=== PATIENT | male | born 1940 ===

== ENCOUNTER 2017-07-18 14:38 | Inpatient (IN) | payer MEDICARE, MEDICAID ==
--- NOTE | 2017-07-18 15:49 | C.PDOC ---
History Of Present Illness 76 year old male with a past medical history of dementia who presents to the emergency department accompanied by family who are concerned because patient is sleeping during the day and ambulating during the night. As per history from family, patient is has a increased frequency of escaping the house and being returned by the police. Patient has an ataxic gait without fall. Patient also has a history of incontinence of urine and has been wearing a diaper since May. Time Seen by Provider: 07/18/17 15:43 Chief Complaint (Nursing): Medical Clearance History Per: Patient, Family History/Exam Limitations: no limitations Past Medical History Reviewed: Historical Data, Nursing Documentation, Vital Signs Vital Signs: Last Vital Signs Temp 97.2 F L 07/21/17 16:00 Pulse 69 07/21/17 16:00 Resp 20 07/21/17 16:00 BP 125/71 07/21/17 16:00 Pulse Ox 100 07/22/17 00:33 - Medical History PMH: Alzheimer's Disease (yes, per FAS report), HTN Family History: States: No Known Family Hx - Social History Hx Alcohol Use: No (unknown) Hx Substance Use: No (unknown) - Immunization History Hx Tetanus Toxoid Vaccination: No Hx Influenza Vaccination: No Hx Pneumococcal Vaccination: No Review Of Systems Except As Marked, All Systems Reviewed And Found Negative. (As per HPI, otherwise negative) Genitourinary: Positive for: Incontinence (Not new, patient has been wearing diaper since may) Physical Exam - Physical Exam Appears: Well (Pleasent elderly man), Non-toxic, Confused Skin: Normal Color, Warm, Dry Head: Atraumatic, Normacephalic Cardiovascular: Rhythm Regular, No Murmur Respiratory: Normal Breath Sounds, No Decreased Breath Sounds, No Accessory Muscle Use, No Wheezing Neurological/Psych: Oriented x3, Normal Speech Gait: Steady (Mildly intact) ED Course And Treatment - Laboratory Results Result Diagrams: 07/21/17 07:30 07/21/17 07:30 Lab Interpretation: Normal ECG: Interpreted By Me ECG Rhythm: Sinus Rhythm ECG Interpretation: Normal Rate From EC O2 Sat by Pulse Oximetry: 100 (RA) Pulse Ox Interpretation: Normal - Radiology CXR: Interpreted by Me CXR Interpretation: Yes: No Acute Disease Reevaluation Time: 18:37 Reassessment Condition: Improved - Physician Consult Information Outcome Of Conversation: 1830: d/w Dr. Guan- Hospitalist covering self-pay , ok to admit. 1700: d/w Dr Sherman- Neuro Applications Coordinator- recommends Obs and MRI in AM to help differentiate between communicating/non-communicating hydrocephalus and potential for developing pt's dementia vs long-standing Alzheimers. Medical Decision Making Medical Decision Making: gait ataxia, non-magnetic gait, urinary incontinence, and hydrocephalus on CT concerning for NPH vs communicating hydrocephalus vs Alzheimer's Dementia. Time: 1548 --EKG --Drug, Screen --Head CT Time: 1628 --Obstructive Seris Time: 1643 --Head Ct IMPRESSION: Moderate diffuse atrophy. Mild dilatation of the 3rd and lateral ventricles disproportion to the degree of surrounding parenchymal atrophy. Possible noncommunicating hydrocephalus. No intracranial mass, hemorrhage or evidence of acute infarct. Time: 1718 --Neurology Consult with Dr. Cruz Sherman MD Time: 1814 --Admit to hospital routine: in Observation for hydrocephalus, ataxia, urinary incontinence, and dementia under the care of Dr. Dora Cavazos MD. Disposition Doctor Will See Patient In The: Hospital Counseled Patient/Family Regarding: Studies Performed, Diagnosis - Disposition Disposition: HOSPITALIZED Disposition Time: 18:41 Condition: GOOD - Clinical Impression Clinical Impression: Dementia, Hydrocephalus - Scribe Statement Nat King All medical record entries made by the Scribe were at my direction and personally dictated by me. I have reviewed the chart and agree that the record accurately reflects my personal performance of the history, physical exam, medical decision making, and the department course for this patient. I have also personally directed, reviewed, and agree with the discharge instructions and disposition.
[2017-07-18 16:06] LABS: BASO # 0.1 K/uL (0.0-0.2); BASO % 0.9 % (0.0-2.0); EOS # 0.2 K/uL (0.0-0.7); EOS % 2.4 % (0.0-4.0); HEMOGLOBIN 13.3 g/dL (12.0-18.0); LYMPH # 2.6 K/uL (1.0-4.3); LYMPH % 30.4 % (20.0-40.0); MEAN CELL VOLUME 94.8 fL (80.0-94.0); MEAN CORPUSCULAR HEMOGLOBIN 32.7 pg (27.0-31.0); MEAN CORPUSCULAR HGB CONC 34.5 g/dL (33.0-37.0); MEAN PLATELET VOLUME 10.5 fL (7.2-11.7); MONO # 0.9 K/uL (0.0-0.8); MONO % 10.5 % (0.0-10.0); NEUT # 4.7 K/uL (1.8-7.0); NEUT % 55.8 % (50.0-75.0); NRBC % 0.1 % (0.0-2.0); RBC 4.07 Mil/uL (4.40-5.90); RED CELL DISTRIBUTION WIDTH 13.8 % (11.5-14.5); WHITE BLOOD COUNT 8.5 K/uL (4.8-10.8)
--- NOTE | 2017-07-18 16:52 | CT ---
PROCEDURE: CT HEAD WITHOUT CONTRAST. HISTORY: demented, changed behavior, ? SDH?NPH COMPARISON: None available. TECHNIQUE: Axial computed tomography images were obtained through the head/brain without intravenous contrast. Radiation dose: Total exam DLP = 980.87 mGy-cm. This CT exam was performed using one or more of the following dose reduction techniques: Automated exposure control, adjustment of the mA and/or kV according to patient size, and/or use of iterative reconstruction technique. FINDINGS: HEMORRHAGE: No intracranial hemorrhage. BRAIN: No mass effect or edema. Moderate diffuse atrophy. No evidence of acute infarct. VENTRICLES: There is mild dilatation of the 3rd and lateral ventricles. There is no significant dilatation of the temporal horns of the lateral ventricles. This may reflect noncommunicating hydrocephalus. It is slightly disproportionate to the degree of surrounding parenchymal atrophy. . CALVARIUM: Unremarkable. PARANASAL SINUSES: Unremarkable as visualized. No significant inflammatory changes. MASTOID AIR CELLS: Unremarkable as visualized. No inflammatory changes. OTHER FINDINGS: None. IMPRESSION: Moderate diffuse atrophy. Mild dilatation of the 3rd and lateral ventricles disproportion to the degree of surrounding parenchymal atrophy. Possible noncommunicating hydrocephalus. No intracranial mass, hemorrhage or evidence of acute infarct.
[2017-07-18 17:04] LABS: CALCIUM 8.2 mg/dl (8.6-10.4); GFR AFRICAN-AMERICAN > 60; GFR NON-AFRICAN AMERICAN > 60
[2017-07-18 17:10] LABS: ALB/GLOB RATIO 1.3 (1.0-2.1); ALBUMIN 4.1 g/dL (3.5-5.0); ALT/SGPT 31 U/L (21-72); AST/SGOT 34 U/L (17-59); BLOOD UREA NITROGEN 21 mg/dL (9-20)
--- NOTE | 2017-07-18 20:07 | CP.PCM.HP ---
<Aminata Bryant - Last Filed: 07/18/17 21:54> History of Present Illness - History of Present Illness History of Present Illness: HPI: Patient is a 76 year old male with past medical history of Alzheimer's dementia, HTN, DM presents to the ED for worsening forgetfulness. Patient was brought to the ED by his , Pebbles Desouza. She states that the patient has been having memory lapses and wandering more frequently. He has been stepping out of the house when everybody is sleeping. This has happened at least 5 times in the last 3 months. Per the step-son, the patient used to leave the house and be able to find his way back home but as of late, when he leaves he is unable to get back home. He has picked the patient up from [place] previously. Patient still thinks that he has to go to work. 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 Per the family, the patient was diagnosed with hydrocephalus [place] [address] Ashanti Encinas (Neurologist) . Patient has also been incontinent of urine since his prostate surgery in 2006. Denies hx of falls, fevers, chills, headaches, dizziness, cp, palpitations , sob, abdominal pain, urinary symptoms, changes in bowel habits. Last BM was this afternoon. PMD: Dr Domingo Ruano (last visit was 5 months ago) Allergies: NKDA Medications: Atorvastatin 10mg PO HS, Januvia 50mg, Metformin (dose unknown), Zoloft 50mg, Enalapril 20mg Medical Hx: HTN, Alzheimer's dementia, DM, HLD Surgical Hx: Prostate surgery in 2006 Social Hx: Former smoker, quit 7 years ago (smoked for 10-15 years); denies alcohol, tobacco use; lives with , has four children in [place] Family Hx: Denies Present on Admission - Present on Admission Any Indicators Present on Admission: No Review of Systems - Review of Systems All systems: reviewed and no additional remarkable complaints except - Constitutional Constitutional: absent: Chills, Fever, Frequent Falls - EENT Eyes: absent: Change in Vision Ears: absent: Dizziness - Cardiovascular Cardiovascular: absent: Chest Pain, Dyspnea, Lightheadedness, Palpitations, Syncope - Respiratory Respiratory: absent: Cough, Dyspnea, Wheezing - Gastrointestinal Gastrointestinal: absent: Abdominal Pain, Constipation, Cramping, Diarrhea, Nausea, Vomiting - Genitourinary Genitourinary: Urinary Incontinence, Hx /Renal Surgery. absent: Dysuria - Musculoskeletal Musculoskeletal: absent: Abnormal Gait, Back Pain, Numbness, Tingling - Neurological Neurological: Confusion, Memory Loss. absent: Abnormal Gait, Abnormal Speech, Dizziness, Frequent Falls, Headaches, Syncope, Tingling, Weakness - Psychiatric Psychiatric: absent: Anxiety, Depression Past Patient History - Past Social History Smoking Status: Never Smoked - CARDIAC Hx Hypertension: Yes - NEUROLOGICAL Hx Alzheimer's Disease: Yes (yes, per FAS report) - ENDOCRINE/METABOLIC Hx Endocrine Disorders: Yes Hx Diabetes Mellitus Type 2: Yes - GENITOURINARY/GYNECOLOGICAL Hx Genitourinary Disorders: Yes Hx Prostate Problems: Yes - PSYCHIATRIC Hx Substance Use: No (unknown) - SURGICAL HISTORY Hx Surgeries: Yes Other/Comment: prostate surgery. has a pump in the bladder to pump urine ??? Meds Allergies/Adverse Reactions: Allergies Allergy/AdvReac Type Severity Reaction Status Date / Time No Known Allergies Allergy Verified 07/18/17 15:00 Physical Exam - Constitutional Appears: Well, No Acute Distress - Head Exam Head Exam: ATRAUMATIC, NORMAL INSPECTION, NORMOCEPHALIC - Eye Exam Eye Exam: EOMI, Normal appearance Pupil Exam: NORMAL ACCOMODATION - ENT Exam ENT Exam: Mucous Membranes Moist - Neck Exam Neck exam: Positive for: Full Rom - Respiratory Exam Respiratory Exam: Clear to Auscultation Bilateral, NORMAL BREATHING PATTERN. absent: Accessory Muscle Use, Decreased Breath Sounds, Rales, Rhonchi, Wheezes, Respiratory Distress - Cardiovascular Exam Cardiovascular Exam: REGULAR RHYTHM, +S1, +S2. absent: Bradycardia, Tachycardia , Systolic Murmur - GI/Abdominal Exam GI & Abdominal Exam: Distended, Normal Bowel Sounds, Soft. absent: Hernia, Hypoactive Bowel Sounds, Rebound, Rigid, Tenderness - Rectal Exam Rectal Exam: Deferred - Extremities Exam Extremities exam: Positive for: normal capillary refill, normal inspection, pedal pulses present. Negative for: calf tenderness, pedal edema - Back Exam Back exam: NORMAL INSPECTION - Neurological Exam Neurological exam: Alert (Oriented to person and place, not time), CN II-XII Intact - Psychiatric Exam Psychiatric exam: Normal Affect, Normal Mood - Skin Skin Exam: Dry, Normal Color, Warm Results - Vital Signs Recent Vital Signs: Last Vital Signs Temp 98.3 F 07/18/17 17:43 Pulse 60 07/18/17 17:43 Resp 20 07/18/17 17:43 BP 152/73 H 07/18/17 17:43 Pulse Ox 100 07/18/17 18:41 - Labs Result Diagrams: 07/18/17 15:58 07/18/17 16:47 Labs: Laboratory Results - last 24 hr 07/18/17 07/18/17 15:58 16:47 WBC 8.5 RBC 4.07 L Hgb 13.3 Hct 38.6 MCV 94.8 H MCH 32.7 H MCHC 34.5 RDW 13.8 Plt Count 143 MPV 10.5 Neut % (Auto) 55.8 Lymph % (Auto) 30.4 [place] % (Auto) 10.5 H Eos % (Auto) 2.4 Baso % (Auto) 0.9 Neut # 4.7 Lymph # 2.6 [place] # 0.9 H Eos # 0.2 Baso # 0.1 Sodium 135 Potassium 4.5 Chloride 105 Carbon Dioxide 23 Anion Gap 11 BUN 21 H Creatinine 0.9 Est GFR ( Amer) > 60 Est GFR (Non-Af Amer) > 60 Random Glucose 92 Calcium 8.2 L Total Bilirubin 0.8 AST 34 ALT 31 Alkaline Phosphatase 41 Troponin I 0.0320 Total Protein 7.2 Albumin 4.1 Globulin 3.1 Albumin/Globulin Ratio 1.3 Assessment & Plan - Assessment and Plan (Free Text) Assessment: 1. Worsening Dementia, Hx of Alzheimer's dementia, Hx of Hydrocephalus -Stable, afebrile -Admit to Med/Surg -CT head: moderate diffuse atrophy, mild dilation of 3rd and lateral ventricles disproportion to the degree of surrounding parenchymal atrophy. Possible noncommunicating hydrocephalus -Brain MRI ordered -F/U UA, UDS, Vitamin B12 -Neuro checks q4H -Neurology on consult, Dr Sherman, help appreciated -May need lumbar puncture -1:1 observation, elopement risk -Fall precautions -Social work referral 2. Epigastric Discomfort? -Patient denies any pain at this time, abdomen does look distended, NTTP -Abdominal Obstructive series ordered -Protonix 40mg IVP daily -Serial abdominal exams 3. History of Hypertension -Continue Enalapril -Hydralazine 10mg Q6H prn -Monitor 4. History of Diabetes Mellitus -Low dose ISS, accuchecks ACHS -Takes Januvia 50mg and Metformin at home, will hold at this time -F/U HgA1c 5. History of Hyperlipidemia -On Atorvastatin 10mg PO HS at home -While in house, Crestor 5mg PO HS -F/U lipid panel 6. History of Anxiety/Depression -On Zoloft 50mg PO daily at home Prophylactic Measure -Protonix 40mg IVP daily -Lovenox 40 SC daily <Jung Richter - Last Filed: 07/19/17 06:31> Results - Vital Signs Recent Vital Signs: Last Vital Signs Temp 97.7 F 07/19/17 00:20 Pulse 60 07/19/17 00:20 Resp 20 07/19/17 00:20 BP 134/69 07/19/17 00:20 Pulse Ox 96 07/19/17 00:20 - Labs Result Diagrams: 07/18/17 15:58 07/18/17 16:47 Labs: Laboratory Results - last 24 hr 07/18/17 07/18/17 07/19/17 15:58 16:47 02:20 WBC 8.5 RBC 4.07 L Hgb 13.3 Hct 38.6 MCV 94.8 H MCH 32.7 H MCHC 34.5 RDW 13.8 Plt Count 143 MPV 10.5 Neut % (Auto) 55.8 Lymph % (Auto) 30.4 [place] % (Auto) 10.5 H Eos % (Auto) 2.4 Baso % (Auto) 0.9 Neut # 4.7 Lymph # 2.6 [place] # 0.9 H Eos # 0.2 Baso # 0.1 Sodium 135 Potassium 4.5 Chloride 105 Carbon Dioxide 23 Anion Gap 11 BUN 21 H Creatinine 0.9 Est GFR ( Amer) > 60 Est GFR (Non-Af Amer) > 60 POC Glucose (mg/dL) 67 Random Glucose 92 Calcium 8.2 L Total Bilirubin 0.8 AST 34 ALT 31 Alkaline Phosphatase 41 Troponin I 0.0320 Total Protein 7.2 Albumin 4.1 Globulin 3.1 Albumin/Globulin Ratio 1.3 07/19/17 07/19/17 02:22 02:44 WBC RBC Hgb Hct MCV MCH MCHC RDW Plt Count MPV Neut % (Auto) Lymph % (Auto) [place] % (Auto) Eos % (Auto) Baso % (Auto) Neut # Lymph # [place] # Eos # Baso # Sodium Potassium Chloride Carbon Dioxide Anion Gap BUN Creatinine Est GFR ( Amer) Est GFR (Non-Af Amer) POC Glucose (mg/dL) 64 L 136 H Random Glucose Calcium Total Bilirubin AST ALT Alkaline Phosphatase Troponin I Total Protein Albumin Globulin Albumin/Globulin Ratio Assessment & Plan - Date & Time Date: 07/19/17 (I have seen and examined the patient. I agree with the findings and plan of care as documented by Dr. Bryant. Patient with change in mental status. Patient has baseline dementia, but recently with increase forgetfulness. CT head results with possible NPH. Check MRI brain. Consult to Dr. Sherman. Patient with complaints of epigastric pain. Follow up official results of obstructive series. Continue home meds for history of hypertension. Monitor for acute changes.) Time: 06:28 Attending/Attestation - Attestation I have personally seen and examined this patient.: Yes I have fully participated in the care of the patient.: Yes I have reviewed all pertinent clinical information: Yes
[2017-07-19] MEDS ORDERED: Dextrose 50% SYRINGE Inj (50 ml) ONE (02:27)
[2017-07-19] MEDS ORDERED: Dextrose 50% SYRINGE Inj (50 ml) IV PRN (02:47)
[2017-07-19] MEDS ORDERED: Glucagon Recombinant 1 mg Inj IM PRN (02:47)
[2017-07-19] MEDS: Sodium Chloride 0.9% 1,000 ML IV SCH ×4 (06:48→23:00)
[2017-07-19] MEDS: (Novolog) Insulin Aspart, Recombinant 100 u/ml 10 ml vial SC SCH ×4 (08:08→22:30)
[2017-07-19 08:47] LABS: BASO % 0.8 % (0.0-2.0); EOS # 0.2 K/uL (0.0-0.7); EOS % 3.8 % (0.0-4.0); HEMOGLOBIN 12.8 g/dL (12.0-18.0); LYMPH # 2.3 K/uL (1.0-4.3); LYMPH % 39.9 % (20.0-40.0); MEAN CELL VOLUME 94.1 fL (80.0-94.0); MEAN CORPUSCULAR HEMOGLOBIN 33.2 pg (27.0-31.0); MEAN CORPUSCULAR HGB CONC 35.3 g/dL (33.0-37.0); MEAN PLATELET VOLUME 10.7 fL (7.2-11.7); MONO # 0.6 K/uL (0.0-0.8); NEUT # 2.6 K/uL (1.8-7.0); NEUT % 44.5 % (50.0-75.0); RBC 3.86 Mil/uL (4.40-5.90); RED CELL DISTRIBUTION WIDTH 13.7 % (11.5-14.5); WHITE BLOOD COUNT 5.7 K/uL (4.8-10.8)
[2017-07-19 09:16] LABS: ALB/GLOB RATIO 1.2 (1.0-2.1); ALBUMIN 3.7 g/dL (3.5-5.0); ALT/SGPT 32 U/L (21-72); AST/SGOT 26 U/L (17-59); BLOOD UREA NITROGEN 18 mg/dL (9-20); CALCIUM 8.3 mg/dl (8.6-10.4); GFR AFRICAN-AMERICAN > 60; GFR NON-AFRICAN AMERICAN > 60; HDL CHOLESTEROL 28 mg/dL (30-70)
[2017-07-19 09:25] LABS: LDL CHOLESTEROL 140 mg/dL (0-129)
[2017-07-19] MEDS: Enoxaparin 40 mg Syringe SC SCH (10:30)
--- NOTE | 2017-07-19 14:37 | MRI ---
PROCEDURE: MRI BRAIN WITHOUT CONTRAST HISTORY: worsening dementia vs hydrocephalus COMPARISON: Comparison is made with the previous CT dated 07/18/2017 TECHNIQUE: Multiplanar, multisequence MR images of the brain were obtained without intravenous contrast enhancement. FINDINGS: HEMORRHAGE: None DWI: No evidence of an acute or early subacute infarction. BRAIN PARENCHYMA: No mass effect or edema. Moderate atrophy is again noted. VENTRICLES: The ventricles are moderately dilated. The possibility of hydrocephalus is not totally excluded. Correlate clinically for normal pressure hydrocephalus. CRANIUM: Unremarkable. ORBITS: Grossly unremarkable. PARANASAL SINUSES/MASTOIDS: Clear VASCULAR SYSTEM: Skull base flow voids intact. OTHER FINDINGS: None. IMPRESSION: No evidence of acute infarction or acute pathology in the brain. No evidence of mass lesion mass effect or midline shift. Moderately dilated ventricles out of proportion of the dilated sulci suggestive of central atrophy versus normal pressure hydrocephalus.
--- NOTE | 2017-07-19 14:42 | RAD ---
PROCEDURE: Radiographs of the chest and abdomen (obstructive series) HISTORY: epigastric discomfort COMPARISON: No prior. TECHNIQUE: AP radiograph of the chest, with upright and supine radiographs of the abdomen. FINDINGS: CHEST: Lungs: Clear. Cardiovascular: Normal size heart. No pulmonary vascular congestion. Pleura: No pleural fluid. No pneumothorax. Other findings: None. ABDOMEN AND PELVIS: Bowel: Unremarkable bowel gas pattern. No evidence of mechanical obstruction. Free air: None. Bones: Unremarkable. Other findings: None. IMPRESSION: Unremarkable radiographs of chest and abdomen. No evidence of mechanical bowel obstruction.
--- NOTE | 2017-07-19 15:00 | CP.PCM.CON ---
History of Present Illness - History of Present Illness History of Present Illness: Mr. Camacho is a 76-year-old man with a past medical history of HTN and dementia, who has become more forgetful and has developed difficulty with ambulation as well as urinary incontinence. CT scan of the head was done and showed significant hydrocephalus. MRI was subsequently done and was consistent with normal pressure hydrocephalus. Review of Systems - Review of Systems Systems not reviewed;Unavailable: Altered Mental Status All systems: reviewed and no additional remarkable complaints except Past Patient History - Past Social History Smoking Status: Never Smoked - CARDIAC Hx Hypertension: Yes - NEUROLOGICAL Hx Alzheimer's Disease: Yes (yes, per FAS report) - ENDOCRINE/METABOLIC Hx Endocrine Disorders: Yes Hx Diabetes Mellitus Type 2: Yes - GENITOURINARY/GYNECOLOGICAL Hx Genitourinary Disorders: Yes Hx Prostate Problems: Yes - PSYCHIATRIC Hx Substance Use: No (unknown) - SURGICAL HISTORY Hx Surgeries: Yes Other/Comment: prostate surgery. has a pump in the bladder to pump urine ??? Meds Allergies/Adverse Reactions: Allergies Allergy/AdvReac Type Severity Reaction Status Date / Time No Known Allergies Allergy Verified 07/18/17 15:00 - Medications Medications: Current Medications Dextrose (Dextrose 50% Inj) 0 ml IV STAT PRN; Protocol PRN Reason: Hypoglycemia Protocol Dextrose (Glutose 15) 0 gm PO ONCE PRN; Protocol PRN Reason: Hypoglycemia Protocol Enalapril Maleate (Vasotec) 20 mg PO DAILY [facility] Last Admin: 07/19/17 10:30 Dose: 20 mg Enoxaparin Sodium (Lovenox) 40 mg SC DAILY [facility] Last Admin: 07/19/17 10:30 Dose: 40 mg Glucagon (Glucagen Diagnostic Kit) 0 mg IM STAT PRN; Protocol PRN Reason: Hypoglycemia Protocol Hydralazine HCl (Apresoline) 10 mg IVP Q6H PRN PRN Reason: Systolic Blood Pressure Dextrose (Dextrose 5% In Water 1000 Ml) 1,000 mls @ 0 mls/hr IV .Q0M PRN; Protocol; Per Protocol PRN Reason: Hypoglycemia Protocol Last Admin: 07/19/17 02:55 Dose: 100 mls/hr Sodium Chloride (Sodium Chloride 0.9%) 1,000 mls @ 100 mls/hr IV .Q10H [facility] Last Admin: 07/19/17 13:05 Dose: Not Given Insulin Aspart (Novolog) 0 unit SC ACHS [facility] PRN Reason: Protocol Last Admin: 07/19/17 12:11 Dose: Not Given Pantoprazole Sodium (Protonix Inj) 40 mg IVP DAILY [facility] Last Admin: 07/19/17 10:30 Dose: 40 mg Rosuvastatin Calcium (Crestor) 5 mg PO HS [facility] Physical Exam - Constitutional Appears: Well - Head Exam Head Exam: ATRAUMATIC, NORMAL INSPECTION, NORMOCEPHALIC - Eye Exam Eye Exam: EOMI, Normal appearance, PERRL - ENT Exam ENT Exam: Mucous Membranes Moist, Normal Exam - Neck Exam Neck exam: Positive for: Normal Inspection - Respiratory Exam Respiratory Exam: Clear to Auscultation Bilateral, NORMAL BREATHING PATTERN - Cardiovascular Exam Cardiovascular Exam: REGULAR RHYTHM, +S1, +S2 - GI/Abdominal Exam GI & Abdominal Exam: Normal Bowel Sounds, Soft. absent: Tenderness - Rectal Exam Rectal Exam: Deferred - Neurological Exam Neurological exam: Abnormal Gait, Altered, CN II-XII Intact, Reflexes Normal Additional comments: Not oriented to time, place or age. He has an ataxic, wide-based gait. Is pleasant, not suspicious or paranoid. Strength is symmetrical and full throughout. Sensation is intact to LT/P/T. Reflexes are normal. Results - Vital Signs Recent Vital Signs: Last Vital Signs Temp 97.7 F 07/19/17 08:00 Pulse 58 L 07/19/17 08:00 Resp 20 07/19/17 08:00 BP 134/69 07/19/17 10:30 Pulse Ox 100 07/19/17 08:00 - Labs Result Diagrams: 07/19/17 08:38 07/19/17 08:38 Labs: Laboratory Results - last 24 hr 07/18/17 07/18/17 07/19/17 15:58 16:47 02:20 WBC 8.5 RBC 4.07 L Hgb 13.3 Hct 38.6 MCV 94.8 H MCH 32.7 H MCHC 34.5 RDW 13.8 Plt Count 143 MPV 10.5 Neut % (Auto) 55.8 Lymph % (Auto) 30.4 [place] % (Auto) 10.5 H Eos % (Auto) 2.4 Baso % (Auto) 0.9 Neut # 4.7 Lymph # 2.6 [place] # 0.9 H Eos # 0.2 Baso # 0.1 Sodium 135 Potassium 4.5 Chloride 105 Carbon Dioxide 23 Anion Gap 11 BUN 21 H Creatinine 0.9 Est GFR ( Amer) > 60 Est GFR (Non-Af Amer) > 60 POC Glucose (mg/dL) 67 Random Glucose 92 Calcium 8.2 L Total Bilirubin 0.8 AST 34 ALT 31 Alkaline Phosphatase 41 Troponin I 0.0320 Total Protein 7.2 Albumin 4.1 Globulin 3.1 Albumin/Globulin Ratio 1.3 Triglycerides Cholesterol LDL Cholesterol Direct HDL Cholesterol Vitamin B12 07/19/17 07/19/17 07/19/17 02:22 02:44 07:09 WBC RBC Hgb Hct MCV MCH MCHC RDW Plt Count MPV Neut % (Auto) Lymph % (Auto) [place] % (Auto) Eos % (Auto) Baso % (Auto) Neut # Lymph # [place] # Eos # Baso # Sodium Potassium Chloride Carbon Dioxide Anion Gap BUN Creatinine Est GFR ( Amer) Est GFR (Non-Af Amer) POC Glucose (mg/dL) 64 L 136 H 93 Random Glucose Calcium Total Bilirubin AST ALT Alkaline Phosphatase Troponin I Total Protein Albumin Globulin Albumin/Globulin Ratio Triglycerides Cholesterol LDL Cholesterol Direct HDL Cholesterol Vitamin B12 07/19/17 07/19/17 07/19/17 08:38 08:38 11:14 WBC 5.7 RBC 3.86 L Hgb 12.8 Hct 36.3 MCV 94.1 H MCH 33.2 H MCHC 35.3 RDW 13.7 Plt Count 130 MPV 10.7 Neut % (Auto) 44.5 L Lymph % (Auto) 39.9 [place] % (Auto) 11.0 H Eos % (Auto) 3.8 Baso % (Auto) 0.8 Neut # 2.6 Lymph # 2.3 [place] # 0.6 Eos # 0.2 Baso # 0.0 Sodium 133 Potassium 4.1 Chloride 102 Carbon Dioxide 24 Anion Gap 12 BUN 18 Creatinine 1.0 Est GFR ( Amer) > 60 Est GFR (Non-Af Amer) > 60 POC Glucose (mg/dL) 111 H Random Glucose 107 Calcium 8.3 L Total Bilirubin 0.6 AST 26 ALT 32 Alkaline Phosphatase 44 Troponin I Total Protein 6.7 Albumin 3.7 Globulin 3.0 Albumin/Globulin Ratio 1.2 Triglycerides 139 Cholesterol 195 LDL Cholesterol Direct 140 H HDL Cholesterol 28 L Vitamin B12 597 Assessment & Plan (1) Normal pressure hydrocephalus syndrome Assessment and Plan: I recommend neurosurgical consultation for possible treatment since the patient is progressing rapidly. Will defer to neurosurgery for further management and determine if the patient needs any further recommendations from a neurological perspective. Thank you. Status: Acute Priority: High
--- NOTE | 2017-07-19 16:57 | CP.PCM.PN ---
Subjective - Date & Time of Evaluation Date of Evaluation: 07/19/17 Time of Evaluation: 11:30 - Subjective Subjective: Medical Attending Note [employer] Computed Tom[employer] Technologist: Garth [id number] (Vietnamese) Patient seen at bedside with assistance with [employer] Comput[employer] Tom[employer] Technologist. Patient seen at bedside. 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 Patient reports he originally came from [place], about 2004. Patient is his first but his current common law is Pebbles who she lives with. Patient is able to correctly say his birthdate. Patient is able to say apple, fork, and book but cannot recall it. Patient reports he has urinary incontinence. Patient is able to walk while connected to IV pole. Patient denies headache, denies chest pain, denies palpitations, denies abdominal pain, denies nausea, denies vomiting, denies stool incontinence. Family not present at bedside during our conversation. Objective - Vital Signs/Intake and Output Vital Signs (last 24 hours): Temp Pulse Resp BP Pulse Ox 98.2 F 66 20 128/67 98 07/19/17 16:00 07/19/17 16:00 07/19/17 16:00 07/19/17 16:00 07/19/17 16:37 Intake and Output: 07/19/17 07/19/17 06:59 18:59 Intake Total 400 700 Balance 400 700 - Medications Medications: Current Medications Dextrose (Dextrose 50% Inj) 0 ml IV STAT PRN; Protocol PRN Reason: Hypoglycemia Protocol Dextrose (Glutose 15) 0 gm PO ONCE PRN; Protocol PRN Reason: Hypoglycemia Protocol Enalapril Maleate (Vasotec) 20 mg PO DAILY [facility] Last Admin: 07/19/17 10:30 Dose: 20 mg Enoxaparin Sodium (Lovenox) 40 mg SC DAILY [facility] Last Admin: 07/19/17 10:30 Dose: 40 mg Glucagon (Glucagen Diagnostic Kit) 0 mg IM STAT PRN; Protocol PRN Reason: Hypoglycemia Protocol Hydralazine HCl (Apresoline) 10 mg IVP Q6H PRN PRN Reason: Systolic Blood Pressure Dextrose (Dextrose 5% In Water 1000 Ml) 1,000 mls @ 0 mls/hr IV .Q0M PRN; Protocol; Per Protocol PRN Reason: Hypoglycemia Protocol Last Admin: 07/19/17 02:55 Dose: 100 mls/hr Sodium Chloride (Sodium Chloride 0.9%) 1,000 mls @ 100 mls/hr IV .Q10H [facility] Last Admin: 07/19/17 13:05 Dose: Not Given Insulin Aspart (Novolog) 0 unit SC ACHS [facility] PRN Reason: Protocol Last Admin: 07/19/17 12:11 Dose: Not Given Pantoprazole Sodium (Protonix Inj) 40 mg IVP DAILY [facility] Last Admin: 07/19/17 10:30 Dose: 40 mg Pneumococcal Polyvalent Vaccine (Pneumovax 23 Vaccine) 0.5 ml IM .ONCE ONE Stop: 07/22/17 10:01 Rosuvastatin Calcium (Crestor) 5 mg PO HS [facility] - Labs Labs: 07/19/17 08:38 07/19/17 08:38 - Constitutional Appears: Non-toxic, No Acute Distress - Head Exam Head Exam: NORMAL INSPECTION - Eye Exam Eye Exam: EOMI, PERRL. absent: Nystagmus, Scleral icterus Pupil Exam: NORMAL ACCOMODATION - ENT Exam ENT Exam: Mucous Membranes Moist - Respiratory Exam Respiratory Exam: Clear to Ausculation Bilateral, NORMAL BREATHING PATTERN. absent: Decreased Breath Sounds, Rales, Rhonchi - Cardiovascular Exam Cardiovascular Exam: REGULAR RHYTHM, +S1, +S2 - GI/Abdominal Exam GI & Abdominal Exam: Soft, Normal Bowel Sounds. absent: Distended, Firm, Guarding, Rigid, Tenderness, Rebound - Extremities Exam Extremities Exam: Normal Capillary Refill. absent: Pedal Edema, Tenderness - Back Exam Back Exam: absent: CVA tenderness (L), CVA tenderness (R) - Neurological Exam Neurological Exam: Alert, Awake, CN II-XII Intact, Normal Gait, Oriented x3 Neuro motor strength exam: Left Upper Extremity: 5, Right Upper Extremity: 5, Left Lower Extremity: 5, Right Lower Extremity: 5 Additional comments: negative pronator drift negative romberg strength 5/5 UE and 5/5 LE +gag reflex speaking well in greenlandic no observed nystagmus - Psychiatric Exam Psychiatric exam: Normal Affect, Normal Mood - Skin Skin Exam: Dry, Intact, Normal Color, Warm Assessment and Plan (1) Normal pressure hydrocephalus syndrome Assessment & Plan: Head CT (07/18/17): moderate diffuse atrophy. Mild dilatation f the 3rd and lateral ventricles disproportion to the degree of surrounding parenchymal atrophy. Possible noncommunicating hydrocephalus. No intracranial mass, hemorrhage, or evidence of acute infarct. Brain MRI (07/19/17): no evidence of acute infarction or acute pathology in the brain. No evidence of mass lesion mass effect or midline shift. Moderately dilated ventricles out or proportion of the dilated sulci suggestive of central atrophy versus normal pressure hydrocephalus. Neurology (Dr. Sherman) on the case-->recommend [facility] Coy[facility] consult-->f/u recommendations Will transfer patient to telemetry for further monitoring Status: Acute (2) Dementia Assessment & Plan: Head CT (07/18/17): moderate diffuse atrophy. Mild dilatation f the 3rd and lateral ventricles disproportion to the degree of surrounding parenchymal atrophy. Possible noncommunicating hydrocephalus. No intracranial mass, hemorrhage, or evidence of acute infarct. Brain MRI (07/19/17): no evidence of acute infarction or acute pathology in the brain. No evidence of mass lesion mass effect or midline shift. Moderately dilated ventricles out or proportion of the dilated sulci suggestive of central atrophy versus normal pressure hydrocephalus. Neurology (Dr. Sherman) on board-->Recommend neurosurgery Neurosurgery (Dr. 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 Assessment & Plan: neurosurgery eval physical therapy eval Status: Acute (4) Lipid disorder Assessment & Plan: LDL: 140, HDL: 28, T, Cholestrol: 195 Crestor 5mg POqHS Status: Chronic (5) Diabetes Assessment & Plan: pending a1c hypoglycemic protocol Status: Chronic (6) Asymptomatic PVCs Assessment & Plan: Cardiac risk factors: HTN, Lipid disorder EKG on admission: sinus with PVCs Patient denies chest pain/palpitations Cardiology (Dr Jean)- abnormal (PVCs) on EKG, with cardiac risk factor Order for echocardiogram Status: Acute (7) Prophylactic measure Assessment & Plan: NS 100cc/hr protonix 40mg IV q daily Lovenox 40mg subqdaily Transfer to telemetry for further monitoring in light of PVCs and worsening dementia/forgetfulness in light of NPH Status: Acute
[2017-07-20 08:48] LABS: BASO % 0.3 % (0.0-2.0); EOS # 0.2 K/uL (0.0-0.7); EOS % 2.2 % (0.0-4.0); HEMOGLOBIN 13.9 g/dL (12.0-18.0); LYMPH # 4.4 K/uL (1.0-4.3); LYMPH % 50.2 % (20.0-40.0); MEAN CELL VOLUME 94.4 fL (80.0-94.0); MEAN CORPUSCULAR HEMOGLOBIN 33.1 pg (27.0-31.0); MEAN PLATELET VOLUME 10.9 fL (7.2-11.7); MONO % 11.7 % (0.0-10.0); NEUT # 3.1 K/uL (1.8-7.0); NEUT % 35.6 % (50.0-75.0); NRBC % 0.1 % (0.0-2.0); RBC 4.22 Mil/uL (4.40-5.90); RED CELL DISTRIBUTION WIDTH 13.8 % (11.5-14.5)
[2017-07-20 08:51] LABS: INR 1.1; PROTHROMBIN TIME 12.5 SECONDS (9.7-12.2); WHITE BLOOD COUNT 8.8 K/uL (4.8-10.8)
[2017-07-20 09:19] LABS: ALB/GLOB RATIO 1.2 (1.0-2.1); ALBUMIN 4.4 g/dL (3.5-5.0); ALT/SGPT 35 U/L (21-72); AST/SGOT 36 U/L (17-59); BLOOD UREA NITROGEN 17 mg/dL (9-20); GFR AFRICAN-AMERICAN > 60; GFR NON-AFRICAN AMERICAN > 60
[2017-07-20 09:27] LABS: CK-MB 1.74 ng/mL (0.0-3.38)
[2017-07-20] MEDS: (Novolog) Insulin Aspart, Recombinant 100 u/ml 10 ml vial SC SCH ×4 (09:45→22:38)
[2017-07-20] MEDS: Enoxaparin 40 mg Syringe SC SCH (10:21)
--- NOTE | 2017-07-20 11:19 | CP.PCM.CON ---
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 will d/w family Past Patient History - Past Medical History & Family History Past Medical History?: Yes - Past Social History Smoking Status: Former Smoker - CARDIAC Hx Cardiac Disorders: Yes Hx Hypertension: Yes - PULMONARY Hx Respiratory Disorders: No - NEUROLOGICAL Hx Neurological Disorder: Yes Hx Alzheimer's Disease: Yes (yes, per FAS report) Other/Comment: DX HYDROCEPHALUS - HEENT Hx HEENT Problems: No - RENAL Hx Chronic Kidney Disease: No - ENDOCRINE/METABOLIC Hx Endocrine Disorders: Yes Hx Diabetes Mellitus Type 2: Yes - HEMATOLOGICAL/ONCOLOGICAL Hx Blood Disorders: No - INTEGUMENTARY Hx Dermatological Problems: No - MUSCULOSKELETAL/RHEUMATOLOGICAL Hx Musculoskeletal Disorders: Yes Hx Falls: No Hx Unsteady Gait: Yes - GASTROINTESTINAL Hx Gastrointestinal Disorders: No - GENITOURINARY/GYNECOLOGICAL Hx Genitourinary Disorders: Yes Hx Prostate Problems: Yes - PSYCHIATRIC Hx Psychophysiologic Disorder: No Hx Substance Use: No (unknown) - SURGICAL HISTORY Hx Surgeries: Yes Other/Comment: prostate surgery. has a pump in the bladder to pump urine ??? - ANESTHESIA Hx Anesthesia: Yes Hx Anesthesia Reactions: No Hx Malignant Hyperthermia: No Has any member of the family had a problem w/ anesthesia?: No Meds Allergies/Adverse Reactions: Allergies Allergy/AdvReac Type Severity Reaction Status Date / Time No Known Allergies Allergy Verified 07/18/17 15:00 - Medications Medications: Current Medications Dextrose (Dextrose 50% Inj) 0 ml IV STAT PRN; Protocol PRN Reason: Hypoglycemia Protocol Dextrose (Glutose 15) 0 gm PO ONCE PRN; Protocol PRN Reason: Hypoglycemia Protocol Enalapril Maleate (Vasotec) 20 mg PO DAILY [facility] Last Admin: 07/20/17 10:20 Dose: 20 mg Enoxaparin Sodium (Lovenox) 40 mg SC DAILY [facility] Last Admin: 07/20/17 10:21 Dose: Not Given Glucagon (Glucagen Diagnostic Kit) 0 mg IM STAT PRN; Protocol PRN Reason: Hypoglycemia Protocol Dextrose (Dextrose 5% In Water 1000 Ml) 1,000 mls @ 0 mls/hr IV .Q0M PRN; Protocol; Per Protocol PRN Reason: Hypoglycemia Protocol Last Admin: 07/19/17 02:55 Dose: 100 mls/hr Sodium Chloride (Sodium Chloride 0.9%) 1,000 mls @ 100 mls/hr IV .Q10H [facility] Last Admin: 07/19/17 23:00 Dose: Not Given Insulin Aspart (Novolog) 0 unit SC ACHS [facility] PRN Reason: Protocol Last Admin: 07/20/17 09:45 Dose: Not Given Pantoprazole Sodium (Protonix Inj) 40 mg IVP DAILY [facility] Last Admin: 07/20/17 10:22 Dose: 40 mg Pneumococcal Polyvalent Vaccine (Pneumovax 23 Vaccine) 0.5 ml IM .ONCE ONE Stop: 07/22/17 10:01 Rosuvastatin Calcium (Crestor) 5 mg PO [facility] Last Admin: 07/19/17 21:43 Dose: Not Given Results - Vital Signs Recent Vital Signs: Last Vital Signs Temp 97.9 F 07/19/17 23:40 Pulse 70 07/19/17 23:40 Resp 20 07/19/17 23:40 BP 103/52 L 07/20/17 10:20 Pulse Ox 100 07/19/17 23:40 - Labs Result Diagrams: 07/20/17 08:39 07/20/17 08:37 Labs: Laboratory Results - last 24 hr 07/19/17 07/19/17 07/19/17 11:14 16:18 21:27 WBC RBC Hgb Hct MCV MCH MCHC RDW Plt Count MPV Neut % (Auto) Lymph % (Auto) Saunders % (Auto) Eos % (Auto) Baso % (Auto) Neut # Lymph # Saunders # Eos # Baso # PT INR Sodium Potassium Chloride Carbon Dioxide Anion Gap BUN Creatinine Est GFR ( Amer) Est GFR (Non-Af Amer) POC Glucose (mg/dL) 111 H 101 80 Random Glucose Calcium Total Bilirubin AST ALT Alkaline Phosphatase Total Creatine Kinase CK-MB (Mass) Troponin I Total Protein Albumin Globulin Albumin/Globulin Ratio Folate TSH 3rd Generation RPR 07/19/17 07/20/17 07/20/17 23:46 06:55 08:37 WBC RBC Hgb Hct MCV MCH MCHC RDW Plt Count MPV Neut % (Auto) Lymph % (Auto) Saunders % (Auto) Eos % (Auto) Baso % (Auto) Neut # Lymph # Saunders # Eos # Baso # PT INR Sodium 138 Potassium 4.0 Chloride 100 Carbon Dioxide 27 Anion Gap 14 BUN 17 Creatinine 1.1 Est GFR ( Amer) > 60 Est GFR (Non-Af Amer) > 60 POC Glucose (mg/dL) 77 115 H Random Glucose 122 H Calcium 9.0 Total Bilirubin 1.0 AST 36 ALT 35 Alkaline Phosphatase 64 Total Creatine Kinase 215 H CK-MB (Mass) 1.74 Troponin I 0.0280 Total Protein 8.0 Albumin 4.4 Globulin 3.6 Albumin/Globulin Ratio 1.2 Folate 18.0 TSH 3rd Generation 8.01 H RPR 07/20/17 07/20/17 07/20/17 08:37 08:39 08:39 WBC 8.8 D RBC 4.22 L Hgb 13.9 Hct 39.8 MCV 94.4 H MCH 33.1 H MCHC 35.0 RDW 13.8 Plt Count 146 MPV 10.9 Neut % (Auto) 35.6 L Lymph % (Auto) 50.2 H Saunders % (Auto) 11.7 H Eos % (Auto) 2.2 Baso % (Auto) 0.3 Neut # 3.1 Lymph # 4.4 H Saunders # 1.0 H Eos # 0.2 Baso # 0.0 PT 12.5 H INR 1.1 Sodium Potassium Chloride Carbon Dioxide Anion Gap BUN Creatinine Est GFR ( Amer) Est GFR (Non-Af Amer) POC Glucose (mg/dL) Random Glucose Calcium Total Bilirubin AST ALT Alkaline Phosphatase Total Creatine Kinase CK-MB (Mass) Troponin I Total Protein Albumin Globulin Albumin/Globulin Ratio Folate TSH 3rd Generation RPR Nonreactive
--- NOTE | 2017-07-20 13:39 | CP.PCM.CON ---
History of Present Illness - History of Present Illness History of Present Illness: I was asked to see patient for PVCs. Patient is a 76 year old male with PMH HTN, hypercholesterolemia who was admitted for forgetfulness. 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 He was noted to have PVCs on EKG. He denies chest pain or dyspnea Review of Systems - Constitutional Constitutional: absent: As Per HPI, Anorexia, Chills, Daytime Sleepiness, Excessive Sweating, Fatigue, Fever, Frequent Falls, Headache, Increased Appetite , Lethargy, Malaise, Night Sweats, Snoring, Sleep Apnea, Weight Gain, Weight Loss, Weakness, Other - EENT Eyes: absent: As Per HPI, Blind Spots, Blurred Vision, Change in Vision, Decreased Night Vision, Diplopia, Discharge, Dry Eye, Exophthalmos, Floaters, Irritation, Itchy Eyes, Loss of Peripheral Vision, Pain, Photophobia, Requires Corrective Lenses, Sees Flashes, Spots in Vision, Tunnel Vision, Other Visual Disturbances, Loss of Vision, Other Ears: absent: As Per HPI, Decreased Hearing, Ear Discharge, Ear Pain, Tinnitus, Abnormal Hearing, Disequilibrium, Dizziness, Other Nose/Mouth/Throat: absent: As Per HPI, Epistaxis, Nasal Congestion, Nasal Discharge, Nasal Obstruction, Nasal Trauma, Nose Pain, Post Nasal Drip, Sinus Pain, Sinus Pressure, Bleeding Gums, Change in Voice, Dental Pain, Dry Mouth, Dysphagia, Halitosis, Hoarsness, Lip Swelling, Mouth Lesions, Mouth Pain, Odynophagia, Sore Throat, Throat Swelling, Tongue Swelling, Facial Pain, Neck Pain, Neck Mass, Other - Cardiovascular Cardiovascular: Dyspnea - Respiratory Respiratory: absent: As Per HPI, Cough, Dyspnea, Hemoptysis, Dyspnea on Exertion , Wheezing, Snoring, Stridor, Pain on Inspiration, Chest Congestion, Excessive Mucous Production, Change in Mucous Color, Pain with Coughing, Other - Gastrointestinal Gastrointestinal: absent: As Per HPI, Abdominal Pain, Belching, Bloating, Change in Bowel Habits, Change in Stool Character, Coffee Ground Emesis, Constipation, Cramping, Diarrhea, Dyspepsia, Dysphagia, Early Satiety, Excessive Flatus, Fecal Incontinence, Heartburn, Hematemesis, Hematochezia, Loose Stools, Melena, Nausea, Odynophagia, Temesmus, Vomiting, Other - Genitourinary Genitourinary: absent: As Per HPI, Change in Urinary Stream, Difficulty Urinating, Dysuria, Flank Pain, Hematuria, Pyuria, Nocturia, Urinary Incontinence, Urinary Frequency, Urinary Hesitance, Urinary Urgency, Voiding Freq/Small Amts, Freq UTI, Hx Renal/Bladder Calculi, Hx /Renal Surgery, Bladder Distension, Other - Musculoskeletal Musculoskeletal: absent: As Per HPI, Abnormal Gait, Arthralgias, Atrophy, Back Pain, Deformity, Joint Swelling, Limited Range of Motion, Loss of Height, Muscle Cramps, Muscle Weakness, Myalgias, Neck Pain, Numbness, Radiating Pain into Limb, Stiffness, Tingling, Other - Integumentary Integumentary: absent: As Per HPI, Acne, Alopecia, Bleeding Lesions, Change in Hair, Change in Nails, Change in Pigmentation, Changing Lesions, Dry Skin, Erythema, Furuncle, Hirsutism, Lesions, New Lesions, Non-Healing Lesions, Photosensitivity, Pruritus, Rash, Skin Pain, Skin Ulcer, Sores, Striae, Swelling , Unusual Bruising, Wounds, Jaundice, Other - Neurological Neurological: absent: As Per HPI, Abnormal Gait, Abnormal Hearing, Abnormal Movements, Abnormal Speech, Behavioral Changes, Burning Sensations, Confusion, Convulsions, Disequilibrium, Dizziness, Numbness, Focal Weakness, Frequent Falls , Headaches, Lack of Coordination, Loss of Vision, Memory Loss, Paresthesias, Radicular Pain, Restless Legs, Sensory Deficit, Syncope, Tingling, Tremor, Vertigo, Weakness, Other Visual Disturbances, Other - Psychiatric Psychiatric: absent: As Per HPI, Abnormal Sleep Pattern, Anhedonia, Anxiety, Auditory Hallucinations, Behavioral Changes, Change in Appetite, Change in Libido, Confusion, Depression, Difficulty Concentrating, Hallucinations, Homicidal Ideation, Hopelessness, Irritability, Memory Loss, Mood Swings, Panic Attacks, Paranoia, Suicidal Ideation, Visual Hallucinations, Tactile Hallucinations, Other - Endocrine Endocrine: absent: As Per HPI, Change in Body Appearance, Change in Libido, Cold Intolorance, Deepening of Voice, Excessive Sweating, Fatigue, Flushing, Heat Intolorance, Increase in Ring/Shoe/Hat Size, Palpitations, Polydipsia, Polyphagia, Polyuria, Other - Hematologic/Lymphatic Hematologic: absent: As Per HPI, Easy Bleeding, Easy Bruising, Lymphadenopathy, Other Past Patient History - Past Medical History & Family History Past Medical History?: Yes - Past Social History Smoking Status: Former Smoker - CARDIAC Hx Cardiac Disorders: Yes Hx Hypertension: Yes - PULMONARY Hx Respiratory Disorders: No - NEUROLOGICAL Hx Neurological Disorder: Yes Hx Alzheimer's Disease: Yes (yes, per FAS report) Other/Comment: DX HYDROCEPHALUS - HEENT Hx HEENT Problems: No - RENAL Hx Chronic Kidney Disease: No - ENDOCRINE/METABOLIC Hx Endocrine Disorders: Yes Hx Diabetes Mellitus Type 2: Yes - HEMATOLOGICAL/ONCOLOGICAL Hx Blood Disorders: No - INTEGUMENTARY Hx Dermatological Problems: No - MUSCULOSKELETAL/RHEUMATOLOGICAL Hx Musculoskeletal Disorders: Yes Hx Falls: No Hx Unsteady Gait: Yes - GASTROINTESTINAL Hx Gastrointestinal Disorders: No - GENITOURINARY/GYNECOLOGICAL Hx Genitourinary Disorders: Yes Hx Prostate Problems: Yes - PSYCHIATRIC Hx Psychophysiologic Disorder: No Hx Substance Use: No (unknown) - SURGICAL HISTORY Hx Surgeries: Yes Other/Comment: prostate surgery. has a pump in the bladder to pump urine ??? - ANESTHESIA Hx Anesthesia: Yes Hx Anesthesia Reactions: No Hx Malignant Hyperthermia: No Has any member of the family had a problem w/ anesthesia?: No Meds Allergies/Adverse Reactions: Allergies Allergy/AdvReac Type Severity Reaction Status Date / Time No Known Allergies Allergy Verified 07/18/17 15:00 - Medications Medications: Current Medications Dextrose (Dextrose 50% Inj) 0 ml IV STAT PRN; Protocol PRN Reason: Hypoglycemia Protocol Dextrose (Glutose 15) 0 gm PO ONCE PRN; Protocol PRN Reason: Hypoglycemia Protocol Enalapril Maleate (Vasotec) 20 mg PO DAILY [facility] Last Admin: 07/20/17 10:20 Dose: 20 mg Enoxaparin Sodium (Lovenox) 40 mg SC DAILY [facility] Last Admin: 07/20/17 10:21 Dose: Not Given Glucagon (Glucagen Diagnostic Kit) 0 mg IM STAT PRN; Protocol PRN Reason: Hypoglycemia Protocol Dextrose (Dextrose 5% In Water 1000 Ml) 1,000 mls @ 0 mls/hr IV .Q0M PRN; Protocol; Per Protocol PRN Reason: Hypoglycemia Protocol Last Admin: 07/19/17 02:55 Dose: 100 mls/hr Sodium Chloride (Sodium Chloride 0.9%) 1,000 mls @ 100 mls/hr IV .Q10H [facility] Last Admin: 07/19/17 23:00 Dose: Not Given Insulin Aspart (Novolog) 0 unit SC ACHS [facility] PRN Reason: Protocol Last Admin: 07/20/17 09:45 Dose: Not Given Pantoprazole Sodium (Protonix Inj) 40 mg IVP DAILY [facility] Last Admin: 07/20/17 10:22 Dose: 40 mg Pneumococcal Polyvalent Vaccine (Pneumovax 23 Vaccine) 0.5 ml IM .ONCE ONE Stop: 07/22/17 10:01 Rosuvastatin Calcium (Crestor) 5 mg PO HS [facility] Last Admin: 07/19/17 21:43 Dose: Not Given Physical Exam - Constitutional Appears: Non-toxic - Head Exam Head Exam: NORMAL INSPECTION - Eye Exam Eye Exam: Normal appearance - ENT Exam ENT Exam: Mucous Membranes Moist - Neck Exam Neck exam: Positive for: Full Rom - Respiratory Exam Respiratory Exam: Decreased Breath Sounds - Cardiovascular Exam Cardiovascular Exam: REGULAR RHYTHM - GI/Abdominal Exam GI & Abdominal Exam: Normal Bowel Sounds - Rectal Exam Rectal Exam: Deferred - Extremities Exam Extremities exam: Positive for: normal inspection - Back Exam Back exam: NORMAL INSPECTION - Neurological Exam Neurological exam: Alert, Oriented x3 - Psychiatric Exam Psychiatric exam: Normal Affect - Skin Skin Exam: Normal Color Results - Vital Signs Recent Vital Signs: Last Vital Signs Temp 97.9 F 07/19/17 23:40 Pulse 70 07/19/17 23:40 Resp 20 07/19/17 23:40 BP 103/52 L 07/20/17 10:20 Pulse Ox 100 07/19/17 23:40 - Labs Result Diagrams: 07/20/17 08:39 07/20/17 08:37 Labs: Laboratory Results - last 24 hr 07/19/17 07/19/17 07/19/17 16:18 21:27 23:46 WBC RBC Hgb Hct MCV MCH MCHC RDW Plt Count MPV Neut % (Auto) Lymph % (Auto) Weakley % (Auto) Eos % (Auto) Baso % (Auto) Neut # Lymph # Weakley # Eos # Baso # PT INR Sodium Potassium Chloride Carbon Dioxide Anion Gap BUN Creatinine Est GFR ( Amer) Est GFR (Non-Af Amer) POC Glucose (mg/dL) 101 80 77 Random Glucose Calcium Total Bilirubin AST ALT Alkaline Phosphatase Total Creatine Kinase CK-MB (Mass) Troponin I Total Protein Albumin Globulin Albumin/Globulin Ratio Folate Free T4 TSH 3rd Generation RPR 07/20/17 07/20/17 07/20/17 06:55 08:37 08:37 WBC RBC Hgb Hct MCV MCH MCHC RDW Plt Count MPV Neut % (Auto) Lymph % (Auto) Weak[place] % (Auto) Eos % (Auto) Baso % (Auto) Neut # Lymph # Weakley # Eos # Baso # PT INR Sodium 138 Potassium 4.0 Chloride 100 Carbon Dioxide 27 Anion Gap 14 BUN 17 Creatinine 1.1 Est GFR ( Amer) > 60 Est GFR (Non-Af Amer) > 60 POC Glucose (mg/dL) 115 H Random Glucose 122 H Calcium 9.0 Total Bilirubin 1.0 AST 36 ALT 35 Alkaline Phosphatase 64 Total Creatine Kinase 215 H CK-MB (Mass) 1.74 Troponin I 0.0280 Total Protein 8.0 Albumin 4.4 Globulin 3.6 Albumin/Globulin Ratio 1.2 Folate 18.0 Free T4 TSH 3rd Generation 8.01 H RPR Nonreactive 07/20/17 07/20/17 07/20/17 08:39 08:39 12:57 WBC 8.8 D RBC 4.22 L Hgb 13.9 Hct 39.8 MCV 94.4 H MCH 33.1 H MCHC 35.0 RDW 13.8 Plt Count 146 MPV 10.9 Neut % (Auto) 35.6 L Lymph % (Auto) 50.2 H Weakley % (Auto) 11.7 H Eos % (Auto) 2.2 Baso % (Auto) 0.3 Neut # 3.1 Lymph # 4.4 H Weakley # 1.0 H Eos # 0.2 Baso # 0.0 PT 12.5 H INR 1.1 Sodium Potassium Chloride Carbon Dioxide Anion Gap BUN Creatinine Est GFR ( Amer) Est GFR (Non-Af Amer) POC Glucose (mg/dL) Random Glucose Calcium Total Bilirubin AST ALT Alkaline Phosphatase Total Creatine Kinase CK-MB (Mass) Troponin I Total Protein Albumin Globulin Albumin/Globulin Ratio Folate Free T4 1.07 TSH 3rd Generation RPR - EKG Data EKG Interpreted by: Myself EKG shows normal: Sinus rhythm Assessment & Plan (1) HTN (hypertension) Assessment and Plan: blood pressure control. can use betablocker Status: Acute (2) Asymptomatic PVCs Assessment and Plan: will check echocardiogram Status: Acute
--- NOTE | 2017-07-20 13:52 | CP.PCM.PN ---
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 No family present at bedside. 1:1 present at bedside. Patient transferred from 3rd to 6th floor overnight. Patient noted to be confused, disoriented and aggressive overnight. Patient ripped out his IV lines overnight. Patient seen at bedside with medical team. Patient reports he is at the [employer]. Patient is able to say his 's name is Pebbles. 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 Patient denies headache, denies chills, denies chest pain, denies abdominal pain , denies nausea, denies vomitting, reports urinary incontinence. Patient is familiar to meeting my resident and myself but cannot recall we are his doctors. Patient is very nice fellow. Discussed with neurosurgery this AM, he will follow-up with patient's Pebbles in regards to MAIL PROCESSING MACHINE OPERATOR-shunt. Discussed with cardiology, we will await echocardiogram and recommend beta- calvin if needs. Objective - Vital Signs/Intake and Output Vital Signs (last 24 hours): Temp Pulse Resp BP Pulse Ox 97.9 F 70 20 103/52 L 100 07/19/17 23:40 07/19/17 23:40 07/19/17 23:40 07/20/17 10:20 07/19/17 23:40 Intake and Output: 07/20/17 07/20/17 06:59 18:59 Intake Total 640 Balance 640 - Medications Medications: Current Medications Dextrose (Dextrose 50% Inj) 0 ml IV STAT PRN; Protocol PRN Reason: Hypoglycemia Protocol Dextrose (Glutose 15) 0 gm PO ONCE PRN; Protocol PRN Reason: Hypoglycemia Protocol Enalapril Maleate (Vasotec) 20 mg PO DAILY [facility] Last Admin: 07/20/17 10:20 Dose: 20 mg Enoxaparin Sodium (Lovenox) 40 mg SC DAILY [facility] Last Admin: 07/20/17 10:21 Dose: Not Given Glucagon (Glucagen Diagnostic Kit) 0 mg IM STAT PRN; Protocol PRN Reason: Hypoglycemia Protocol Dextrose (Dextrose 5% In Water 1000 Ml) 1,000 mls @ 0 mls/hr IV .Q0M PRN; Protocol; Per Protocol PRN Reason: Hypoglycemia Protocol Last Admin: 07/19/17 02:55 Dose: 100 mls/hr Sodium Chloride (Sodium Chloride 0.9%) 1,000 mls @ 100 mls/hr IV .Q10H [facility] Last Admin: 07/19/17 23:00 Dose: Not Given Insulin Aspart (Novolog) 0 unit SC ACHS [facility] PRN Reason: Protocol Last Admin: 07/20/17 09:45 Dose: Not Given Pantoprazole Sodium (Protonix Inj) 40 mg IVP DAILY [facility] Last Admin: 07/20/17 10:22 Dose: 40 mg Pneumococcal Polyvalent Vaccine (Pneumovax 23 Vaccine) 0.5 ml IM .ONCE ONE Stop: 07/22/17 10:01 Rosuvastatin Calcium (Crestor) 5 mg PO HS [facility] Last Admin: 07/19/17 21:43 Dose: Not Given - Labs Labs: 07/20/17 08:39 07/20/17 08:37 PT 12.5 SECONDS (9.7-12.2) H 07/20/17 08:39 INR 1.1 07/20/17 08:39 - Constitutional Appears: Non-toxic, No Acute Distress - Head Exam Head Exam: NORMAL INSPECTION - Eye Exam Eye Exam: EOMI, PERRL. absent: Nystagmus, Scleral icterus Pupil Exam: NORMAL ACCOMODATION - ENT Exam ENT Exam: Mucous Membranes Moist - Respiratory Exam Respiratory Exam: Clear to Ausculation Bilateral, NORMAL BREATHING PATTERN. absent: Rales, Rhonchi, Wheezes - Cardiovascular Exam Cardiovascular Exam: REGULAR RHYTHM, +S1, +S2 - GI/Abdominal Exam GI & Abdominal Exam: Soft, Normal Bowel Sounds. absent: Distended, Firm, Guarding, Rigid, Tenderness, Hypoactive Bowel Sounds, Rebound - Extremities Exam Extremities Exam: absent: Pedal Edema, Tenderness - Back Exam Back Exam: absent: CVA tenderness (L), CVA tenderness (R) - Neurological Exam Neurological Exam: Alert, Awake, CN II-XII Intact, Oriented x3 Neuro motor strength exam: Left Upper Extremity: 5, Right Upper Extremity: 5, Left Lower Extremity: 5, Right Lower Extremity: 5 - Psychiatric Exam Psychiatric exam: Normal Affect, Normal Mood - Skin Skin Exam: Normal Color, Warm Additional comments: has minor abrasion over left upper extremity and dressing above wherein his IV line was removed Assessment and Plan (1) Normal pressure hydrocephalus syndrome Status: Acute (2) Dementia Status: Acute (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 Patient was seen by neurosurgery this morning; Will follow-up with patient's family in regards for neurosurgical intervention. Patient was seen by cardiology, await for echocardiogram, likely to be completed tomorrow. Patient is pleasant but is disoriented, confusion, and urinary incontinence. Assessment/Plan (1) Normal pressure hydrocephalus syndrome Assessment & Plan: * Head CT (07/18/17): moderate diffuse atrophy. Mild dilatation f the 3rd and lateral ventricles disproportion to the degree of surrounding parenchymal atrophy. Possible noncommunicating hydrocephalus. No intracranial mass, hemorrhage, or evidence of acute infarct. * Brain MRI (07/19/17): no evidence of acute infarction or acute pathology in the brain. No evidence of mass lesion mass effect or midline shift. Moderately dilated ventricles out or proportion of the dilated sulci suggestive of central atrophy versus normal pressure hydrocephalus. * Neurology (Dr. Sherman) on the case-->recommend for neurosurgical evaluation * Neurosurgery (Dr. Espinoza/Dr. Galindo) for consult-->good candidate for MAIL PROCESSING MACHINE OPERATOR shunt; will f/u with family * Neurochecks Q4H * Telemetry Status: Acute (2) Dementia Assessment & Plan: * Head CT (07/18/17): moderate diffuse atrophy. Mild dilatation f the 3rd and lateral ventricles disproportion to the degree of surrounding parenchymal atrophy. Possible noncommunicating hydrocephalus. No intracranial mass, hemorrhage, or evidence of acute infarct. * Brain MRI (07/19/17): no evidence of acute infarction or acute pathology in the brain. No evidence of mass lesion mass effect or midline shift. Moderately dilated ventricles out or proportion of the dilated sulci suggestive of central atrophy versus normal pressure hydrocephalus. * eurology (Dr. Sherman) on the case-->recommend for neurosurgical evaluation * Neurosurgery (Dr. Espinoza/Dr. 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 Espinoza/Dr. Galindo) for consult-->good candidate for MAIL PROCESSING MACHINE OPERATOR shunt; will f/u with family * physical therapy eval Status: Acute (4) Lipid disorder Assessment & Plan: * LDL: 140, HDL: 28, T, Cholestrol: 195 * Crestor 5mg POqHS Status: Chronic (5) Diabetes Assessment & Plan: * pending a1c * hypoglycemic protocol Status: Chronic (6) Asymptomatic PVCs Assessment & Plan: * Cardiac risk factors: HTN, Lipid disorder * EKG on admission: sinus with PVCs * Patient denies chest pain/palpitations * Cardiology (Dr Jean)- abnormal (PVCs) on EKG, with cardiac risk factor * Awaiting echocardiogram * Possible beta-calvin if needed * JOSEE: X2 negative Status: Acute (7) Prophylactic measure Assessment & Plan: * NS 100cc/hr * protonix 40mg IV q daily * Lovenox 40mg subqdaily * Telemetry * Neurochecks Q4H Status: Acute Disposition: Neurosurgery to discuss with family for MAIL PROCESSING MACHINE OPERATOR shunt. Cardiology evaluation underway; Pending echocardiogram Endocrinology given elevated TSH; no prior thyroid history Continue neurochecks and monitor on telemetry.
[2017-07-21 07:49] LABS: BASO % 0.4 % (0.0-2.0); EOS # 0.2 K/uL (0.0-0.7); EOS % 2.3 % (0.0-4.0); HEMOGLOBIN 12.6 g/dL (12.0-18.0); LYMPH # 2.6 K/uL (1.0-4.3); LYMPH % 33.1 % (20.0-40.0); MEAN CELL VOLUME 94.2 fL (80.0-94.0); MEAN CORPUSCULAR HEMOGLOBIN 31.6 pg (27.0-31.0); MEAN CORPUSCULAR HGB CONC 33.6 g/dL (33.0-37.0); MEAN PLATELET VOLUME 10.4 fL (7.2-11.7); MONO # 0.9 K/uL (0.0-0.8); MONO % 11.1 % (0.0-10.0); NEUT # 4.1 K/uL (1.8-7.0); NEUT % 53.1 % (50.0-75.0); NRBC % 0.2 % (0.0-2.0); RED CELL DISTRIBUTION WIDTH 14.2 % (11.5-14.5); WHITE BLOOD COUNT 7.7 K/uL (4.8-10.8)
[2017-07-21] MEDS: (Novolog) Insulin Aspart, Recombinant 100 u/ml 10 ml vial SC SCH ×4 (07:53→21:46)
[2017-07-21 08:37] LABS: ALB/GLOB RATIO 1.3 (1.0-2.1); ALBUMIN 3.7 g/dL (3.5-5.0); ALT/SGPT 29 U/L (21-72); AST/SGOT 30 U/L (17-59); BLOOD UREA NITROGEN 24 mg/dL (9-20); CALCIUM 8.3 mg/dl (8.6-10.4); GFR AFRICAN-AMERICAN > 60; GFR NON-AFRICAN AMERICAN 54
--- NOTE | 2017-07-21 09:29 | CON ---
DATE: 07/20/2017 HISTORY OF PRESENT ILLNESS: This is a 76-year-old gentleman with known dementia who has been progressively getting worse. He has also been noted to have urinary incontinence and gait difficulty. He was brought in by his family because he had become unmanageable. PAST MEDICAL HISTORY: Significant for hypertension and diabetes. The rest of his history, social, allergies, medications, etc., all reviewed in the EMR. PHYSICAL EXAMINATION: He is only oriented to name. He recognizes he does not know where he is and he believes it is 2015. He does name object presented. He does follow commands. Pupils are equal and reactive, EOMs are full. Face is symmetric. He has 5/5 strength throughout. Sensation is grossly intact. His reflexes are within normal limits. He walks with a wide-based gait. CT MRI of the brain show periventricular hydrocephalus with particular prominence of the temporal horns consistent with normal pressure hydrocephalus. IMPRESSION: Very typical clinical and radiographic appearance for normal pressure hydrocephalus. I certainly would recommend ventriculoperitoneal shunting. I will speak with the patient's family about proceeding. Kulwant Galindo MD
--- NOTE | 2017-07-21 10:12 | CP.PCM.PN ---
<Cynthia Valdez - Last Filed: 07/21/17 17:37> Subjective - Date & Time of Evaluation Date of Evaluation: 07/21/17 Time of Evaluation: 07:00 - Subjective Subjective: PGY1- Medicine Note- Dr. Hayes's Service Patient seen and examined at bedside and in no acute distress. Patient has no complaints. Patient says he remembers me, but is unsure from where. Patient is unable to say where he is or what city or state he is in. Patient says it is 2014. Patient denies any shortness of breath, chest pain, abdominal pain, nausea , vomiting, constipation, or diarrhea. Objective - Vital Signs/Intake and Output Vital Signs (last 24 hours): Temp Pulse Resp BP Pulse Ox 97.9 F 50 L 20 126/55 L 96 07/21/17 08:05 07/21/17 08:05 07/21/17 08:05 07/21/17 08:05 07/21/17 08:05 Intake and Output: 07/21/17 07/21/17 06:59 18:59 Intake Total 400 Balance 400 - Medications Medications: Current Medications Dextrose (Dextrose 50% Inj) 0 ml IV STAT PRN; Protocol PRN Reason: Hypoglycemia Protocol Dextrose (Glutose 15) 0 gm PO ONCE PRN; Protocol PRN Reason: Hypoglycemia Protocol Enalapril Maleate (Vasotec) 20 mg PO DAILY [facility] Last Admin: 07/20/17 10:20 Dose: 20 mg Enoxaparin Sodium (Lovenox) 40 mg SC DAILY [facility] Last Admin: 07/20/17 10:21 Dose: Not Given Glucagon (Glucagen Diagnostic Kit) 0 mg IM STAT PRN; Protocol PRN Reason: Hypoglycemia Protocol Dextrose (Dextrose 5% In Water 1000 Ml) 1,000 mls @ 0 mls/hr IV .Q0M PRN; Protocol; Per Protocol PRN Reason: Hypoglycemia Protocol Last Admin: 07/19/17 02:55 Dose: 100 mls/hr Sodium Chloride (Sodium Chloride 0.9%) 1,000 mls @ 100 mls/hr IV .Q10H [facility] Last Admin: 07/19/17 23:00 Dose: Not Given Insulin Aspart (Novolog) 0 unit SC ACHS [facility] PRN Reason: Protocol Last Admin: 07/21/17 07:53 Dose: Not Given Pantoprazole Sodium (Protonix Inj) 40 mg IVP DAILY [facility] Last Admin: 07/20/17 10:22 Dose: 40 mg Pneumococcal Polyvalent Vaccine (Pneumovax 23 Vaccine) 0.5 ml IM .ONCE ONE Stop: 07/22/17 10:01 Rosuvastatin Calcium (Crestor) 5 mg PO HS [facility] Last Admin: 07/20/17 22:32 Dose: 5 mg - Labs Labs: 07/21/17 07:30 07/21/17 07:30 PT 12.5 SECONDS (9.7-12.2) H 07/20/17 08:39 INR 1.1 07/20/17 08:39 - Additional Findings Additional findings: - Constitutional Appears: Non-toxic, No Acute Distress - Head Exam Head Exam: NORMAL INSPECTION - Eye Exam Eye Exam: EOMI, PERRL. absent: Nystagmus, Scleral icterus Pupil Exam: NORMAL ACCOMODATION - ENT Exam ENT Exam: Mucous Membranes Moist - Respiratory Exam Respiratory Exam: Clear to Ausculation Bilateral, NORMAL BREATHING PATTERN. absent: Rales, Rhonchi, Wheezes - Cardiovascular Exam Cardiovascular Exam: REGULAR RHYTHM, +S1, +S2 - GI/Abdominal Exam GI & Abdominal Exam: Soft, Normal Bowel Sounds. absent: Distended, Firm, Guarding, Rigid, Tenderness, Hypoactive Bowel Sounds, Rebound - Extremities Exam Extremities Exam: absent: Pedal Edema, Tenderness - Back Exam Back Exam: absent: CVA tenderness (L), CVA tenderness (R) - Neurological Exam Neurological Exam: Alert, Awake, CN II-XII Intact, Oriented x3 Neuro motor strength exam: Left Upper Extremity: 5, Right Upper Extremity: 5, Left Lower Extremity: 5, Right Lower Extremity: 5 - Psychiatric Exam Psychiatric exam: Normal Affect, Normal Mood - Skin Skin Exam: Normal Color, Warm Assessment and Plan - Assessment and Plan (Free Text) Assessment: Normal pressure hydrocephalus syndrome * Head CT (07/18/17): moderate diffuse atrophy. Mild dilatation of the 3rd and lateral ventricles disproportion to the degree of surrounding parenchymal atrophy. Possible noncommunicating hydrocephalus. No intracranial mass, hemorrhage, or evidence of acute infarct. * Brain MRI (07/19/17): no evidence of acute infarction or acute pathology in the brain. No evidence of mass lesion mass effect or midline shift. Moderately dilated ventricles out or proportion of the dilated sulci suggestive of central atrophy versus normal pressure hydrocephalus. * Neurology (Dr. Sherman) on the case, help appreciated * Neurosurgery (Dr. Espinoza/Dr. Galindo) consulted, as per Dr. Galindo patient is a goodcandidate for WAIST CUTTER shunt; will discuss with family * Neurochecks Q4H * Telemetry Dementia * likely secondary to NPH * head CT and MRI as above * neurology (Dr. Sherman) consulted * Neurosurgery (Dr. Espinoza/Dr. Galindo) on consult * LDL: 140, HDL: 28, T, Cholestrol: 195 * B12: 597 * RPR: nonreactive * TSH: 8.01; Free T4: 1.07 * Endo, Dr. Rausch consulted, help appreciated Lipid disorder * LDL: 140, HDL: 28, T, Cholesterol: 195 * Crestor 5mg POqHS Diabetes * a1c: 6.5 * hypoglycemic protocol * ISS * carb consistent diet HTN * Enalapril 20mg po daily Asymptomatic PVCs * EKG on admission: sinus with PVCs * Patient denies chest pain/palpitations * Cardiology consulted, Dr. Jean, help appreciated * Awaiting echocardiogram * Possible beta-calvin if needed * JOSEE: X2 negative Prophylactic measure * protonix 40mg IV q daily * Lovenox 40mg subqdaily * Telemetry * Neurochecks Q4H <Aureliano Hayes - Last Filed: 07/21/17 20:56> Objective - Vital Signs/Intake and Output Vital Signs (last 24 hours): Temp Pulse Resp BP Pulse Ox 97.2 F L 69 20 125/71 99 07/21/17 16:00 07/21/17 16:00 07/21/17 16:00 07/21/17 16:00 07/21/17 16:00 - Medications Medications: Current Medications Dextrose (Dextrose 50% Inj) 0 ml IV STAT PRN; Protocol PRN Reason: Hypoglycemia Protocol Dextrose (Glutose 15) 0 gm PO ONCE PRN; Protocol PRN Reason: Hypoglycemia Protocol Enalapril Maleate (Vasotec) 20 mg PO DAILY [facility] Last Admin: 07/21/17 11:41 Dose: 20 mg Enoxaparin Sodium (Lovenox) 40 mg SC DAILY [facility] Last Admin: 07/21/17 11:41 Dose: 40 mg Glucagon (Glucagen Diagnostic Kit) 0 mg IM STAT PRN; Protocol PRN Reason: Hypoglycemia Protocol Dextrose (Dextrose 5% In Water 1000 Ml) 1,000 mls @ 0 mls/hr IV .Q0M PRN; Protocol; Per Protocol PRN Reason: Hypoglycemia Protocol Last Admin: 07/19/17 02:55 Dose: 100 mls/hr Potassium Chloride/Dextrose/Sod Cl (Potassium Chl 20 Meq In D5-1/2ns) 1,000 mls @ 50 mls/hr IV .Q20H [facility] Insulin Aspart (Novolog) 0 unit SC ACHS [facility] PRN Reason: Protocol Last Admin: 07/21/17 18:26 Dose: Not Given Pantoprazole Sodium (Protonix Ec Tab) 40 mg PO DAILY [facility] Pneumococcal Polyvalent Vaccine (Pneumovax 23 Vaccine) 0.5 ml IM .ONCE ONE Stop: 07/22/17 10:01 Rosuvastatin Calcium (Crestor) 5 mg PO HS [facility] Last Admin: 07/20/17 22:32 Dose: 5 mg - Labs Labs: 07/21/17 07:30 07/21/17 07:30 PT 12.5 SECONDS (9.7-12.2) H 07/20/17 08:39 INR 1.1 07/20/17 08:39 Attending/Attestation - Attestation I have personally seen and examined this patient.: Yes I have fully participated in the care of the patient.: Yes I have reviewed all pertinent clinical information, including history, physical exam and plan: Yes Notes (Text): 07/21/17 20:52 Patient was seen and examined at 6:30 PM. Exam, assessment and plan were gone over with the resident. Patient is for WAIST CUTTER Shunt in the morning with Neurosurgery Dr. Galindo. Dumbwaiter Operator Dr. Jean has reviewed 2D Echo and cleared from his standpoint. Patient is medically optimized for WAIST CUTTER Shunt. Aureliano Hayes D.O.
[2017-07-21] MEDS: Enoxaparin 40 mg Syringe SC SCH (11:41)
--- NOTE | 2017-07-21 17:09 | CP.PCM.PN ---
Subjective - Date & Time of Evaluation Date of Evaluation: 07/21/17 Time of Evaluation: 17:08 - Subjective Subjective: Mr Camacho was seen and examined at the bedside. He is alert with episode of confusion. He is unable to answer any questions and follow simple commands. He remains on 1:1 sitter for patient safety. Objective - Vital Signs/Intake and Output Vital Signs (last 24 hours): Temp Pulse Resp BP Pulse Ox 97.9 F 50 L 20 121/77 96 07/21/17 08:05 07/21/17 08:05 07/21/17 08:05 07/21/17 11:41 07/21/17 08:05 Intake and Output: 07/21/17 07/21/17 06:59 18:59 Intake Total 400 Balance 400 - Medications Medications: Current Medications Dextrose (Dextrose 50% Inj) 0 ml IV STAT PRN; Protocol PRN Reason: Hypoglycemia Protocol Dextrose (Glutose 15) 0 gm PO ONCE PRN; Protocol PRN Reason: Hypoglycemia Protocol Enalapril Maleate (Vasotec) 20 mg PO DAILY [facility] Last Admin: 07/21/17 11:41 Dose: 20 mg Enoxaparin Sodium (Lovenox) 40 mg SC DAILY [facility] Last Admin: 07/21/17 11:41 Dose: 40 mg Glucagon (Glucagen Diagnostic Kit) 0 mg IM STAT PRN; Protocol PRN Reason: Hypoglycemia Protocol Dextrose (Dextrose 5% In Water 1000 Ml) 1,000 mls @ 0 mls/hr IV .Q0M PRN; Protocol; Per Protocol PRN Reason: Hypoglycemia Protocol Last Admin: 07/19/17 02:55 Dose: 100 mls/hr Insulin Aspart (Novolog) 0 unit SC ACHS [facility] PRN Reason: Protocol Last Admin: 07/21/17 13:03 Dose: 1 unit Pantoprazole Sodium (Protonix Ec Tab) 40 mg PO DAILY [facility] Pneumococcal Polyvalent Vaccine (Pneumovax 23 Vaccine) 0.5 ml IM .ONCE ONE Stop: 07/22/17 10:01 Rosuvastatin Calcium (Crestor) 5 mg PO HS [facility] Last Admin: 07/20/17 22:32 Dose: 5 mg - Labs Labs: 07/21/17 07:30 07/21/17 07:30 PT 12.5 SECONDS (9.7-12.2) H 01/07/18 08:39 INR 1.1 07/20/17 08:39 - Constitutional Appears: No Acute Distress - Head Exam Head Exam: NORMAL INSPECTION - Neurological Exam Neurological Exam: Awake Neuro motor strength exam: Left Upper Extremity: 5, Right Upper Extremity: 5, Left Lower Extremity: 5, Right Lower Extremity: 5 Additional comments: Unable to follow simple commands. Assessment and Plan (1) Normal pressure hydrocephalus syndrome Assessment & Plan: Case discussed with Dr. Sherman, recommend neurosurgical consultation for possible treatment since the patient is progressing rapidly. Will defer to neurosurgery for further management and determine if the patient needs any further recommendations from a neurological perspective. Status: Acute
--- NOTE | 2017-07-21 19:03 | CP.PCM.PN ---
Subjective - Date & Time of Evaluation Date of Evaluation: 07/21/17 Time of Evaluation: 19:00 - Subjective Subjective: echocardiogram reviewed. Normal left ventricular function and no regional wall motion abnormalities. There is no cardiovascular contraindication to the planned FIELD PROFESSIONAL shunt Objective - Vital Signs/Intake and Output Vital Signs (last 24 hours): Temp Pulse Resp BP Pulse Ox 97.2 F L 69 20 125/71 99 07/21/17 16:00 07/21/17 16:00 07/21/17 16:00 07/21/17 16:00 07/21/17 16:00 - Medications Medications: Current Medications Dextrose (Dextrose 50% Inj) 0 ml IV STAT PRN; Protocol PRN Reason: Hypoglycemia Protocol Dextrose (Glutose 15) 0 gm PO ONCE PRN; Protocol PRN Reason: Hypoglycemia Protocol Enalapril Maleate (Vasotec) 20 mg PO DAILY [facility] Last Admin: 07/21/17 11:41 Dose: 20 mg Enoxaparin Sodium (Lovenox) 40 mg SC DAILY [facility] Last Admin: 07/21/17 11:41 Dose: 40 mg Glucagon (Glucagen Diagnostic Kit) 0 mg IM STAT PRN; Protocol PRN Reason: Hypoglycemia Protocol Dextrose (Dextrose 5% In Water 1000 Ml) 1,000 mls @ 0 mls/hr IV .Q0M PRN; Protocol; Per Protocol PRN Reason: Hypoglycemia Protocol Last Admin: 07/19/17 02:55 Dose: 100 mls/hr Potassium Chloride/Dextrose/Sod Cl (Potassium Chl 20 Meq In D5-1/2ns) 1,000 mls @ 50 mls/hr IV .Q20H [facility] Insulin Aspart (Novolog) 0 unit SC ACHS [facility] PRN Reason: Protocol Last Admin: 07/21/17 18:26 Dose: Not Given Pantoprazole Sodium (Protonix Ec Tab) 40 mg PO DAILY [facility] Pneumococcal Polyvalent Vaccine (Pneumovax 23 Vaccine) 0.5 ml IM .ONCE ONE Stop: 07/22/17 10:01 Rosuvastatin Calcium (Crestor) 5 mg PO HS [facility] Last Admin: 07/20/17 22:32 Dose: 5 mg - Labs Labs: 07/21/17 07:30 07/21/17 07:30 PT 12.5 SECONDS (9.7-12.2) H 07/20/17 08:39 INR 1.1 07/20/17 08:39 Assessment and Plan (1) HTN (hypertension) Status: Acute (2) Asymptomatic PVCs Status: Acute
--- NOTE | 2017-07-21 22:05 | CP.PCM.CON ---
History of Present Illness - History of Present Illness History of Present Illness: elevated TSH Past Patient History - Past Medical History & Family History Past Medical History?: Yes - Past Social History Smoking Status: Former Smoker - CARDIAC Hx Hypertension: Yes - PULMONARY Hx Respiratory Disorders: No - NEUROLOGICAL Hx Neurological Disorder: Yes Hx Alzheimer's Disease: Yes (yes, per FAS report) Other/Comment: DX HYDROCEPHALUS - HEENT Hx HEENT Problems: No - RENAL Hx Chronic Kidney Disease: No - ENDOCRINE/METABOLIC Hx Endocrine Disorders: Yes Hx Diabetes Mellitus Type 2: Yes - HEMATOLOGICAL/ONCOLOGICAL Hx Blood Disorders: No - INTEGUMENTARY Hx Dermatological Problems: No - MUSCULOSKELETAL/RHEUMATOLOGICAL Hx Musculoskeletal Disorders: Yes Hx Falls: No Hx Unsteady Gait: Yes - GASTROINTESTINAL Hx Gastrointestinal Disorders: No - GENITOURINARY/GYNECOLOGICAL Hx Genitourinary Disorders: Yes Hx Prostate Problems: Yes - PSYCHIATRIC Hx Psychophysiologic Disorder: No Hx Substance Use: No (unknown) - SURGICAL HISTORY Hx Surgeries: Yes Other/Comment: prostate surgery. has a pump in the bladder to pump urine ??? - ANESTHESIA Hx Anesthesia: Yes Hx Anesthesia Reactions: No Hx Malignant Hyperthermia: No Has any member of the family had a problem w/ anesthesia?: No Meds Allergies/Adverse Reactions: Allergies Allergy/AdvReac Type Severity Reaction Status Date / Time No Known Allergies Allergy Verified 07/18/17 15:00 - Medications Medications: Current Medications Dextrose (Dextrose 50% Inj) 0 ml IV STAT PRN; Protocol PRN Reason: Hypoglycemia Protocol Dextrose (Glutose 15) 0 gm PO ONCE PRN; Protocol PRN Reason: Hypoglycemia Protocol Enalapril Maleate (Vasotec) 20 mg PO DAILY [facility] Last Admin: 07/21/17 11:41 Dose: 20 mg Enoxaparin Sodium (Lovenox) 40 mg SC DAILY [facility] Last Admin: 07/21/17 11:41 Dose: 40 mg Glucagon (Glucagen Diagnostic Kit) 0 mg IM STAT PRN; Protocol PRN Reason: Hypoglycemia Protocol Dextrose (Dextrose 5% In Water 1000 Ml) 1,000 mls @ 0 mls/hr IV .Q0M PRN; Protocol; Per Protocol PRN Reason: Hypoglycemia Protocol Last Admin: 07/19/17 02:55 Dose: 100 mls/hr Potassium Chloride/Dextrose/Sod Cl (Potassium Chl 20 Meq In D5-1/2ns) 1,000 mls @ 50 mls/hr IV .Q20H [facility] Insulin Aspart (Novolog) 0 unit SC ACHS [facility] PRN Reason: Protocol Last Admin: 07/21/17 21:46 Dose: Not Given Pantoprazole Sodium (Protonix Ec Tab) 40 mg PO DAILY [facility] Pneumococcal Polyvalent Vaccine (Pneumovax 23 Vaccine) 0.5 ml IM .ONCE ONE Stop: 07/22/17 10:01 Rosuvastatin Calcium (Crestor) 5 mg PO HS [facility] Last Admin: 07/21/17 21:45 Dose: 5 mg Results - Vital Signs Recent Vital Signs: Last Vital Signs Temp 97.2 F L 07/21/17 16:00 Pulse 69 07/21/17 16:00 Resp 20 07/21/17 16:00 BP 125/71 07/21/17 16:00 Pulse Ox 99 07/21/17 16:00 - Labs Result Diagrams: 07/21/17 07:30 07/21/17 07:30 Labs: Laboratory Results - last 24 hr 07/19/17 07/20/17 07/21/17 08:38 22:26 06:22 WBC RBC Hgb Hct MCV MCH MCHC RDW Plt Count MPV Neut % (Auto) Lymph % (Auto) [place] % (Auto) Eos % (Auto) Baso % (Auto) Neut # Lymph # [place] # Eos # Baso # Sodium Potassium Chloride Carbon Dioxide Anion Gap BUN Creatinine Est GFR ( Amer) Est GFR (Non-Af Amer) POC Glucose (mg/dL) 130 H 104 Random Glucose Hemoglobin A1c 6.5 Calcium Total Bilirubin AST ALT Alkaline Phosphatase Total Protein Albumin Globulin Albumin/Globulin Ratio Blood Type Antibody Screen 07/21/17 07/21/17 07/21/17 07:30 07:30 12:35 WBC 7.7 RBC 4.00 L Hgb 12.6 Hct 37.7 MCV 94.2 H MCH 31.6 H MCHC 33.6 RDW 14.2 Plt Count 140 MPV 10.4 Neut % (Auto) 53.1 Lymph % (Auto) 33.1 [place] % (Auto) 11.1 H Eos % (Auto) 2.3 Baso % (Auto) 0.4 Neut # 4.1 Lymph # 2.6 [place] # 0.9 H Eos # 0.2 Baso # 0.0 Sodium 133 Potassium 4.5 Chloride 103 Carbon Dioxide 26 Anion Gap 9 L BUN 24 H Creatinine 1.3 Est GFR ( Amer) > 60 Est GFR (Non-Af Amer) 54 POC Glucose (mg/dL) 170 H Random Glucose 118 H Hemoglobin A1c Calcium 8.3 L Total Bilirubin 0.8 AST 30 ALT 29 Alkaline Phosphatase 47 Total Protein 6.6 Albumin 3.7 Globulin 2.9 Albumin/Globulin Ratio 1.3 Blood Type Antibody Screen 07/21/17 07/21/17 07/21/17 16:40 19:48 21:37 WBC RBC Hgb Hct MCV MCH MCHC RDW Plt Count MPV Neut % (Auto) Lymph % (Auto) [place] % (Auto) Eos % (Auto) Baso % (Auto) Neut # Lymph # [place] # Eos # Baso # Sodium Potassium Chloride Carbon Dioxide Anion Gap BUN Creatinine Est GFR ( Amer) Est GFR (Non-Af Amer) POC Glucose (mg/dL) 162 H 143 H Random Glucose Hemoglobin A1c Calcium Total Bilirubin AST ALT Alkaline Phosphatase Total Protein Albumin Globulin Albumin/Globulin Ratio Blood Type A NEGATIVE Antibody Screen Negative Assessment & Plan (1) Elevated TSH Assessment and Plan: Endocrine consult reason for consult: elevated TSH Source : record review Mr. Knuz is 76 y/o found with elevated TSH , admitted for worsening for forgetfulness . also with asymptomatic PVCs , hydrocephalus for POP SINGER shunt Allergy NKDA Past medical history :hyperlipidemia , normal pressure hydrocephalus, Dementia , IDDM Past surgical history : prostate surgery Psychiatry history : not docuented Social history : ex-smoking , no ETOH use , illicit drug use Family history : irrelevant ROS: Constitutional: no fever ,tiredness/weakness .HEENT: no earache, change in voice .Respiratory: denies cough, sob . CVS :no chest pain, no palpitations . Abdomen : no abdominal pain, no nausea /vomiting , no change bowel movement . [employer] : increase forgetfulness , no dizziness. Extremities : no edema , no tremors .Skin: no itching, no rash Physical exam Well developed AAO x self , ,NAD on 1:1 bp 125/71 p 69 R 20 , T 97.2 HEENT: norm cephalic, atraumatic , no lid lag , no exophthalmos NECK: supple, no palpable lymphadenopathy THYROID: no palpable thyromegaly , not tender CHEST: fair air entry, bilateral, CVS: S1,S2 ABDOMEN: bowel sound present, benign, obese, no wide purple striae , no bruises EXTREMITIES: no edema, clubbing or cyanosis, no palpable hand tremors Skin : acanthosis nigricans lab: 07/20/2017 tsh 8.01, free T4 1.07 , creatinine kinase 215 ,elevated , cr 1.3 Assessment elevated TSH , pulse 69 asymtomatic PVCS Dementia , worsening hydrocephalus , normal pressure plan obtain thyroid function & antibodies Thank you for allowing me to participate in the care of the patient, will follow with you. Status: Acute (2) Asymptomatic PVCs Status: Acute (3) Normal pressure hydrocephalus syndrome Status: Acute Priority: High (4) Dementia Status: Acute
--- NOTE | 2017-07-21 22:58 | CARD ---
APPROVED REPORT EXAM: Two-dimensional and M-mode echocardiogram with Doppler and color Doppler. Other Information Quality : GoodRhythm : INDICATION Abnormal EKG/Arrhythmia LIP RISK FACTORS Hypertension Diabetes 2D DIMENSIONS IVSd0.8 (0.7-1.1cm)LVDd4.5 (3.9-5.9cm) PWd0.8 (0.7-1.1cm)LVDs3.5 (2.5-4.0cm) FS (%) 21.9 %LVEF (%)44.5 (>50%) M-Mode DIMENSIONS Left Atrium (MM)4.28 (2.5-4.0cm)Aortic Root3.29 (2.2-3.7cm) Aortic Cusp Exc.1.97 (1.5-2.0cm) Aortic Valve AI P 1/2 [id number] Mitral Valve MV E Qvlhqccw48.2cm/sMV A Nckvipjo92.7cm/sE/A ratio1.0 TDI E/Lateral E'0.0E/Medial E'0.0 Tricuspid Valve TR Peak Exeyhmei357pc/sTR Peak Gr.[id number] LEFT VENTRICLE The left ventricle is normal size. There is normal left ventricular wall thickness. Left ventricle systolic functionsystolic function is mildly impaired. The Ejection Fraction is 45-50%. There is normal LV segmental wall motion. The left ventricular diastolic function is normal. No left ventricle thrombus noted on this study. RIGHT VENTRICLE The right ventricle is normal size. The right ventricular systolic function is normal. ATRIA The left atrium is mildly dilated. The right atrium size is normal. AORTIC VALVE The aortic valve is mildly sclerotic. The aortic valve is trileaflet. There is trace to mild aortic regurgitation. There is no aortic valvular stenosis. There is no aortic valvular vegetation. MITRAL VALVE Mitral annular calcification is mild to moderate. There is no evidence of mitral valve prolapse. There is no mitral valve stenosis. Mitral regurgitation is trace to mild. TRICUSPID VALVE The tricuspid valve is normal in structure. There is mild tricuspid regurgitation. Right ventricular systolic pressure is estimated at 30-40 mmHg. There is no pulmonary hypertension. There is no tricuspid valve prolapse or vegetation. There is no tricuspid valve stenosis. PULMONIC VALVE The pulmonary valve is normal in structure. There is trace pulmonic valvular regurgitation. There is no pulmonic valvular stenosis. GREAT VESSELS The aortic root is normal in size. The IVC is normal in size and collapses >50% with inspiration. PERICARDIAL EFFUSION There is no pericardial effusion. There is no pleural effusion. <Conclusion> The left ventricle is normal size. Left ventricle systolic functionsystolic function is mildly impaired. The Ejection Fraction is 45-50%. The left ventricular diastolic function is normal. The right ventricle is normal size. The right ventricular systolic function is normal. The left atrium is mildly dilated. The right atrium size is normal. There is trace to mild aortic regurgitation. Mitral regurgitation is trace to mild. There is trace pulmonic valvular regurgitation. There is mild tricuspid regurgitation.
[2017-07-22] MEDS ORDERED: Potassium Ch 20mEq in D5-1/2NS 1,000 ML IV SCH
--- NOTE | 2017-07-22 06:19 | CP.PCM.PN ---
<Cynthia Valdez - Last Filed: 07/22/17 16:39> Subjective - Date & Time of Evaluation Date of Evaluation: 07/22/17 Time of Evaluation: 07:00 - Subjective Subjective: PGY1- Medicine Note- Dr. Coburn's Service Patient seen and examined at bedside and in no acute distress. Patient is very confused. When explained to patient that he was going for surgery today patient explained he was worried about missing work and needed a note. Patient insist that he needs to be working. Patient is unable to tell me where we are. Patient remembers me, but doesn't know from where. Patient says it is 2010 when asked the year. Patient laughs when told it is 2018 and says he is only 8 years off. Patient denies all other complaints. Patient denies shortness of breath, chest pain, abdominal pain, nausea, or vomiting. Objective - Vital Signs/Intake and Output Vital Signs (last 24 hours): Temp Pulse Resp BP Pulse Ox 97.9 F 88 20 104/49 L 100 07/21/17 23:00 07/22/17 00:03 07/21/17 23:00 07/21/17 23:00 07/22/17 00:33 Intake and Output: 07/21/17 07/22/17 18:59 06:59 Intake Total 725 Output Total 500 Balance 225 - Medications Medications: Current Medications Dextrose (Dextrose 50% Inj) 0 ml IV STAT PRN; Protocol PRN Reason: Hypoglycemia Protocol Dextrose (Glutose 15) 0 gm PO ONCE PRN; Protocol PRN Reason: Hypoglycemia Protocol Enalapril Maleate (Vasotec) 20 mg PO DAILY [facility] Last Admin: 07/21/17 11:41 Dose: 20 mg Enoxaparin Sodium (Lovenox) 40 mg SC DAILY [facility] Last Admin: 07/21/17 11:41 Dose: 40 mg Glucagon (Glucagen Diagnostic Kit) 0 mg IM STAT PRN; Protocol PRN Reason: Hypoglycemia Protocol Potassium Chloride/Dextrose/Sod Cl (Potassium Chl 20 Meq In D5-1/2ns) 1,000 mls @ 50 mls/hr IV .Q20H [facility] Last Admin: 07/22/17 00:15 Dose: 50 mls/hr Insulin Aspart (Novolog) 0 unit SC ACHS [facility] PRN Reason: Protocol Last Admin: 07/21/17 21:46 Dose: Not Given Pantoprazole Sodium (Protonix Ec Tab) 40 mg PO DAILY [facility] Pneumococcal Polyvalent Vaccine (Pneumovax 23 Vaccine) 0.5 ml IM .ONCE ONE Stop: 07/22/17 10:01 Rosuvastatin Calcium (Crestor) 5 mg PO HS [facility] Last Admin: 07/21/17 21:45 Dose: 5 mg - Labs Labs: 07/21/17 07:30 07/21/17 07:30 PT 12.5 SECONDS (9.7-12.2) H 07/20/17 08:39 INR 1.1 07/20/17 08:39 - Additional Findings Additional findings: - Constitutional Appears: Non-toxic, No Acute Distress - Head Exam Head Exam: NORMAL INSPECTION - Eye Exam Eye Exam: EOMI, PERRL. absent: Nystagmus, Scleral icterus Pupil Exam: NORMAL ACCOMODATION - ENT Exam ENT Exam: Mucous Membranes Moist - Respiratory Exam Respiratory Exam: Clear to Ausculation Bilateral, NORMAL BREATHING PATTERN. absent: Rales, Rhonchi, Wheezes - Cardiovascular Exam Cardiovascular Exam: REGULAR RHYTHM, +S1, +S2 - GI/Abdominal Exam GI & Abdominal Exam: Soft, Normal Bowel Sounds. absent: Distended, Firm, Guarding, Rigid, Tenderness, Hypoactive Bowel Sounds, Rebound - Extremities Exam Extremities Exam: absent: Pedal Edema, Tenderness - Back Exam Back Exam: absent: CVA tenderness (L), CVA tenderness (R) - Neurological Exam Neurological Exam: Alert, Awake, CN II-XII Intact, Oriented x3 Neuro motor strength exam: Left Upper Extremity: 5, Right Upper Extremity: 5, Left Lower Extremity: 5, Right Lower Extremity: 5 - Psychiatric Exam Psychiatric exam: Normal Affect, Normal Mood - Skin Skin Exam: Normal Color, Warm Assessment and Plan - Assessment and Plan (Free Text) Assessment: Normal pressure hydrocephalus syndrome * Patient scheduled for NIGHT ASSISTANT shunt with Dr. Galindo this morning * Head CT (07/18/17): moderate diffuse atrophy. Mild dilatation of the 3rd and lateral ventricles disproportion to the degree of surrounding parenchymal atrophy. Possible noncommunicating hydrocephalus. No intracranial mass, hemorrhage, or evidence of acute infarct. * Brain MRI (07/19/17): no evidence of acute infarction or acute pathology in the brain. No evidence of mass lesion mass effect or midline shift. Moderately dilated ventricles out or proportion of the dilated sulci suggestive of central atrophy versus normal pressure hydrocephalus. * Neurology (Dr. Sherman) on the case, help appreciated * Neurosurgery (Dr. Espinoza/Dr. Galindo) consulted * Neurochecks Q4H * Telemetry Dementia * likely secondary to NPH * head CT and MRI as above * neurology (Dr. Sherman) consulted * Neurosurgery (Dr. Espinoza/Dr. Galindo) on consult * LDL: 140, HDL: 28, T, Cholestrol: 195 * B12: 597 * RPR: nonreactive * TSH: 8.24; Free T4: 1.09 * Endo, Dr. Rausch consulted, help appreciated * free T3: 4.22 * Total T3: 1.73 * T4: 8.51 Lipid disorder * LDL: 140, HDL: 28, T, Cholesterol: 195 * Crestor 5mg POqHS Diabetes * a1c: 6.5 * hypoglycemic protocol * ISS * carb consistent diet HTN * Enalapril 20mg po daily Asymptomatic PVCs * EKG on admission: sinus with PVCs * Patient denies chest pain/palpitations * Cardiology consulted, Dr. Jean, help appreciated * echo reviewed by Dr. Jean- stable to undergo NIGHT ASSISTANT shunt placement * Possible beta-calvin if needed * JOSEE: X2 negative Prophylactic measure * protonix 40mg IV q daily * Lovenox held for surgery * Telemetry * Neurochecks Q4H <Cherelle Coburn V - Last Filed: 07/24/17 22:55> Objective - Vital Signs/Intake and Output Vital Signs (last 24 hours): Temp Pulse Resp BP Pulse Ox 98.1 F 71 20 114/63 97 07/24/17 15:15 07/24/17 16:00 07/24/17 15:15 07/24/17 15:15 07/24/17 15:15 Intake and Output: 07/24/17 07/25/17 18:59 06:59 Intake Total 1999 Balance 1999 - Medications Medications: Current Medications Dextrose (Dextrose 50% Inj) 0 ml IV STAT PRN; Protocol PRN Reason: Hypoglycemia Protocol Dextrose (Glutose 15) 0 gm PO ONCE PRN; Protocol PRN Reason: Hypoglycemia Protocol Enalapril Maleate (Vasotec) 20 mg PO DAILY [facility] Last Admin: 07/24/17 09:39 Dose: 20 mg Glucagon (Glucagen Diagnostic Kit) 0 mg IM STAT PRN; Protocol PRN Reason: Hypoglycemia Protocol Insulin Aspart (Novolog) 0 unit SC ACHS [facility] PRN Reason: Protocol Last Admin: 07/24/17 22:44 Dose: Not Given Morphine Sulfate (Morphine) 4 mg IVP Q4 PRN PRN Reason: Pain, moderate (4-7) Last Admin: 07/23/17 17:14 Dose: 4 mg Pantoprazole Sodium (Protonix Ec Tab) 40 mg PO DAILY [facility] Last Admin: 07/24/17 09:40 Dose: 40 mg Rosuvastatin Calcium (Crestor) 5 mg PO HS [facility] Last Admin: 07/24/17 21:32 Dose: Not Given - Labs Labs: 07/24/17 07:17 07/24/17 07:17 PT 12.5 SECONDS (9.7-12.2) H 07/20/17 08:39 INR 1.1 07/20/17 08:39 Assessment and Plan (1) Normal pressure hydrocephalus syndrome Status: Acute (2) Dementia Status: Acute (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 Patient seen, examined, and case discussed with day-time resident. Patient was taken for NIGHT ASSISTANT shunt placement in the morning with neurosurgery. Anticoagulation was held prior to OR and no cardiac contraindication prior to OR. Patient seen in the afternoon with his , Cynthia at bedside. Patient is awake , alert, conversant in [place]ican, able to move his upper and lower extremities with ease. When I asked the patient who the lady was with him at bedside, he reports "that is the love my life" and when I ask whats her name, he replied "ines". Patient's dressing over scalp and abdomen clean dry intact. Will need to follow-up with neurosurgery for post-operative care. Assessment/Plan (1) Normal pressure hydrocephalus syndrome Assessment & Plan: * Head CT (07/18/17): moderate diffuse atrophy. Mild dilatation f the 3rd and lateral ventricles disproportion to the degree of surrounding parenchymal atrophy. Possible noncommunicating hydrocephalus. No intracranial mass, hemorrhage, or evidence of acute infarct. * Brain MRI (07/19/17): no evidence of acute infarction or acute pathology in the brain. No evidence of mass lesion mass effect or midline shift. Moderately dilated ventricles out or proportion of the dilated sulci suggestive of central atrophy versus normal pressure hydrocephalus. * Neurology (Dr. Sherman) on the case-->recommend for neurosurgical evaluation * Neurosurgery (Dr. Espinoza/Dr. Galindo) for consult * Patient went to the OR on 07/22/17 for NIGHT ASSISTANT shunt placement * Neurochecks Q4H * Telemetry Status: Acute (2) Dementia Assessment & Plan: * Head CT (07/18/17): moderate diffuse atrophy. Mild dilatation f the 3rd and lateral ventricles disproportion to the degree of surrounding parenchymal atrophy. Possible noncommunicating hydrocephalus. No intracranial mass, hemorrhage, or evidence of acute infarct. * Brain MRI (07/19/17): no evidence of acute infarction or acute pathology in the brain. No evidence of mass lesion mass effect or midline shift. Moderately dilated ventricles out or proportion of the dilated sulci suggestive of central atrophy versus normal pressure hydrocephalus. * eurology (Dr. Sherman) on the case-->recommend for neurosurgical evaluation * Neurosurgery (Dr. Espinoza/Dr. 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 Espinoza/Dr. Galindo) for consult * Patient went to OR on 07/22/17 for NIGHT ASSISTANT shunt placement; will follow-up with neurosurgery in regards to postoperative care * physical therapy eval Status: Acute (4) Lipid disorder Assessment & Plan: * LDL: 140, HDL: 28, T, Cholestrol: 195 * Crestor 5mg POqHS Status: Chronic (5) Diabetes Assessment & Plan: * A1c: 6.5 * hypoglycemic protocol * Will not start anti-hyperglycemics at this time. Status: Chronic (6) Asymptomatic PVCs Assessment & Plan: * Cardiac risk factors: HTN, Lipid disorder * EKG on admission: sinus with PVCs * Patient denies chest pain/palpitations * Cardiology (Dr Jean)- abnormal (PVCs) on EKG, with cardiac risk factor * No cardiac contradincation for surgery * Possible beta-calvin if needed * JOSEE: X2 negative Status: Acute (7) Prophylactic measure Assessment & Plan: * NS 100cc/hr * protonix 40mg IV q daily * held Lovenox 40mg subqdaily for OR 07/22/17 * Telemetry * Neurochecks Q4H Status: Acute Disposition: Neurosurgery management for NIGHT ASSISTANT shunt placement. Patient went to OR this morning. Patient seen status post procedure. Will need to follow-up with neurosurgery for postoperative management and to determine when anticoagulation can be restarted.
[2017-07-22 06:57] LABS: BASO % 0.6 % (0.0-2.0); EOS # 0.2 K/uL (0.0-0.7); EOS % 2.6 % (0.0-4.0); HEMOGLOBIN 12.4 g/dL (12.0-18.0); LYMPH # 2.4 K/uL (1.0-4.3); LYMPH % 38.7 % (20.0-40.0); MEAN CORPUSCULAR HEMOGLOBIN 32.7 pg (27.0-31.0); MEAN CORPUSCULAR HGB CONC 34.5 g/dL (33.0-37.0); MEAN PLATELET VOLUME 10.6 fL (7.2-11.7); MONO # 0.7 K/uL (0.0-0.8); MONO % 11.7 % (0.0-10.0); NEUT # 2.9 K/uL (1.8-7.0); NEUT % 46.4 % (50.0-75.0); RBC 3.8 Mil/uL (4.40-5.90); RED CELL DISTRIBUTION WIDTH 13.9 % (11.5-14.5); WHITE BLOOD COUNT 6.2 K/uL (4.8-10.8)
[2017-07-22 08:03] LABS: T4 8.51 ug/dL (5.5-11.0)
[2017-07-22 08:12] LABS: ALB/GLOB RATIO 1.3 (1.0-2.1); ALBUMIN 4.1 g/dL (3.5-5.0); ALT/SGPT 30 U/L (21-72); AST/SGOT 37 U/L (17-59); BLOOD UREA NITROGEN 29 mg/dL (9-20); CALCIUM 8.4 mg/dl (8.6-10.4); GFR AFRICAN-AMERICAN > 60; GFR NON-AFRICAN AMERICAN 54
[2017-07-22 08:16] LABS: T3 1.73 nmol/L (1.49-2.60)
[2017-07-22] MEDS: (Novolog) Insulin Aspart, Recombinant 100 u/ml 10 ml vial SC SCH ×4 (08:23→21:34)
[2017-07-22] MEDS ORDERED: Bacitracin 50,000 UNIT in Sodium Chloride 0.9% Irrig 1,000 ML IR SCH (09:00)
[2017-07-22] MEDS ORDERED: Lidocaine 1%/Epinephrine 1:100000 30 ml vial IJ ONE (09:00)
[2017-07-22] MEDS ORDERED: Gentamicin Sulfate 10 MG in Sodium Chloride 0.9% 1 ML IN ONE (09:45)
[2017-07-22] MEDS: Pantoprazole 40 mg EC Tab PO SCH (09:51)
[2017-07-22] MEDS ORDERED: Propofol 10 mg/ml Inj (20 ML) ONE (09:58)
[2017-07-22] MEDS ORDERED: Lidocaine Hydrochloride 5 ML INJ ONE (09:58)
[2017-07-22] MEDS ORDERED: Phenylephrine 10 mg/ml Inj ONE (09:59)
[2017-07-22] MEDS ORDERED: Influenza Vaccine 60 mcg/0.5 mL SYR (4YR UP) IM ONE (10:00)
[2017-07-22] MEDS ORDERED: Vancomycin 10 MG in Sodium Chloride 0.9% 1 ML IN ONE (10:00)
[2017-07-22] MEDS ORDERED: Pneumococcal 23-Valent Vaccine IM ONE (10:00)
[2017-07-22] MEDS ORDERED: cefTRIAXone IV 1 gm in Dextros 50 ML IVPB ONE (10:03)
[2017-07-22] MEDS ORDERED: Absorbable Gelatin Sponge Size 100 ONE (10:03)
[2017-07-22] MEDS ORDERED: Lactated Ringer's 1,000 ML IV ONE ×2 (10:08→11:58)
[2017-07-22] MEDS ORDERED: Thrombin Topical 5,000 Int Units Spray Kit ONE (10:10)
[2017-07-22] MEDS ORDERED: cefTRIAXone 1 gm 1 GM/100 ML BAG IVPB ONE (10:20)
[2017-07-22] MEDS ORDERED: Bacitracin 500 Units/gm Oint Foilpak UD ONE (11:31)
--- NOTE | 2017-07-22 12:03 | PCM.SURG1 ---
Surgeon's Initial Post Op Note - Surgeon's Notes Surgeon: Dr. Sumit Edmond Remarketing Rep: Olimpia PGY1 Type of Anesthesia: General Endo Pre-Operative Diagnosis: Hydrocephalus Operative Findings: see operative report Post-Operative Diagnosis: Hydrocephalus Operation Performed: Ventriculoperitoneal shunt placement Specimen/Specimens Removed: CSF Estimated Blood Loss: EBL {In ML}: 20 Blood Products Given: N/A Drains Used: No Drains Post-Op Condition: Good Date of Surgery/Procedure: 07/22/17 Time of Surgery/Procedure: 11:15
[2017-07-22] MEDS ORDERED: Lactated Ringer's 1,000 ML IV SCH (12:30)
[2017-07-22 14:48] LABS: FLUID TYPE SPINAL FLUID
[2017-07-22 15:30] LABS: CSF APPEARANCE CLEAR/COLORLESS (CLEAR); CSF MONO/MACROPHAGE 0 % (0-0); CSF VOLUME 1 mL (0-1)
[2017-07-22] MEDS: Potassium Ch 20mEq in D5-1/2NS 1,000 ML IV SCH (17:24)
--- NOTE | 2017-07-22 22:27 | CP.PCM.PN ---
Subjective - Date & Time of Evaluation Date of Evaluation: 07/22/17 Time of Evaluation: 09:30 - Subjective Subjective: elevated TSH Objective - Vital Signs/Intake and Output Vital Signs (last 24 hours): Temp Pulse Resp BP Pulse Ox 98.6 F 66 20 143/85 100 07/22/17 15:21 07/22/17 15:21 07/22/17 15:21 07/22/17 15:21 07/22/17 15:21 Intake and Output: 07/22/17 07/23/17 18:59 06:59 Intake Total 403 Output Total 200 Balance 203 - Medications Medications: Current Medications Dextrose (Dextrose 50% Inj) 0 ml IV STAT PRN; Protocol PRN Reason: Hypoglycemia Protocol Dextrose (Glutose 15) 0 gm PO ONCE PRN; Protocol PRN Reason: Hypoglycemia Protocol Enalapril Maleate (Vasotec) 20 mg PO DAILY [facility] Last Admin: 07/22/17 09:51 Dose: Not Given Glucagon (Glucagen Diagnostic Kit) 0 mg IM STAT PRN; Protocol PRN Reason: Hypoglycemia Protocol Potassium Chloride/Dextrose/Sod Cl (Potassium Chl 20 Meq In D5-1/2ns) 1,000 mls @ 100 mls/hr IV .Q10H [facility] Last Admin: 07/22/17 17:24 Dose: 100 mls/hr Insulin Aspart (Novolog) 0 unit SC ACHS [facility] PRN Reason: Protocol Last Admin: 07/22/17 21:34 Dose: Not Given Pantoprazole Sodium (Protonix Ec Tab) 40 mg PO DAILY [facility] Last Admin: 07/22/17 09:51 Dose: Not Given Rosuvastatin Calcium (Crestor) 5 mg PO HS [facility] Last Admin: 07/22/17 21:34 Dose: Not Given - Labs Labs: 07/22/17 06:45 07/22/17 06:45 PT 12.5 SECONDS (9.7-12.2) H 07/20/17 08:39 INR 1.1 07/20/17 08:39 Assessment and Plan (1) Elevated TSH Assessment & Plan: Assessment and Plan: Endocrine consult reason for consult: elevated TSH Source : record review Mr. Kunz is 76 y/o found with elevated TSH , admitted for worsening for forgetfulness . 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 CVS :no chest pain, no palpitations . Abdomen : no abdominal pain, no nausea /vomiting , no change bowel movement . 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 Extremities : no edema , no tremors .Skin: no itching, no rash Physical exam Well developed sleepy NAD VSS stable HEENT: norm cephalic, atraumatic , no lid lag , no exophthalmos NECK: supple, no palpable lymphadenopathy THYROID: no palpable thyromegaly , not tender CHEST: fair air entry, bilateral, CVS: S1,S2 ABDOMEN: bowel sound present, benign, obese, no wide purple striae , no bruises EXTREMITIES: no edema, clubbing or cyanosis, no palpable hand tremors Skin : acanthosis nigricans lab: 07/22/2016 TSH 8.24 , Ft4 1.09 , FT3 4.22 , T3 1.7 , TPO & TG abs pending 07/20/2017 tsh 8.01, free T4 1.07 , creatinine kinase 215 ,elevated , cr 1.3 Assessment elevated TSH , pulse 80-100 , possible euthyroid sick asymtomatic PVCS Dementia , worsening hydrocephalus , normal pressure s/p shunt plan f/u thyroid abs antibodies will follow with you. Status: Acute (2) Asymptomatic PVCs Status: Acute (3) Normal pressure hydrocephalus syndrome Status: Acute (4) Dementia Status: Acute
[2017-07-23] MEDS: Morphine 4 MG/ML VIAL IVP PRN ×3 (01:09→17:14)
[2017-07-23] MEDS: Potassium Ch 20mEq in D5-1/2NS 1,000 ML IV SCH ×4 (03:15→23:20)
--- NOTE | 2017-07-23 07:17 | OP ---
PROCEDURE DATE: 07/22/2017 PREOPERATIVE DIAGNOSIS: Hydrocephalus. POSTOPERATIVE DIAGNOSIS: Hydrocephalus. PROCEDURE: Right parietal ventriculoperitoneal shunt. SURGEON: Kulwant Galindo MD CO-SURGEON: Obdulio Arana M.D. TYPE OF ANESTHESIA: General endotracheal. ESTIMATED BLOOD LOSS: 20 mL COMPLICATIONS: None. JUSTIFICATION: The patient presented with a classic tardive dementia, gait ataxia, urinary disturbance. CT and MRI documented hydrocephalus. The patient's family was suggestive for him to undergo TRANSCRIPTER shunting. Th e nature of this procedure, the rationale behind it, potential risks, complications, chance of success were discussed at length. All questions were answered and they agreed to proceed. DESCRIPTION OF PROCEDURE: The patient was taken to the operating room, intubated and anesthetized, and carefully placed on the OR table in the supine position. Head placed on the donut, tilted maximally to the right. The right periauricular area was hair clipped. The neck, chest, and abdomen were all scrubbed. The abdomen was scrubbed, painted, and draped in the usual sterile manner. A breach point was identified 3 cm up and direct from the top of the pinna. A semicircle incision was traced out just behind that. This was infiltrated with lidocaine with epinephrine. The incision was opened with a 15 blade knife. Breach point was stripped off periosteum with a cautery. A pocket was then created just inferior to the skin incision with a curved Isabel for the valve to sit. A card game operator was used to make the nilton hole. Bleeding controlled easily with bone wax. The dura was then opened in a cruciate fashion and dura base was coagulated back. This was then filled with Gelfoam. Concurrently, Dr. Arana had opened the abdomen. At this point, we passed the shunt passer from the cranial incision down to the clavicular area. A separate stab incision was made there and the peritoneal catheter that had been soaked in antibiotic solution was then passed. A separate pass was then made from this incision down to the abdominal incision and the catheter was then flushed through. At this point, I connected the distal end of the valve to the peritoneal catheter, this was sutured in place with a silk tie. This was pumped and tested with fluid emanating from the distal end. At this point, I passed the ventricular catheter using the standard landmark into the ventricular system. Clear CSF under moderately high pressure was obtained on the very first pass. A 3 to 4 mL were collected for specimen. Catheter was trimmed. A 10 mg of gentamicin, 10 mg of vancomycin were then injected through the catheter into the ventricular system. The distal end of the catheter was then connected to the valve, sutured in place with a silk tie. I then implanted the valve in the previously fashioned pocket. We then pumped the valve while we observed the distal end of the peritoneal catheter and CSF clear fluid emanated nicely with each pump, documenting excellent position and functioning of the system. At this point, Dr. Arana closed the abdominal incision. I put several tacking sutures of the valve to the periosteum, copiously irrigated with antibiotic solution, filled the nilton hole around the catheter with Gelfoam, closed the galea with interrupted inverted 2-0 Vicryl. The skin was closed with ariela, bacitracin ointment, dressing. The intermediate incision was closed and dressed the same way. The patient was then aroused from anesthesia, easily extubated, noted to be moving all extremities with excellent strength in the recovery room. All counts were correct. There were no complications. Kulwant Galindo MD
[2017-07-23 07:24] LABS: BASO % 0.3 % (0.0-2.0); EOS # 0.1 K/uL (0.0-0.7); EOS % 1.6 % (0.0-4.0); HEMOGLOBIN 11.7 g/dL (12.0-18.0); LYMPH # 1.8 K/uL (1.0-4.3); LYMPH % 22.8 % (20.0-40.0); MEAN CELL VOLUME 94.8 fL (80.0-94.0); MEAN CORPUSCULAR HEMOGLOBIN 32.3 pg (27.0-31.0); MEAN CORPUSCULAR HGB CONC 34.1 g/dL (33.0-37.0); MEAN PLATELET VOLUME 10.5 fL (7.2-11.7); MONO # 0.9 K/uL (0.0-0.8); MONO % 10.8 % (0.0-10.0); NEUT # 5.2 K/uL (1.8-7.0); NEUT % 64.5 % (50.0-75.0); RBC 3.61 Mil/uL (4.40-5.90); RED CELL DISTRIBUTION WIDTH 13.8 % (11.5-14.5); WHITE BLOOD COUNT 8.1 K/uL (4.8-10.8)
[2017-07-23 08:02] LABS: ALB/GLOB RATIO 1.3 (1.0-2.1); ALBUMIN 3.5 g/dL (3.5-5.0); ALT/SGPT 29 U/L (21-72); AST/SGOT 26 U/L (17-59); BLOOD UREA NITROGEN 16 mg/dL (9-20); CALCIUM 7.3 mg/dl (8.6-10.4); GFR AFRICAN-AMERICAN > 60; GFR NON-AFRICAN AMERICAN > 60
[2017-07-23] MEDS: (Novolog) Insulin Aspart, Recombinant 100 u/ml 10 ml vial SC SCH ×4 (08:15→21:46)
--- NOTE | 2017-07-23 09:04 | CP.PCM.PN ---
Subjective - Date & Time of Evaluation Date of Evaluation: 07/23/17 Time of Evaluation: 07:00 - Subjective Subjective: Surgical Progress Note: Patient was seen and examined at bedside in the AM. Patient states he has some tenderness to the area after the surgery but is tolerable. He denies fever, nausea, vomiting, or shortness of breath. Objective - Vital Signs/Intake and Output Vital Signs (last 24 hours): Temp Pulse Resp BP Pulse Ox 99.5 F 83 20 120/52 L 100 07/23/17 07:00 07/23/17 07:00 07/23/17 07:00 07/23/17 07:00 07/23/17 07:00 Intake and Output: 07/23/17 07/23/17 06:59 18:59 Intake Total 800 Output Total 700 Balance 100 - Medications Medications: Current Medications Dextrose (Dextrose 50% Inj) 0 ml IV STAT PRN; Protocol PRN Reason: Hypoglycemia Protocol Dextrose (Glutose 15) 0 gm PO ONCE PRN; Protocol PRN Reason: Hypoglycemia Protocol Enalapril Maleate (Vasotec) 20 mg PO DAILY [facility] Last Admin: 07/22/17 09:51 Dose: Not Given Glucagon (Glucagen Diagnostic Kit) 0 mg IM STAT PRN; Protocol PRN Reason: Hypoglycemia Protocol Potassium Chloride/Dextrose/Sod Cl (Potassium Chl 20 Meq In D5-1/2ns) 1,000 mls @ 100 mls/hr IV .Q10H [facility] Last Admin: 07/23/17 03:15 Dose: 100 mls/hr Insulin Aspart (Novolog) 0 unit SC ACHS [facility] PRN Reason: Protocol Last Admin: 07/23/17 08:15 Dose: Not Given Morphine Sulfate (Morphine) 4 mg IVP Q4 PRN PRN Reason: Pain, moderate (4-7) Last Admin: 07/23/17 01:09 Dose: 4 mg Pantoprazole Sodium (Protonix Ec Tab) 40 mg PO DAILY [facility] Last Admin: 07/22/17 09:51 Dose: Not Given Rosuvastatin Calcium (Crestor) 5 mg PO HS [facility] Last Admin: 07/22/17 21:34 Dose: Not Given - Labs Labs: 07/23/17 07:12 07/23/17 07:12 PT 12.5 SECONDS (9.7-12.2) H 07/20/17 08:39 INR 1.1 07/20/17 08:39 - Constitutional Appears: No Acute Distress - Eye Exam Eye Exam: Normal appearance - ENT Exam ENT Exam: Mucous Membranes Moist - Respiratory Exam Respiratory Exam: NORMAL BREATHING PATTERN - Cardiovascular Exam Cardiovascular Exam: REGULAR RHYTHM, +S1, +S2 - GI/Abdominal Exam GI & Abdominal Exam: Soft, Normal Bowel Sounds. absent: Tenderness - Extremities Exam Extremities Exam: Normal Inspection - Neurological Exam Neurological Exam: Alert, Awake - Psychiatric Exam Psychiatric exam: Normal Affect, Normal Mood - Skin Skin Exam: Dry, Intact, Normal Color, Warm Assessment and Plan - Assessment and Plan (Free Text) Assessment: 76 year old male with PMH Normal pressure hydrocephalus and Dementia post op day 1 of Ventriculoperitoneal shunt placement - Continue to monitor - Continue medical management - Continue neurosurgery recommendations Jennifer Gong PGY-1
--- NOTE | 2017-07-23 09:43 | CP.PCM.PN ---
<Cynthia Valdez - Last Filed: 07/23/17 16:17> Subjective - Date & Time of Evaluation Date of Evaluation: 07/23/17 Time of Evaluation: 07:00 - Subjective Subjective: PGY1- Medicine Note- Dr. Hayes's Service Patient seen and examined at bedside and in no acute distress. Patient is post op day 1 of right parietal ventriculoperitoneal shunt placement. Patient is complaining of some abdominal tenderness at site of incision. Patient is still confused and is unable to say where he is. Patient says it is 2015. Patient denies any headache, nausea, vomiting, constipation, or diarrhea. Objective - Vital Signs/Intake and Output Vital Signs (last 24 hours): Temp Pulse Resp BP Pulse Ox 99.5 F 83 20 120/52 L 100 07/23/17 07:00 07/23/17 07:00 07/23/17 07:00 07/23/17 07:00 07/23/17 07:00 Intake and Output: 07/23/17 07/23/17 06:59 18:59 Intake Total 800 Output Total 700 Balance 100 - Medications Medications: Current Medications Dextrose (Dextrose 50% Inj) 0 ml IV STAT PRN; Protocol PRN Reason: Hypoglycemia Protocol Dextrose (Glutose 15) 0 gm PO ONCE PRN; Protocol PRN Reason: Hypoglycemia Protocol Enalapril Maleate (Vasotec) 20 mg PO DAILY [facility] Last Admin: 07/22/17 09:51 Dose: Not Given Glucagon (Glucagen Diagnostic Kit) 0 mg IM STAT PRN; Protocol PRN Reason: Hypoglycemia Protocol Potassium Chloride/Dextrose/Sod Cl (Potassium Chl 20 Meq In D5-1/2ns) 1,000 mls @ 100 mls/hr IV .Q10H [facility] Last Admin: 07/23/17 03:15 Dose: 100 mls/hr Insulin Aspart (Novolog) 0 unit SC ACHS [facility] PRN Reason: Protocol Last Admin: 07/23/17 08:15 Dose: Not Given Morphine Sulfate (Morphine) 4 mg IVP Q4 PRN PRN Reason: Pain, moderate (4-7) Last Admin: 07/23/17 01:09 Dose: 4 mg Pantoprazole Sodium (Protonix Ec Tab) 40 mg PO DAILY [facility] Last Admin: 07/22/17 09:51 Dose: Not Given Rosuvastatin Calcium (Crestor) 5 mg PO HS [facility] Last Admin: 07/22/17 21:34 Dose: Not Given - Labs Labs: 07/23/17 07:12 07/23/17 07:12 PT 12.5 SECONDS (9.7-12.2) H 07/20/17 08:39 INR 1.1 07/20/17 08:39 - Constitutional Appears: Non-toxic, No Acute Distress, Confused - Head Exam Head Exam: ATRAUMATIC, NORMAL INSPECTION, NORMOCEPHALIC - Eye Exam Eye Exam: EOMI, Normal appearance - Respiratory Exam Respiratory Exam: Clear to Ausculation Bilateral, NORMAL BREATHING PATTERN. absent: Rales, Rhonchi, Wheezes, Respiratory Distress, Stridor - Cardiovascular Exam Cardiovascular Exam: REGULAR RHYTHM, RRR, +S1, +S2 - GI/Abdominal Exam GI & Abdominal Exam: Soft, Tenderness, Normal Bowel Sounds Additional comments: right surgical incision covered in d/c/i dressing - Extremities Exam Extremities Exam: Normal Inspection. absent: Tenderness - Neurological Exam Neurological Exam: Alert, Awake, Oriented x3 Neuro motor strength exam: Left Upper Extremity: 5, Right Upper Extremity: 5, Left Lower Extremity: 5, Right Lower Extremity: 5 Additional comments: DTR: 2/4 - Psychiatric Exam Psychiatric exam: Normal Affect, Normal Mood - Skin Skin Exam: Intact, Normal Color, Warm Assessment and Plan - Assessment and Plan (Free Text) Assessment: Normal pressure hydrocephalus syndrome- Post op day 1 of right parietal ventriculoperitoneal shunt placement * Head CT (07/18/17): moderate diffuse atrophy. Mild dilatation of the 3rd and lateral ventricles disproportion to the degree of surrounding parenchymal atrophy. Possible noncommunicating hydrocephalus. No intracranial mass, hemorrhage, or evidence of acute infarct. * Brain MRI (07/19/17): no evidence of acute infarction or acute pathology in the brain. No evidence of mass lesion mass effect or midline shift. Moderately dilated ventricles out or proportion of the dilated sulci suggestive of central atrophy versus normal pressure hydrocephalus. * Neurology (Dr. Sherman) on the case, help appreciated * Neurosurgery (Dr. Espinoza/Dr. Galindo) consulted * Neurochecks Q4H * Telemetry Dementia * likely secondary to NPH * head CT and MRI as above * neurology (Dr. Sherman) consulted * Neurosurgery (Dr. Espinoza/Dr. Galindo) on consult * LDL: 140, HDL: 28, T, Cholestrol: 195 * B12: 597 * RPR: nonreactive * TSH: 8.24; Free T4: 1.09 * Endo, Dr. Rausch consulted, help appreciated * free T3: 4.22 * Total T3: 1.73 * T4: 8.51 Lipid disorder * LDL: 140, HDL: 28, T, Cholesterol: 195 * Crestor 5mg POqHS Diabetes * a1c: 6.5 * hypoglycemic protocol * ISS * carb consistent diet HTN * Enalapril 20mg po daily Asymptomatic PVCs * EKG on admission: sinus with PVCs * Patient denies chest pain/palpitations * Cardiology consulted, Dr. Jean, help appreciated * echo reviewed by Dr. Jean- stable to undergo SUPERVISOR NETWORK CONTROL OPERATORS shunt placement * Possible beta-calvin if needed * JOSEE: X2 negative Prophylactic measure * protonix 40mg IV q daily * Lovenox held for surgery * SCDs * Telemetry * Neurochecks Q4H <Aureliano Hayes - Last Filed: 07/23/17 20:53> Objective - Vital Signs/Intake and Output Vital Signs (last 24 hours): Temp Pulse Resp BP Pulse Ox 99.3 F 90 20 123/63 98 07/23/17 15:20 07/23/17 15:20 07/23/17 15:20 07/23/17 15:20 07/23/17 15:20 Intake and Output: 07/23/17 07/24/17 18:59 06:59 Intake Total 1160 Output Total 400 Balance 760 - Medications Medications: Current Medications Dextrose (Dextrose 50% Inj) 0 ml IV STAT PRN; Protocol PRN Reason: Hypoglycemia Protocol Dextrose (Glutose 15) 0 gm PO ONCE PRN; Protocol PRN Reason: Hypoglycemia Protocol Enalapril Maleate (Vasotec) 20 mg PO DAILY [facility] Last Admin: 07/23/17 11:34 Dose: 20 mg Glucagon (Glucagen Diagnostic Kit) 0 mg IM STAT PRN; Protocol PRN Reason: Hypoglycemia Protocol Potassium Chloride/Dextrose/Sod Cl (Potassium Chl 20 Meq In D5-1/2ns) 1,000 mls @ 100 mls/hr IV .Q10H [facility] Last Admin: 07/23/17 12:10 Dose: 100 mls/hr Insulin Aspart (Novolog) 0 unit SC ACHS [facility] PRN Reason: Protocol Last Admin: 07/23/17 17:17 Dose: Not Given Morphine Sulfate (Morphine) 4 mg IVP Q4 PRN PRN Reason: Pain, moderate (4-7) Last Admin: 07/23/17 17:14 Dose: 4 mg Pantoprazole Sodium (Protonix Ec Tab) 40 mg PO DAILY [facility] Last Admin: 07/23/17 11:34 Dose: 40 mg Rosuvastatin Calcium (Crestor) 5 mg PO HS [facility] Last Admin: 07/22/17 21:34 Dose: Not Given - Labs Labs: 07/23/17 07:12 07/23/17 07:12 PT 12.5 SECONDS (9.7-12.2) H 07/20/17 08:39 INR 1.1 07/20/17 08:39 Attending/Attestation - Attestation I have personally seen and examined this patient.: Yes I have fully participated in the care of the patient.: Yes I have reviewed all pertinent clinical information, including history, physical exam and plan: Yes Notes (Text): 07/23/17 20:48 Patient was seen and examined shortly after resident with the help of bedside FINISHING MANAGER who translated Swedish. Patient was provided with day, date, and year and asked to remember for tomorrow. Also on ROS: Complaints of headache mild on the right. Also on Exam: Neuro: CN II through XII are grossly intact. 5/5 strength with flexion and extension and 2/4 DTR bilateral UE and LE. Assessments: 1). Normal Pressure Hydrocephalus: S/P SUPERVISOR NETWORK CONTROL OPERATORS Shunt 07/22/17. Repeat CT Head in 10 days and follow up with Dr. Galindo 2). Dementia 3). HLD 4). DM 5). HTN 6). Asymptomatic PVCs 7). Elevated TSH: F/U thyroglobulin Ab, thyroid peroxidase Ab I spoke with Neurosurgeon Dr. Galindo: follow up with him in 10 days at which time he will obtain repeat CT Head. Medicine Team will speak with Hvac Mechanical Engineer concerning ANGIE placement. Aureliano Hayes D.O.
--- NOTE | 2017-07-23 11:29 | CP.PCM.PN ---
Subjective - Date & Time of Evaluation Date of Evaluation: 07/23/17 Time of Evaluation: 11:27 - Subjective Subjective: awake and alert follows all commands EVANS 5/5 dresssings c and d P diet OOB PT clear for DC - subacute/rehab Objective - Vital Signs/Intake and Output Vital Signs (last 24 hours): Temp Pulse Resp BP Pulse Ox 99.5 F 83 20 120/52 L 100 07/23/17 07:00 07/23/17 07:00 07/23/17 07:00 07/23/17 07:00 07/23/17 07:00 Intake and Output: 07/23/17 07/23/17 06:59 18:59 Intake Total 800 Output Total 700 Balance 100 - Medications Medications: Current Medications Dextrose (Dextrose 50% Inj) 0 ml IV STAT PRN; Protocol PRN Reason: Hypoglycemia Protocol Dextrose (Glutose 15) 0 gm PO ONCE PRN; Protocol PRN Reason: Hypoglycemia Protocol Enalapril Maleate (Vasotec) 20 mg PO DAILY [facility] Last Admin: 07/22/17 09:51 Dose: Not Given Glucagon (Glucagen Diagnostic Kit) 0 mg IM STAT PRN; Protocol PRN Reason: Hypoglycemia Protocol Potassium Chloride/Dextrose/Sod Cl (Potassium Chl 20 Meq In D5-1/2ns) 1,000 mls @ 100 mls/hr IV .Q10H [facility] Last Admin: 07/23/17 03:15 Dose: 100 mls/hr Insulin Aspart (Novolog) 0 unit SC ACHS [facility] PRN Reason: Protocol Last Admin: 07/23/17 08:15 Dose: Not Given Morphine Sulfate (Morphine) 4 mg IVP Q4 PRN PRN Reason: Pain, moderate (4-7) Last Admin: 07/23/17 01:09 Dose: 4 mg Pantoprazole Sodium (Protonix Ec Tab) 40 mg PO DAILY [facility] Last Admin: 07/22/17 09:51 Dose: Not Given Rosuvastatin Calcium (Crestor) 5 mg PO HS [facility] Last Admin: 07/22/17 21:34 Dose: Not Given - Labs Labs: 07/23/17 07:12 07/23/17 07:12 PT 12.5 SECONDS (9.7-12.2) H 07/20/17 08:39 INR 1.1 07/20/17 08:39
[2017-07-23] MEDS: Pantoprazole 40 mg EC Tab PO SCH (11:34)
--- NOTE | 2017-07-23 13:19 | CP.PCM.PN ---
Subjective - Date & Time of Evaluation Date of Evaluation: 07/23/17 Time of Evaluation: 13:16 - Subjective Subjective: Mr. Camacho was seen and examined at the bedside. He is awake, alert, with episodes of confusion. He is able to follow simple commands such as raising his bilateral upper and lower extremities. He denies any headache, dizziness, lightheadedness, numbness, but has cold packs in his right neck and right upper arm. He remains on 1:1 sitter for patient safety. There is no untoward events overnight. Objective - Vital Signs/Intake and Output Vital Signs (last 24 hours): Temp Pulse Resp BP Pulse Ox 99.5 F 83 20 144/67 100 07/23/17 07:00 07/23/17 07:00 07/23/17 07:00 07/23/17 11:34 07/23/17 07:00 Intake and Output: 07/23/17 07/23/17 06:59 18:59 Intake Total 800 Output Total 700 Balance 100 - Medications Medications: Current Medications Dextrose (Dextrose 50% Inj) 0 ml IV STAT PRN; Protocol PRN Reason: Hypoglycemia Protocol Dextrose (Glutose 15) 0 gm PO ONCE PRN; Protocol PRN Reason: Hypoglycemia Protocol Enalapril Maleate (Vasotec) 20 mg PO DAILY [facility] Last Admin: 07/23/17 11:34 Dose: 20 mg Glucagon (Glucagen Diagnostic Kit) 0 mg IM STAT PRN; Protocol PRN Reason: Hypoglycemia Protocol Potassium Chloride/Dextrose/Sod Cl (Potassium Chl 20 Meq In D5-1/2ns) 1,000 mls @ 100 mls/hr IV .Q10H [facility] Last Admin: 07/23/17 12:10 Dose: 100 mls/hr Insulin Aspart (Novolog) 0 unit SC ACHS [facility] PRN Reason: Protocol Last Admin: 07/23/17 11:41 Dose: Not Given Morphine Sulfate (Morphine) 4 mg IVP Q4 PRN PRN Reason: Pain, moderate (4-7) Last Admin: 07/23/17 11:35 Dose: 4 mg Pantoprazole Sodium (Protonix Ec Tab) 40 mg PO DAILY [facility] Last Admin: 07/23/17 11:34 Dose: 40 mg Rosuvastatin Calcium (Crestor) 5 mg PO HS [facility] Last Admin: 07/22/17 21:34 Dose: Not Given - Labs Labs: 07/23/17 07:12 07/23/17 07:12 PT 12.5 SECONDS (9.7-12.2) H 07/20/17 08:39 INR 1.1 07/20/17 08:39 - Constitutional Appears: No Acute Distress - Head Exam Head Exam: NORMAL INSPECTION - Neurological Exam Neurological Exam: Alert, Awake Neuro motor strength exam: Left Upper Extremity: 5, Right Upper Extremity: 5, Left Lower Extremity: 5, Right Lower Extremity: 5 Additional comments: Neurological unchanged from previous examination. Assessment and Plan (1) Normal pressure hydrocephalus syndrome Assessment & Plan: Case discussed with Dr. Sherman, continue all current medical regimen. Recommend to repeat CT of the head without contrast if patient will complain of sudden severe headache. Status: Acute
--- NOTE | 2017-07-23 15:53 | CARD ---
APPROVED REPORT EKG Measurement Heart [id number] CT [id number] <Conclusion> Sinus rhythm with frequent premature ventricular complexes Otherwise normal ECG
[2017-07-23] MEDS ORDERED: Magnesium Citrate Oral SOL (300 ml) PO ONE (19:17)
[2017-07-24] MEDS: Potassium Ch 20mEq in D5-1/2NS 1,000 ML IV SCH ×2 (07:07→12:12)
[2017-07-24 07:32] LABS: BASO % 0.5 % (0.0-2.0); EOS # 0.2 K/uL (0.0-0.7); EOS % 2.6 % (0.0-4.0); HEMOGLOBIN 11.3 g/dL (12.0-18.0); LYMPH # 1.9 K/uL (1.0-4.3); LYMPH % 23.6 % (20.0-40.0); MEAN CELL VOLUME 94.3 fL (80.0-94.0); MEAN CORPUSCULAR HEMOGLOBIN 32.6 pg (27.0-31.0); MEAN CORPUSCULAR HGB CONC 34.6 g/dL (33.0-37.0); MEAN PLATELET VOLUME 10.5 fL (7.2-11.7); MONO # 1.1 K/uL (0.0-0.8); MONO % 13.4 % (0.0-10.0); NEUT # 4.9 K/uL (1.8-7.0); NEUT % 59.9 % (50.0-75.0); NRBC % 0.1 % (0.0-2.0); RBC 3.46 Mil/uL (4.40-5.90); RED CELL DISTRIBUTION WIDTH 13.4 % (11.5-14.5); WHITE BLOOD COUNT 8.1 K/uL (4.8-10.8)
[2017-07-24 08:21] LABS: ALBUMIN 3.3 g/dL (3.5-5.0); ALT/SGPT 28 U/L (21-72); AST/SGOT 28 U/L (17-59); BLOOD UREA NITROGEN 14 mg/dL (9-20); CALCIUM 7.8 mg/dl (8.6-10.4); GFR AFRICAN-AMERICAN > 60; GFR NON-AFRICAN AMERICAN > 60; MAGNESIUM 1.7 mg/dL (1.6-2.3)
[2017-07-24 08:26] LABS: ALB/GLOB RATIO 1.1 (1.0-2.1)
[2017-07-24] MEDS: (Novolog) Insulin Aspart, Recombinant 100 u/ml 10 ml vial SC SCH ×5 (08:27→22:44)
[2017-07-24] MEDS: Pantoprazole 40 mg EC Tab PO SCH (09:40)
--- NOTE | 2017-07-24 13:22 | CP.PCM.PN ---
Subjective - Date & Time of Evaluation Date of Evaluation: 07/24/17 Time of Evaluation: 13:16 - Subjective Subjective: Mr. Camacho was seen and examined at the bedside. He is alert, oriented with episode of confusion. He denies any headache, dizziness, lightheadedness, nausea , or vomiting. He states of his belly huge and unable to recall if he had bowel movements or passing out gas. The spouse beside him and mentioned of his abdomen a little bit bigger than yesterday. He remains on 1:1 sitter for patient safety. There was no untoward events overnight. Objective - Vital Signs/Intake and Output Vital Signs (last 24 hours): Temp Pulse Resp BP Pulse Ox 97.9 F 60 20 131/68 97 07/24/17 07:50 07/24/17 07:50 07/24/17 07:50 07/24/17 09:39 07/24/17 07:50 Intake and Output: 07/24/17 07/24/17 06:59 18:59 Intake Total 800 Output Total 375 Balance 425 - Medications Medications: Current Medications Dextrose (Dextrose 50% Inj) 0 ml IV STAT PRN; Protocol PRN Reason: Hypoglycemia Protocol Dextrose (Glutose 15) 0 gm PO ONCE PRN; Protocol PRN Reason: Hypoglycemia Protocol Enalapril Maleate (Vasotec) 20 mg PO DAILY [facility] Last Admin: 07/24/17 09:39 Dose: 20 mg Glucagon (Glucagen Diagnostic Kit) 0 mg IM STAT PRN; Protocol PRN Reason: Hypoglycemia Protocol Potassium Chloride/Dextrose/Sod Cl (Potassium Chl 20 Meq In D5-1/2ns) 1,000 mls @ 100 mls/hr IV .Q10H [facility] Last Admin: 07/24/17 12:12 Dose: Not Given Insulin Aspart (Novolog) 0 unit SC ACHS [facility] PRN Reason: Protocol Last Admin: 07/24/17 12:13 Dose: 1 unit Morphine Sulfate (Morphine) 4 mg IVP Q4 PRN PRN Reason: Pain, moderate (4-7) Last Admin: 07/23/17 17:14 Dose: 4 mg Pantoprazole Sodium (Protonix Ec Tab) 40 mg PO DAILY [facility] Last Admin: 07/24/17 09:40 Dose: 40 mg Rosuvastatin Calcium (Crestor) 5 mg PO HS [facility] Last Admin: 07/23/17 21:40 Dose: 5 mg - Labs Labs: 07/24/17 07:17 07/24/17 07:17 PT 12.5 SECONDS (9.7-12.2) H 07/20/17 08:39 INR 1.1 07/20/17 08:39 - Constitutional Appears: No Acute Distress - Head Exam Head Exam: NORMAL INSPECTION - GI/Abdominal Exam GI & Abdominal Exam: Distended, Hypoactive Bowel Sounds Additional comments: Abdomen is distended, non-tender x 4 quadrants. - Neurological Exam Neurological Exam: Alert, Awake Neuro motor strength exam: Left Upper Extremity: 5, Right Upper Extremity: 5, Left Lower Extremity: 5, Right Lower Extremity: 5 Additional comments: Neurological unchanged from previous examination. Assessment and Plan (1) Normal pressure hydrocephalus syndrome Assessment & Plan: Case discussed with Dr. Sherman, continue all current medical regimen. Recommend stat CT of the abdomen and pelvis with PO and IV contrast to evaluate ventriculoperitoneal shunt function. Status: Acute
[2017-07-24] MEDS ORDERED: Iohexol 240 (50 ml) PO ONE (13:30)
--- NOTE | 2017-07-24 15:33 | CP.PCM.PN ---
<Cynthia Valdez - Last Filed: 07/24/17 17:09> Subjective - Date & Time of Evaluation Date of Evaluation: 07/24/17 Time of Evaluation: 07:00 - Subjective Subjective: PGY1- Medicine Note- Dr. Hayes's Service Patient seen and examined at bedside and in no acute distress. Patient still thinks it is 2014 when asked the year. Patient denies any headache, chest pain, shortness of breath, abdominal pain, nausea, vomiting, constipation, or diarrhea. Objective - Vital Signs/Intake and Output Vital Signs (last 24 hours): Temp Pulse Resp BP Pulse Ox 97.9 F 60 20 131/68 97 07/24/17 07:50 07/24/17 07:50 07/24/17 07:50 07/24/17 09:39 07/24/17 07:50 Intake and Output: 07/24/17 07/24/17 06:59 18:59 Intake Total 800 2000 Output Total 375 Balance 425 2000 - Medications Medications: Current Medications Dextrose (Dextrose 50% Inj) 0 ml IV STAT PRN; Protocol PRN Reason: Hypoglycemia Protocol Dextrose (Glutose 15) 0 gm PO ONCE PRN; Protocol PRN Reason: Hypoglycemia Protocol Enalapril Maleate (Vasotec) 20 mg PO DAILY [facility] Last Admin: 07/24/17 09:39 Dose: 20 mg Glucagon (Glucagen Diagnostic Kit) 0 mg IM STAT PRN; Protocol PRN Reason: Hypoglycemia Protocol Insulin Aspart (Novolog) 0 unit SC ACHS [facility] PRN Reason: Protocol Last Admin: 07/24/17 12:13 Dose: 1 unit Morphine Sulfate (Morphine) 4 mg IVP Q4 PRN PRN Reason: Pain, moderate (4-7) Last Admin: 07/23/17 17:14 Dose: 4 mg Pantoprazole Sodium (Protonix Ec Tab) 40 mg PO DAILY [facility] Last Admin: 07/24/17 09:40 Dose: 40 mg Rosuvastatin Calcium (Crestor) 5 mg PO HS [facility] Last Admin: 07/23/17 21:40 Dose: 5 mg - Labs Labs: 07/24/17 07:17 07/24/17 07:17 PT 12.5 SECONDS (9.7-12.2) H 07/20/17 08:39 INR 1.1 07/20/17 08:39 - Constitutional Appears: Non-toxic, No Acute Distress - Head Exam Head Exam: ATRAUMATIC, NORMAL INSPECTION, NORMOCEPHALIC - Eye Exam Eye Exam: EOMI, Normal appearance - ENT Exam ENT Exam: Mucous Membranes Moist - Respiratory Exam Respiratory Exam: Clear to Ausculation Bilateral, NORMAL BREATHING PATTERN. absent: Rales, Rhonchi, Wheezes, Respiratory Distress, Stridor - Cardiovascular Exam Cardiovascular Exam: REGULAR RHYTHM, RRR, +S1, +S2 - GI/Abdominal Exam GI & Abdominal Exam: Distended, Soft, Normal Bowel Sounds. absent: Tenderness - Neurological Exam Neurological Exam: Alert, Awake, Oriented x3, Reflexes Normal Neuro motor strength exam: Left Upper Extremity: 5, Right Upper Extremity: 5, Left Lower Extremity: 5, Right Lower Extremity: 5 - Psychiatric Exam Psychiatric exam: Normal Affect, Normal Mood - Skin Skin Exam: Intact, Normal Color, Warm Assessment and Plan - Assessment and Plan (Free Text) Assessment: Normal pressure hydrocephalus syndrome- Post op day 2 of right parietal ventriculoperitoneal shunt placement * Head CT (07/18/17): moderate diffuse atrophy. Mild dilatation of the 3rd and lateral ventricles disproportion to the degree of surrounding parenchymal atrophy. Possible noncommunicating hydrocephalus. No intracranial mass, hemorrhage, or evidence of acute infarct. * Brain MRI (07/19/17): no evidence of acute infarction or acute pathology in the brain. No evidence of mass lesion mass effect or midline shift. Moderately dilated ventricles out or proportion of the dilated sulci suggestive of central atrophy versus normal pressure hydrocephalus. * Neurology (Dr. Sherman) on the case, help appreciated * Neurosurgery (Dr. Espinoza/Dr. Galindo) consulted * Neurochecks Q4H * Telemetry Distended Abdomen * patient is unable to remember if he has passed gas or had a bowel movement * as per neuro f/u stat CT of the abdomen and pelvis with PO and IV contrast to evaluate SINGLE CORNER CUTTER shunt function Dementia * likely secondary to NPH * head CT and MRI as above * neurology (Dr. Sherman) consulted * Neurosurgery (Dr. Espinoza/Dr. Galindo) on consult * LDL: 140, HDL: 28, T, Cholestrol: 195 * B12: 597 * RPR: nonreactive * TSH: 8.24; Free T4: 1.09 * Dr. Miracle Viveros consulted, help appreciated * free T3: 4.22 * Total T3: 1.73 * T4: 8.51 Lipid disorder * LDL: 140, HDL: 28, T, Cholesterol: 195 * Crestor 5mg POqHS Diabetes * a1c: 6.5 * hypoglycemic protocol * ISS * carb consistent diet HTN * Enalapril 20mg po daily Asymptomatic PVCs * EKG on admission: sinus with PVCs * Patient denies chest pain/palpitations * Cardiology consulted, Dr. Jean, help appreciated * echo reviewed by Dr. Jean- stable to undergo SINGLE CORNER CUTTER shunt placement * Possible beta-calvin if needed * JOSEE: X2 negative Prophylactic measure * protonix 40mg IV q daily * Lovenox held for surgery * SCDs * Telemetry * Neurochecks Q4H <Aureliano Hayes - Last Filed: 07/24/17 19:02> Objective - Vital Signs/Intake and Output Vital Signs (last 24 hours): Temp Pulse Resp BP Pulse Ox 98.1 F 69 20 114/63 97 07/24/17 15:15 07/24/17 15:15 07/24/17 15:15 07/24/17 15:15 07/24/17 15:15 Intake and Output: 07/24/17 07/24/17 06:59 18:59 Intake Total 800 2000 Output Total 375 Balance 425 2000 - Medications Medications: Current Medications Dextrose (Dextrose 50% Inj) 0 ml IV STAT PRN; Protocol PRN Reason: Hypoglycemia Protocol Dextrose (Glutose 15) 0 gm PO ONCE PRN; Protocol PRN Reason: Hypoglycemia Protocol Enalapril Maleate (Vasotec) 20 mg PO DAILY [facility] Last Admin: 07/24/17 09:39 Dose: 20 mg Glucagon (Glucagen Diagnostic Kit) 0 mg IM STAT PRN; Protocol PRN Reason: Hypoglycemia Protocol Insulin Aspart (Novolog) 0 unit SC ACHS [facility] PRN Reason: Protocol Last Admin: 07/24/17 17:15 Dose: Not Given Morphine Sulfate (Morphine) 4 mg IVP Q4 PRN PRN Reason: Pain, moderate (4-7) Last Admin: 07/23/17 17:14 Dose: 4 mg Pantoprazole Sodium (Protonix Ec Tab) 40 mg PO DAILY [facility] Last Admin: 07/24/17 09:40 Dose: 40 mg Rosuvastatin Calcium (Crestor) 5 mg PO HS [facility] Last Admin: 07/23/17 21:40 Dose: 5 mg - Labs Labs: 07/24/17 07:17 07/24/17 07:17 PT 12.5 SECONDS (9.7-12.2) H 07/20/17 08:39 INR 1.1 07/20/17 08:39 Attending/Attestation - Attestation I have personally seen and examined this patient.: Yes I have fully participated in the care of the patient.: Yes I have reviewed all pertinent clinical information, including history, physical exam and plan: Yes Notes (Text): 07/24/17 18:59 Patient was seen and examined 1:30 PM with the help of Nurse Sidney who translated Swazi. Patient was provided with day, date, and year and asked to remember for tomorrow as he did not remember it today when asked to do this yesterday Also on ROS: Somewhat unreliable as patient states he does not recall if he had any of things mentioned in the ROS but currently NO complaints upon FULL ROS. Also on Exam: Neuro: CN II through XII are grossly intact. 5/5 strength with flexion and extension and 2/4 DTR bilateral UE and LE. GI: Abdominal distention but soft and NO guarding/rebound tenderness and NONtender to palpation Assessments: 1). Normal Pressure Hydrocephalus: S/P SINGLE CORNER CUTTER Shunt 07/22/17. Repeat CT Head in 10 days and follow up with Dr. Galindo 2). Dementia 3). HLD 4). DM 5). HTN 6). Asymptomatic PVCs 7). Elevated TSH: F/U thyroglobulin Ab, thyroid peroxidase Ab F/U CT Abdomen/Pelvis with contrast I spoke with Neurosurgeon Dr. Galindo07/23/17: follow up with him in 10 days at which time he will obtain repeat CT Head. Pit Furnace Operator Stacy has been made aware that has agreed to ANGIE. Aureliano Hayes D.O.
[2017-07-24] MEDS ORDERED: Iohexol 300 100 ML IJ ONE (16:12)
--- NOTE | 2017-07-24 17:00 | CT ---
PROCEDURE: CT Abdomen and Pelvis with contrast HISTORY: abdominal distention, s/p ventriculoperitoneal shunt. Right upper quadrant abdominal pain. COMPARISON: None. TECHNIQUE: Contrast dose: 100 cc Omnipaque 300. Radiation dose: Total exam DLP = 625.44 mGy-cm. This CT exam was performed using one or more of the following dose reduction techniques: Automated exposure control, adjustment of the mA and/or kV according to patient size, and/or use of iterative reconstruction technique. FINDINGS: LOWER THORAX: 4.5 mm pulmonary nodule superior segment right lower lobe. LIVER: Unremarkable. No gross lesion or ductal dilatation. GALLBLADDER AND BILE DUCTS: Unremarkable. PANCREAS: Unremarkable. No gross lesion or ductal dilatation. SPLEEN: Unremarkable. ADRENALS: Unremarkable right adrenal gland. Left adrenal gland: Solid mass 2.4 cm with mean Hounsfield unit values 52. This does not conform to a benign etiology. KIDNEYS AND URETERS: Unremarkable. No hydronephrosis. No solid mass. O incidental cyst right kidney 2.3 x 3.7 cm. VASCULATURE: Unremarkable. No aortic aneurysm. BOWEL: Distended, redundant sigmoid colon without evidence of mechanical obstruction or volvulus. Honeycutt maximum diameter that the affected colon 7 cm. Constipation without fecal impaction or obstruction. APPENDIX: Normal appendix. PERITONEUM: Unremarkable. No free fluid. No free air. Ventriculoperitoneal shunt catheter identified coursing through the subcutaneous tissues the anterior lower chest and abdominal wall. The tip of the catheter resides in the right lower quadrant. No abnormalities with respect to the catheter identified. There are no associated abnormal fluid collections or inflammatory changes. LYMPH NODES: Unremarkable. No enlarged lymph nodes. BLADDER: Unremarkable. REPRODUCTIVE: Unremarkable. Apparatus related to a penile prosthesis identified right inguinal region. BONES: No acute fracture. OTHER FINDINGS: None. IMPRESSION: 1. Moderate colonic distention without mechanical obstruction or volvulus. Redundant sigmoid colon noted. 2. Solid mass uncertain etiology, significance left adrenal gland. 3. 4.5 mm pulmonary nodule right lower lobe. There is a single, solid, pulmonary nodule that is < 6 mm in size. According to the 2017 Fleischner criteria, if the patient is low risk, no routine follow-up is recommended. If the patient is high risk, an optional CT at 12 months is recommended
--- NOTE | 2017-07-24 20:22 | CP.PCM.PN ---
Subjective - Date & Time of Evaluation Date of Evaluation: 07/24/17 Time of Evaluation: 20:19 - Subjective Subjective: abnormal thyroid function Objective - Vital Signs/Intake and Output Vital Signs (last 24 hours): Temp Pulse Resp BP Pulse Ox 98.1 F 71 20 114/63 97 07/24/17 15:15 07/24/17 16:00 07/24/17 15:15 07/24/17 15:15 07/24/17 15:15 Intake and Output: 07/24/17 07/25/17 18:59 06:59 Intake Total 1999 Balance 1999 - Medications Medications: Current Medications Dextrose (Dextrose 50% Inj) 0 ml IV STAT PRN; Protocol PRN Reason: Hypoglycemia Protocol Dextrose (Glutose 15) 0 gm PO ONCE PRN; Protocol PRN Reason: Hypoglycemia Protocol Enalapril Maleate (Vasotec) 20 mg PO DAILY [facility] Last Admin: 07/24/17 09:39 Dose: 20 mg Glucagon (Glucagen Diagnostic Kit) 0 mg IM STAT PRN; Protocol PRN Reason: Hypoglycemia Protocol Insulin Aspart (Novolog) 0 unit SC ACHS [facility] PRN Reason: Protocol Last Admin: 07/24/17 17:15 Dose: Not Given Morphine Sulfate (Morphine) 4 mg IVP Q4 PRN PRN Reason: Pain, moderate (4-7) Last Admin: 07/23/17 17:14 Dose: 4 mg Pantoprazole Sodium (Protonix Ec Tab) 40 mg PO DAILY [facility] Last Admin: 07/24/17 09:40 Dose: 40 mg Rosuvastatin Calcium (Crestor) 5 mg PO HS [facility] Last Admin: 07/23/17 21:40 Dose: 5 mg - Labs Labs: 07/24/17 07:17 07/24/17 07:17 PT 12.5 SECONDS (9.7-12.2) H 07/20/17 08:39 INR 1.1 07/20/17 08:39 Assessment and Plan (1) Elevated TSH Assessment & Plan: ndocrine consult reason for consult: elevated TSH Source : record review Mr. Kunz is 76 y/o found with elevated TSH , admitted for worsening for forgetfulness . also with asymptomatic PVCs , hydrocephalus s/p S[employer] shunt placement for hydrocephalus Allergy NKDA Past medical history :hyperlipidemia , normal pressure hydrocephalus, Dementia , IDDM Past surgical history : prostate surgery Psychiatry history : not docuented Social history : ex-smoking , no ETOH use , illicit drug use Family history : irrelevant ROS: Constitutional: no fever ,tiredness/weakness .HEENT: no earache, change in voice .Respiratory: denies cough, sob . CVS :no chest pain, no palpitations . Abdomen : no abdominal pain, no nausea /vomiting , no change bowel movement . 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 Extremities : no edema , no tremors .Skin: no itching, no rash Physical exam Well developed awake & alert NAD VSS stable HEENT: norm cephalic, atraumatic , no lid lag , no exophthalmos NECK: supple, no palpable lymphadenopathy THYROID: no palpable thyromegaly , not tender CHEST: fair air entry, bilateral, CVS: S1,S2 ABDOMEN: bowel sound present, benign, obese, no wide purple striae , no bruises EXTREMITIES: no edema, clubbing or cyanosis, no palpable hand tremors Skin : acanthosis nigricans lab: 07/22/2016 TSH 8.24 , Ft4 1.09 , FT3 4.22 , T3 1.7 , TPO & TG (-) 07/20/2017 tsh 8.01, free T4 1.07 , creatinine kinase 215 ,elevated , cr 1.3 Assessment elevated TSH , pulse 69-70 , possible euthyroid sick asymtomatic PVCS Dementia , worsening hydrocephalus , normal pressure s/p shunt plan monitor thyroid functions will follow with you. Status: Acute (2) Asymptomatic PVCs Status: Acute (3) Normal pressure hydrocephalus syndrome Status: Acute (4) Dementia Status: Acute
[2017-07-25 04:51] VITALS: PULSE 67
[2017-07-25 07:24] LABS: BASO % 0.4 % (0.0-2.0); EOS % 4.4 % (0.0-4.0); HEMOGLOBIN 11.3 g/dL (12.0-18.0); LYMPH # 2.2 K/uL (1.0-4.3); MEAN CELL VOLUME 93.9 fL (80.0-94.0); MEAN CORPUSCULAR HEMOGLOBIN 32.3 pg (27.0-31.0); MEAN CORPUSCULAR HGB CONC 34.4 g/dL (33.0-37.0); MEAN PLATELET VOLUME 10.5 fL (7.2-11.7); MONO # 0.9 K/uL (0.0-0.8); MONO % 12.2 % (0.0-10.0); NEUT # 4.1 K/uL (1.8-7.0); RBC 3.51 Mil/uL (4.40-5.90); RED CELL DISTRIBUTION WIDTH 13.6 % (11.5-14.5); WHITE BLOOD COUNT 7.5 K/uL (4.8-10.8)
[2017-07-25 07:25] LABS: EOS # 0.3 K/uL (0.0-0.7)
[2017-07-25] MEDS: (Novolog) Insulin Aspart, Recombinant 100 u/ml 10 ml vial SC SCH ×3 (07:57→16:55)
[2017-07-25 08:21] LABS: ALBUMIN 3.4 g/dL (3.5-5.0); ALT/SGPT 25 U/L (21-72); AST/SGOT 24 U/L (17-59); BLOOD UREA NITROGEN 13 mg/dL (9-20); CALCIUM 7.9 mg/dl (8.6-10.4); GFR AFRICAN-AMERICAN > 60; GFR NON-AFRICAN AMERICAN > 60
[2017-07-25 08:23] LABS: ALB/GLOB RATIO 1.2 (1.0-2.1)
[2017-07-25 08:45] VITALS: O2SAT 96
[2017-07-25] MEDS: Pantoprazole 40 mg EC Tab PO SCH (09:11)
--- NOTE | 2017-07-25 14:19 | CP.PCM.PN ---
Subjective - Date & Time of Evaluation Date of Evaluation: 07/25/17 Time of Evaluation: 14:16 - Subjective Subjective: Mr. Camacho was seen and examined at the bedside. He is alert, with episode of confusion but able to redirect accordingly. He is able to answer questions appropriately. He denies any headache, blurred vision, dizziness, lightheadedness, nausea, or vomiting. He states of feeling better after he had bowel movement this am. CT of the abdomen showed moderate colonic distention without any mechanical obstruction. He is able to follow simple commands. He remains on 1:1 sitter for patient safety. There was no untoward events overnight. Objective - Vital Signs/Intake and Output Vital Signs (last 24 hours): Temp Pulse Resp BP Pulse Ox 97.9 F 67 20 115/75 96 07/25/17 08:43 07/25/17 08:43 07/25/17 08:43 07/25/17 09:10 07/25/17 08:43 Intake and Output: 07/25/17 07/25/17 06:59 18:59 Intake Total 600 800 Balance 600 800 - Medications Medications: Current Medications Dextrose (Dextrose 50% Inj) 0 ml IV STAT PRN; Protocol PRN Reason: Hypoglycemia Protocol Dextrose (Glutose 15) 0 gm PO ONCE PRN; Protocol PRN Reason: Hypoglycemia Protocol Enalapril Maleate (Vasotec) 20 mg PO DAILY [facility] Last Admin: 07/25/17 09:10 Dose: 20 mg Glucagon (Glucagen Diagnostic Kit) 0 mg IM STAT PRN; Protocol PRN Reason: Hypoglycemia Protocol Insulin Aspart (Novolog) 0 unit SC ACHS [facility] PRN Reason: Protocol Last Admin: 07/25/17 12:30 Dose: 1 unit Morphine Sulfate (Morphine) 4 mg IVP Q4 PRN PRN Reason: Pain, moderate (4-7) Last Admin: 07/23/17 17:14 Dose: 4 mg Pantoprazole Sodium (Protonix Ec Tab) 40 mg PO DAILY [facility] Last Admin: 07/25/17 09:11 Dose: 40 mg Rosuvastatin Calcium (Crestor) 5 mg PO HS [facility] Last Admin: 07/24/17 21:32 Dose: Not Given - Labs Labs: 07/25/17 07:01 07/25/17 07:01 PT 12.5 SECONDS (9.7-12.2) H 07/20/17 08:39 INR 1.1 07/20/17 08:39 - Constitutional Appears: No Acute Distress - Head Exam Head Exam: NORMAL INSPECTION - Neurological Exam Neurological Exam: Alert, Awake Neuro motor strength exam: Left Upper Extremity: 5, Right Upper Extremity: 5, Left Lower Extremity: 5, Right Lower Extremity: 5 Additional comments: Neurological unchanged from previous examination. Assessment and Plan (1) Normal pressure hydrocephalus syndrome Assessment & Plan: Case discussed with Dr. Sherman, continue all current medical, physical therapies. Recommend rehab. facility for strengthening purposes. Status: Acute
--- NOTE | 2017-07-25 15:22 | CP.PCM.DIS ---
<Cynthia Valdez - Last Filed: 07/25/17 19:06> Provider - Provider Date of Admission: 07/18/17 18:15 Attending physician: Aureliano Hayes MD Primary care physician: PMD: Dr Domingo Ruano Consults: Cardio: Ted Endo: Miracle Neuro: Korya Neurosurg:Anneliese/Mateo Time Spent in preparation of Discharge (in minutes): 45 Diagnosis - Discharge Diagnosis (1) Normal pressure hydrocephalus syndrome Status: Resolved Priority: High (2) Dementia Status: Chronic (3) Asymptomatic PVCs Status: Chronic (4) HLD (hyperlipidemia) Status: Chronic (5) Elevated TSH Status: Acute (6) HTN (hypertension) Status: Chronic (7) Diabetes Status: Chronic Hospital Course - Lab Results Lab Results: Micro Results 07/22/17 Unknown Cerebral Spinal Fluid Gram Stain - Final 07/22/17 Unknown Cerebral Spinal Fluid CSF Culture - Preliminary NO GROWTH AFTER 3 DAYS Most Recent Lab Values WBC 7.5 K/uL (4.8-10.8) 07/25/17 07:01 RBC 3.51 Mil/uL (4.40-5.90) L 07/25/17 07:01 Hgb 11.3 g/dL (12.0-18.0) L 07/25/17 07:01 Hct 33.0 % (35.0-51.0) L 07/25/17 07:01 MCV 93.9 fL (80.0-94.0) 07/25/17 07:01 MCH 32.3 pg (27.0-31.0) H 07/25/17 07:01 MCHC 34.4 g/dL (33.0-37.0) 07/25/17 07:01 RDW 13.6 % (11.5-14.5) 07/25/17 07:01 Plt Count 129 K/uL (130-400) L 07/25/17 07:01 MPV 10.5 fL (7.2-11.7) 07/25/17 07:01 Neut % (Auto) 54.0 % (50.0-75.0) 07/25/17 07:01 Lymph % (Auto) 29.0 % (20.0-40.0) 07/25/17 07:01 [place] % (Auto) 12.2 % (0.0-10.0) H 07/25/17 07:01 Eos % (Auto) 4.4 % (0.0-4.0) H 07/25/17 07:01 Baso % (Auto) 0.4 % (0.0-2.0) 07/25/17 07:01 Neut # 4.1 K/uL (1.8-7.0) 07/25/17 07:01 Lymph # 2.2 K/uL (1.0-4.3) 07/25/17 07:01 [place] # 0.9 K/uL (0.0-0.8) H 07/25/17 07:01 Eos # 0.3 K/uL (0.0-0.7) 07/25/17 07:01 Baso # 0.0 K/uL (0.0-0.2) 07/25/17 07:01 Differential Comment 07/23/17 07:12 PT 12.5 SECONDS (9.7-12.2) H 07/20/17 08:39 INR 1.1 07/20/17 08:39 Sodium 132 mmol/L (132-148) 07/25/17 07:01 Potassium 4.1 mmol/L (3.6-5.2) 07/25/17 07:01 Chloride 101 mmol/L (98-107) 07/25/17 07:01 Carbon Dioxide 25 mmol/L (22-30) 07/25/17 07:01 Anion Gap 10 (10-20) 07/25/17 07:01 BUN 13 mg/dL (9-20) 07/25/17 07:01 Creatinine 1.0 mg/dL (0.8-1.5) 07/25/17 07:01 Est GFR ( Amer) > 60 07/25/17 07:01 Est GFR (Non-Af Amer) > 60 07/25/17 07:01 POC Glucose (mg/dL) 199 mg/dL (65-110) H 07/25/17 12:15 Random Glucose 137 mg/dL (75-110) H 07/25/17 07:01 Hemoglobin A1c 6.5 % (4.2-6.5) 07/19/17 08:38 Calcium 7.9 mg/dl (8.6-10.4) L 07/25/17 07:01 Phosphorus 2.2 mg/dL (2.5-4.5) L 07/24/17 07:17 Magnesium 1.7 mg/dL (1.6-2.3) 07/24/17 07:17 Total Bilirubin 0.8 mg/dL (0.2-1.3) 07/25/17 07:01 AST 24 U/L (17-59) 07/25/17 07:01 ALT 25 U/L (21-72) 07/25/17 07:01 Alkaline Phosphatase 41 U/L (38-126) 07/25/17 07:01 Total Creatine Kinase 215 U/L (55-170) H 07/20/17 08:37 CK-MB (Mass) 1.74 ng/mL (0.0-3.38) 07/20/17 08:37 Troponin I 0.0280 ng/mL (0.00-0.120) 07/20/17 08:37 Total Protein 6.2 g/dL (6.3-8.3) L 07/25/17 07:01 Albumin 3.4 g/dL (3.5-5.0) L 07/25/17 07:01 Globulin 2.9 gm/dL (2.2-3.9) 07/25/17 07:01 Albumin/Globulin Ratio 1.2 (1.0-2.1) 07/25/17 07:01 Triglycerides 139 mg/dL (0-149) 07/19/17 08:38 Cholesterol 195 mg/dL (0-199) 07/19/17 08:38 LDL Cholesterol Direct 140 mg/dL (0-129) H 07/19/17 08:38 HDL Cholesterol 28 mg/dL (30-70) L 07/19/17 08:38 Vitamin B12 597 pg/mL (239-931) 07/19/17 08:38 Folate 18.0 ng/mL 07/20/17 08:37 Free T4 1.09 ng/dL (0.78-2.19) 07/22/17 06:45 Thyroxine (T4) 8.51 ug/dL (5.5-11.0) 07/22/17 06:45 Free T3 pg/mL 4.22 pg/mL (2.77-5.27) 07/22/17 06:45 Total T3 1.73 nmol/L (1.49-2.60) 07/22/17 06:45 TSH 3rd Generation 8.24 mIU/L (0.46-4.68) H 07/22/17 06:45 Fluid Type Spinal fluid 07/22/17 14:48 CSF Volume 1 mL (0-1) 07/22/17 14:48 CSF Appearance Clear/colorless (CLEAR) 07/22/17 14:48 CSF WBC 0.0 /mm3 (0.0-5.0) 07/22/17 14:48 CSF RBC 22.0 /mm3 (0.0-0.0) H 07/22/17 14:48 CSF Total Cell Counted TEST NOT PERFORMED 07/22/17 14:48 CSF Monos/Macrophages 0 % (0-0) 07/22/17 14:48 CSF Comment TEST NOT PERFORMED 07/22/17 14:48 CSF Glucose 84 mg/dL (40-70) H 07/22/17 14:54 CSF Total Protein 35.0 mg/dL (12-60) 07/22/17 14:54 Thyroperoxidase Ab <1 IU/mL (<9) 07/22/17 06:45 Thyroglobulin Antibody <1 IU/mL (< OR = 1) 07/22/17 06:45 RPR Nonreactive (NONREACTIVE) 07/20/17 08:37 Blood Type A NEGATIVE 07/21/17 19:48 Antibody Screen Negative 07/21/17 19:48 - Hospital Course Hospital Course: "HPI: Patient is a 76 year old male with past medical history of Alzheimer's dementia, HTN, DM presents to the ED for worsening forgetfulness. Patient was brought to the ED by his , Pebbles Desouza. She states that the patient has been having memory lapses and wandering more frequently. He has been stepping out of the house when everybody is sleeping. This has happened at least 5 times in the last 3 months. Per the step-son, the patient used to leave the house and be able to find his way back home but as of late, when he leaves he is unable to get back home. He has picked the patient up from [place] and [place] previously. Patient still thinks that he has to go to work. 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 Per the family, the patient was diagnosed with hydrocephalus in [address] Ashanti Encinas (Neurologist) . Patient has also been incontinent of urine since his prostate surgery in 2006. Denies hx of falls, fevers, chills, headaches, dizziness, cp, palpitations , sob, abdominal pain, urinary symptoms, changes in bowel habits. Last BM was this afternoon. " Hospital Course: Patient admitted for worsening dementia. Head CT (07/18/17) showed moderately diffuse atrophy. Mild dilatation of the 3rd and lateral ventricles disproportion to the degree of surrounding parenchymal atrophy. Possible noncommunicating hydrocephalus. No intracranial mass, hemorrhage, or evidence of acute infarct. Brain MRI (07/19/17) showed no evidence of acute infarction or acute pathology in the brain. No evidence of mass lesion mass effect or midline shift. Moderately dilated ventricles out or proportion of the dilated sulci suggestive of central atrophy versus normal pressure hydrocephalus. B12 was 597 and RPR was nonreactive. Dr. Sherman, neuro, was consulted. Dr. Galindo, neurosurgery, was consulted. Patient had right parietal ventriculoperitoneal shunt placement by Dr. Galindo on 07/22/17. Patient had normal strength in all extremities, normal reflexes, and normal sensation prior to and post surgery. Patient to go to [facility]. Patient will follow up with Dr. Galindo for repeat CT head and removal of scalp ariela. While in the hospital patient was experiencing asymptomatic PVCs. Patient monitored on telemetry. Cardiology (Dr. Jean) was consulted. Echo reviewed by Dr. Jean who said patient was stable to undergo OCULAR CARE AIDE shunt placement. LVEF is 45-50%. Patient treated for his hx of diabetes with insulin sliding scale, hypoglycemic protocol, accuchecks, and carb consistent diet. HgA1c was 6.5. Patient treated for his history of HLD with Crestor 5mg POqHS. Lipid panel was LDL: 140, HDL: 28, T, Cholesterol: 195. Patient treated for his HTN with Enalapril 20mg po daily. Patient found to have elevated thyroid enzymes including: TSH: 8.24; Free T4: 1.09, free T3: 4.22, total T3: 1.73. Endo, Dr. Rausch, was consulted. Patient will need repeat labs with pmd. Patient's abdomen was distended after his surgery on 07/24. CT of the abdomen and pelvis with PO and IV contrast was ordered to evaluate OCULAR CARE AIDE shunt function. CT showed: moderate colonic distention without mechanical obstruction or volvulus. Solid mass uncertain etiology, significance left adrenal gland. 4.5 mm pulmonary nodule right lower lobe. If patient is high risk, an optional CT at 12 months is recommended. Patient to follow up with PMD for further workup. Patient was put on GI and DVT prophylaxis including : protonix 40mg IV q daily, Lovenox which was stopped before surgery, SCDs. This is a summary of the hospital course, please see chart for details. Patient stable for discharge as per Dr. Hayes and going to [facility]. Patient to return to ED if symptoms return/ worsen. Discharge Exam - Head Exam Head Exam: NORMAL INSPECTION, NORMOCEPHALIC - Eye Exam Eye Exam: EOMI, Normal appearance - ENT Exam ENT Exam: Mucous Membranes Moist - Respiratory Exam Respiratory Exam: Clear to PA & Lateral, NORMAL BREATHING PATTERN, UNREMARKABLE - Cardiovascular Exam Cardiovascular Exam: RRR, +S1, +S2 - GI/Abdominal Exam GI & Abdominal Exam: Normal Bowel Sounds, Soft. absent: Tenderness - Extremities Exam Extremities exam: full ROM, normal inspection - Neurological Exam Neurological exam: Alert, CN II-XII Intact, Reflexes Normal - Psychiatric Exam Psychiatric exam: Normal Affect, Normal Mood - Skin Skin Exam: Intact, Normal Color, Warm Discharge Plan - Follow Up Plan Condition: GOOD Disposition: REHAB FACILITY/REHAB UNIT Instructions: Heart Healthy Diet (DC), Dementia (GEN), Hydrocephalus (DC), Hypertension (DC) Additional Instructions: Patient stable for discharge to [facility] as per Dr. Hayes. Patient to continue current medications on medication list. Schedule follow up with neurosurgeon Dr. Galindo to take place on 07/31/17 by calling [phone] for an appointment. He will schedule repeat CT head and removal of scalp ariela. Follow up with primary care physician, Dr. Ruano, and bring all discharge paperwork with you. Through Dr. Ruano you will need: 1. MRI Abdomen/ Pelvis to check for left adrenal mass 2. Repeat Thyroid studies Please return to ED if symptoms return or worsen. Referrals: Domingo Ruano MD [Medical Doctor] - Kulwant Galindo MD [Staff Provider] - <Aureliano Hayes - Last Filed: 07/25/17 20:18> Provider - Provider Date of Admission: 07/18/17 18:15 Attending physician: Aureliano Hayes MD Hospital Course - Lab Results Lab Results: Micro Results 07/22/17 Unknown Cerebral Spinal Fluid Gram Stain - Final 07/22/17 Unknown Cerebral Spinal Fluid CSF Culture - Preliminary NO GROWTH AFTER 3 DAYS Most Recent Lab Values WBC 7.5 K/uL (4.8-10.8) 07/25/17 07:01 RBC 3.51 Mil/uL (4.40-5.90) L 07/25/17 07:01 Hgb 11.3 g/dL (12.0-18.0) L 07/25/17 07:01 Hct 33.0 % (35.0-51.0) L 07/25/17 07:01 MCV 93.9 fL (80.0-94.0) 07/25/17 07:01 MCH 32.3 pg (27.0-31.0) H 07/25/17 07:01 MCHC 34.4 g/dL (33.0-37.0) 07/25/17 07:01 RDW 13.6 % (11.5-14.5) 07/25/17 07:01 Plt Count 129 K/uL (130-400) L 07/25/17 07:01 MPV 10.5 fL (7.2-11.7) 07/25/17 07:01 Neut % (Auto) 54.0 % (50.0-75.0) 07/25/17 07:01 Lymph % (Auto) 29.0 % (20.0-40.0) 07/25/17 07:01 [place] % (Auto) 12.2 % (0.0-10.0) H 07/25/17 07:01 Eos % (Auto) 4.4 % (0.0-4.0) H 07/25/17 07:01 Baso % (Auto) 0.4 % (0.0-2.0) 07/25/17 07:01 Neut # 4.1 K/uL (1.8-7.0) 07/25/17 07:01 Lymph # 2.2 K/uL (1.0-4.3) 07/25/17 07:01 [place] # 0.9 K/uL (0.0-0.8) H 07/25/17 07:01 Eos # 0.3 K/uL (0.0-0.7) 07/25/17 07:01 Baso # 0.0 K/uL (0.0-0.2) 07/25/17 07:01 Differential Comment 07/23/17 07:12 PT 12.5 SECONDS (9.7-12.2) H 07/20/17 08:39 INR 1.1 07/20/17 08:39 Sodium 132 mmol/L (132-148) 07/25/17 07:01 Potassium 4.1 mmol/L (3.6-5.2) 07/25/17 07:01 Chloride 101 mmol/L (98-107) 07/25/17 07:01 Carbon Dioxide 25 mmol/L (22-30) 07/25/17 07:01 Anion Gap 10 (10-20) 07/25/17 07:01 BUN 13 mg/dL (9-20) 07/25/17 07:01 Creatinine 1.0 mg/dL (0.8-1.5) 07/25/17 07:01 Est GFR ( Amer) > 60 07/25/17 07:01 Est GFR (Non-Af Amer) > 60 07/25/17 07:01 POC Glucose (mg/dL) 245 mg/dL (65-110) H 07/25/17 16:28 Random Glucose 137 mg/dL (75-110) H 07/25/17 07:01 Hemoglobin A1c 6.5 % (4.2-6.5) 07/19/17 08:38 Calcium 7.9 mg/dl (8.6-10.4) L 07/25/17 07:01 Phosphorus 2.2 mg/dL (2.5-4.5) L 07/24/17 07:17 Magnesium 1.7 mg/dL (1.6-2.3) 07/24/17 07:17 Total Bilirubin 0.8 mg/dL (0.2-1.3) 07/25/17 07:01 AST 24 U/L (17-59) 07/25/17 07:01 ALT 25 U/L (21-72) 07/25/17 07:01 Alkaline Phosphatase 41 U/L (38-126) 07/25/17 07:01 Total Creatine Kinase 215 U/L (55-170) H 07/20/17 08:37 CK-MB (Mass) 1.74 ng/mL (0.0-3.38) 07/20/17 08:37 Troponin I 0.0280 ng/mL (0.00-0.120) 07/20/17 08:37 Total Protein 6.2 g/dL (6.3-8.3) L 07/25/17 07:01 Albumin 3.4 g/dL (3.5-5.0) L 07/25/17 07:01 Globulin 2.9 gm/dL (2.2-3.9) 07/25/17 07:01 Albumin/Globulin Ratio 1.2 (1.0-2.1) 07/25/17 07:01 Triglycerides 139 mg/dL (0-149) 07/19/17 08:38 Cholesterol 195 mg/dL (0-199) 07/19/17 08:38 LDL Cholesterol Direct 140 mg/dL (0-129) H 07/19/17 08:38 HDL Cholesterol 28 mg/dL (30-70) L 07/19/17 08:38 Vitamin B12 597 pg/mL (239-931) 07/19/17 08:38 Folate 18.0 ng/mL 07/20/17 08:37 Free T4 1.09 ng/dL (0.78-2.19) 07/22/17 06:45 Thyroxine (T4) 8.51 ug/dL (5.5-11.0) 07/22/17 06:45 Free T3 pg/mL 4.22 pg/mL (2.77-5.27) 07/22/17 06:45 Total T3 1.73 nmol/L (1.49-2.60) 07/22/17 06:45 TSH 3rd Generation 8.24 mIU/L (0.46-4.68) H 07/22/17 06:45 Fluid Type Spinal fluid 07/22/17 14:48 CSF Volume 1 mL (0-1) 07/22/17 14:48 CSF Appearance Clear/colorless (CLEAR) 07/22/17 14:48 CSF WBC 0.0 /mm3 (0.0-5.0) 07/22/17 14:48 CSF RBC 22.0 /mm3 (0.0-0.0) H 07/22/17 14:48 CSF Total Cell Counted TEST NOT PERFORMED 07/22/17 14:48 CSF Monos/Macrophages 0 % (0-0) 07/22/17 14:48 CSF Comment TEST NOT PERFORMED 07/22/17 14:48 CSF Glucose 84 mg/dL (40-70) H 07/22/17 14:54 CSF Total Protein 35.0 mg/dL (12-60) 07/22/17 14:54 Thyroperoxidase Ab <1 IU/mL (<9) 07/22/17 06:45 Thyroglobulin Antibody <1 IU/mL (< OR = 1) 07/22/17 06:45 RPR Nonreactive (NONREACTIVE) 07/20/17 08:37 Blood Type A NEGATIVE 07/21/17 19:48 Antibody Screen Negative 07/21/17 19:48 Attending/Attestation - Attestation I have personally seen and examined this patient.: Yes I have fully participated in the care of the patient.: Yes I have reviewed all pertinent clinical information, including history, physical exam and plan: Yes Notes (Text): 07/25/17 20:15 Patient was seen and examined shortly after the resident. Exam, assessment and plan, and discharge instructions were thoroughly gone over with the resident. Discharge instructions were thoroughly gone over with patient's with Nurse Venegas who translated in Egyptian. Aureliano Hayes D.O.
[2017-07-25] MEDS ORDERED: Pneumococcal 23-Valent Vaccine IM ONE (16:00)
[2017-07-25] MEDS ORDERED: Influenza Vaccine 60 mcg/0.5 mL SYR (4YR UP) IM ONE (16:00)
[2017-07-25 16:04] VITALS: BP 137/60; RESP 18; TEMP 98.5
== END 2017-07-25 21:26 | DRG 33 ==
LOC: C.ER 14:38 → OBSVTOIN 18:15 → C.9E 18:15 → C.3T 22:21 → C.6T 07-19 19:01
PROVIDERS: ADMIT Family Medicine; ATTEND Family Medicine
PROC: 00160J6 Bypass Cerebral Ventricle to Peritoneal Cavity with Synthetic Substitute, Open Approach (ICD-10-PCS; principal; 2017-07-22 09:15)
DX: G91.2 (Idiopathic) normal pressure hydrocephalus (principal); E11.9 Type 2 diabetes mellitus without complications; G30.9 Alzheimer's disease, unspecified; F02.80 Dementia in other diseases classified elsewhere, unspecified severity, without behavioral disturbance, psychotic disturbance, mood disturbance, and anxiety; E78.00 Pure hypercholesterolemia, unspecified; I10 Essential (primary) hypertension; I49.3 Ventricular premature depolarization; I69.993 Ataxia following unspecified cerebrovascular disease; Z79.4 Long term (current) use of insulin; Z87.891 Personal history of nicotine dependence

== ENCOUNTER 2017-07-26 18:07 | Emergency (ER) | payer MEDICARE, MEDICAID ==
[2017-07-26 18:24] VITALS: RESP 18
--- NOTE | 2017-07-26 18:48 | C.PDOC ---
History Of Present Illness 76M c/o abdominal pain since yesterday at the wound site of his [employer] shunt which he had placed several days ago here. subjective fever per . no vomiting. Time Seen by Provider: 07/26/17 18:28 Chief Complaint (Nursing): Abnormal Skin Integrity Past Medical History Vital Signs: Last Vital Signs Temp 99.2 F 07/26/17 20:54 Pulse 62 07/26/17 21:35 Resp 18 07/26/17 21:35 BP 130/80 07/26/17 21:35 Pulse Ox 98 07/26/17 21:35 - Medical History PMH: Alzheimer's Disease (yes, per [facility] report), HTN Denies: Chronic Kidney Disease - [facility] Procedures BYPASS CEREB VENT TO PERITON CAV W SYNTH SUB, OPEN (07/18/17) Family History: States: Unknown Family Hx - Social History Hx Alcohol Use: No (unknown) Hx Substance Use: No (unknown) - Immunization History Hx Tetanus Toxoid Vaccination: No Hx Influenza Vaccination: No Hx Pneumococcal Vaccination: No Review Of Systems Constitutional: Positive for: Fever (subjective). Negative for: Weakness, Malaise Eyes: Negative for: Vision Change Cardiovascular: Negative for: Chest Pain Respiratory: Negative for: Cough, Shortness of Breath Gastrointestinal: Positive for: Abdominal Pain. Negative for: Nausea, Vomiting , Diarrhea Genitourinary: Negative for: Dysuria Neurological: Negative for: Weakness, Numbness, Headache Physical Exam - Physical Exam Appears: Well, Non-toxic, No Acute Distress Skin: Warm, Dry Head: Atraumatic, Other (surgical ariela in place right scalp, wound intact no erythema or drainage ) Eye(s): bilateral: PERRL, EOMI Oral Mucosa: Moist Neck: Normal ROM Cardiovascular: Rhythm Regular Respiratory: No Decreased Breath Sounds, No Accessory Muscle Use Gastrointestinal/Abdominal: Soft, Tenderness, No Distention, No Guarding, No Rebound, Other (surigcal wound intact, no erythema or drainage) Pulses: Left Radial: Normal, Right Radial: Normal Neurological/Psych: Other (baseline disorientation from dementia. no focal deficits. ) ED Course And Treatment - Laboratory Results Result Diagrams: 07/26/17 19:11 07/26/17 19:11 O2 Sat by Pulse Oximetry: 99 Medical Decision Making Medical Decision Making: surgical wounds look good. CT no acute findings, constipation. labs unremarkable. pt appears well, resting quietly during his ED stay, no distress. disc w family plan for close f/u as well as rtr. they v/u and agree w plan. Disposition - Disposition Referrals: Domingo Ruano MD [Medical Doctor] - Kulwant Galindo MD [Staff Provider] - Disposition: HOME/ ROUTINE Disposition Time: 21:36 Condition: GOOD Additional Instructions: Please follow up with your doctors on Friday. Use miralax or generic equivalent as directed for constipation. Return to the ER immediately for any worsening symptoms, fever, vomiting, or for any other concerns. Forms: Gen Discharge Inst Latvian, [employer] (Tajik) - Clinical Impression Clinical Impression: Abdominal pain
[2017-07-26 19:14] LABS: BASO # 0.1 K/uL (0.0-0.2); BASO % 0.5 % (0.0-2.0); EOS # 0.2 K/uL (0.0-0.7); EOS % 1.9 % (0.0-4.0); LYMPH # 1.9 K/uL (1.0-4.3); LYMPH % 16.8 % (20.0-40.0); MEAN CELL VOLUME 93.3 fL (80.0-94.0); MEAN CORPUSCULAR HEMOGLOBIN 32.3 pg (27.0-31.0); MEAN CORPUSCULAR HGB CONC 34.6 g/dL (33.0-37.0); MEAN PLATELET VOLUME 9.7 fL (7.2-11.7); MONO # 1.3 K/uL (0.0-0.8); MONO % 11.2 % (0.0-10.0); NEUT % 69.6 % (50.0-75.0); NRBC % 0.1 % (0.0-2.0); RBC 3.72 Mil/uL (4.40-5.90); RED CELL DISTRIBUTION WIDTH 13.6 % (11.5-14.5); WHITE BLOOD COUNT 11.6 K/uL (4.8-10.8)
[2017-07-26 19:38] LABS: ALB/GLOB RATIO 1.3 (1.0-2.1); ALT/SGPT 22 U/L (21-72); AST/SGOT 20 U/L (17-59); BLOOD UREA NITROGEN 20 mg/dL (9-20); CALCIUM 8.3 mg/dl (8.6-10.4); GFR AFRICAN-AMERICAN > 60; GFR NON-AFRICAN AMERICAN 59; LIPASE 160 U/L (23-300)
--- NOTE | 2017-07-26 20:19 | CT ---
EXAM: CT Abdomen and Pelvis Without Intravenous Contrast CLINICAL HISTORY: 76 years old, male; Pain; Abdominal pain; Generalized; Additional info: Abd pain S/P vp ad sales west shunt TECHNIQUE: Axial computed tomography images of the abdomen and pelvis without intravenous contrast. All CT scans at this facility use one or more dose reduction techniques, viz.: automated exposure control; ma/kV adjustment per patient size (including targeted exams where dose is matched to indication; i.e. head); or iterative reconstruction technique. Coronal and sagittal reformatted images were created and reviewed. COMPARISON: No relevant prior studies available. FINDINGS: Lower thorax: Atelectasis/lying at the lung bases. ABDOMEN: Liver: No acute abnormality as visualized. Gallbladder and bile ducts: No acute abnormality as visualized. Pancreas: No acute abnormality as visualized. Spleen: No splenomegaly. Adrenals: 2.5 cm left adrenal nodule, obtained Hounsfield units suggest this represents an adenoma, not definitive on noncontrast study. Followup imaging with study with dedicated protocol dated evaluation. Kidneys and ureters: Approximately 3 cm right renal cyst. Nonspecific perinephric stranding. No obstructing stones. No hydronephrosis. Stomach and bowel: Small hiatal hernia. No small bowel obstruction. Retained fecal material in the colon. Appendix: No findings to suggest acute appendicitis. PELVIS: Bladder: No acute abnormality as visualized. Reproductive: Right-sided penile prosthesis visualized. ABDOMEN and PELVIS: Intraperitoneal space: LENS ASSISTANT shunt tip in the right lower quadrant. No free air. No significant fluid collection. Bones: Degenerative changes. Soft tissues: Skin ariela visualized. LENS ASSISTANT shunt noted. Fat containing left inguinal hernia. Vasculature: Atherosclerosis. No abdominal aortic aneurysm. Lymph nodes: No acute abnormality as visualized. IMPRESSION: Retained fecal material in the colon, correlate for constipation. Left adrenal nodule as previously reported. Please see additional details/findings as above. Please note evaluation for underlying visceral lesions/abnormalities limited without intravenous contrast.
[2017-07-26] MEDS ORDERED: Bacitracin 500 Units/gm Oint Foilpak UD ONE (20:43)
[2017-07-26 20:54] VITALS: TEMP 99.2
[2017-07-26 21:37] VITALS: BP 130/80; PULSE 62
[2017-07-31 18:21] VITALS: O2SAT 99
== END 2017-07-26 21:53 | disposition home or self-care (01) ==
LOC: C.ER 18:07
DX: R10.9 Unspecified abdominal pain (principal)

== ENCOUNTER 2018-01-01 07:07 | Inpatient (IN) | payer MEDICARE, MEDICAID ==
[2018-01-01 07:17] VITALS: BMI 23.5
[2018-01-01 08:20] LABS: LYMPH # 0.5 K/uL (1.0-4.3); MEAN CELL VOLUME 95.5 fL (80.0-94.0); MONO # 0.7 K/uL (0.0-0.8); WHITE BLOOD COUNT 9.3 K/uL (4.8-10.8)
[2018-01-01 08:22] LABS: BASO % 0.4 % (0.0-2.0); HEMOGLOBIN 13.2 g/dL (12.0-18.0); LYMPH % 5.6 % (20.0-40.0); MEAN CORPUSCULAR HEMOGLOBIN 33.5 pg (27.0-31.0); MEAN CORPUSCULAR HGB CONC 35.1 g/dL (33.0-37.0); MEAN PLATELET VOLUME 9.8 fL (7.2-11.7); MONO % 7.8 % (0.0-10.0); NEUT % 86.2 % (50.0-75.0); PLATELET COUNT 156 K/uL (130-400); RBC 3.94 Mil/uL (4.40-5.90); RED CELL DISTRIBUTION WIDTH 14.4 % (11.5-14.5)
[2018-01-01 08:57] LABS: BANDS 8 % (0-2); LYMPHOCYTE 8 % (20-40); MONOCYTE 3 % (0-10); NEUTROPHIL 81 % (50-75); TOTAL CELLS COUNTED 100
[2018-01-01 08:58] LABS: PLATELET ESTIMATE NORMAL (NORMAL)
[2018-01-01 09:06] LABS: ALB/GLOB RATIO 1.4 (1.0-2.1); ALBUMIN 4.5 g/dL (3.5-5.0); ALT/SGPT 17 U/L (21-72); AST/SGOT 39 U/L (17-59); BLOOD UREA NITROGEN 31 mg/dL (9-20); CALCIUM 9.4 mg/dl (8.6-10.4); GFR AFRICAN-AMERICAN > 60; GFR NON-AFRICAN AMERICAN 59
[2018-01-01] MEDS ORDERED: Sodium Chloride 0.9% 1,000 ML IV ONE (09:23)
--- NOTE | 2018-01-01 09:26 | CT ---
PROCEDURE: CT HEAD WITHOUT CONTRAST HISTORY: R/O Bleed COMPARISON: CT head 12/12/2017 TECHNIQUE: Axial computed tomography images were obtained through the head/brain without intravenous contrast. Coronal and sagittal reconstructions were also acquired. Radiation dose: Total exam DLP = 984 mGy-cm. FINDINGS: HEMORRHAGE: Again seen are bilateral large subdural hemorrhages that appear grossly stable in size compared to prior exam. However, on the current exam there are diffuse acute blood products throughout the left subdural hemorrhage and to a lesser degree within the right subdural hemorrhage. Maximal thickness of both subdural hemorrhages measures 1.6 cm. Hyperacute hemorrhage is noted within the left subdural hemorrhage with a maximal thickness of 0.3 cm. There is no significant midline shift. BRAIN: Minimal compressive mass effect on both cerebral hemispheres from the bilateral subdural hemorrhages. Intracranial atherosclerosis noted. No intraparenchymal mass identified. VENTRICLES: Normal in size for patient age. Again seen is a right parietal approach ventricular shunt catheter that traverses the midline, crosses the 3rd ventricle and with tip terminating in the region the left basal ganglia. CALVARIUM: Right parietal nilton hole. PARANASAL SINUSES: Minimal mucosal thickening in the bilateral ethmoid sinuses. Remainder of the Visualized paranasal sinuses are clear. MASTOID AIR CELLS: Visualized mastoid air cells are clear. OTHER FINDINGS: None. IMPRESSION: Bilateral large subdural hemorrhages with increase in acute blood products compared to prior exam. Findings discussed with Quentin JUAN, at 9:20 a.m. on 01/01/2018.
[2018-01-01] MEDS ORDERED: Sodium Chloride 0.9% 1,000 ML ONE (09:36)
--- NOTE | 2018-01-01 09:38 | C.PDOC ---
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 notes that patient has been complaining of increasing dizziness, described as unsteady gait. Also notes subjective fever and general weakness. PT was evaluated on Dr Galindo 4 days ago, shunt was adjusted and instructed repeat ct in 2 weeks. Yesterday the patient was seated when he hit his right foot on the furniture. He is now complaining of right foot pain. Otherwise patient denies any chest pain, SOB, abdominal pain, URI symtpoms, symptoms or headache. No head trauma. Information primarily from patients . Time Seen by Provider: 01/01/18 07:20 Chief Complaint (Nursing): GI Problem History Per: Family () History/Exam Limitations: no limitations Onset/Duration Of Symptoms: Hrs Current Symptoms Are (Timing): Still Present Seizure Or Post-ictal Symptoms: None Past Medical History Reviewed: Historical Data, Nursing Documentation, Vital Signs Vital Signs: Last Vital Signs Temp 98.7 F 01/01/18 12:00 Pulse 77 01/01/18 14:20 Resp 14 01/01/18 14:20 BP 86/44 L 01/01/18 13:57 Pulse Ox 97 01/01/18 15:16 - Medical History PMH: Alzheimer's Disease (yes, per FAS report), HTN, Hypercholesterolemia (no meds), Parkinson's Disease Denies: Chronic Kidney Disease Other PMH: normal pressure hydrocephalus Other Surgeries: IMPROVEMENT NURSE shunt placement on 07/22/17 - [facility] Procedures BYPASS CEREB VENT TO PERITON CAV W SYNTH SUB, OPEN (07/18/17) Family History: States: Unknown Family Hx - Social History Hx Alcohol Use: No (unknown) Hx Substance Use: No (unknown) - Immunization History Hx Tetanus Toxoid Vaccination: No Hx Influenza Vaccination: No Hx Pneumococcal Vaccination: No Review Of Systems Except As Marked, All Systems Reviewed And Found Negative. Constitutional: Positive for: Fever, Weakness (generalized) Cardiovascular: Negative for: Chest Pain Respiratory: Negative for: Shortness of Breath Gastrointestinal: Positive for: Vomiting. Negative for: Abdominal Pain Neurological: Positive for: Dizziness. Negative for: Headache Physical Exam - Physical Exam Appears: Non-toxic, No Acute Distress Skin: Warm, Dry Head: Atraumatic, Normacephalic, No Tenderness, Other (Palpable shunt in place) Eye(s): bilateral: Normal Inspection, EOMI Nose: Normal Oral Mucosa: Moist Neck: Normal ROM, Supple Chest: Symmetrical, No Deformity, No Tenderness Cardiovascular: Rhythm Regular Respiratory: Normal Breath Sounds, No Accessory Muscle Use, No Rales, No Rhonchi , No Wheezing Gastrointestinal/Abdominal: Bowel Sounds (active), Soft, No Tenderness, No Guarding Extremity: Normal ROM, Tenderness (to the right 3rd 4th and 5th toes), Capillary Refill (< 2 sec), Other (Ecchymosis over the right 3rd 4th and 5th toes) Neurological/Psych: Oriented x3, Normal Speech, Normal Motor, Normal Sensation, Other (No focal deficits) ED Course And Treatment - Laboratory Results Result Diagrams: 01/01/18 08:15 01/01/18 08:15 ECG: Interpreted By Me, Viewed By Me ECG Rhythm: Sinus Tachycardia Rate From EC O2 Sat by Pulse Oximetry: 97 (RA) Pulse Ox Interpretation: Normal - Other Rad CXR X-Ray: Read By Radiologist Interpretation: Accession No. : [id number]. Patient Name / ID : CHIO ORDONEZ / [id number]. Exam Date : 01/01/2018 10:22:08 ( Approved ). Study Comment : Sex / Age : M / 77Y. Creator : Obdulio Chaney MD. Dictator : Obdulio Chaney MD. Gas Pump Attendant : Instructional Resource Teacher : Obdulio Chaney MD. Approver2 : Report Date : 01/01/2018 10:54:36. My Comment : . PROCEDURE: CHEST RADIOGRAPH, 1 VIEW. HISTORY: Fever. COMPARISON: Comparison chest dated 07/18/2017 which was part of an obstructive series. FINDINGS: LUNGS: Poor inspiration with low lung volumes, crowded bronchovascular markings and mild bibasilar atelectasis. Slight blunting left CP angle which could represent either chronic pleural thickening and/or small effusion. . PLEURA: As above. No evidence of pneumothorax. CARDIOVASCULAR: Heart size within range of normal. OSSEOUS STRUCTURES: No significant abnormalities. VISUALIZED UPPER ABDOMEN: Normal. OTHER FINDINGS: Incidental note made of a catheter which overlies the soft tissues right lower neck and right medial donovan thorax consistent with in situ IMPROVEMENT NURSE shunt tube. IMPRESSION: Poor inspiration with low lung volumes, crowded bronchovascular markings and mild bibasilar atelectasis. Slight blunting left CP angle which could represent either chronic pleural thickening and/or small effusion. - CT Scan/US CT Head Other Rad Studies (CT/US): Read By Radiologist, Radiology Report Reviewed CT/US Interpretation: Accession No. : [id number]. Patient Name / ID : CHIO ORDONEZ / [id number]. Exam Date : 01/01/2018 08:28:59 ( Approved ). Study Comment : Sex / Age : M / 77Y. Creator : Du Hayes MD. Dictator : Du Hayes MD. Gas Pump Attendant : Instructional Resource Teacher : Du Hayes MD. Approver2 : Report Date : 01/01/2018 09:25:09. My Comment : . PROCEDURE: CT HEAD WITHOUT CONTRAST. HISTORY: R/O Bleed. COMPARISON: CT head 12/12/2017. TECHNIQUE: Axial computed tomography images were obtained through the head/ brain without intravenous contrast. Coronal and sagittal reconstructions were also acquired. Radiation dose: Total exam DLP = 984 mGy-cm. FINDINGS: HEMORRHAGE: Again seen are bilateral large subdural hemorrhages that appear grossly stable in size compared to prior exam. However, on the current exam there are diffuse acute blood products throughout the left subdural hemorrhage and to a lesser degree within the right subdural hemorrhage. Maximal thickness of both subdural hemorrhages measures 1.6 cm. Hyperacute hemorrhage is noted within the left subdural hemorrhage with a maximal thickness of 0.3 cm. There is no significant midline shift. BRAIN: Minimal compressive mass effect on both cerebral hemispheres from the bilateral subdural hemorrhages. Intracranial atherosclerosis noted. No intraparenchymal mass identified. VENTRICLES: Normal in size for patient age. Again seen is a right parietal approach ventricular shunt catheter that traverses the midline, crosses the 3rd ventricle and with tip terminating in the region the left basal ganglia. CALVARIUM: Right parietal nilton hole. PARANASAL SINUSES: Minimal mucosal thickening in the bilateral ethmoid sinuses. Remainder of the Visualized paranasal sinuses are clear. MASTOID AIR CELLS: Visualized mastoid air cells are clear. OTHER FINDINGS: None. IMPRESSION: Bilateral large subdural hemorrhages with increase in acute blood products compared to prior exam. Findings discussed with ER Quentin RHODES, at 9:20 a.m. on 01/01/2018. Progress Note: Ordered EKG, CXR, and blood work. Patient started on IV fluids and given PO Tylenol. X-ray of the right foot obtained, demonstrating fracture of the 5th phalanx and dislocation of 4th phalanx. CT head w/o contrast obtained , demonstrating bilateral subdural hemorrhages with increase in acute blood products. Podiatry paged for consult regarding right toe fracture and dislocation. Case discussed with Dr Eduardo, agreed upon plan and treatment. Dr Cruz at bedside, evaluated pt and CT, instructed admisssion and repeat CT on Friday for possible drainage of subdurals on friday. Case discussed with Dr Aden, agreed upon plan and admission. Case discussed with Dr Young, agreed upon plan and admission. - Physician Consult Information Physician Contacted: Jason Coy Outcome Of Conversation: 9:[address] Coy, neurosurgery on-call, for consult. Dr. Coy came to evaluate patient in the ED, and agrees with plan for admission and possible shunt drainage. Requests repeat CT on Friday. 10:32 Case discussed w/ Dr. Aden, who requests that regional facilities specialist evaluate patient prior to accepting admission. Disposition - Disposition Disposition: HOSPITALIZED Disposition Time: 11:00 Condition: STABLE - Clinical Impression Clinical Impression: Toe fracture, Subdural hemorrhage, Fever, Bandemia - PA / CHEMICAL SUPERVISOR / Resident Statement MD/DO has reviewed & agrees with the documentation as recorded. - Scribe Statement The provider has reviewed the documentation as recorded by the Scribe (Jane Lane) All medical record entries made by the Scribe were at my direction and personally dictated by me. I have reviewed the chart and agree that the record accurately reflects my personal performance of the history, physical exam, medical decision making, and the department course for this patient. I have also personally directed, reviewed, and agree with the discharge instructions and disposition.
[2018-01-01 10:48] LABS: INR 1.2; PROTHROMBIN TIME 12.6 SECONDS (9.7-12.2)
--- NOTE | 2018-01-01 10:55 | RAD ---
PROCEDURE: CHEST RADIOGRAPH, 1 VIEW HISTORY: Fever COMPARISON: Comparison chest dated 07/18/2017 which was part of an obstructive series. FINDINGS: LUNGS: Poor inspiration with low lung volumes, crowded bronchovascular markings and mild bibasilar atelectasis. Slight blunting left CP angle which could represent either chronic pleural thickening and/or small effusion. . PLEURA: As above. No evidence of pneumothorax CARDIOVASCULAR: Heart size within range of normal. OSSEOUS STRUCTURES: No significant abnormalities. VISUALIZED UPPER ABDOMEN: Normal. OTHER FINDINGS: Incidental note made of a catheter which overlies the soft tissues right lower neck and right medial donvoan thorax consistent with in situ COMEDIAN shunt tube. IMPRESSION: Poor inspiration with low lung volumes, crowded bronchovascular markings and mild bibasilar atelectasis. Slight blunting left CP angle which could represent either chronic pleural thickening and/or small effusion. .
[2018-01-01] MEDS ORDERED: Piperacillin/Tazobact 3.375 gm 100 ML IV STA (11:02)
[2018-01-01] MEDS ORDERED: Vancomycin 1 gm/NS 200 ml 1 GM/200 ML BAG IVPB STA (11:05)
[2018-01-01] MEDS ORDERED: Piperacillin/Tazobact 3.375 GM in Sodium Chloride 0.9% 100 ML IVPB STA (11:28)
--- NOTE | 2018-01-01 11:46 | CP.PCM.PN ---
Subjective - Date & Time of Evaluation Date of Evaluation: 01/01/18 Time of Evaluation: 11:42 - Subjective Subjective: PT KNOW TO US WAS SEEN IN OFFICE 2 DAYS AGO ADM WITH FEVER AND BROKEN TOE, ALONG WITH POSSIBLE INCREASED CONFUSION hE HAS KNOWN [facility] FOR ABOUT [address] TODAY SHOWS NO CHANGE IN SIZE BUT IT APPEARS MORE DENSE pT AWAKE ALERT CONFUSED ST 5/5 NO DRIFT CRANIAL NERVES INTACT DISCUSSED MANAGEMENT WITH DAUGHTER WILL ALLOW THE RESET OF SHUNT DONE friday IN OFFICE A FEW MORE DAYS TO SEE IF IT AFFECTS SDH IF NOT WILL EVACUATE ON FRIDAY PENDING MEDICAL CLEARANCE. IF PT CHANGES FOR WORSE WILL OPERATE EMERGENTLY REPEAT CT ON FRIDAY Objective - Vital Signs/Intake and Output Vital Signs (last 24 hours): Temp Pulse Resp BP Pulse Ox 99.2 F 93 H 15 104/52 L 97 01/01/18 10:58 01/01/18 10:58 01/01/18 10:58 01/01/18 10:58 01/01/18 11:18 - Medications Medications: Current Medications Sodium Chloride (Sodium Chloride 0.9%) 1,000 mls @ 100 mls/hr IV .Q10H ONE Stop: 01/01/18 19:22 Last Admin: 01/01/18 09:42 Dose: 100 mls/hr Vancomycin/Sodium Chloride (Vancomycin 1 Gm/Ns 200 Ml) 1 gm in 200 mls @ 133 mls/hr IVPB STAT STA PRN Reason: Protocol Stop: 01/01/18 12:35 Piperacillin Sod/Tazobactam (Sod 3.375 gm/ Sodium Chloride) 100 mls @ 200 mls/ hr IVPB STAT STA PRN Reason: Protocol Stop: 01/01/18 11:57 - Labs Labs: 01/01/18 08:15 01/01/18 08:15 PT 12.6 SECONDS (9.7-12.2) H 01/01/18 10:20 INR 1.2 01/01/18 10:20 APTT 32 SECONDS (21-34) 01/01/18 10:20
--- NOTE | 2018-01-01 11:54 | CP.PCM.CON ---
Addendum entered and electronically signed by Cindy Danielle DO 01/01/18 16:29 : ID: -- Dr. Kurtis Shaw consulted - Spoke with Dr. Shaw will DC Zosyn and change to Rocephin 1 Gram Q12, keep the vanco. Original Note: <Cindy Danielle - Last Filed: 01/01/18 13:36> History of Present Illness - History of Present Illness History of Present Illness: Critical Care Consult Note This is a 77 year old male with PMHx NPH with right parietal ventriculoperitoneal shunt that was placed July 22 2017, HTN, T2DM with A1C - , HF with rEF - Systolic Dysfunction with LVEF 45-50% with baseline dementia, who presented to the ED with AMS with fever and broken toes on right foot s/p injury against furniture. Patient was evaluated by Dr. Coy 12/30/17 in his office, for reset of the shunt- has known subdural hematoma (for 3 weeks), repeat Head CT reveals it has not changed in dimensions but appears more dense. As per neurosurgery, will reevaluate 01/04/[address]; possible evacuation Friday. PMHx: As noted above PSHx: Prostate surgery in 2006, SENIOR DIRECTOR INSIGHT Shunt 07/22/2017, Closed reduction 12/2017 Meds: As per EMR All: NKDA SHx: Former smoker, quit 7 years ago (smoked for 10-15 years); denies alcohol, tobacco use; lives with , has four children in [place] FHx: Denies Past Patient History - Infectious Disease Hx of Infectious Diseases: None - Past Medical History & Family History Past Medical History?: Yes - Past Social History Smoking Status: Former Smoker - CARDIAC Hx Hypercholesterolemia: Yes (no meds) Hx Hypertension: Yes - PULMONARY Hx Respiratory Disorders: No - NEUROLOGICAL Hx Alzheimer's Disease: Yes (yes, per FAS report) Hx Parkinson's Disease: Yes - HEENT Hx HEENT Problems: No - RENAL Hx Chronic Kidney Disease: No - ENDOCRINE/METABOLIC Hx Endocrine Disorders: Yes Hx Diabetes Mellitus Type 2: Yes - HEMATOLOGICAL/ONCOLOGICAL Hx Blood Disorders: No - INTEGUMENTARY Hx Dermatological Problems: No - MUSCULOSKELETAL/RHEUMATOLOGICAL Hx Musculoskeletal Disorders: Yes Hx Falls: No Hx Unsteady Gait: Yes - GASTROINTESTINAL Hx Gastrointestinal Disorders: No - GENITOURINARY/GYNECOLOGICAL Hx Genitourinary Disorders: Yes Hx Prostate Problems: Yes - PSYCHIATRIC Hx Substance Use: No (unknown) - SURGICAL HISTORY Hx Surgeries: Yes Other/Comment: prostate surgery. has a pump in the bladder to pump urine ??? s /p ventricular peritoneal shunt placed on 07/22/17 - ANESTHESIA Hx Anesthesia: Yes Hx Anesthesia Reactions: No Hx Malignant Hyperthermia: No Meds Allergies/Adverse Reactions: Allergies Allergy/AdvReac Type Severity Reaction Status Date / Time No Known Allergies Allergy Verified 01/01/18 07:15 - Medications Medications: Current Medications Sodium Chloride (Sodium Chloride 0.9%) 1,000 mls @ 100 mls/hr IV .Q10H ONE Stop: 01/01/18 19:22 Last Admin: 01/01/18 09:42 Dose: 100 mls/hr Vancomycin/Sodium Chloride (Vancomycin 1 Gm/Ns 200 Ml) 1 gm in 200 mls @ 133 mls/hr IVPB STAT STA PRN Reason: Protocol Stop: 01/01/18 12:35 Piperacillin Sod/Tazobactam (Sod 3.375 gm/ Sodium Chloride) 100 mls @ 200 mls/ hr IVPB STAT STA PRN Reason: Protocol Stop: 01/01/18 11:57 Last Admin: 01/01/18 11:40 Dose: 200 mls/hr Physical Exam - Constitutional Appears: No Acute Distress - Head Exam Head Exam: NORMAL INSPECTION, NORMOCEPHALIC - Eye Exam Eye Exam: EOMI, Normal appearance, PERRL. absent: Nystagmus Pupil Exam: NORMAL ACCOMODATION - ENT Exam ENT Exam: Mucous Membranes Moist - Respiratory Exam Respiratory Exam: Clear to Auscultation Bilateral, NORMAL BREATHING PATTERN. absent: Decreased Breath Sounds, Wheezes - Cardiovascular Exam Cardiovascular Exam: REGULAR RHYTHM - GI/Abdominal Exam GI & Abdominal Exam: Normal Bowel Sounds, Soft. absent: Distended, Tenderness - Extremities Exam Extremities exam: Positive for: normal inspection, pedal pulses present. Negative for: pedal edema, tenderness Additional comments: Right foot 4th digit appears grossly deformed with dorsal dislocation of PIPJ. pain on palpation to the right foot hallux, and to the 4th and 5th digit, pain on ROM of the 4th and 5th digits - Neurological Exam Neurological exam: Alert, Altered - Psychiatric Exam Psychiatric exam: Normal Affect, Normal Mood - Skin Skin Exam: Dry, Intact, Normal Color, Warm Results - Vital Signs Recent Vital Signs: Last Vital Signs Temp 99.2 F 01/01/18 10:58 Pulse 93 H 01/01/18 10:58 Resp 15 01/01/18 10:58 BP 104/52 L 01/01/18 10:58 Pulse Ox 97 01/01/18 11:18 - Labs Result Diagrams: 01/01/18 08:15 01/01/18 08:15 Labs: Laboratory Results - last 24 hr 01/01/18 01/01/18 01/01/18 08:15 08:15 10:20 WBC 9.3 RBC 3.94 L Hgb 13.2 Hct 37.6 MCV 95.5 H D MCH 33.5 H MCHC 35.1 RDW 14.4 Plt Count 156 MPV 9.8 Neut % (Auto) 86.2 H Lymph % (Auto) 5.6 L [place] % (Auto) 7.8 Eos % (Auto) 0.0 Baso % (Auto) 0.4 Neut # (Auto) 8.0 H Lymph # (Auto) 0.5 L [place] # (Auto) 0.7 Eos # (Auto) 0.0 Baso # (Auto) 0.0 Neutrophils % (Manual) 81 H Band Neutrophils % 8 H Lymphocytes % (Manual) 8 L Monocytes % (Manual) 3 Platelet Estimate Normal RBC Morphology Normal PT 12.6 H INR 1.2 APTT 32 Sodium 136 Potassium 4.7 Chloride 102 Carbon Dioxide 19 L Anion Gap 20 BUN 31 H Creatinine 1.2 Est GFR ( Amer) > 60 Est GFR (Non-Af Amer) 59 Random Glucose 243 H Calcium 9.4 Total Bilirubin 1.3 AST 39 ALT 17 L D Alkaline Phosphatase 68 Total Creatine Kinase 365 H CK-MB (Mass) 1.10 Troponin I 0.0160 Total Protein 7.8 Albumin 4.5 Globulin 3.3 Albumin/Globulin Ratio 1.4 Assessment & Plan - Assessment and Plan (Free Text) Assessment: This is a 77 year old male with 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 Patient was evaluated by Dr. Coy 12/30/17 in his office, for reset of the shunt- has known subdural hematoma (for 3 weeks), repeat Head CT reveals it has not changed in dimensions but appears more dense. As per neurosurgery, will reevaluate 01/04/[address]; possible evacuation Friday. Plan: Neuro: GCS 15 A: NPH - Right parietal ventriculoperitoneal shunt, placed July 22 2017 - Evaluated by Dr. Coy 12/30/17 in his office, for reset of the shunt A: Known Subdural Hematoma (x 3 weeks) - Head CT 12/12/17 - Interval development of large bilateral subdural hematomas which exhibit both chronic and acute/subacute components former larger than latter. The left-sided collection is larger than the right. These collections exert fairly significant mass effect with compression of both cerebral hemispheres left greater than right and [id number] midline shift with septum pellucidum shifted across midline to the right side estimated at approximately 6.6 mm. In situ SENIOR DIRECTOR INSIGHT shunt tube as detailed above. - Repeat Head CT 12/31/17 - Again seen are bilateral large subdural hemorrhages that appear grossly stable in size compared to prior exam. However, on the current exam there are diffuse acute blood products throughout the left subdural hemorrhage and to a lesser degree within the right subdural hemorrhage. Maximal thickness of both subdural hemorrhages measures 1.6 cm. Hyperacute hemorrhage is noted within the left subdural hemorrhage with a maximal thickness of 0.3 cm. There is no significant midline shift. - Repeat Head CT reveals it has not changed in dimensions but appears more dense - As per neurosurgery, will revaluate 01/04/[address]; possible evacuation Friday A: Dementia Cardio: A: HTN - Takes Vasotec 20mg - will hold for now a patient is hypotensive A: HF with rEF - Systolic Dysfunction with LVEF 45-50% - Seen on ECHO 07/2017 Endo: A: T2DM - Accuchecks - ISS- low - HHD, Carb Consistent Diet - Last A1C 6.7 - 07/2017 - A1C - ID: A: SIRS - Febrile -TMax 101.3, tachycardiac, hypotensive - No effusions, infiltrates noted on CXR - Started Darren Trotter 01/01 - Garcia cultured MSK: A: Fracture of the 5th phalanx and dislocation of 4th phalanx - S/P right foot closed reduction 01/01/18 at bedside by podiatry resident Prophylaxis: - PPI - SCDs, VTE c/i 2/[address] Young, Cindy Danielle DO, PGY-1 <Richard Young - Last Filed: 01/03/18 21:27> Meds - Medications Medications: Current Medications Acetaminophen (Tylenol 325mg Tab) 650 mg PO Q6 PRN PRN Reason: Fever >100.4 F Acetaminophen (Tylenol 325mg Tab) 650 mg PO Q6 PRN PRN Reason: Pain, Mild (1-3) Vancomycin/Sodium Chloride (Vancomycin 1 Gm/Ns 200 Ml) 1 gm in 200 mls @ 133 mls/hr IVPB DAILY AMANDA PRN Reason: Protocol Stop: 01/07/18 10:01 Last Admin: 01/03/18 10:21 Dose: 133 mls/hr Insulin Human Regular (Novolin R) 0 unit SC ACHS AMANDA PRN Reason: Protocol Last Admin: 01/03/18 17:29 Dose: 3 units Lorazepam (Ativan) 0.5 mg IVP Q4H PRN PRN Reason: Anxiety Last Admin: 01/03/18 20:24 Dose: 0.5 mg Ondansetron HCl (Zofran Inj) 4 mg IVP Q6H PRN PRN Reason: Nausea/Vomiting Pantoprazole Sodium (Protonix Ec Tab) 40 mg PO DAILY [facility] Last Admin: 01/03/18 10:21 Dose: 40 mg Saccharomyces Boulardii (Florastor) 250 mg PO Q12 [facility] Last Admin: 01/03/18 10:21 Dose: 250 mg Results - Vital Signs Recent Vital Signs: Last Vital Signs Temp 98.6 F 01/03/18 15:00 Pulse 88 01/03/18 15:00 Resp 18 01/03/18 15:00 BP 107/57 L 01/03/18 15:00 Pulse Ox 99 01/03/18 15:00 - Labs Result Diagrams: 01/03/18 07:30 01/02/18 06:40 Labs: Laboratory Results - last 24 hr 01/03/18 01/03/18 01/03/18 06:34 07:30 07:30 WBC 8.1 RBC 3.59 L Hgb 11.9 L Hct 34.4 L MCV 95.9 H MCH 33.1 H MCHC 34.5 RDW 13.9 Plt Count 150 MPV 10.1 Neut % (Auto) 67.9 Lymph % (Auto) 19.9 L [place] % (Auto) 10.0 Eos % (Auto) 1.9 Baso % (Auto) 0.3 Neut # (Auto) 5.5 Lymph # (Auto) 1.6 [place] # (Auto) 0.8 Eos # (Auto) 0.2 Baso # (Auto) 0.0 POC Glucose (mg/dL) 121 H Serum Osmolality 290 01/03/18 01/03/18 01/03/18 11:08 16:04 20:50 WBC RBC Hgb Hct MCV MCH MCHC RDW Plt Count MPV Neut % (Auto) Lymph % (Auto) [place] % (Auto) Eos % (Auto) Baso % (Auto) Neut # (Auto) Lymph # (Auto) [place] # (Auto) Eos # (Auto) Baso # (Auto) POC Glucose (mg/dL) 170 H 225 H 163 H Serum Osmolality Attending/Attestation - Attestation I have personally seen and examined this patient.: Yes I have fully participated in the care of the patient.: Yes I have reviewed all pertinent clinical information: Yes Notes (Text): 01/01/18 Today: , January 01, 2018 The Patient was seen and examined at the bedside, Medical records reviewed, and management issues were discussed and formulated with the house staff. I have reviewed all the relevant clinical, laboratory, hemodynamic, radiographic data and medications Events reviewed Pain issues, skin care, head of the bed elevation, glycemic control were addressed. Agree with above resident's assessment and treatment plans of care as transcribed in Dr. Danielle note.
--- NOTE | 2018-01-01 12:38 | CP.PCM.CON ---
History of Present Illness - History of Present Illness History of Present Illness: 77 y/o male patient with PMHX of dementia, DM, HTN, and normal pressure hydrocephalus with BIODIESEL ENGINE SPECIALIST shunt 07/22/17 was seen in the ED due to complaints of right foot pain. Patient presented to the ED due to complaints of a vomiting episode this morning, and Patient also complains of fever, dizziness, weakness and unsteady gait per nursing. Patient was unable to communicate, however, nursing informed Podiatry of mechanism of injury, which was contusion of the right foot against furniture yesterday. Patient complains of moderate pain to the right foot. Right foot appears to be grossly deformed Review of Systems - Review of Systems Systems not reviewed;Unavailable: Dementia - Constitutional Constitutional: As Per HPI Past Patient History - Infectious Disease Hx of Infectious Diseases: None - Past Medical History & Family History Past Medical History?: Yes - Past Social History Smoking Status: Former Smoker - CARDIAC Hx Hypercholesterolemia: Yes (no meds) Hx Hypertension: Yes - PULMONARY Hx Respiratory Disorders: No - NEUROLOGICAL Hx Alzheimer's Disease: Yes (yes, per FAS report) Hx Parkinson's Disease: Yes - HEENT Hx HEENT Problems: No - RENAL Hx Chronic Kidney Disease: No - ENDOCRINE/METABOLIC Hx Endocrine Disorders: Yes Hx Diabetes Mellitus Type 2: Yes - HEMATOLOGICAL/ONCOLOGICAL Hx Blood Disorders: No - INTEGUMENTARY Hx Dermatological Problems: No - MUSCULOSKELETAL/RHEUMATOLOGICAL Hx Musculoskeletal Disorders: Yes Hx Falls: No Hx Unsteady Gait: Yes - GASTROINTESTINAL Hx Gastrointestinal Disorders: No - GENITOURINARY/GYNECOLOGICAL Hx Genitourinary Disorders: Yes Hx Prostate Problems: Yes - PSYCHIATRIC Hx Substance Use: No (unknown) - SURGICAL HISTORY Hx Surgeries: Yes Other/Comment: prostate surgery. has a pump in the bladder to pump urine ??? s /p ventricular peritoneal shunt placed on 07/22/17 - ANESTHESIA Hx Anesthesia: Yes Hx Anesthesia Reactions: No Hx Malignant Hyperthermia: No Meds Allergies/Adverse Reactions: Allergies Allergy/AdvReac Type Severity Reaction Status Date / Time No Known Allergies Allergy Verified 01/01/18 07:15 - Medications Medications: Current Medications Sodium Chloride (Sodium Chloride 0.9%) 1,000 mls @ 100 mls/hr IV .Q10H ONE Stop: 01/01/18 19:22 Last Admin: 01/01/18 09:42 Dose: 100 mls/hr Vancomycin/Sodium Chloride (Vancomycin 1 Gm/Ns 200 Ml) 1 gm in 200 mls @ 133 mls/hr IVPB STAT STA PRN Reason: Protocol Stop: 01/01/18 12:35 Last Admin: 01/01/18 12:07 Dose: 133 mls/hr Piperacillin Sod/Tazobactam Sod (Zosyn 3.375 Gm Iv Premix) 3.375 gm in 50 mls @ 100 mls/hr IVPB Q6H AMANDA PRN Reason: Protocol Vancomycin/Sodium Chloride (Vancomycin 1 Gm/Ns 200 Ml) 1 gm in 200 mls @ 133 mls/hr IVPB DAILY AMANDA PRN Reason: Protocol Stop: 01/07/18 10:01 Insulin Human Regular (Novolin R) 0 unit SC Q6 AMANDA PRN Reason: Protocol Physical Exam - Constitutional Appears: Well, Non-toxic, No Acute Distress - Head Exam Head Exam: ATRAUMATIC, NORMOCEPHALIC - Extremities Exam Additional comments: Right Lower Extremity Focused Exam: VASC: DP and PT pulses 2/4 bilaterally, CFT less than 3 seconds X 10, TG warm to cool NEURO: grossly intact DERM: no open wound noted, mild edema, erythema and ecchymosis present to the medial aspect of the 3rd and 4th digits and to the medial and lateral aspects of the 5th digit, MSK: Right foot 4th digit appears grossly deformed with dorsal dislocation of PIPJ. pain on palpation to the right foot hallux, and to the 4th and 5th digit, pain on ROM of the 4th and 5th digits - Neurological Exam Neurological exam: Alert - Psychiatric Exam Psychiatric exam: Normal Affect, Normal Mood Results - Vital Signs Recent Vital Signs: Last Vital Signs Temp 99.2 F 01/01/18 10:58 Pulse 93 H 01/01/18 10:58 Resp 15 01/01/18 10:58 BP 104/52 L 01/01/18 10:58 Pulse Ox 97 01/01/18 11:18 - Labs Result Diagrams: 01/01/18 08:15 01/01/18 08:15 Labs: Laboratory Results - last 24 hr 01/01/18 01/01/18 01/01/18 08:15 08:15 10:20 WBC 9.3 RBC 3.94 L Hgb 13.2 Hct 37.6 MCV 95.5 H D MCH 33.5 H MCHC 35.1 RDW 14.4 Plt Count 156 MPV 9.8 Neut % (Auto) 86.2 H Lymph % (Auto) 5.6 L [place] % (Auto) 7.8 Eos % (Auto) 0.0 Baso % (Auto) 0.4 Neut # (Auto) 8.0 H Lymph # (Auto) 0.5 L [place] # (Auto) 0.7 Eos # (Auto) 0.0 Baso # (Auto) 0.0 Neutrophils % (Manual) 81 H Band Neutrophils % 8 H Lymphocytes % (Manual) 8 L Monocytes % (Manual) 3 Platelet Estimate Normal RBC Morphology Normal PT 12.6 H INR 1.2 APTT 32 Sodium 136 Potassium 4.7 Chloride 102 Carbon Dioxide 19 L Anion Gap 20 BUN 31 H Creatinine 1.2 Est GFR ( Amer) > 60 Est GFR (Non-Af Amer) 59 Random Glucose 243 H Calcium 9.4 Total Bilirubin 1.3 AST 39 ALT 17 L D Alkaline Phosphatase 68 Total Creatine Kinase 365 H CK-MB (Mass) 1.10 Troponin I 0.0160 Total Protein 7.8 Albumin 4.5 Globulin 3.3 Albumin/Globulin Ratio 1.4 Assessment & Plan - Assessment and Plan (Free Text) Assessment: 77 y/o male patient presents with multiple right foot digital fracture Plan: Patient evaluated and seen at bedside Chart, labs, vitals and imaging reviewed discusse in detail with Dr. Sorto Patient is being transferred to ICU Right foot closed reduction to be performed under local anesthesia on floor Podiatry will continue to follow in-house
[2018-01-01] MEDS: (Novolin R) Insulin Human Regular 100 units/ml vial SC SCH ×2 (12:51→17:54)
--- NOTE | 2018-01-01 12:59 | RAD ---
PROCEDURE: Right Foot Radiographs. HISTORY: trauma COMPARISON: None. FINDINGS: BONES: Fracture at the base of the 5th proximal phalanx with extension to the metacarpophalangeal joint. JOINTS: Lateral dislocation of the 4th digit at the level of the proximal interphalangeal joint. Degenerative changes. SOFT TISSUES: Normal. OTHER FINDINGS: Achilles enthesophyte. Small inferior plantar calcaneal spur. IMPRESSION: Intra-articular base of 5th proximal phalanx fracture. Lateral dislocation of the 4th digit as described above.
--- NOTE | 2018-01-01 14:05 | CP.PCM.HP ---
History of Present Illness - History of Present Illness History of Present Illness: COMPREHENSIVE~ ~ HISTORY & PHYSICAL EXAM Patient is admitted for fever, fracture of the right foot digit change of mental status. HPI ~ As per the patient banged his right foot against the furniture and since then been complaining of pain patient was evaluated in [facility] emergency room was found to have a fracture of the fourth digit and is under the care of the paraoptometric currently. Patient was also has history of increasing confusion from his previous baseline of Alzheimer's and evaluated with CAT scan of the head. The CAT scan of the head showed PHYSICIAN CHIEF OF PATHOLOGY shunt and bilateral subdural with increased blood products compared to the done on 12/12/2017. There is more compression of the brain tissue than the previous CAT scan. Patient is now admitted for further evaluation and evacuation of the subdural hematomas. The exit date of subdural hematoma is not known because the last CAT scan was done in July 2017 which did not reveal any subdural. During that time patient had an normal pressure hydrocephalus and he underwent ventriculoperitoneal shunt. PAST HIST. History of type 2 diabetes hypertension, mild reduced left ventricle ejection fraction on echo done in July 2017, left ventricle ejection fraction of 45%, unifocal PVCs during that admission. History of dementia, early Alzheimer's with baseline periods of confusion. Patient lives with his and children History of prostate surgery PERSONAL HIST:~ ~ Smoking.~ Quit smoking few years ago with long history of smoking in the past~ N~ ~ Alcohol.~ ~ N~ ~ ~ ~ ~ Allergy N~ ~ ~ ~ ~ ~ ~ ~ ~ ~ ~ Travel_-~ ~ ~ ~ ~ . FAMILY HIST : ROS : Not available, due to patient's confusion P/E: ~ Constitutional: Appears stated age and in no apparent distress. ~ Head: Normocephalic. ~ Ears: External ear canals patent without inflammation. Tympanic membranes intact with normal light reflex and landmark. ~ Eyes: Pupils are central, bilaterally equal, symmetrical and reacts to light with normal movements and no icterus or pallor. ~ Nose: External nares are patent. Mucosa is pink~ Mouth-Throat: Good general appearance and condition. No post-pharyngeal/oropharyngeal erythema and tonsillar hypertrophy. Good dental hygiene. ~ Neck-Lymphatic: Neck is supple with normal ROM, no thyromegaly, lymph nodes or masses. JVD is normal with no carotid bruit. ~ Lungs: Clear to percussion and auscultation with bilateral normal air entry. ~ Cardiovascular: S1 and S2 are normal with no murmurs, gallops and rub. ~ GI Exam: No hepatomegaly. Abdomen is soft and non-tender. No Organomegaly , masses or hernias are evident and bowel sounds are normal and active. ~ Neurology: Higher function and all cranial nerves intact, with no gross motor or sensory deficit. Superficial and deep reflexes are normal with downwards planters. No cerebellar deficit with normal gait. ~ Musculoskeletal: No tender spots with normal curvature of the spine with no swelling or restricted ROM of the small and large joints. ~ Extremities: Homans sign absent. Intact pulses with no pitting edema, calf tenderness or skin color changes. Right foot is swollen and tender especially on the digit 4 and fifth ~ Skin: No rash, eruptions or abnormal skin pigmentation ~ LAB/RADIOLOGY: ASSESMENT : Bilateral subdural hematoma probably increasing in size with ventriculoperitoneal shunt secondary to normal pressure hydrocephalus, for evacuation. Fever, etiology to be determined, probably secondary to intracranial hematoma lysis, or early diabetic foot infection on the right side Type 2 diabetes. ~ PLAN: Septic workup IV antibiotics and ID evaluation Follow-up with the neurosurgery ICU monitoring. ~ Present on Admission - Present on Admission Any Indicators Present on Admission: No Past Patient History - Infectious Disease Hx of Infectious Diseases: None - Past Medical History & Family History Past Medical History?: Yes - Past Social History Smoking Status: Former Smoker - CARDIAC Hx Hypercholesterolemia: Yes (no meds) Hx Hypertension: Yes - PULMONARY Hx Respiratory Disorders: No - NEUROLOGICAL Hx Alzheimer's Disease: Yes (yes, per FAS report) Hx Parkinson's Disease: Yes - HEENT Hx HEENT Problems: No - RENAL Hx Chronic Kidney Disease: No - ENDOCRINE/METABOLIC Hx Endocrine Disorders: Yes Hx Diabetes Mellitus Type 2: Yes - HEMATOLOGICAL/ONCOLOGICAL Hx Blood Disorders: No - INTEGUMENTARY Hx Dermatological Problems: No - MUSCULOSKELETAL/RHEUMATOLOGICAL Hx Musculoskeletal Disorders: Yes Hx Falls: No Hx Unsteady Gait: Yes - GASTROINTESTINAL Hx Gastrointestinal Disorders: No - GENITOURINARY/GYNECOLOGICAL Hx Genitourinary Disorders: Yes Hx Prostate Problems: Yes - PSYCHIATRIC Hx Substance Use: No (unknown) - SURGICAL HISTORY Hx Surgeries: Yes Other/Comment: prostate surgery. has a pump in the bladder to pump urine ??? s /p ventricular peritoneal shunt placed on 07/22/17 - ANESTHESIA Hx Anesthesia: Yes Hx Anesthesia Reactions: No Hx Malignant Hyperthermia: No Meds Allergies/Adverse Reactions: Allergies Allergy/AdvReac Type Severity Reaction Status Date / Time No Known Allergies Allergy Verified 01/01/18 07:15 Results - Vital Signs Recent Vital Signs: Last Vital Signs Temp 98.7 F 01/01/18 12:00 Pulse 84 01/01/18 13:00 Resp 13 01/01/18 13:00 BP 99/46 L 01/01/18 12:57 Pulse Ox 97 01/01/18 13:38 - Labs Result Diagrams: 01/01/18 08:15 01/01/18 08:15 Labs: Laboratory Results - last 24 hr 01/01/18 01/01/18 01/01/18 08:15 08:15 10:20 WBC 9.3 RBC 3.94 L Hgb 13.2 Hct 37.6 MCV 95.5 H D MCH 33.5 H MCHC 35.1 RDW 14.4 Plt Count 156 MPV 9.8 Neut % (Auto) 86.2 H Lymph % (Auto) 5.6 L [place] % (Auto) 7.8 Eos % (Auto) 0.0 Baso % (Auto) 0.4 Neut # (Auto) 8.0 H Lymph # (Auto) 0.5 L [place] # (Auto) 0.7 Eos # (Auto) 0.0 Baso # (Auto) 0.0 Neutrophils % (Manual) 81 H Band Neutrophils % 8 H Lymphocytes % (Manual) 8 L Monocytes % (Manual) 3 Platelet Estimate Normal RBC Morphology Normal PT 12.6 H INR 1.2 APTT 32 Sodium 136 Potassium 4.7 Chloride 102 Carbon Dioxide 19 L Anion Gap 20 BUN 31 H Creatinine 1.2 Est GFR ( Amer) > 60 Est GFR (Non-Af Amer) 59 POC Glucose (mg/dL) Random Glucose 243 H Calcium 9.4 Magnesium 1.7 Total Bilirubin 1.3 AST 39 ALT 17 L D Alkaline Phosphatase 68 Total Creatine Kinase 365 H CK-MB (Mass) 1.10 Troponin I 0.0160 Total Protein 7.8 Albumin 4.5 Globulin 3.3 Albumin/Globulin Ratio 1.4 01/01/18 12:40 WBC RBC Hgb Hct MCV MCH MCHC RDW Plt Count MPV Neut % (Auto) Lymph % (Auto) [place] % (Auto) Eos % (Auto) Baso % (Auto) Neut # (Auto) Lymph # (Auto) [place] # (Auto) Eos # (Auto) Baso # (Auto) Neutrophils % (Manual) Band Neutrophils % Lymphocytes % (Manual) Monocytes % (Manual) Platelet Estimate RBC Morphology PT INR APTT Sodium Potassium Chloride Carbon Dioxide Anion Gap BUN Creatinine Est GFR ( Amer) Est GFR (Non-Af Amer) POC Glucose (mg/dL) 194 H Random Glucose Calcium Magnesium Total Bilirubin AST ALT Alkaline Phosphatase Total Creatine Kinase CK-MB (Mass) Troponin I Total Protein Albumin Globulin Albumin/Globulin Ratio
[2018-01-01 16:26] LABS: URINE BACTERIA OCC (<OCC); URINE BILIRUBIN NEGATIVE (NEGATIVE); URINE BLOOD 1+ (NEGATIVE); URINE CLARITY Clear (Clear); URINE COLOR Yellow (YELLOW); URINE GLUCOSE (UA) 3+ mg/dL (Normal); URINE LEUKOCYTE ESTERASE TRACE Leu/uL (Negative); URINE PROTEIN NEGATIVE (NEGATIVE); URINE UROBILINOGEN NORMAL mg/dL (0.2-1.0)
[2018-01-01] MEDS ORDERED: Piperacill/Tazo 3.375gm in Dex 3.375 GM/50 ML BAG IVPB SCH (18:00)
[2018-01-01] MEDS: Saccharomyces Boulardi 250 mg Cap PO SCH ×2 (20:29→22:12)
[2018-01-01] MEDS ORDERED: Magnesium Sulfate 1 gm in D5W 1 GM/100 ML BAG IVPB ONE (20:30)
--- NOTE | 2018-01-01 22:11 | CP.PCM.CON ---
History of Present Illness - History of Present Illness History of Present Illness: INFECTIOUS DISEASE CONSULT; HPI; 77-year-old male with PMH of Alzheimer's dementia, diabetes mellitus 2, hypertension, Normal pressure hydrocephalus S/P SENIOR ADMINISTRATIVE SUPPORT shunt on 07/22/17 who presented to [facility] with fever increasing confusion and a broken toe right foot after he banged it on the furniture. Patient was recently evaluated by neurosurgeon Dr. Galindo about 2 days ago, and shunt was adjusted and instructed to repeat CAT scan in 2 weeks.. In the ER repeat CAT scan shows no change in size and bilateral subdural hematomas but it appears more denser. Patient was seen by neurosurgery presently and repeat CAT scan ordered for Friday and if no improvement for possible OR on Friday. Infectious disease consult requested by PMD as patient spiking fever up to 101. Patient denies any chest pain, shortness of breath, abdominal pain, any symptoms or headache. No head trauma also as notified by ,who was present at the bedside .History obtained mainly by the resident at bedside. patient presently sitting on the side of the bed and eating his lunch by himself. Appropriate cultures were obtained and patient presently started on IV vancomycin 1 g every 24 hourly and IV Zosyn 3.375 every 6 hourly. PMH: Alzheimer's Disease (yes, per FAS report), HTN, Hypercholesterolemia (no meds), Parkinson's Disease Denies: Chronic Kidney Disease Other PMH: normal pressure hydrocephalus Other Surgeries: SENIOR ADMINISTRATIVE SUPPORT shunt placement on 07/22/17 - [facility] Procedures BYPASS CEREB VENT TO PERITON CAV W SYNTH SUB, OPEN (07/18/17) Family History: States: Unknown Family Hx - Social History Hx Alcohol Use: No (unknown) Hx Substance Use: No (unknown) - Immunization History Hx Tetanus Toxoid Vaccination: No Hx Influenza Vaccination: No Hx Pneumococcal Vaccination: No Allergy; nka. Review of Systems - Constitutional Constitutional: Fever. absent: Headache - EENT Eyes: absent: Change in Vision Ears: absent: Ear Pain Nose/Mouth/Throat: absent: Mouth Lesions - Cardiovascular Cardiovascular: absent: Chest Pain, Dyspnea - Respiratory Respiratory: absent: Cough, Hemoptysis - Gastrointestinal Gastrointestinal: Vomiting. absent: Abdominal Pain, Diarrhea, Nausea - Genitourinary Genitourinary: absent: Dysuria, Hematuria - Musculoskeletal Musculoskeletal: Abnormal Gait - Integumentary Integumentary: Swelling (right foot 5th toe in dressing) - Hematologic/Lymphatic Hematologic: As Per HPI. absent: Easy Bleeding, Easy Bruising Past Patient History - Infectious Disease Hx of Infectious Diseases: None - Past Medical History & Family History Past Medical History?: Yes - Past Social History Smoking Status: Never Smoked - CARDIAC Hx Hypercholesterolemia: Yes (no meds) Hx Hypertension: Yes - PULMONARY Hx Respiratory Disorders: No - NEUROLOGICAL Hx Alzheimer's Disease: Yes (yes, per FAS report) Hx Parkinson's Disease: Yes - HEENT Hx HEENT Problems: No - RENAL Hx Chronic Kidney Disease: No - ENDOCRINE/METABOLIC Hx Endocrine Disorders: Yes Hx Diabetes Mellitus Type 2: Yes - HEMATOLOGICAL/ONCOLOGICAL Hx Blood Disorders: No - INTEGUMENTARY Hx Dermatological Problems: No - MUSCULOSKELETAL/RHEUMATOLOGICAL Hx Falls: Yes - GASTROINTESTINAL Hx Gastrointestinal Disorders: No - GENITOURINARY/GYNECOLOGICAL Hx Genitourinary Disorders: Yes Hx Prostate Problems: Yes - PSYCHIATRIC Hx Substance Use: No (unknown) - SURGICAL HISTORY Hx Surgeries: Yes Other/Comment: prostate surgery. has a pump in the bladder to pump urine ??? s /p ventricular peritoneal shunt placed on 07/22/17 - ANESTHESIA Hx Anesthesia: Yes Hx Anesthesia Reactions: No Hx Malignant Hyperthermia: No Meds Allergies/Adverse Reactions: Allergies Allergy/AdvReac Type Severity Reaction Status Date / Time No Known Allergies Allergy Verified 01/01/18 07:15 - Medications Medications: Current Medications Acetaminophen (Tylenol 325mg Tab) 650 mg PO Q6 PRN PRN Reason: Fever >100.4 F Acetaminophen (Tylenol 325mg Tab) 650 mg PO Q6 PRN PRN Reason: Pain, Mild (1-3) Vancomycin/Sodium Chloride (Vancomycin 1 Gm/Ns 200 Ml) 1 gm in 200 mls @ 133 mls/hr IVPB DAILY AMANDA PRN Reason: Protocol Stop: 01/07/18 10:01 Ceftriaxone Sodium 1 gm/ (Sodium Chloride) 100 mls @ 100 mls/hr IVPB Q12H AMANDA PRN Reason: Protocol Last Admin: 01/01/18 21:36 Dose: 100 mls/hr Insulin Human Regular (Novolin R) 0 unit SC Q6 AMANDA PRN Reason: Protocol Last Admin: 01/01/18 17:54 Dose: 2 units Ondansetron HCl (Zofran Inj) 4 mg IVP Q6H PRN PRN Reason: Nausea/Vomiting Pantoprazole Sodium (Protonix Ec Tab) 40 mg PO DAILY [facility] Saccharomyces Boulardii (Florastor) 250 mg PO Q12 [facility] Last Admin: 01/01/18 20:29 Dose: 250 mg Physical Exam - Constitutional Appears: No Acute Distress, Confused - Head Exam Head Exam: NORMAL INSPECTION - Eye Exam Eye Exam: PERRL - ENT Exam ENT Exam: Normal Oropharynx - Neck Exam Neck exam: Positive for: Normal Inspection. Negative for: Meningismus - Respiratory Exam Respiratory Exam: Clear to Auscultation Bilateral - Cardiovascular Exam Cardiovascular Exam: Tachycardia, REGULAR RHYTHM, +S2 - GI/Abdominal Exam GI & Abdominal Exam: Normal Bowel Sounds, Soft. absent: Tenderness - Extremities Exam Extremities exam: Positive for: pedal pulses present (right fifth toe swelling and erythema +ve dressing.). Negative for: calf tenderness, pedal edema - Neurological Exam Neurological exam: Alert, CN II-XII Intact - Psychiatric Exam Psychiatric exam: Normal Affect - Skin Skin Exam: Normal Color Results - Vital Signs Recent Vital Signs: Last Vital Signs Temp 99 F 01/01/18 20:00 Pulse 91 H 01/01/18 21:53 Resp 16 01/01/18 21:53 BP 135/59 L 01/01/18 21:53 Pulse Ox 97 01/01/18 21:53 - Labs Result Diagrams: 01/02/18 06:39 01/02/18 06:40 Labs: Laboratory Results - last 24 hr 01/01/18 01/01/18 01/01/18 08:15 08:15 10:20 WBC 9.3 RBC 3.94 L Hgb 13.2 Hct 37.6 MCV 95.5 H D MCH 33.5 H MCHC 35.1 RDW 14.4 Plt Count 156 MPV 9.8 Neut % (Auto) 86.2 H Lymph % (Auto) 5.6 L [place] % (Auto) 7.8 Eos % (Auto) 0.0 Baso % (Auto) 0.4 Neut # (Auto) 8.0 H Lymph # (Auto) 0.5 L [place] # (Auto) 0.7 Eos # (Auto) 0.0 Baso # (Auto) 0.0 Neutrophils % (Manual) 81 H Band Neutrophils % 8 H Lymphocytes % (Manual) 8 L Monocytes % (Manual) 3 Platelet Estimate Normal RBC Morphology Normal PT 12.6 H INR 1.2 APTT 32 Sodium 136 Potassium 4.7 Chloride 102 Carbon Dioxide 19 L Anion Gap 20 BUN 31 H Creatinine 1.2 Est GFR ( Amer) > 60 Est GFR (Non-Af Amer) 59 POC Glucose (mg/dL) Random Glucose 243 H Calcium 9.4 Phosphorus 2.7 Magnesium 1.7 Total Bilirubin 1.3 AST 39 ALT 17 L D Alkaline Phosphatase 68 Total Creatine Kinase 365 H CK-MB (Mass) 1.10 Troponin I 0.0160 Total Protein 7.8 Albumin 4.5 Globulin 3.3 Albumin/Globulin Ratio 1.4 Urine Color Urine Clarity Urine pH Ur Specific [place] Urine Protein Urine Glucose (UA) Urine Ketones Urine Blood Urine Nitrate Urine Bilirubin Urine Urobilinogen Ur Leukocyte Esterase Urine WBC (Auto) Urine RBC (Auto) Urine Bacteria 01/01/18 01/01/18 01/01/18 12:40 16:13 17:47 WBC RBC Hgb Hct MCV MCH MCHC RDW Plt Count MPV Neut % (Auto) Lymph % (Auto) [place] % (Auto) Eos % (Auto) Baso % (Auto) Neut # (Auto) Lymph # (Auto) [place] # (Auto) Eos # (Auto) Baso # (Auto) Neutrophils % (Manual) Band Neutrophils % Lymphocytes % (Manual) Monocytes % (Manual) Platelet Estimate RBC Morphology PT INR APTT Sodium Potassium Chloride Carbon Dioxide Anion Gap BUN Creatinine Est GFR ( Amer) Est GFR (Non-Af Amer) POC Glucose (mg/dL) 194 H 199 H Random Glucose Calcium Phosphorus Magnesium Total Bilirubin AST ALT Alkaline Phosphatase Total Creatine Kinase CK-MB (Mass) Troponin I Total Protein Albumin Globulin Albumin/Globulin Ratio Urine Color Yellow Urine Clarity Clear Urine pH 5.0 Ur Specific [place] 1.018 Urine Protein Negative Urine Glucose (UA) 3+ H Urine Ketones Trace Urine Blood 1+ H Urine Nitrate Negative Urine Bilirubin Negative Urine Urobilinogen Normal Ur Leukocyte Esterase Trace Urine WBC (Auto) 7 H Urine RBC (Auto) 7 H Urine Bacteria Occ H - Imaging and Cardiology Chest x-ray Status: Report reviewed by me (crowded bronchovascular markings. Mild bibasilar atelectasis and small left pleural effusion.) Assessment & Plan (1) Fever Assessment and Plan: SOURCE OF FEVER NOT VERY CLEAR ?SIRS /ACUTE FRACTURE VS CENTRAL. PANCULTURE. MRSA SCREEN. F/U CXR R/O ASPIRATION. Status: Acute (2) Subdural hemorrhage Status: Acute (3) Toe fracture Status: Acute (4) Diabetes Status: Chronic (5) HTN (hypertension) Status: Chronic (6) Normal pressure hydrocephalus syndrome Status: Resolved Priority: High - Assessment and Plan (Free Text) Plan: pancultures ESR. CRP. ua URINE CULTURES. CONTINUE iv VANCOMYCIN 1 G iv PIGGYBACK EVERY 24 HOURLY 01/01/18. START iv ROCEPHIN 1 G EVERY 12 HOURLY 01/01/18. DC IV ZOSYN. CASE DISCUSSED WITH THE RESIDENT DR WALTON. FOLLOW-UP CULTURES TO ADJUST ANTIBIOTICS.
[2018-01-02] MEDS: (Novolin R) Insulin Human Regular 100 units/ml vial SC SCH ×5 (06:59→21:32)
[2018-01-02 07:08] LABS: ALB/GLOB RATIO 1.3 (1.0-2.1); ALBUMIN 3.8 g/dL (3.5-5.0); ALT/SGPT 24 U/L (21-72); AST/SGOT 25 U/L (17-59); BILIRUBIN,DIRECT 0.3 mg/dL (0.0-0.4); BLOOD UREA NITROGEN 22 mg/dL (9-20); CALCIUM 8.5 mg/dl (8.6-10.4); GFR AFRICAN-AMERICAN > 60; GFR NON-AFRICAN AMERICAN > 60
[2018-01-02 07:17] LABS: BASO % 0.2 % (0.0-2.0); EOS # 0.1 K/uL (0.0-0.7); EOS % 0.8 % (0.0-4.0); HEMOGLOBIN 11.3 g/dL (12.0-18.0); LYMPH # 1.9 K/uL (1.0-4.3); LYMPH % 16.4 % (20.0-40.0); MEAN CELL VOLUME 95.9 fL (80.0-94.0); MEAN CORPUSCULAR HEMOGLOBIN 32.8 pg (27.0-31.0); MEAN CORPUSCULAR HGB CONC 34.2 g/dL (33.0-37.0); MEAN PLATELET VOLUME 10.2 fL (7.2-11.7); MONO % 8.7 % (0.0-10.0); NEUT # 8.8 K/uL (1.8-7.0); NEUT % 73.9 % (50.0-75.0); RBC 3.46 Mil/uL (4.40-5.90); RED CELL DISTRIBUTION WIDTH 14.2 % (11.5-14.5); WHITE BLOOD COUNT 11.9 K/uL (4.8-10.8)
[2018-01-02] MEDS: Saccharomyces Boulardi 250 mg Cap PO SCH ×2 (09:43→21:26)
[2018-01-02] MEDS: Potassium & Sodium Phosphate PO SCH ×2 (09:43→12:59)
[2018-01-02] MEDS: Pantoprazole 40 mg EC Tab PO SCH (09:43)
[2018-01-02] MEDS: Vancomycin 1 gm/NS 200 ml 1 GM/200 ML BAG IVPB SCH (10:32)
--- NOTE | 2018-01-02 10:40 | CP.CCUPN ---
<Cindy Danielle - Last Filed: 01/02/18 10:37> CCU Subjective - Physician Review Subjective (Free Text): Patient seen and examined at bedside. Patient responds to questions appropriately. No acute complaints. CCU Objective - Vital Signs / Intake & Output Vital Signs (Last 4 hours): Vital Signs Temp Pulse Resp BP Pulse Ox 01/02/18 10:00 89 14 98 01/02/18 09:54 91 H 15 147/75 88 L 01/02/18 09:08 96 H 19 145/52 L 93 L 01/02/18 09:00 105 H 83 L 01/02/18 08:55 98 H 16 170/111 H 96 01/02/18 08:00 98.9 F 80 17 96 01/02/18 07:54 80 18 127/65 97 01/02/18 07:00 82 21 96 01/02/18 06:53 80 19 132/58 L 96 Intake and Output (Last 8hrs): Intake & Output 01/01/18 01/02/18 01/02/18 22:59 06:59 14:59 Intake Total 1050 150 200 Output Total 600 300 50 Balance 450 -150 150 Weight 149 lb 2 oz Intake: Intake, IV Amount 700 Right Antecubital 700 Oral 350 150 200 Output: Urine 600 300 50 Urine, Voided 600 300 50 Emesis 0 Other: # Bowel Movements 0 0 0 - Physical Exam Head: Positive for: Atraumatic, Normocephalic Pupils: Positive for: PERRL Extroacular Muscles: Positive for: EOMI Conjunctiva: Positive for: Normal Mouth: Positive for: Moist Mucous Membranes Respiratory/Chest: Positive for: Clear to Auscultation Cardiovascular: Positive for: Regular Rate and Rhythm Abdomen: Positive for: Normal Bowel Sounds. Negative for: Tenderness, Distention Upper Extremity: Positive for: Normal Inspection, NORMAL PULSES, Neurovascularly Intact, Capillary Refill < 2s Lower Extremity: Positive for: Normal Inspection, NORMAL PULSES, Neurovascularly Intact, Capillary Refill < 2 s, Other (Right foot dressing wrapped, C/D/I) Neurological: Positive for: GCS=15 Skin: Positive for: Warm, Dry, Rashes, Normal Color Psychiatric: Positive for: Alert - Medications Active Medications: Active Medications Generic Name Dose Route Start Last Admin Trade Name Freq PRN Reason Stop Dose Admin Acetaminophen 650 mg 01/01/18 12:33 Tylenol 325mg Tab PO Q6 PRN Fever >100.4 F Acetaminophen 650 mg 01/01/18 12:34 Tylenol 325mg Tab PO Q6 PRN Pain, Mild (1-3) Vancomycin/Sodium Chloride 1 gm in 200 mls @ 133 mls/hr 01/02/18 10:00 10:32 Vancomycin 1 Gm/Ns 200 Ml IVPB 01/07/18 10:01 133 mls/hr DAILY AMANDA Administration Protocol Ceftriaxone Sodium 1 gm/ 100 mls @ 100 mls/hr 01/01/18 22:00 01/02/18 09:44 Sodium Chloride IVPB 01/08/18 22:01 100 mls/hr Q12H AMANDA Administration Protocol Insulin Human Regular 0 unit 01/02/18 11:30 Novolin R SC ACHS AMANDA Protocol Ondansetron HCl 4 mg 01/01/18 12:34 Zofran Inj IVP Q6H PRN Nausea/Vomiting Pantoprazole Sodium 40 mg 01/02/18 10:00 01/02/18 09:43 Protonix Ec Tab PO 40 mg DAILY AMANDA Administration Potassium Phos/Sodium Phos 1 pkt 01/02/18 09:00 01/02/18 09:43 Neutra-Phos PO 01/02/18 13:01 1 pkt Q4H AMANDA Administration Saccharomyces Boulardii 250 mg 01/01/18 20:00 01/02/18 09:43 Florastor PO 250 mg Q12 AMANDA Administration - Patient Studies Lab Studies: Microbiology Studies 01/01/18 16:13 Urine Culture - Final Urine,Clean Catch No Growth (<1,000 CFU/ML) Lab Studies 01/02/18 01/02/18 01/02/18 Range/Units 06:40 06:40 06:39 WBC 11.9 H (4.8-10.8) K/uL RBC 3.46 L (4.40-5.90) Mil/uL Hgb 11.3 L (12.0-18.0) g/dL Hct 33.2 L (35.0-51.0) % MCV 95.9 H (80.0-94.0) fL MCH 32.8 H (27.0-31.0) pg MCHC 34.2 (33.0-37.0) g/dL RDW 14.2 (11.5-14.5) % Plt Count 136 (130-400) K/uL MPV 10.2 (7.2-11.7) fL Neut % (Auto) 73.9 (50.0-75.0) % Lymph % (Auto) 16.4 L (20.0-40.0) % [place] % (Auto) 8.7 (0.0-10.0) % Eos % (Auto) 0.8 (0.0-4.0) % Baso % (Auto) 0.2 (0.0-2.0) % Neut # (Auto) 8.8 H (1.8-7.0) K/uL Lymph # (Auto) 1.9 (1.0-4.3) K/uL [place] # (Auto) 1.0 H (0.0-0.8) K/uL Eos # (Auto) 0.1 (0.0-0.7) K/uL Baso # (Auto) 0.0 (0.0-0.2) K/uL ESR 28 H (0-15) mm/hr PT (9.7-12.2) SECONDS INR APTT (21-34) SECONDS Sodium 139 (132-148) mmol/L Potassium 3.9 (3.6-5.2) mmol/L Chloride 106 (98-107) mmol/L Carbon Dioxide 22 (22-30) mmol/L Anion Gap 16 (10-20) BUN 22 H (9-20) mg/dL Creatinine 1.0 (0.8-1.5) mg/dL Est GFR ( Amer) > 60 Est GFR (Non-Af Amer) > 60 POC Glucose (mg/dL) (65-110) mg/dL Random Glucose 124 H (75-110) mg/dL Serum Osmolality 291 (272-300) mosm/kg Calcium 8.5 L (8.6-10.4) mg/dl Phosphorus 2.2 L (2.5-4.5) mg/dL Magnesium 1.9 (1.6-2.3) mg/dL Total Bilirubin 1.2 (0.2-1.3) mg/dL Direct Bilirubin 0.3 (0.0-0.4) mg/dL AST 25 (17-59) U/L ALT 24 (21-72) U/L Alkaline Phosphatase 52 (38-126) U/L Total Creatine Kinase (55-170) U/L CK-MB (Mass) (0.0-3.38) ng/mL Troponin I (0.00-0.120) ng/mL C-Reactive Protein 161.50 H (0.0-9.9) mg/L Total Protein 6.7 (6.3-8.3) g/dL Albumin 3.8 (3.5-5.0) g/dL Globulin 2.9 (2.2-3.9) gm/dL Albumin/Globulin Ratio 1.3 (1.0-2.1) Urine Color (YELLOW) Urine Clarity (Clear) Urine pH (5.0-8.0) Ur Specific [place] (1.003-1.030) Urine Protein (NEGATIVE) mg/dL Urine Glucose (UA) (Normal) mg/dL Urine Ketones (NEGATIVE) mg/dL Urine Blood (NEGATIVE) Urine Nitrate (NEGATIVE) Urine Bilirubin (NEGATIVE) Urine Urobilinogen (0.2-1.0) mg/dL Ur Leukocyte Esterase (Negative) Tayo/uL Urine WBC (Auto) (0-5) /hpf Urine RBC (Auto) (0-3) /hpf Urine Bacteria (<OCC) 01/02/18 01/02/18 01/01/18 Range/Units 05:04 00:04 17:47 WBC (4.8-10.8) K/uL RBC (4.40-5.90) Mil/uL Hgb (12.0-18.0) g/dL Hct (35.0-51.0) % MCV (80.0-94.0) fL MCH (27.0-31.0) pg MCHC (33.0-37.0) g/dL RDW (11.5-14.5) % Plt Count (130-400) K/uL MPV (7.2-11.7) fL Neut % (Auto) (50.0-75.0) % Lymph % (Auto) (20.0-40.0) % [place] % (Auto) (0.0-10.0) % Eos % (Auto) (0.0-4.0) % Baso % (Auto) (0.0-2.0) % Neut # (Auto) (1.8-7.0) K/uL Lymph # (Auto) (1.0-4.3) K/uL [place] # (Auto) (0.0-0.8) K/uL Eos # (Auto) (0.0-0.7) K/uL Baso # (Auto) (0.0-0.2) K/uL ESR (0-15) mm/hr PT (9.7-12.2) SECONDS INR APTT (21-34) SECONDS Sodium (132-148) mmol/L Potassium (3.6-5.2) mmol/L Chloride (98-107) mmol/L Carbon Dioxide (22-30) mmol/L Anion Gap (10-20) BUN (9-20) mg/dL Creatinine (0.8-1.5) mg/dL Est GFR ( Amer) Est GFR (Non-Af Amer) POC Glucose (mg/dL) 137 H 123 H 199 H (65-110) mg/dL Random Glucose (75-110) mg/dL Serum Osmolality (272-300) mosm/kg Calcium (8.6-10.4) mg/dl Phosphorus (2.5-4.5) mg/dL Magnesium (1.6-2.3) mg/dL Total Bilirubin (0.2-1.3) mg/dL Direct Bilirubin (0.0-0.4) mg/dL AST (17-59) U/L ALT (21-72) U/L Alkaline Phosphatase (38-126) U/L Total Creatine Kinase (55-170) U/L CK-MB (Mass) (0.0-3.38) ng/mL Troponin I (0.00-0.120) ng/mL C-Reactive Protein (0.0-9.9) mg/L Total Protein (6.3-8.3) g/dL Albumin (3.5-5.0) g/dL Globulin (2.2-3.9) gm/dL Albumin/Globulin Ratio (1.0-2.1) Urine Color (YELLOW) Urine Clarity (Clear) Urine pH (5.0-8.0) Ur Specific [place] (1.003-1.030) Urine Protein (NEGATIVE) mg/dL Urine Glucose (UA) (Normal) mg/dL Urine Ketones (NEGATIVE) mg/dL Urine Blood (NEGATIVE) Urine Nitrate (NEGATIVE) Urine Bilirubin (NEGATIVE) Urine Urobilinogen (0.2-1.0) mg/dL Ur Leukocyte Esterase (Negative) Tayo/uL Urine WBC (Auto) (0-5) /hpf Urine RBC (Auto) (0-3) /hpf Urine Bacteria (<OCC) 01/01/18 01/01/18 01/01/18 Range/Units 16:13 12:40 10:20 WBC (4.8-10.8) K/uL RBC (4.40-5.90) Mil/uL Hgb (12.0-18.0) g/dL Hct (35.0-51.0) % MCV (80.0-94.0) fL MCH (27.0-31.0) pg MCHC (33.0-37.0) g/dL RDW (11.5-14.5) % Plt Count (130-400) K/uL MPV (7.2-11.7) fL Neut % (Auto) (50.0-75.0) % Lymph % (Auto) (20.0-40.0) % [place] % (Auto) (0.0-10.0) % Eos % (Auto) (0.0-4.0) % Baso % (Auto) (0.0-2.0) % Neut # (Auto) (1.8-7.0) K/uL Lymph # (Auto) (1.0-4.3) K/uL [place] # (Auto) (0.0-0.8) K/uL Eos # (Auto) (0.0-0.7) K/uL Baso # (Auto) (0.0-0.2) K/uL ESR (0-15) mm/hr PT 12.6 H (9.7-12.2) SECONDS INR 1.2 APTT 32 (21-34) SECONDS Sodium (132-148) mmol/L Potassium (3.6-5.2) mmol/L Chloride (98-107) mmol/L Carbon Dioxide (22-30) mmol/L Anion Gap (10-20) BUN (9-20) mg/dL Creatinine (0.8-1.5) mg/dL Est GFR ( Amer) Est GFR (Non-Af Amer) POC Glucose (mg/dL) 194 H (65-110) mg/dL Random Glucose (75-110) mg/dL Serum Osmolality (272-300) mosm/kg Calcium (8.6-10.4) mg/dl Phosphorus (2.5-4.5) mg/dL Magnesium (1.6-2.3) mg/dL Total Bilirubin (0.2-1.3) mg/dL Direct Bilirubin (0.0-0.4) mg/dL AST (17-59) U/L ALT (21-72) U/L Alkaline Phosphatase (38-126) U/L Total Creatine Kinase (55-170) U/L CK-MB (Mass) (0.0-3.38) ng/mL Troponin I (0.00-0.120) ng/mL C-Reactive Protein (0.0-9.9) mg/L Total Protein (6.3-8.3) g/dL Albumin (3.5-5.0) g/dL Globulin (2.2-3.9) gm/dL Albumin/Globulin Ratio (1.0-2.1) Urine Color Yellow (YELLOW) Urine Clarity Clear (Clear) Urine pH 5.0 (5.0-8.0) Ur Specific [place] 1.018 (1.003-1.030) Urine Protein Negative (NEGATIVE) mg/dL Urine Glucose (UA) 3+ H (Normal) mg/dL Urine Ketones Trace (NEGATIVE) mg/dL Urine Blood 1+ H (NEGATIVE) Urine Nitrate Negative (NEGATIVE) Urine Bilirubin Negative (NEGATIVE) Urine Urobilinogen Normal (0.2-1.0) mg/dL Ur Leukocyte Esterase Trace (Negative) Tayo/uL Urine WBC (Auto) 7 H (0-5) /hpf Urine RBC (Auto) 7 H (0-3) /hpf Urine Bacteria Occ H (<OCC) 01/01/18 Range/Units 08:15 WBC (4.8-10.8) K/uL RBC (4.40-5.90) Mil/uL Hgb (12.0-18.0) g/dL Hct (35.0-51.0) % MCV (80.0-94.0) fL MCH (27.0-31.0) pg MCHC (33.0-37.0) g/dL RDW (11.5-14.5) % Plt Count (130-400) K/uL MPV (7.2-11.7) fL Neut % (Auto) (50.0-75.0) % Lymph % (Auto) (20.0-40.0) % [place] % (Auto) (0.0-10.0) % Eos % (Auto) (0.0-4.0) % Baso % (Auto) (0.0-2.0) % Neut # (Auto) (1.8-7.0) K/uL Lymph # (Auto) (1.0-4.3) K/uL [place] # (Auto) (0.0-0.8) K/uL Eos # (Auto) (0.0-0.7) K/uL Baso # (Auto) (0.0-0.2) K/uL ESR (0-15) mm/hr PT (9.7-12.2) SECONDS INR APTT (21-34) SECONDS Sodium 136 (132-148) mmol/L Potassium 4.7 (3.6-5.2) mmol/L Chloride 102 (98-107) mmol/L Carbon Dioxide 19 L (22-30) mmol/L Anion Gap 20 (10-20) BUN 31 H (9-20) mg/dL Creatinine 1.2 (0.8-1.5) mg/dL Est GFR ( Amer) > 60 Est GFR (Non-Af Amer) 59 POC Glucose (mg/dL) (65-110) mg/dL Random Glucose 243 H (75-110) mg/dL Serum Osmolality (272-300) mosm/kg Calcium 9.4 (8.6-10.4) mg/dl Phosphorus 2.7 (2.5-4.5) mg/dL Magnesium 1.7 (1.6-2.3) mg/dL Total Bilirubin 1.3 (0.2-1.3) mg/dL Direct Bilirubin (0.0-0.4) mg/dL AST 39 (17-59) U/L ALT 17 L D (21-72) U/L Alkaline Phosphatase 68 (38-126) U/L Total Creatine Kinase 365 H (55-170) U/L CK-MB (Mass) 1.10 (0.0-3.38) ng/mL Troponin I 0.0160 (0.00-0.120) ng/mL C-Reactive Protein (0.0-9.9) mg/L Total Protein 7.8 (6.3-8.3) g/dL Albumin 4.5 (3.5-5.0) g/dL Globulin 3.3 (2.2-3.9) gm/dL Albumin/Globulin Ratio 1.4 (1.0-2.1) Urine Color (YELLOW) Urine Clarity (Clear) Urine pH (5.0-8.0) Ur Specific [place] (1.003-1.030) Urine Protein (NEGATIVE) mg/dL Urine Glucose (UA) (Normal) mg/dL Urine Ketones (NEGATIVE) mg/dL Urine Blood (NEGATIVE) Urine Nitrate (NEGATIVE) Urine Bilirubin (NEGATIVE) Urine Urobilinogen (0.2-1.0) mg/dL Ur Leukocyte Esterase (Negative) Tayo/uL Urine WBC (Auto) (0-5) /hpf Urine RBC (Auto) (0-3) /hpf Urine Bacteria (<OCC) Laboratory Results - last 24 hr 01/01/18 01/01/18 01/01/18 08:15 10:20 12:40 WBC RBC Hgb Hct MCV MCH MCHC RDW Plt Count MPV Neut % (Auto) Lymph % (Auto) [place] % (Auto) Eos % (Auto) Baso % (Auto) Neut # (Auto) Lymph # (Auto) [place] # (Auto) Eos # (Auto) Baso # (Auto) ESR PT 12.6 H INR 1.2 APTT 32 Sodium 136 Potassium 4.7 Chloride 102 Carbon Dioxide 19 L Anion Gap 20 BUN 31 H Creatinine 1.2 Est GFR ( Amer) > 60 Est GFR (Non-Af Amer) 59 POC Glucose (mg/dL) 194 H Random Glucose 243 H Serum Osmolality Calcium 9.4 Phosphorus 2.7 Magnesium 1.7 Total Bilirubin 1.3 Direct Bilirubin AST 39 ALT 17 L D Alkaline Phosphatase 68 Total Creatine Kinase 365 H CK-MB (Mass) 1.10 Troponin I 0.0160 C-Reactive Protein Total Protein 7.8 Albumin 4.5 Globulin 3.3 Albumin/Globulin Ratio 1.4 Urine Color Urine Clarity Urine pH Ur Specific [place] Urine Protein Urine Glucose (UA) Urine Ketones Urine Blood Urine Nitrate Urine Bilirubin Urine Urobilinogen Ur Leukocyte Esterase Urine WBC (Auto) Urine RBC (Auto) Urine Bacteria 01/01/18 01/01/18 01/02/18 16:13 17:47 00:04 WBC RBC Hgb Hct MCV MCH MCHC RDW Plt Count MPV Neut % (Auto) Lymph % (Auto) [place] % (Auto) Eos % (Auto) Baso % (Auto) Neut # (Auto) Lymph # (Auto) [place] # (Auto) Eos # (Auto) Baso # (Auto) ESR PT INR APTT Sodium Potassium Chloride Carbon Dioxide Anion Gap BUN Creatinine Est GFR ( Amer) Est GFR (Non-Af Amer) POC Glucose (mg/dL) 199 H 123 H Random Glucose Serum Osmolality Calcium Phosphorus Magnesium Total Bilirubin Direct Bilirubin AST ALT Alkaline Phosphatase Total Creatine Kinase CK-MB (Mass) Troponin I C-Reactive Protein Total Protein Albumin Globulin Albumin/Globulin Ratio Urine Color Yellow Urine Clarity Clear Urine pH 5.0 Ur Specific [place] 1.018 Urine Protein Negative Urine Glucose (UA) 3+ H Urine Ketones Trace Urine Blood 1+ H Urine Nitrate Negative Urine Bilirubin Negative Urine Urobilinogen Normal Ur Leukocyte Esterase Trace Urine WBC (Auto) 7 H Urine RBC (Auto) 7 H Urine Bacteria Occ H 01/02/18 01/02/18 01/02/18 05:04 06:39 06:40 WBC 11.9 H RBC 3.46 L Hgb 11.3 L Hct 33.2 L MCV 95.9 H MCH 32.8 H MCHC 34.2 RDW 14.2 Plt Count 136 MPV 10.2 Neut % (Auto) 73.9 Lymph % (Auto) 16.4 L [place] % (Auto) 8.7 Eos % (Auto) 0.8 Baso % (Auto) 0.2 Neut # (Auto) 8.8 H Lymph # (Auto) 1.9 [place] # (Auto) 1.0 H Eos # (Auto) 0.1 Baso # (Auto) 0.0 ESR 28 H PT INR APTT Sodium Potassium Chloride Carbon Dioxide Anion Gap BUN Creatinine Est GFR ( Amer) Est GFR (Non-Af Amer) POC Glucose (mg/dL) 137 H Random Glucose Serum Osmolality 291 Calcium Phosphorus Magnesium Total Bilirubin Direct Bilirubin AST ALT Alkaline Phosphatase Total Creatine Kinase CK-MB (Mass) Troponin I C-Reactive Protein Total Protein Albumin Globulin Albumin/Globulin Ratio Urine Color Urine Clarity Urine pH Ur Specific [place] Urine Protein Urine Glucose (UA) Urine Ketones Urine Blood Urine Nitrate Urine Bilirubin Urine Urobilinogen Ur Leukocyte Esterase Urine WBC (Auto) Urine RBC (Auto) Urine Bacteria 01/02/18 06:40 WBC RBC Hgb Hct MCV MCH MCHC RDW Plt Count MPV Neut % (Auto) Lymph % (Auto) [place] % (Auto) Eos % (Auto) Baso % (Auto) Neut # (Auto) Lymph # (Auto) [place] # (Auto) Eos # (Auto) Baso # (Auto) ESR PT INR APTT Sodium 139 Potassium 3.9 Chloride 106 Carbon Dioxide 22 Anion Gap 16 BUN 22 H Creatinine 1.0 Est GFR ( Amer) > 60 Est GFR (Non-Af Amer) > 60 POC Glucose (mg/dL) Random Glucose 124 H Serum Osmolality Calcium 8.5 L Phosphorus 2.2 L Magnesium 1.9 Total Bilirubin 1.2 Direct Bilirubin 0.3 AST 25 ALT 24 Alkaline Phosphatase 52 Total Creatine Kinase CK-MB (Mass) Troponin I C-Reactive Protein 161.50 H Total Protein 6.7 Albumin 3.8 Globulin 2.9 Albumin/Globulin Ratio 1.3 Urine Color Urine Clarity Urine pH Ur Specific [place] Urine Protein Urine Glucose (UA) Urine Ketones Urine Blood Urine Nitrate Urine Bilirubin Urine Urobilinogen Ur Leukocyte Esterase Urine WBC (Auto) Urine RBC (Auto) Urine Bacteria EKG/Cardiology Studies: Cardiology / EKG Studies 01/01/18 10:35 ELECTROCARDIOGRAM Stat Comment: Mode Of Transportation: BED Reason For Exam: Pain Fingerstick Blood Sugar Results: 137 Critical Care Progress Note - Nutrition Nutrition: Nutrition Category Date Time Status Heart Healthy Diet [DIET] Diets 01/01/18 Dinner Active Assessment/Plan - Assessment and Plan (Free Text) Assessment: This is a 77 year old male with 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 Patient was evaluated by Dr. Coy 12/30/17 in his office, for reset of the shunt- has known subdural hematoma (for 3 weeks), repeat Head CT reveals it has not changed in dimensions but appears more dense. As per neurosurgery, will reevaluate 01/04/[address]; possible evacuation Friday. Plan: Neuro: GCS 15 A: NPH - Right parietal ventriculoperitoneal shunt, placed July 22 2017 - Evaluated by Dr. Coy 12/30/17 in his office, for reset of the shunt A: Known Subdural Hematoma (x 3 weeks) - Head CT 12/12/17 - Interval development of large bilateral subdural hematomas which exhibit both chronic and acute/subacute components former larger than latter. The left-sided collection is larger than the right. These collections exert fairly significant mass effect with compression of both cerebral hemispheres left greater than right and [id number] midline shift with septum pellucidum shifted across midline to the right side estimated at approximately 6.6 mm. In situ EMT DISPATCHER shunt tube as detailed above. - Repeat Head CT 12/31/17 - Again seen are bilateral large subdural hemorrhages that appear grossly stable in size compared to prior exam. However, on the current exam there are diffuse acute blood products throughout the left subdural hemorrhage and to a lesser degree within the right subdural hemorrhage. Maximal thickness of both subdural hemorrhages measures 1.6 cm. Hyperacute hemorrhage is noted within the left subdural hemorrhage with a maximal thickness of 0.3 cm. There is no significant midline shift. - Repeat Head CT reveals it has not changed in dimensions but appears more dense - As per neurosurgery, will revaluate 01/04/[address]; possible evacuation Friday A: Dementia Cardio: A: HTN - Takes Vasotec 20mg - will hold for now a patient is hypotensive A: HF with rEF - Systolic Dysfunction with LVEF 45-50% - Seen on ECHO 07/2017 Endo: A: T2DM - Accuchecks - ISS- low - HHD, Carb Consistent Diet - Last A1C 6.7 - 07/2017 - A1C - ID: A: SIRS -- Dr. Kurtis Shaw consulted - Febrile -TMax 101.3, tachycardiac, hypotensive - No effusions, infiltrates noted on CXR - Spoke with Dr. Shaw will DC Zosyn and change to Rocephin 1 Gram Q12, keep the vanco -01/01, f/u vanco trough - Garcia cultured MSK: A: Fracture of the 5th phalanx and dislocation of 4th phalanx - S/P right foot closed reduction 01/01/18 at bedside by podiatry resident Prophylaxis: - PPI - SCDs, VTE c/i 2/2 SDH Disposition: Patient is transferred to Telemetry. Dr. Shashi Hayes, Cindy Danielle DO, PGY-1 <Shashi Hayes - Last Filed: 01/03/18 15:49> CCU Objective - Medications Active Medications: Active Medications Generic Name Dose Route Start Last Admin Trade Name Freq PRN Reason Stop Dose Admin Acetaminophen 650 mg 01/01/18 12:33 Tylenol 325mg Tab PO Q6 PRN Fever >100.4 F Acetaminophen 650 mg 01/01/18 12:34 Tylenol 325mg Tab PO Q6 PRN Pain, Mild (1-3) Vancomycin/Sodium Chloride 1 gm in 200 mls @ 133 mls/hr 01/02/18 10:00 10:21 Vancomycin 1 Gm/Ns 200 Ml IVPB 01/07/18 10:01 133 mls/hr DAILY AMANDA Administration Protocol Insulin Human Regular 0 unit 01/02/18 11:30 01/03/18 12:40 Novolin R SC 2 units ACHS AMANDA Administration Protocol Ondansetron HCl 4 mg 01/01/18 12:34 Zofran Inj IVP Q6H PRN Nausea/Vomiting Pantoprazole Sodium 40 mg 01/02/18 10:00 01/03/18 10:21 Protonix Ec Tab PO 40 mg DAILY AMANDA Administration Saccharomyces Boulardii 250 mg 01/01/18 20:00 01/03/18 10:21 Florastor PO 250 mg Q12 AMANDA Administration - Patient Studies Lab Studies: Microbiology Studies 01/01/18 11:07 Blood Culture - Preliminary Blood-Venous NO GROWTH AFTER 24 HOURS 01/01/18 11:07 Blood Culture - Preliminary Blood-Venous NO GROWTH AFTER 24 HOURS 01/01/18 13:17 MRSA Culture (Admit) - Final Naris MRSA NOT DETECTED Lab Studies 01/03/18 01/03/18 01/03/18 Range/Units 11:08 07:30 07:30 WBC 8.1 (4.8-10.8) K/uL RBC 3.59 L (4.40-5.90) Mil/uL Hgb 11.9 L (12.0-18.0) g/dL Hct 34.4 L (35.0-51.0) % MCV 95.9 H (80.0-94.0) fL MCH 33.1 H (27.0-31.0) pg MCHC 34.5 (33.0-37.0) g/dL RDW 13.9 (11.5-14.5) % Plt Count 150 (130-400) K/uL MPV 10.1 (7.2-11.7) fL Neut % (Auto) 67.9 (50.0-75.0) % Lymph % (Auto) 19.9 L (20.0-40.0) % [place] % (Auto) 10.0 (0.0-10.0) % Eos % (Auto) 1.9 (0.0-4.0) % Baso % (Auto) 0.3 (0.0-2.0) % Neut # (Auto) 5.5 (1.8-7.0) K/uL Lymph # (Auto) 1.6 (1.0-4.3) K/uL [place] # (Auto) 0.8 (0.0-0.8) K/uL Eos # (Auto) 0.2 (0.0-0.7) K/uL Baso # (Auto) 0.0 (0.0-0.2) K/uL POC Glucose (mg/dL) 170 H (65-110) mg/dL Serum Osmolality 290 (272-300) mosm/kg 01/03/18 01/02/18 01/02/18 Range/Units 06:34 21:21 16:23 WBC (4.8-10.8) K/uL RBC (4.40-5.90) Mil/uL Hgb (12.0-18.0) g/dL Hct (35.0-51.0) % MCV (80.0-94.0) fL MCH (27.0-31.0) pg MCHC (33.0-37.0) g/dL RDW (11.5-14.5) % Plt Count (130-400) K/uL MPV (7.2-11.7) fL Neut % (Auto) (50.0-75.0) % Lymph % (Auto) (20.0-40.0) % [place] % (Auto) (0.0-10.0) % Eos % (Auto) (0.0-4.0) % Baso % (Auto) (0.0-2.0) % Neut # (Auto) (1.8-7.0) K/uL Lymph # (Auto) (1.0-4.3) K/uL [place] # (Auto) (0.0-0.8) K/uL Eos # (Auto) (0.0-0.7) K/uL Baso # (Auto) (0.0-0.2) K/uL POC Glucose (mg/dL) 121 H 139 H 187 H (65-110) mg/dL Serum Osmolality (272-300) mosm/kg Laboratory Results - last 24 hr 01/02/18 01/02/18 01/03/18 16:23 21:21 06:34 WBC RBC Hgb Hct MCV MCH MCHC RDW Plt Count MPV Neut % (Auto) Lymph % (Auto) [place] % (Auto) Eos % (Auto) Baso % (Auto) Neut # (Auto) Lymph # (Auto) [place] # (Auto) Eos # (Auto) Baso # (Auto) POC Glucose (mg/dL) 187 H 139 H 121 H Serum Osmolality 01/03/18 01/03/18 01/03/18 07:30 07:30 11:08 WBC 8.1 RBC 3.59 L Hgb 11.9 L Hct 34.4 L MCV 95.9 H MCH 33.1 H MCHC 34.5 RDW 13.9 Plt Count 150 MPV 10.1 Neut % (Auto) 67.9 Lymph % (Auto) 19.9 L [place] % (Auto) 10.0 Eos % (Auto) 1.9 Baso % (Auto) 0.3 Neut # (Auto) 5.5 Lymph # (Auto) 1.6 [place] # (Auto) 0.8 Eos # (Auto) 0.2 Baso # (Auto) 0.0 POC Glucose (mg/dL) 170 H Serum Osmolality 290 Critical Care Progress Note - Nutrition Nutrition: Nutrition Category Date Time Status Heart Healthy Diet [DIET] Diets 01/01/18 Dinner Active Assessment/Plan - Assessment and Plan (Free Text) Plan: Above patient seen and examined at bedside. Above resident has documented my clinical findings and medical management. Patient remains hemodynamically stable. SBP <140. -tolerating oral diet -continue to monitor - Date & Time Date: 01/02/18 Time: 19:00
--- NOTE | 2018-01-02 13:58 | CP.PCM.PN ---
Subjective - Date & Time of Evaluation Date of Evaluation: 01/02/18 Time of Evaluation: 13:57 - Subjective Subjective: CHIEF COMPLAINTS TODAY : Patient had periods of confusion and agitation last night requiring sedatives. Currently patient has no symptoms ROS. HEENT : N. Resp : No cough, wheezing ,pleuritic CP ,or hemoptysis Cardio : No anginal CP, PND, orthopnea, palpitation GI : No abd.pain, n/v ,diarrhea or GI bleeding . DELI COOK : No headache, vertigo, focal deficit. Musculoskel : No joint swelling , Derm : No rash Psych : Normal affect. Ext : No swelling ,calf pain PE. Pt. is alert awake in no distress. V.S As noted in the chart Head ,ear nose,throat and eyes : Normal. Neck : Supple with normal carotids. Lungs: Clear air entry. Heart : S1 & S2 normal with S4. No murmur. Abd : Soft non tender with normal bowel sounds. Neuro : Moves all ext. with no localized deficit. Ext : No edema with intact pulses.Non tender calves Derm : No rashes or decubitus ulcer. LABS/RADIOLOGY: ASSESSMENT/PLAN : Septic workup in progress. No new neurological findings. Objective - Vital Signs/Intake and Output Vital Signs (last 24 hours): Temp Pulse Resp BP Pulse Ox 98.9 F 74 16 120/48 L 100 01/02/18 08:00 01/02/18 13:00 01/02/18 13:00 01/02/18 12:54 01/02/18 13:00 Intake and Output: 01/02/18 01/02/18 11:59 23:59 Intake Total 850 200 Output Total 400 200 Balance 450 0 - Medications Medications: Current Medications Acetaminophen (Tylenol 325mg Tab) 650 mg PO Q6 PRN PRN Reason: Fever >100.4 F Acetaminophen (Tylenol 325mg Tab) 650 mg PO Q6 PRN PRN Reason: Pain, Mild (1-3) Vancomycin/Sodium Chloride (Vancomycin 1 Gm/Ns 200 Ml) 1 gm in 200 mls @ 133 mls/hr IVPB DAILY [facility] PRN Reason: Protocol Stop: 01/07/18 10:01 Last Admin: 01/02/18 10:32 Dose: 133 mls/hr Ceftriaxone Sodium 1 gm/ (Sodium Chloride) 100 mls @ 100 mls/hr IVPB Q12H [facility] PRN Reason: Protocol Stop: 01/08/18 22:01 Last Admin: 01/02/18 09:44 Dose: 100 mls/hr Insulin Human Regular (Novolin R) 0 unit SC ACHS [facility] PRN Reason: Protocol Last Admin: 01/02/18 11:27 Dose: Not Given Ondansetron HCl (Zofran Inj) 4 mg IVP Q6H PRN PRN Reason: Nausea/Vomiting Pantoprazole Sodium (Protonix Ec Tab) 40 mg PO DAILY [facility] Last Admin: 01/02/18 09:43 Dose: 40 mg Saccharomyces Boulardii (Florastor) 250 mg PO Q12 [facility] Last Admin: 01/02/18 09:43 Dose: 250 mg - Labs Labs: 01/02/18 06:39 01/02/18 06:40 PT 12.6 SECONDS (9.7-12.2) H 01/01/18 10:20 INR 1.2 01/01/18 10:20 APTT 32 SECONDS (21-34) 01/01/18 10:20
--- NOTE | 2018-01-02 16:55 | RAD ---
PROCEDURE: Right Foot Radiographs. HISTORY: Status post reduction right foot fracture COMPARISON: Comparison made with radiographs of the right foot 01/01/2018. . FINDINGS: BONES: Re- demonstrated is a comminuted intra-articular fracture base proximal phalanx 5th digit. Mild surrounding soft tissue swelling. Plantar and posterior calcaneal surface enthesophytes again noted. There also appears to be a small enthesophyte arising from the base 5th metatarsal JOINTS: There has been interval reduction previously noted laterally dislocated middle phalanx 4th toe at the level of the PIP joint. Additionally, there appears to be a tiny chip and/or avulsion fracture along the lateral base middle phalanx 4th toe. Extension deformities of the second through 5th digits unchanged SOFT TISSUES: Normal. OTHER FINDINGS: None. IMPRESSION: Re- demonstrated is a comminuted intra-articular fracture base proximal phalanx 5th digit. Mild surrounding soft tissue swelling. Plantar and posterior calcaneal surface enthesophytes again noted There has been interval reduction previously noted laterally dislocated middle phalanx 4th toe at the level of the PIP joint. Additionally, there appears to be a tiny chip and/or avulsion fracture along the lateral base middle phalanx 4th toe. Extension deformities of the second through 5th digits unchanged
--- NOTE | 2018-01-02 22:37 | CP.PCM.PN ---
Subjective - Date & Time of Evaluation Date of Evaluation: 01/02/18 Time of Evaluation: 22:38 - Subjective Subjective: CHIEF COMPLAINTS TODAY : AFEBRILE RESPONDS APPROPRIATLY. NO NEW COMPLAINTS. ROS. HEENT : N. Resp : No cough, wheezing ,pleuritic CP ,or hemoptysis Cardio : No anginal CP, PND, orthopnea, palpitation GI : No abd.pain, n/v ,diarrhea or GI bleeding . PARACHUTE INSPECTOR : No headache, vertigo, focal deficit. Musculoskel : No joint swelling , Derm : No rash Psych : Normal affect. Ext : No swelling ,calf pain PE. Pt. is alert awake in no distress. V.S As noted in the chart Head ,ear nose,throat and eyes : Normal. Neck : Supple with normal carotids. Lungs: Clear air entry. Heart : S1 & S2 normal with S4. No murmur. Abd : Soft non tender with normal bowel sounds. Neuro : Moves all ext. with no localized deficit. Ext : No edema with intact pulses.Non tender calves Derm : No rashes or decubitus ulcer. LABS/RADIOLOGY. REVIEWED. Objective - Vital Signs/Intake and Output Vital Signs (last 24 hours): Temp Pulse Resp BP Pulse Ox 99 F 96 H 23 112/77 97 01/02/18 16:00 01/02/18 20:00 01/02/18 20:00 01/02/18 18:56 01/02/18 20:00 Intake and Output: 01/02/18 01/03/18 18:59 06:59 Intake Total 1300 Output Total 450 Balance 850 - Medications Medications: Current Medications Acetaminophen (Tylenol 325mg Tab) 650 mg PO Q6 PRN PRN Reason: Fever >100.4 F Acetaminophen (Tylenol 325mg Tab) 650 mg PO Q6 PRN PRN Reason: Pain, Mild (1-3) Vancomycin/Sodium Chloride (Vancomycin 1 Gm/Ns 200 Ml) 1 gm in 200 mls @ 133 mls/hr IVPB DAILY [facility] PRN Reason: Protocol Stop: 01/07/18 10:01 Last Admin: 01/02/18 10:32 Dose: 133 mls/hr Ceftriaxone Sodium 1 gm/ (Sodium Chloride) 100 mls @ 100 mls/hr IVPB Q12H [facility] PRN Reason: Protocol Stop: 01/08/18 22:01 Last Admin: 01/02/18 21:26 Dose: 100 mls/hr Insulin Human Regular (Novolin R) 0 unit SC ACHS [facility] PRN Reason: Protocol Last Admin: 01/02/18 21:32 Dose: Not Given Ondansetron HCl (Zofran Inj) 4 mg IVP Q6H PRN PRN Reason: Nausea/Vomiting Pantoprazole Sodium (Protonix Ec Tab) 40 mg PO DAILY [facility] Last Admin: 01/02/18 09:43 Dose: 40 mg Saccharomyces Boulardii (Florastor) 250 mg PO Q12 [facility] Last Admin: 01/02/18 21:26 Dose: 250 mg - Labs Labs: 01/02/18 06:39 01/02/18 06:40 PT 12.6 SECONDS (9.7-12.2) H 01/01/18 10:20 INR 1.2 01/01/18 10:20 APTT 32 SECONDS (21-34) 01/01/18 10:20 Assessment and Plan (1) Fever Assessment & Plan: SOURCE OF FEVER NOT VERY CLEAR ?SIRS /ACUTE FRACTURE VS CENTRAL. ON IV ROCEPHIN 1GM IV PB [id number]. 01/01/18 ON IV [id number] IV PB [id number] 01/01/18 F/U CULTURES. Status: Acute (2) Subdural hemorrhage Assessment & Plan: PER NEUROSURGERY. F/U REPEAT CT SCAN HEAD ON FRIDAY. Status: Acute (3) Toe fracture Assessment & Plan: RT TOE IN DRESSING . Status: Acute (4) Diabetes Status: Chronic (5) HTN (hypertension) Status: Chronic
--- NOTE | 2018-01-02 22:53 | CARD ---
APPROVED REPORT EKG Measurement Heart [id number] <Conclusion> Sinus tachycardia Otherwise normal ECG
[2018-01-03 07:39] LABS: BASO % 0.3 % (0.0-2.0); EOS # 0.2 K/uL (0.0-0.7); EOS % 1.9 % (0.0-4.0); HEMOGLOBIN 11.9 g/dL (12.0-18.0); LYMPH # 1.6 K/uL (1.0-4.3); LYMPH % 19.9 % (20.0-40.0); MEAN CELL VOLUME 95.9 fL (80.0-94.0); MEAN CORPUSCULAR HEMOGLOBIN 33.1 pg (27.0-31.0); MEAN CORPUSCULAR HGB CONC 34.5 g/dL (33.0-37.0); MEAN PLATELET VOLUME 10.1 fL (7.2-11.7); MONO # 0.8 K/uL (0.0-0.8); NEUT # 5.5 K/uL (1.8-7.0); NEUT % 67.9 % (50.0-75.0); RBC 3.59 Mil/uL (4.40-5.90); RED CELL DISTRIBUTION WIDTH 13.9 % (11.5-14.5); WHITE BLOOD COUNT 8.1 K/uL (4.8-10.8)
[2018-01-03] MEDS: (Novolin R) Insulin Human Regular 100 units/ml vial SC SCH ×4 (08:18→21:36)
[2018-01-03] MEDS: Saccharomyces Boulardi 250 mg Cap PO SCH ×2 (10:21→21:36)
[2018-01-03] MEDS: Vancomycin 1 gm/NS 200 ml 1 GM/200 ML BAG IVPB SCH (10:21)
[2018-01-03] MEDS: Pantoprazole 40 mg EC Tab PO SCH (10:21)
--- NOTE | 2018-01-03 14:09 | CP.PCM.PN ---
Subjective - Date & Time of Evaluation Date of Evaluation: 01/03/18 Time of Evaluation: 14:08 - Subjective Subjective: CHIEF COMPLAINTS TODAY : Patient had periods of confusion and agitation last night requiring sedatives. Currently patient has no symptoms ROS. HEENT : N. Resp : No cough, wheezing ,pleuritic CP ,or hemoptysis Cardio : No anginal CP, PND, orthopnea, palpitation GI : No abd.pain, n/v ,diarrhea or GI bleeding . 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 Musculoskel : No joint swelling , Derm : No rash Psych : Normal affect. Ext : No swelling ,calf pain PE. Pt. is alert awake in no distress. V.S As noted in the chart Head ,ear nose,throat and eyes : Normal. Neck : Supple with normal carotids. Lungs: Clear air entry. Heart : S1 & S2 normal with S4. No murmur. Abd : Soft non tender with normal bowel sounds. Neuro : Moves all ext. with no localized deficit. Ext : No edema with intact pulses.Non tender calves Derm : No rashes or decubitus ulcer. LABS/RADIOLOGY: ASSESSMENT/PLAN : Septic workup is negative so far. Patient is medically clear for evacuation of subdural hematoma on Friday Objective - Vital Signs/Intake and Output Vital Signs (last 24 hours): Temp Pulse Resp BP Pulse Ox 98.4 F 67 20 152/87 H 97 01/03/18 07:30 01/03/18 07:30 01/03/18 07:30 01/03/18 07:30 01/03/18 07:30 - Medications Medications: Current Medications Acetaminophen (Tylenol 325mg Tab) 650 mg PO Q6 PRN PRN Reason: Fever >100.4 F Acetaminophen (Tylenol 325mg Tab) 650 mg PO Q6 PRN PRN Reason: Pain, Mild (1-3) Vancomycin/Sodium Chloride (Vancomycin 1 Gm/Ns 200 Ml) 1 gm in 200 mls @ 133 mls/hr IVPB DAILY [facility] PRN Reason: Protocol Stop: 01/07/18 10:01 Last Admin: 01/03/18 10:21 Dose: 133 mls/hr Insulin Human Regular (Novolin R) 0 unit SC ACHS [facility] PRN Reason: Protocol Last Admin: 01/03/18 12:40 Dose: 2 units Ondansetron HCl (Zofran Inj) 4 mg IVP Q6H PRN PRN Reason: Nausea/Vomiting Pantoprazole Sodium (Protonix Ec Tab) 40 mg PO DAILY [facility] Last Admin: 01/03/18 10:21 Dose: 40 mg Saccharomyces Boulardii (Florastor) 250 mg PO Q12 [facility] Last Admin: 01/03/18 10:21 Dose: 250 mg - Labs Labs: 01/03/18 07:30 01/02/18 06:40 PT 12.6 SECONDS (9.7-12.2) H 01/01/18 10:20 INR 1.2 01/01/18 10:20 APTT 32 SECONDS (21-34) 01/01/18 10:20
--- NOTE | 2018-01-03 21:09 | CP.PCM.PN ---
Subjective - Date & Time of Evaluation Date of Evaluation: 01/03/18 Time of Evaluation: 21:09 - Subjective Subjective: CHIEF COMPLAINTS TODAY : PT SEEN ON [facility]-RM [id number] AFEBRILE CONFUSED AND AGITATED TODAY-ON ATIVAN NOW ROS. HEENT : N. Resp : No cough, wheezing ,pleuritic CP ,or hemoptysis Cardio : No anginal CP, PND, orthopnea, palpitation GI : No abd.pain, n/v ,diarrhea or GI bleeding . 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 Musculoskel : No joint swelling , Derm : No rash Psych : Normal affect. Ext : No swelling ,calf pain PE. Pt. is awake in no distress. V.S As noted in the chart Head ,ear nose,throat and eyes : Normal. Neck : Supple with normal carotids. Lungs: Clear air entry. Heart : S1 & S2 normal with S4. No murmur. Abd : Soft non tender with normal bowel sounds. Neuro : Moves all ext. with no localized deficit. Ext : No edema with intact pulses.Non tender calves Derm : No rashes or decubitus ulcer. LABS/RADIOLOGY. REVIEWED. ALL CULTURES -VE TO DATE MRSA NOT DETECTED. Objective - Vital Signs/Intake and Output Vital Signs (last 24 hours): Temp Pulse Resp BP Pulse Ox 98.6 F 88 18 107/57 L 99 01/03/18 15:00 01/03/18 15:00 01/03/18 15:00 01/03/18 15:00 01/03/18 15:00 - Medications Medications: Current Medications Acetaminophen (Tylenol 325mg Tab) 650 mg PO Q6 PRN PRN Reason: Fever >100.4 F Acetaminophen (Tylenol 325mg Tab) 650 mg PO Q6 PRN PRN Reason: Pain, Mild (1-3) Vancomycin/Sodium Chloride (Vancomycin 1 Gm/Ns 200 Ml) 1 gm in 200 mls @ 133 mls/hr IVPB DAILY [facility] PRN Reason: Protocol Stop: 01/07/18 10:01 Last Admin: 01/03/18 10:21 Dose: 133 mls/hr Insulin Human Regular (Novolin R) 0 unit SC ACHS [facility] PRN Reason: Protocol Last Admin: 01/03/18 17:29 Dose: 3 units Lorazepam (Ativan) 0.5 mg IVP Q4H PRN PRN Reason: Anxiety Last Admin: 01/03/18 20:24 Dose: 0.5 mg Ondansetron HCl (Zofran Inj) 4 mg IVP Q6H PRN PRN Reason: Nausea/Vomiting Pantoprazole Sodium (Protonix Ec Tab) 40 mg PO DAILY [facility] Last Admin: 01/03/18 10:21 Dose: 40 mg Saccharomyces Boulardii (Florastor) 250 mg PO Q12 [facility] Last Admin: 01/03/18 10:21 Dose: 250 mg - Labs Labs: 01/03/18 07:30 01/02/18 06:40 PT 12.6 SECONDS (9.7-12.2) H 01/01/18 10:20 INR 1.2 01/01/18 10:20 APTT 32 SECONDS (21-34) 01/01/18 10:20 Assessment and Plan (1) Fever Assessment & Plan: ON IV ROCEPHIN 1GM IV PB [id number]. 01/01/18 ON IV [id number] IVPB [id number] 01/01/18 F/U CULTURES. Status: Acute (2) Subdural hemorrhage Assessment & Plan: PER NEUROSURGERY. F/U REPEAT CT SCAN HEAD ON FRIDAY ATIVAN FOR AGITATION STARTED Status: Acute (3) Toe fracture Assessment & Plan: RT. FOOT TOE IN DRESSING. Status: Acute (4) Diabetes Status: Chronic (5) HTN (hypertension) Status: Chronic
[2018-01-04] MEDS: cefTRIAXone IV 1 gm in Dextros 50 ML IVPB SCH ×2 (02:30→12:36)
[2018-01-04 07:04] LABS: BASO % 0.4 % (0.0-2.0); EOS # 0.2 K/uL (0.0-0.7); EOS % 2.4 % (0.0-4.0); HEMOGLOBIN 11.8 g/dL (12.0-18.0); LYMPH # 1.8 K/uL (1.0-4.3); MEAN CELL VOLUME 94.7 fL (80.0-94.0); MEAN CORPUSCULAR HEMOGLOBIN 33.2 pg (27.0-31.0); MEAN CORPUSCULAR HGB CONC 35.1 g/dL (33.0-37.0); MEAN PLATELET VOLUME 9.7 fL (7.2-11.7); MONO % 12.7 % (0.0-10.0); NEUT # 4.7 K/uL (1.8-7.0); NEUT % 61.5 % (50.0-75.0); RBC 3.55 Mil/uL (4.40-5.90); RED CELL DISTRIBUTION WIDTH 13.8 % (11.5-14.5); WHITE BLOOD COUNT 7.6 K/uL (4.8-10.8)
[2018-01-04 07:24] LABS: ALB/GLOB RATIO 1.1 (1.0-2.1); ALBUMIN 3.6 g/dL (3.5-5.0); ALT/SGPT 22 U/L (21-72); AST/SGOT 32 U/L (17-59); BLOOD UREA NITROGEN 18 mg/dL (9-20); CALCIUM 8.5 mg/dl (8.6-10.4); GFR AFRICAN-AMERICAN > 60; GFR NON-AFRICAN AMERICAN > 60
[2018-01-04] MEDS: (Novolin R) Insulin Human Regular 100 units/ml vial SC SCH ×4 (08:35→21:45)
--- NOTE | 2018-01-04 09:34 | CP.PCM.PN ---
Subjective - Date & Time of Evaluation Date of Evaluation: 01/04/18 Time of Evaluation: 09:32 - Subjective Subjective: ct unchanged spoke to with nurse present on phione via qc manager explained CT essentially unchanged Recomend courtney craniotomy evac sdh explained proceedure risks benifits will also turn shunt off if possible otherwise will set it to hightes setting She agrees and will come in later to sign consent Pt remains wake alert confused good st all ext Objective - Vital Signs/Intake and Output Vital Signs (last 24 hours): Temp Pulse Resp BP Pulse Ox 97.6 F 79 20 118/70 98 01/04/18 07:00 01/04/18 07:00 01/04/18 07:00 01/04/18 07:00 01/04/18 07:00 Intake and Output: 01/04/18 01/04/18 06:59 18:59 Output Total 600 Balance -600 - Medications Medications: Current Medications Acetaminophen (Tylenol 325mg Tab) 650 mg PO Q6 PRN PRN Reason: Fever >100.4 F Acetaminophen (Tylenol 325mg Tab) 650 mg PO Q6 PRN PRN Reason: Pain, Mild (1-3) Vancomycin/Sodium Chloride (Vancomycin 1 Gm/Ns 200 Ml) 1 gm in 200 mls @ 133 mls/hr IVPB DAILY [facility] PRN Reason: Protocol Stop: 01/07/18 10:01 Last Admin: 01/03/18 10:21 Dose: 133 mls/hr Ceftriaxone Sodium (Rocephin Iv 1 Gm Duplex) 50 mls @ 100 mls/hr IVPB Q12H [facility] PRN Reason: Protocol Last Admin: 01/04/18 02:30 Dose: 100 mls/hr Insulin Human Regular (Novolin R) 0 unit SC ACHS [facility] PRN Reason: Protocol Last Admin: 01/03/18 21:36 Dose: Not Given Lorazepam (Ativan) 0.5 mg IVP Q4H PRN PRN Reason: Anxiety Last Admin: 01/04/18 05:48 Dose: 0.5 mg Ondansetron HCl (Zofran Inj) 4 mg IVP Q6H PRN PRN Reason: Nausea/Vomiting Pantoprazole Sodium (Protonix Ec Tab) 40 mg PO DAILY [facility] Last Admin: 01/03/18 10:21 Dose: 40 mg Saccharomyces Boulardii (Florastor) 250 mg PO Q12 [facility] Last Admin: 01/03/18 21:36 Dose: 250 mg - Labs Labs: 01/04/18 06:53 01/04/18 06:53 PT 12.6 SECONDS (9.7-12.2) H 01/01/18 10:20 INR 1.2 01/01/18 10:20 APTT 32 SECONDS (21-34) 01/01/18 10:20
--- NOTE | 2018-01-04 09:41 | CT ---
PROCEDURE: CT HEAD WITHOUT CONTRAST. HISTORY: h/o subdural hemorrhages COMPARISON: 01/01/2018. TECHNIQUE: Axial computed tomography images were obtained through the head/brain without intravenous contrast. Radiation dose: Total exam DLP = 1001.99 MGy-cm. This CT exam was performed using one or more of the following dose reduction techniques: Automated exposure control, adjustment of the mA and/or kV according to patient size, and/or use of iterative reconstruction technique. FINDINGS: HEMORRHAGE: No intracranial hemorrhage. BRAIN: There are evolving bilateral convexity acute on chronic subdural hematomas with interval development of blood fluid hematocrit levels representing redistribution. There is 7 mm midline shift from left to right without evidence of herniation. VENTRICLES: There is stable position of right trans parietal ventricular shunt catheter terminating in the left basal ganglia. No hydrocephalus. 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 CALVARIUM: The skull base and calvarium are normal. PARANASAL SINUSES: Predominantly clear. MASTOID AIR CELLS: Predominantly clear. OTHER FINDINGS: None. IMPRESSION: Evolving bilateral acute on chronic subdural hematomas with interval development of blood fluid hematocrit level representing redistribution, the hematoma is larger on the left with 7 mm midline shift from left to right. No evidence of herniation or hydrocephalus. Stable position of right ventriculostomy shunt catheter with tip in the left basal ganglia. Please correlate with ventriculostomy shunt function. A preliminary report was provided by [employer].
[2018-01-04] MEDS: Vancomycin 1 gm/NS 200 ml 1 GM/200 ML BAG IVPB SCH (11:19)
[2018-01-04] MEDS: Pantoprazole 40 mg EC Tab PO SCH (11:20)
[2018-01-04] MEDS: Saccharomyces Boulardi 250 mg Cap PO SCH ×2 (11:20→21:39)
[2018-01-04 11:59] LABS: INR 1.2; PROTHROMBIN TIME 12.7 SECONDS (9.7-12.2)
--- NOTE | 2018-01-04 15:26 | CP.PCM.PN ---
Subjective - Date & Time of Evaluation Date of Evaluation: 01/04/18 Time of Evaluation: 15:25 - Subjective Subjective: CHIEF COMPLAINTS TODAY : Patient had periods of confusion and agitation last night requiring sedatives. Currently patient has no symptoms ROS. HEENT : N. Resp : No cough, wheezing ,pleuritic CP ,or hemoptysis Cardio : No anginal CP, PND, orthopnea, palpitation GI : No abd.pain, n/v ,diarrhea or GI bleeding . PATIENT COMPANION : No headache, vertigo, focal deficit. Musculoskel : No joint swelling , Derm : No rash Psych : Normal affect. Ext : No swelling ,calf pain PE. Pt. is alert awake in no distress. V.S As noted in the chart Head ,ear nose,throat and eyes : Normal. Neck : Supple with normal carotids. Lungs: Clear air entry. Heart : S1 & S2 normal with S4. No murmur. Abd : Soft non tender with normal bowel sounds. Neuro : Moves all ext. with no localized deficit. Ext : No edema with intact pulses.Non tender calves Derm : No rashes or decubitus ulcer. LABS/RADIOLOGY: ASSESSMENT/PLAN : patient is scheduled for OR for bilateral evacuation of subdural hematomas in a.m. Currently patient is stable with periods of confusion especially in the night managed with Ativan Objective - Vital Signs/Intake and Output Vital Signs (last 24 hours): Temp Pulse Resp BP Pulse Ox 97.6 F 11 L 20 118/70 98 01/04/18 07:00 01/04/18 12:00 01/04/18 07:00 01/04/18 07:00 01/04/18 07:00 - Medications Medications: Current Medications Acetaminophen (Tylenol 325mg Tab) 650 mg PO Q6 PRN PRN Reason: Fever >100.4 F Acetaminophen (Tylenol 325mg Tab) 650 mg PO Q6 PRN PRN Reason: Pain, Mild (1-3) Vancomycin/Sodium Chloride (Vancomycin 1 Gm/Ns 200 Ml) 1 gm in 200 mls @ 133 mls/hr IVPB DAILY [facility] PRN Reason: Protocol Stop: 01/07/18 10:01 Last Admin: 01/04/18 11:19 Dose: 133 mls/hr Ceftriaxone Sodium (Rocephin Iv 1 Gm Duplex) 50 mls @ 100 mls/hr IVPB Q12H [facility] PRN Reason: Protocol Last Admin: 01/04/18 12:36 Dose: 100 mls/hr Insulin Human Regular (Novolin R) 0 unit SC ACHS [facility] PRN Reason: Protocol Last Admin: 01/04/18 12:35 Dose: 3 units Lorazepam (Ativan) 0.5 mg IVP Q4H PRN PRN Reason: Anxiety Last Admin: 01/04/18 05:48 Dose: 0.5 mg Ondansetron HCl (Zofran Inj) 4 mg IVP Q6H PRN PRN Reason: Nausea/Vomiting Pantoprazole Sodium (Protonix Ec Tab) 40 mg PO DAILY [facility] Last Admin: 01/04/18 11:20 Dose: 40 mg Saccharomyces Boulardii (Florastor) 250 mg PO Q12 [facility] Last Admin: 01/04/18 11:20 Dose: 250 mg - Labs Labs: 01/04/18 06:53 01/04/18 06:53 PT 12.7 SECONDS (9.7-12.2) H 01/04/18 11:16 INR 1.2 01/04/18 11:16 APTT 30 SECONDS (21-34) 01/04/18 11:16
[2018-01-05] MEDS: cefTRIAXone IV 1 gm in Dextros 50 ML IVPB SCH ×2 (01:50→18:17)
[2018-01-05] MEDS ORDERED: Rocuronium 10 mg/ml (5 ml) ONE (07:47)
[2018-01-05] MEDS ORDERED: Propofol 10 mg/ml Inj (20 ML) ONE (07:47)
[2018-01-05] MEDS ORDERED: Propofol 10 mg/ml 1,000 MG/100 ML VIAL ONE (07:55)
[2018-01-05] MEDS ORDERED: Absorbable Gelatin Sponge Size 100 ONE ×2 (07:58→10:27)
[2018-01-05] MEDS ORDERED: Lidocaine/Epinephrine 1% 1:100000 10 ML IJ ONE (07:59)
[2018-01-05 08:00] LABS: BASO % 0.6 % (0.0-2.0); EOS # 0.2 K/uL (0.0-0.7); EOS % 3.2 % (0.0-4.0); HEMOGLOBIN 11.9 g/dL (12.0-18.0); LYMPH # 2.1 K/uL (1.0-4.3); LYMPH % 31.6 % (20.0-40.0); MEAN CELL VOLUME 94.2 fL (80.0-94.0); MEAN CORPUSCULAR HEMOGLOBIN 33.3 pg (27.0-31.0); MEAN CORPUSCULAR HGB CONC 35.3 g/dL (33.0-37.0); MEAN PLATELET VOLUME 9.2 fL (7.2-11.7); MONO # 0.8 K/uL (0.0-0.8); MONO % 12.8 % (0.0-10.0); NEUT # 3.4 K/uL (1.8-7.0); NEUT % 51.8 % (50.0-75.0); NRBC % 0.1 % (0.0-2.0); RBC 3.57 Mil/uL (4.40-5.90); RED CELL DISTRIBUTION WIDTH 13.4 % (11.5-14.5); WHITE BLOOD COUNT 6.6 K/uL (4.8-10.8)
[2018-01-05] MEDS ORDERED: Bacitracin Ointment 30 GM TUBE ONE (08:00)
[2018-01-05] MEDS ORDERED: cefTRIAXone IV 1 gm in Dextros 50 ML IVPB ONE (08:00)
[2018-01-05] MEDS ORDERED: Thrombin Topical 5,000 Int Units Spray Kit ONE (08:00)
[2018-01-05 08:16] LABS: ALB/GLOB RATIO 1.2 (1.0-2.1); ALBUMIN 3.9 g/dL (3.5-5.0); ALT/SGPT 28 U/L (21-72); AST/SGOT 30 U/L (17-59); BLOOD UREA NITROGEN 14 mg/dL (9-20); CALCIUM 8.8 mg/dl (8.6-10.4); GFR AFRICAN-AMERICAN > 60; GFR NON-AFRICAN AMERICAN > 60
[2018-01-05] MEDS: (Novolin R) Insulin Human Regular 100 units/ml vial SC SCH ×3 (08:21→22:00)
[2018-01-05] MEDS ORDERED: Bacitracin 50,000 UNIT in Sodium Chloride 0.9% Irrig 1,000 ML IR SCH (09:00)
[2018-01-05] MEDS: Pantoprazole 40 mg EC Tab PO SCH (09:25)
[2018-01-05] MEDS: Vancomycin 1 gm/NS 200 ml 1 GM/200 ML BAG IVPB SCH ×2 (09:26→22:44)
[2018-01-05] MEDS ORDERED: ePHEDrine 50 mg/ml Inj ONE (09:55)
[2018-01-05] MEDS ORDERED: Esmolol 100 mg/10ml Inj IV ONE (09:55)
[2018-01-05] MEDS: Saccharomyces Boulardi 250 mg Cap PO SCH ×2 (10:00→21:20)
[2018-01-05] MEDS ORDERED: Neostigmine Methylsulfate 3mg/3ml Syringe IV ONE (10:11)
[2018-01-05] MEDS ORDERED: Labetalol 25mg/5ml Syringe ONE (10:33)
[2018-01-05] MEDS: HYDROmorphone 0.5 mg/0.5 ml ISec IVP PRN ×2 (11:50→12:07)
--- NOTE | 2018-01-05 12:49 | CP.PCM.PN ---
Subjective - Date & Time of Evaluation Date of Evaluation: 01/05/18 Time of Evaluation: 12:49 - Subjective Subjective: patient in OR for bilateral craniotomy with subdural evacuation of hematoma. Last night patient had more agitation requiring more Ativan. Follow-up postop. Objective - Vital Signs/Intake and Output Vital Signs (last 24 hours): Temp Pulse Resp BP Pulse Ox 97.6 F 67 20 118/70 98 01/05/18 07:00 01/05/18 07:05 01/05/18 07:00 01/05/18 07:00 01/05/18 07:00 Intake and Output: 01/05/18 01/05/18 11:59 23:59 Intake Total 1000 Balance 1000 - Medications Medications: Current Medications Acetaminophen (Tylenol 325mg Tab) 650 mg PO Q6 PRN PRN Reason: Fever >100.4 F Acetaminophen (Tylenol 325mg Tab) 650 mg PO Q6 PRN PRN Reason: Pain, Mild (1-3) Hydromorphone HCl (Dilaudid) 0.5 mg IVP Q15M PRN PRN Reason: Pain, severe (8-10) Stop: 01/05/18 13:04 Last Admin: 01/05/18 11:50 Dose: 0.5 mg Vancomycin/Sodium Chloride (Vancomycin 1 Gm/Ns 200 Ml) 1 gm in 200 mls @ 133 mls/hr IVPB DAILY [facility] PRN Reason: Protocol Stop: 01/07/18 10:01 Last Admin: 01/05/18 09:26 Dose: Not Given Ceftriaxone Sodium (Rocephin Iv 1 Gm Duplex) 50 mls @ 100 mls/hr IVPB Q12H [facility] PRN Reason: Protocol Last Admin: 01/05/18 01:50 Dose: 100 mls/hr Insulin Human Regular (Novolin R) 0 unit SC ACHS [facility] PRN Reason: Protocol Last Admin: 01/05/18 08:21 Dose: Not Given Lorazepam (Ativan) 0.5 mg IVP Q4H PRN PRN Reason: Anxiety Last Admin: 01/04/18 22:33 Dose: 0.5 mg Ondansetron HCl (Zofran Inj) 4 mg IVP Q6H PRN PRN Reason: Nausea/Vomiting Pantoprazole Sodium (Protonix Ec Tab) 40 mg PO DAILY [facility] Last Admin: 01/05/18 09:25 Dose: Not Given Saccharomyces Boulardii (Florastor) 250 mg PO Q12 [facility] Last Admin: 01/05/18 10:00 Dose: Not Given - Labs Labs: 01/05/18 07:50 01/05/18 07:50 PT 12.7 SECONDS (9.7-12.2) H 01/04/18 11:16 INR 1.2 01/04/18 11:16 APTT 30 SECONDS (21-34) 01/04/18 11:16
--- NOTE | 2018-01-05 13:40 | CP.PCM.CON ---
<Cindy Danielle - Last Filed: 01/05/18 13:49> History of Present Illness - History of Present Illness History of Present Illness: Critical Care Consult Note This is a 77 year old male with 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 Patient was evaluated by Dr. Coy 12/30/17 in his office, for reset of the shunt- has known subdural hematoma (for 3 weeks), repeat Head CT reveals it has not changed in dimensions but appears more dense. S/P bilateral craniotomy and subdural hematoma evacuation on 01/05/18. PMHx: As noted above PSHx: Prostate surgery in 2006, LOG DECKMAN Shunt 07/22/2017, Closed reduction 12/2017 Meds: As per EMR All: NKDA SHx: Former smoker, quit 7 years ago (smoked for 10-15 years); denies alcohol, tobacco use; lives with , has four children in [place] FHx: Denies Past Patient History - Infectious Disease Hx of Infectious Diseases: None - Past Medical History & Family History Past Medical History?: Yes - Past Social History Smoking Status: Never Smoked - CARDIAC Hx Hypercholesterolemia: Yes (no meds) Hx Hypertension: Yes - PULMONARY Hx Respiratory Disorders: No - NEUROLOGICAL Hx Alzheimer's Disease: Yes (yes, per [facility]AS report) Hx Parkinson's Disease: Yes - HEENT Hx HEENT Problems: No - RENAL Hx Chronic Kidney Disease: No - ENDOCRINE/METABOLIC Hx Diabetes Mellitus Type 2: Yes - HEMATOLOGICAL/ONCOLOGICAL Hx Blood Disorders: No - INTEGUMENTARY Hx Dermatological Problems: No - MUSCULOSKELETAL/RHEUMATOLOGICAL Hx Falls: Yes - GASTROINTESTINAL Hx Gastrointestinal Disorders: No - GENITOURINARY/GYNECOLOGICAL Hx Genitourinary Disorders: Yes Hx Prostate Problems: Yes - PSYCHIATRIC Hx Substance Use: No (unknown) - SURGICAL HISTORY Hx Surgeries: Yes Other/Comment: prostate surgery. has a pump in the bladder to pump urine ??? s /p ventricular peritoneal shunt placed on 07/22/17 - ANESTHESIA Hx Anesthesia: Yes Hx Anesthesia Reactions: No Hx Malignant Hyperthermia: No Meds Allergies/Adverse Reactions: Allergies Allergy/AdvReac Type Severity Reaction Status Date / Time No Known Allergies Allergy Verified 01/01/18 07:15 - Medications Medications: Current Medications Acetaminophen (Tylenol 325mg Tab) 650 mg PO Q6 PRN PRN Reason: Fever >100.4 F Acetaminophen (Tylenol 325mg Tab) 650 mg PO Q6 PRN PRN Reason: Pain, Mild (1-3) Vancomycin/Sodium Chloride (Vancomycin 1 Gm/Ns 200 Ml) 1 gm in 200 mls @ 133 mls/hr IVPB DAILY [facility]DA PRN Reason: Protocol Stop: 01/07/18 10:01 Last Admin: 01/05/18 09:26 Dose: Not Given Ceftriaxone Sodium (Rocephin Iv 1 Gm Duplex) 50 mls @ 100 mls/hr IVPB Q12H [facility] PRN Reason: Protocol Last Admin: 01/05/18 01:50 Dose: 100 mls/hr Insulin Human Regular (Novolin R) 0 unit SC ACHS [facility] PRN Reason: Protocol Last Admin: 01/05/18 08:21 Dose: Not Given Lorazepam (Ativan) 0.5 mg IVP Q4H PRN PRN Reason: Anxiety Last Admin: 01/04/18 22:33 Dose: 0.5 mg Ondansetron HCl (Zofran Inj) 4 mg IVP Q6H PRN PRN Reason: Nausea/Vomiting Pantoprazole Sodium (Protonix Ec Tab) 40 mg PO DAILY [facility] Last Admin: 01/05/18 09:25 Dose: Not Given Saccharomyces Boulardii (Florastor) 250 mg PO Q12 [facility] Last Admin: 01/05/18 10:00 Dose: Not Given Physical Exam - Head Exam Additional comments: s/p craniotomy, dressings intact, - Eye Exam Eye Exam: EOMI, Normal appearance, PERRL Pupil Exam: NORMAL ACCOMODATION - ENT Exam ENT Exam: Mucous Membranes Moist - Respiratory Exam Respiratory Exam: Clear to Auscultation Bilateral, NORMAL BREATHING PATTERN. absent: Decreased Breath Sounds - Cardiovascular Exam Cardiovascular Exam: REGULAR RHYTHM, RRR - Extremities Exam Extremities exam: Positive for: normal inspection, pedal pulses present. Negative for: pedal edema, tenderness Additional comments: Closed reduction of right 4th digit, dressings intact. - Back Exam Back exam: NORMAL INSPECTION - Neurological Exam Neurological exam: Alert Additional comments: groggy from anesthesia - Psychiatric Exam Psychiatric exam: Normal Affect, Normal Mood - Skin Skin Exam: Dry, Intact, Normal Color, Warm Results - Vital Signs Recent Vital Signs: Last Vital Signs Temp 96.2 F L 01/05/18 11:02 Pulse 65 01/05/18 11:02 Resp 14 01/05/18 11:02 BP 138/74 01/05/18 11:02 Pulse Ox 99 01/05/18 11:02 - Labs Result Diagrams: 01/05/18 07:50 01/05/18 07:50 Labs: Laboratory Results - last 24 hr 01/03/18 01/04/18 01/05/18 07:30 16:52 06:07 WBC RBC Hgb Hct MCV MCH MCHC RDW Plt Count MPV Neut % (Auto) Lymph % (Auto) [place] % (Auto) Eos % (Auto) Baso % (Auto) Neut # (Auto) Lymph # (Auto) [place] # (Auto) Eos # (Auto) Baso # (Auto) Sodium Potassium Chloride Carbon Dioxide Anion Gap BUN Creatinine Est GFR ( Amer) Est GFR (Non-Af Amer) POC Glucose (mg/dL) 204 H 155 H Random Glucose Hemoglobin A1c 6.2 Serum Osmolality Calcium Phosphorus Magnesium Total Bilirubin AST ALT Alkaline Phosphatase Total Protein Albumin Globulin Albumin/Globulin Ratio 01/05/18 01/05/18 01/05/18 07:50 07:50 07:50 WBC 6.6 RBC 3.57 L Hgb 11.9 L Hct 33.6 L MCV 94.2 H MCH 33.3 H MCHC 35.3 RDW 13.4 Plt Count 175 MPV 9.2 Neut % (Auto) 51.8 Lymph % (Auto) 31.6 [place] % (Auto) 12.8 H Eos % (Auto) 3.2 Baso % (Auto) 0.6 Neut # (Auto) 3.4 Lymph # (Auto) 2.1 [place] # (Auto) 0.8 Eos # (Auto) 0.2 Baso # (Auto) 0.0 Sodium 140 Potassium 3.6 Chloride 105 Carbon Dioxide 24 Anion Gap 15 BUN 14 Creatinine 0.9 Est GFR ( Amer) > 60 Est GFR (Non-Af Amer) > 60 POC Glucose (mg/dL) Random Glucose 140 H Hemoglobin A1c Serum Osmolality 293 Calcium 8.8 Phosphorus 3.5 Magnesium 1.8 Total Bilirubin 0.7 AST 30 ALT 28 Alkaline Phosphatase 61 Total Protein 7.1 Albumin 3.9 Globulin 3.2 Albumin/Globulin Ratio 1.2 01/05/18 11:38 WBC RBC Hgb Hct MCV MCH MCHC RDW Plt Count MPV Neut % (Auto) Lymph % (Auto) [place] % (Auto) Eos % (Auto) Baso % (Auto) Neut # (Auto) Lymph # (Auto) [place] # (Auto) Eos # (Auto) Baso # (Auto) Sodium Potassium Chloride Carbon Dioxide Anion Gap BUN Creatinine Est GFR ( Amer) Est GFR (Non-Af Amer) POC Glucose (mg/dL) 186 H Random Glucose Hemoglobin A1c Serum Osmolality Calcium Phosphorus Magnesium Total Bilirubin AST ALT Alkaline Phosphatase Total Protein Albumin Globulin Albumin/Globulin Ratio Assessment & Plan - Assessment and Plan (Free Text) Assessment: This is a 77 year old male with 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 Patient was evaluated by Dr. Coy 12/30/17 in his office, for reset of the shunt- has known subdural hematoma (for 3 weeks), repeat Head CT reveals it has not changed in dimensions but appears more dense. S/P bilateral craniotomy and subdural hematoma evacuation on 01/05/18. Plan: Neuro: GCS 15 A: NPH - Right parietal ventriculoperitoneal shunt, placed July 22 2017 - Evaluated by Dr. Coy 12/30/17 in his office, for reset of the shunt A: Known Subdural Hematoma (x 3 weeks) - Head CT 12/12/17 - Interval development of large bilateral subdural hematomas which exhibit both chronic and acute/subacute components former larger than latter. The left-sided collection is larger than the right. These collections exert fairly significant mass effect with compression of both cerebral hemispheres left greater than right and [id number] midline shift with septum pellucidum shifted across midline to the right side estimated at approximately 6.6 mm. In situ LOG DECKMAN shunt tube as detailed above. - Repeat Head CT 12/31/17 - Again seen are bilateral large subdural hemorrhages that appear grossly stable in size compared to prior exam. However, on the current exam there are diffuse acute blood products throughout the left subdural hemorrhage and to a lesser degree within the right subdural hemorrhage. Maximal thickness of both subdural hemorrhages measures 1.6 cm. Hyperacute hemorrhage is noted within the left subdural hemorrhage with a maximal thickness of 0.3 cm. There is no significant midline shift. - Repeat Head CT reveals it has not changed in dimensions but appears more dense - S/P bilateral craniotomy and subdural hematoma evacuation on 01/05/18 A: Dementia Cardio: A: HTN - Takes Vasotec 20mg - will hold for now a patient is hypotensive A: HF with rEF - Systolic Dysfunction with LVEF 45-50% - Seen on ECHO 07/2017 Endo: A: T2DM - Accuchecks - ISS- low - HHD, Carb Consistent Diet - Last A1C 6.7 - 07/2017 - A1C - 6.2 ID: A: SIRS -- Dr. Kurtis Shaw consulted - Febrile -TMax 101.3, tachycardiac, hypotensive - No effusions, infiltrates noted on CXR - Spoke with Dr. Shaw will DC Zosyn and change to Rocephin 1 Gram Q12, keep the vanco Q12 -01/01, vanco trough 7.5 - 01/04 - Garcia cultured - negative to date MSK: A: Fracture of the 5th phalanx and dislocation of 4th phalanx - S/P right foot closed reduction 01/01/18 at bedside by podiatry resident Prophylaxis: - PPI - SCDs, VTE c/i 2/2 SDH Disposition: Patient admitted to ICU for observation. DW Cindy Guevara DO, PGY-1 <Topher Boggs A - Last Filed: 01/05/18 18:16> Meds - Medications Medications: Current Medications Acetaminophen (Tylenol 325mg Tab) 650 mg PO Q6 PRN PRN Reason: Fever >100.4 F Acetaminophen (Tylenol 325mg Tab) 650 mg PO Q6 PRN PRN Reason: Pain, Mild (1-3) Vancomycin/Sodium Chloride (Vancomycin 1 Gm/Ns 200 Ml) 1 gm in 200 mls @ 133 mls/hr IVPB DAILY [facility] PRN Reason: Protocol Stop: 01/07/18 10:01 Last Admin: 01/05/18 09:26 Dose: Not Given Ceftriaxone Sodium (Rocephin Iv 1 Gm Duplex) 50 mls @ 100 mls/hr IVPB Q12H [facility] PRN Reason: Protocol Last Admin: 01/05/18 01:50 Dose: 100 mls/hr Insulin Human Regular (Novolin R) 0 unit SC ACHS [facility] PRN Reason: Protocol Last Admin: 01/05/18 17:23 Dose: Not Given Ondansetron HCl (Zofran Inj) 4 mg IVP Q6H PRN PRN Reason: Nausea/Vomiting Pantoprazole Sodium (Protonix Ec Tab) 40 mg PO DAILY [facility] Last Admin: 01/05/18 09:25 Dose: Not Given Saccharomyces Boulardii (Florastor) 250 mg PO Q12 [facility] Last Admin: 01/05/18 10:00 Dose: Not Given Results - Vital Signs Recent Vital Signs: Last Vital Signs Temp 97.5 F L 01/05/18 16:00 Pulse 65 01/05/18 16:00 Resp 8 L 01/05/18 16:00 BP 157/69 H 01/05/18 16:00 Pulse Ox 100 01/05/18 16:00 - Labs Result Diagrams: 01/05/18 07:50 01/05/18 07:50 Labs: Laboratory Results - last 24 hr 01/03/18 01/05/18 01/05/18 07:30 06:07 07:50 WBC RBC Hgb Hct MCV MCH MCHC RDW Plt Count MPV Neut % (Auto) Lymph % (Auto) [place] % (Auto) Eos % (Auto) Baso % (Auto) Neut # (Auto) Lymph # (Auto) [place] # (Auto) Eos # (Auto) Baso # (Auto) Sodium Potassium Chloride Carbon Dioxide Anion Gap BUN Creatinine Est GFR ( Amer) Est GFR (Non-Af Amer) POC Glucose (mg/dL) 155 H Random Glucose Hemoglobin A1c 6.2 Serum Osmolality 293 Calcium Phosphorus Magnesium Total Bilirubin AST ALT Alkaline Phosphatase Total Protein Albumin Globulin Albumin/Globulin Ratio 01/05/18 01/05/18 01/05/18 07:50 07:50 11:38 WBC 6.6 RBC 3.57 L Hgb 11.9 L Hct 33.6 L MCV 94.2 H MCH 33.3 H MCHC 35.3 RDW 13.4 Plt Count 175 MPV 9.2 Neut % (Auto) 51.8 Lymph % (Auto) 31.6 [place] % (Auto) 12.8 H Eos % (Auto) 3.2 Baso % (Auto) 0.6 Neut # (Auto) 3.4 Lymph # (Auto) 2.1 [place] # (Auto) 0.8 Eos # (Auto) 0.2 Baso # (Auto) 0.0 Sodium 140 Potassium 3.6 Chloride 105 Carbon Dioxide 24 Anion Gap 15 BUN 14 Creatinine 0.9 Est GFR ( Amer) > 60 Est GFR (Non-Af Amer) > 60 POC Glucose (mg/dL) 186 H Random Glucose 140 H Hemoglobin A1c Serum Osmolality Calcium 8.8 Phosphorus 3.5 Magnesium 1.8 Total Bilirubin 0.7 AST 30 ALT 28 Alkaline Phosphatase 61 Total Protein 7.1 Albumin 3.9 Globulin 3.2 Albumin/Globulin Ratio 1.2 01/05/18 16:46 WBC RBC Hgb Hct MCV MCH MCHC RDW Plt Count MPV Neut % (Auto) Lymph % (Auto) [place] % (Auto) Eos % (Auto) Baso % (Auto) Neut # (Auto) Lymph # (Auto) [place] # (Auto) Eos # (Auto) Baso # (Auto) Sodium Potassium Chloride Carbon Dioxide Anion Gap BUN Creatinine Est GFR ( Amer) Est GFR (Non-Af Amer) POC Glucose (mg/dL) 143 H Random Glucose Hemoglobin A1c Serum Osmolality Calcium Phosphorus Magnesium Total Bilirubin AST ALT Alkaline Phosphatase Total Protein Albumin Globulin Albumin/Globulin Ratio Attending/Attestation - Attestation I have personally seen and examined this patient.: Yes I have fully participated in the care of the patient.: Yes I have reviewed all pertinent clinical information: Yes Notes (Text): 01/05/18 18:04 CCM History as noted by housestaff. Pt adm with altered MS /fever and broken toes. Had prior LOG DECKMAN shunt for NPH and was being followed for bilat SDH. Today had bilat crani with SDH evac. Pt denied pain in ICU. No SOB. admits feeling need to urinate. Pt is poor historian with dementia. ROS- as noted All- NKDA Social- No tob/ etoh/ drugs Meds- reviewed FH- Unknown Awake, responisve nad HEENT- bilat drains with serosanguinous fluid Perrl Neck- no jvd Lungs- bilat bs Heart-rr aBd- bs+, soft, nontender, some suprapubic fullness Ext- no edema Neuro- moves all ext Labs-reviewed A&P s/p Bilat Crani /SDH eval s/p LOG DECKMAN Shunt for NPH Dementia HTN DM sCHF SIRS R 5th phalanx fx cont neuro checks monitor drainage BP and BS control may require straight cath or noguera if unable to void. maintain optimal lytes Neurosurgery f/u SCD's d/w housestaff critical care time with patient 40 min Attending/Attestation - Attestation I have personally seen and examined this patient.: Yes I have fully participated in the care of the patient.: Yes I have reviewed all pertinent clinical information: Yes
--- NOTE | 2018-01-05 18:54 | CP.PCM.PN ---
Subjective - Date & Time of Evaluation Date of Evaluation: 01/05/18 Time of Evaluation: 18:54 - Subjective Subjective: CHIEF COMPLAINTS TODAY : S/P OR TODAY B/L CRANIOTOMY/EVACUATION OF B/L SUBDURAL HEMATOMA. VSS LETHARGIC SEDATED ROS.ON OBSERVATION HEENT : N. Resp : No cough, wheezing ,pleuritic CP ,or hemoptysis Cardio : No anginal CP, PND, orthopnea, palpitation GI : No abd.pain, n/v ,diarrhea or GI bleeding . [employer]ING [employer]ACH[employer]IC : No headache, vertigo, focal deficit. Musculoskel : No joint swelling , Derm : No rash Psych : Normal affect. Ext : No swelling ,calf pain +VE FOLYS INSERTED PE. Pt. is in no distress. V.S As noted in the chart Head ,ear nose,throat and eyes : Normal. Neck : Supple with normal carotids. Lungs: Clear air entry. Heart : S1 & S2 normal with S4. No murmur. Abd : Soft non tender with normal bowel sounds. Neuro : Moves all ext. with no localized deficit. Ext : No edema with intact pulses.Non tender calves Derm : No rashes or decubitus ulcer. LABS/RADIOLOGY. REVIEWED. WBC 6.6 H/H 11.9/33.6, PLT 175 ALL CULTURES -VE TO DATE MRSA NOT DETECTED. Objective - Vital Signs/Intake and Output Vital Signs (last 24 hours): Temp Pulse Resp BP Pulse Ox 98.6 F 71 10 L 157/68 H 100 01/05/18 16:32 01/05/18 16:32 01/05/18 16:32 01/05/18 16:32 01/05/18 16:32 Intake and Output: 01/05/18 01/05/18 06:59 18:59 Intake Total 1500 Output Total 900 Balance -900 1500 - Medications Medications: Current Medications Acetaminophen (Tylenol 325mg Tab) 650 mg PO Q6 PRN PRN Reason: Fever >100.4 F Acetaminophen (Tylenol 325mg Tab) 650 mg PO Q6 PRN PRN Reason: Pain, Mild (1-3) Vancomycin/Sodium Chloride (Vancomycin 1 Gm/Ns 200 Ml) 1 gm in 200 mls @ 133 mls/hr IVPB DAILY [facility] PRN Reason: Protocol Stop: 01/07/18 10:01 Last Admin: 06/25/18 09:26 Dose: Not Given Ceftriaxone Sodium (Rocephin Iv 1 Gm Duplex) 50 mls @ 100 mls/hr IVPB Q12H [facility] PRN Reason: Protocol Last Admin: 01/05/18 18:17 Dose: 100 mls/hr Insulin Human Regular (Novolin R) 0 unit SC ACHS [facility] PRN Reason: Protocol Last Admin: 01/05/18 17:23 Dose: Not Given Ondansetron HCl (Zofran Inj) 4 mg IVP Q6H PRN PRN Reason: Nausea/Vomiting Pantoprazole Sodium (Protonix Ec Tab) 40 mg PO DAILY [facility] Last Admin: 01/05/18 09:25 Dose: Not Given Saccharomyces Boulardii (Florastor) 250 mg PO Q12 [facility] Last Admin: 01/05/18 10:00 Dose: Not Given - Labs Labs: 01/05/18 07:50 01/05/18 07:50 PT 12.7 SECONDS (9.7-12.2) H 01/04/18 11:16 INR 1.2 01/04/18 11:16 APTT 30 SECONDS (21-34) 01/04/18 11:16 Assessment and Plan (1) Fever Assessment & Plan: IMPROVED . ALL CULTURES -VE TO DATE. Status: Acute (2) Subdural hemorrhage Assessment & Plan: ON IV ROCEPHIN 1GM IV PB [id number]. 01/01/18 ON IV [id number] IVPB Q 24HRLY 01/01/18 F/U CULTURES. MONITOR RENAL FUNCTIONS CLOSELY. S/P FOLYS INSERTION TODAY. UA/URINE CULTURE SENT PER RN MR. TYSON Status: Acute (3) Toe fracture Assessment & Plan: +VE DRESSING DRY/CLEAN. Status: Acute (4) Diabetes Status: Chronic (5) HTN (hypertension) Status: Chronic
[2018-01-05 19:17] LABS: URINE BACTERIA OCC (<OCC); URINE BILIRUBIN NEGATIVE (NEGATIVE); URINE BLOOD 2+ (NEGATIVE); URINE CLARITY Clear (Clear); URINE COLOR Yellow (YELLOW); URINE GLUCOSE (UA) 2+ mg/dL (Normal); URINE LEUKOCYTE ESTERASE NEG Leu/uL (Negative); URINE PROTEIN NEGATIVE (NEGATIVE); URINE UROBILINOGEN NORMAL mg/dL (0.2-1.0)
[2018-01-05 23:11] LABS: URINE BACTERIA RARE (<OCC); URINE BILIRUBIN NEGATIVE (NEGATIVE); URINE BLOOD 2+ (NEGATIVE); URINE CLARITY Clear (Clear); URINE COLOR Straw (YELLOW); URINE GLUCOSE (UA) 1+ mg/dL (Normal); URINE LEUKOCYTE ESTERASE 2+ Leu/uL (Negative); URINE PROTEIN NEGATIVE (NEGATIVE); URINE UROBILINOGEN NORMAL mg/dL (0.2-1.0)
[2018-01-06] MEDS: cefTRIAXone IV 1 gm in Dextros 50 ML IVPB SCH ×2 (02:36→13:49)
--- NOTE | 2018-01-06 06:24 | OP ---
PROCEDURE DATE: 01/05/2018 SURGEON: Jason Coy MD. PREOPERATIVE DIAGNOSIS: Bilateral chronic subdural hematoma. POSTOPERATIVE DIAGNOSIS: Bilateral chronic subdural hematoma. OPERATIVE PROCEDURE: Bilateral craniotomies, evacuation of subdural hematoma. DESCRIPTION OF PROCEDURE: The patient was brought to the operating room, intubated appropriately. Head was put in on a doughnut. His head was prepped and draped in usual manner. Two incisions were marked up prior to draping approximately an inch above the superior temporal lines, horizontal with them, and then they were instilled with lidocaine and epinephrine. First, the left side was undertaken. The incision was opened sharply. The pericranium was stripped off the for electrocautery and [place] elevator, and Gelpi retractors were placed. A solitary nilton hole was placed in the inferior parietal region of the opening, and the dura was stripped off the underlying bone using a [place] elevator. The craniotome was then used to swing around to form a cranial plate. The dura was then coagulated and then incised in a cruciate manner. There were multiple heavy membranes, both on the dura and then several membranes between the dura and in the inner membrane which were coagulated and divided. The subdural fluid was dirty, motor oil color. It was sent for specimen along with the other side which would be done after. The subdural space was irrigated with copious amounts of antibiotic irrigation until all returns were clear. At this point, an antibiotic irrigation soaked sponge was placed over the craniotomy site. The retractors were removed and attention was then turned to the patient's left side where the procedure was repeated identically as above. The findings were identical with multiple thick membranes and a thinner divided. The fluids appeared to be of same consistency. At this point, 10-[place] red rubber catheter was cut with extra side holes passed through a separate stab wound into the subdural space. We irrigated through there to get until all returns were clear. The dura was then re-approximated. This was on the left side. The Gelfoam was placed over the dura followed by applying a CranioFix plate 12 mm to the bone edge fixing the cranial plate. We then turned back to the opposite side and again placed a red rubber catheter with 10-[place] extra side holes into the subdural space through a separate stab wound. Irrigated through until all returns were clear. The dura was then again reapproximated with 4-0 Nurolon and the bone plate was reapproximated with two 12 mm RapidFix plates. At this point, both wounds were reapproximated with 3-0 Vicryl subgaleal and skin ariela. The drains were tapped in usual manner, sterile dressing was applied. The collecting bags were attached to the drains, and the patient was awakened from anesthesia. At the current time, he is currently under the process of awakening from anesthesia, is too early to assess neurologically. Blood loss was approximately 100 mL. All counts were correct. Specimen: Subdural fluid. Jason Coy MD
[2018-01-06 06:45] LABS: BASO % 0.3 % (0.0-2.0); EOS % 0.3 % (0.0-4.0); HEMOGLOBIN 11.4 g/dL (12.0-18.0); LYMPH # 1.5 K/uL (1.0-4.3); LYMPH % 13.9 % (20.0-40.0); MEAN CELL VOLUME 94.3 fL (80.0-94.0); MEAN CORPUSCULAR HEMOGLOBIN 32.8 pg (27.0-31.0); MEAN CORPUSCULAR HGB CONC 34.8 g/dL (33.0-37.0); MEAN PLATELET VOLUME 9.7 fL (7.2-11.7); MONO # 1.4 K/uL (0.0-0.8); MONO % 13.5 % (0.0-10.0); NEUT # 7.6 K/uL (1.8-7.0); RBC 3.48 Mil/uL (4.40-5.90); RED CELL DISTRIBUTION WIDTH 13.4 % (11.5-14.5); WHITE BLOOD COUNT 10.6 K/uL (4.8-10.8)
[2018-01-06 07:08] LABS: ALB/GLOB RATIO 1.1 (1.0-2.1); ALBUMIN 3.7 g/dL (3.5-5.0); ALT/SGPT 21 U/L (21-72); AST/SGOT 23 U/L (17-59); BLOOD UREA NITROGEN 12 mg/dL (9-20); CALCIUM 8.6 mg/dl (8.6-10.4); GFR AFRICAN-AMERICAN > 60; GFR NON-AFRICAN AMERICAN > 60
[2018-01-06] MEDS: (Novolin R) Insulin Human Regular 100 units/ml vial SC SCH ×4 (07:30→21:11)
[2018-01-06] MEDS: Vancomycin 1 gm/NS 200 ml 1 GM/200 ML BAG IVPB SCH (09:57)
[2018-01-06] MEDS: Pantoprazole 40 mg EC Tab PO SCH (09:58)
[2018-01-06] MEDS: Saccharomyces Boulardi 250 mg Cap PO SCH ×2 (09:58→21:11)
--- NOTE | 2018-01-06 10:18 | CP.CCUPN ---
<Cindy Danielle - Last Filed: 01/06/18 10:14> CCU Subjective - Physician Review Subjective (Free Text): Patient seen and examined at bedside. Patient is confused, attempted to remove nonrebreather. He has 1:1 for behavioral monitoring CCU Objective - Vital Signs / Intake & Output Intake and Output (Last 8hrs): Intake & Output 01/05/18 01/06/18 01/06/18 22:59 06:59 14:59 Intake Total 50 250 Output Total 1100 1600 Balance -1050 -1350 Weight 156 lb 4.8 oz 135 lb Intake: Intake, IV Amount 50 250 Left Upper arm 0 Right Hand 50 250 Oral 0 Output: Drainage 250 Left Lateral Head 150 Right Lateral Head 100 Urine 1100 1350 Straight 550 Urethral (Burks) 1350 Other: # Voids Urine, Voided 50 # Bowel Movements 0 - Physical Exam Head: Positive for: Atraumatic, Normocephalic Pupils: Positive for: PERRL Extroacular Muscles: Positive for: EOMI Conjunctiva: Positive for: Normal Mouth: Positive for: Moist Mucous Membranes Respiratory/Chest: Positive for: Clear to Auscultation Cardiovascular: Positive for: Regular Rate and Rhythm Abdomen: Positive for: Normal Bowel Sounds. Negative for: Tenderness, Distention Upper Extremity: Positive for: Normal Inspection, NORMAL PULSES, Neurovascularly Intact, Capillary Refill < 2s Lower Extremity: Positive for: Normal Inspection, NORMAL PULSES, Neurovascularly Intact, Capillary Refill < 2 s, Other (Right foot dressing wrapped, C/D/I) Neurological: Positive for: GCS=15 Skin: Positive for: Warm, Dry, Rashes, Normal Color Psychiatric: Positive for: Alert - Medications Active Medications: Active Medications Generic Name Dose Route Start Last Admin Trade Name Freq PRN Reason Stop Dose Admin Acetaminophen 650 mg 01/01/18 12:33 Tylenol 325mg Tab PO Q6 PRN Fever >100.4 F Acetaminophen 650 mg 01/01/18 12:34 Tylenol 325mg Tab PO Q6 PRN Pain, Mild (1-3) Vancomycin/Sodium Chloride 1 gm in 200 mls @ 133 mls/hr 01/02/18 10:00 09:57 Vancomycin 1 Gm/Ns 200 Ml IVPB 01/07/18 10:01 133 mls/hr DAILY AMANDA Administration Protocol Ceftriaxone Sodium 50 mls @ 100 mls/hr 01/04/18 01:30 01/06/18 02:36 Rocephin Iv 1 Gm Duplex IVPB 100 mls/hr Q12H AMANDA Administration Protocol Insulin Human Regular 0 unit 01/02/18 11:30 01/05/18 22:00 Novolin R SC Not Given ACHS AMANDA Protocol Ondansetron HCl 4 mg 01/01/18 12:34 Zofran Inj IVP Q6H PRN Nausea/Vomiting Pantoprazole Sodium 40 mg 01/02/18 10:00 01/06/18 09:58 Protonix Ec Tab PO 40 mg DAILY AMANDA Administration Saccharomyces Boulardii 250 mg 01/01/18 20:00 01/06/18 09:58 Florastor PO 250 mg Q12 AMANDA Administration Tamsulosin HCl 0.4 mg 01/06/18 10:00 01/06/18 09:59 Flomax PO 0.4 mg DAILY AMANDA Administration - Patient Studies Lab Studies: Microbiology Studies 01/01/18 11:07 Blood Culture - Preliminary Blood-Venous NO GROWTH AFTER 4 DAYS 01/01/18 11:07 Blood Culture - Preliminary Blood-Venous NO GROWTH AFTER 4 DAYS Lab Studies 01/06/18 01/06/18 01/06/18 Range/Units 07:31 06:32 06:20 WBC 10.6 D (4.8-10.8) K/uL RBC 3.48 L (4.40-5.90) Mil/uL Hgb 11.4 L (12.0-18.0) g/dL Hct 32.8 L (35.0-51.0) % MCV 94.3 H (80.0-94.0) fL MCH 32.8 H (27.0-31.0) pg MCHC 34.8 (33.0-37.0) g/dL RDW 13.4 (11.5-14.5) % Plt Count 178 (130-400) K/uL MPV 9.7 (7.2-11.7) fL Neut % (Auto) 72.0 (50.0-75.0) % Lymph % (Auto) 13.9 L (20.0-40.0) % Bertie % (Auto) 13.5 H (0.0-10.0) % Eos % (Auto) 0.3 (0.0-4.0) % Baso % (Auto) 0.3 (0.0-2.0) % Neut # (Auto) 7.6 H (1.8-7.0) K/uL Lymph # (Auto) 1.5 (1.0-4.3) K/uL Bertie # (Auto) 1.4 H (0.0-0.8) K/uL Eos # (Auto) 0.0 (0.0-0.7) K/uL Baso # (Auto) 0.0 (0.0-0.2) K/uL Sodium 136 (132-148) mmol/L Potassium 3.9 (3.6-5.2) mmol/L Chloride 101 (98-107) mmol/L Carbon Dioxide 22 (22-30) mmol/L Anion Gap 16 (10-20) BUN 12 (9-20) mg/dL Creatinine 0.8 (0.8-1.5) mg/dL Est GFR ( Amer) > 60 Est GFR (Non-Af Amer) > 60 POC Glucose (mg/dL) 160 H (65-110) mg/dL Random Glucose 190 H (75-110) mg/dL Calcium 8.6 (8.6-10.4) mg/dl Phosphorus 2.9 (2.5-4.5) mg/dL Magnesium 1.6 (1.6-2.3) mg/dL Total Bilirubin 0.9 (0.2-1.3) mg/dL AST 23 (17-59) U/L ALT 21 D (21-72) U/L Alkaline Phosphatase 56 (38-126) U/L Total Protein 6.8 (6.3-8.3) g/dL Albumin 3.7 (3.5-5.0) g/dL Globulin 3.2 (2.2-3.9) gm/dL Albumin/Globulin Ratio 1.1 (1.0-2.1) Urine Color (YELLOW) Urine Clarity (Clear) Urine pH (5.0-8.0) Ur Specific [place] (1.003-1.030) Urine Protein (NEGATIVE) mg/dL Urine Glucose (UA) (Normal) mg/dL Urine Ketones (NEGATIVE) mg/dL Urine Blood (NEGATIVE) Urine Nitrate (NEGATIVE) Urine Bilirubin (NEGATIVE) Urine Urobilinogen (0.2-1.0) mg/dL Ur Leukocyte Esterase (Negative) Tayo/uL Urine WBC (Auto) (0-5) /hpf Urine RBC (Auto) (0-3) /hpf Urine Bacteria (<OCC) 01/05/18 01/05/18 01/05/18 Range/Units 22:59 21:05 19:00 WBC (4.8-10.8) K/uL RBC (4.40-5.90) Mil/uL Hgb (12.0-18.0) g/dL Hct (35.0-51.0) % MCV (80.0-94.0) fL MCH (27.0-31.0) pg MCHC (33.0-37.0) g/dL RDW (11.5-14.5) % Plt Count (130-400) K/uL MPV (7.2-11.7) fL Neut % (Auto) (50.0-75.0) % Lymph % (Auto) (20.0-40.0) % Bertie % (Auto) (0.0-10.0) % Eos % (Auto) (0.0-4.0) % Baso % (Auto) (0.0-2.0) % Neut # (Auto) (1.8-7.0) K/uL Lymph # (Auto) (1.0-4.3) K/uL Bertie # (Auto) (0.0-0.8) K/uL Eos # (Auto) (0.0-0.7) K/uL Baso # (Auto) (0.0-0.2) K/uL Sodium (132-148) mmol/L Potassium (3.6-5.2) mmol/L Chloride (98-107) mmol/L Carbon Dioxide (22-30) mmol/L Anion Gap (10-20) BUN (9-20) mg/dL Creatinine (0.8-1.5) mg/dL Est GFR ( Amer) Est GFR (Non-Af Amer) POC Glucose (mg/dL) 159 H (65-110) mg/dL Random Glucose (75-110) mg/dL Calcium (8.6-10.4) mg/dl Phosphorus (2.5-4.5) mg/dL Magnesium (1.6-2.3) mg/dL Total Bilirubin (0.2-1.3) mg/dL AST (17-59) U/L ALT (21-72) U/L Alkaline Phosphatase (38-126) U/L Total Protein (6.3-8.3) g/dL Albumin (3.5-5.0) g/dL Globulin (2.2-3.9) gm/dL Albumin/Globulin Ratio (1.0-2.1) Urine Color Straw Yellow (YELLOW) Urine Clarity Clear Clear (Clear) Urine pH 6.0 6.0 (5.0-8.0) Ur Specific [place] 1.011 1.014 (1.003-1.030) Urine Protein Negative Negative (NEGATIVE) mg/dL Urine Glucose (UA) 1+ H 2+ H (Normal) mg/dL Urine Ketones 1+ H Negative (NEGATIVE) mg/dL Urine Blood 2+ H 2+ H (NEGATIVE) Urine Nitrate Negative Negative (NEGATIVE) Urine Bilirubin Negative Negative (NEGATIVE) Urine Urobilinogen Normal Normal (0.2-1.0) mg/dL Ur Leukocyte Esterase 2+ H Neg (Negative) Tayo/uL Urine WBC (Auto) 11 H 3 (0-5) /hpf Urine RBC (Auto) 21 H 10 H (0-3) /hpf Urine Bacteria Rare Occ H (<OCC) 01/05/18 01/05/18 Range/Units 16:46 11:38 WBC (4.8-10.8) K/uL RBC (4.40-5.90) Mil/uL Hgb (12.0-18.0) g/dL Hct (35.0-51.0) % MCV (80.0-94.0) fL MCH (27.0-31.0) pg MCHC (33.0-37.0) g/dL RDW (11.5-14.5) % Plt Count (130-400) K/uL MPV (7.2-11.7) fL Neut % (Auto) (50.0-75.0) % Lymph % (Auto) (20.0-40.0) % Bertie % (Auto) (0.0-10.0) % Eos % (Auto) (0.0-4.0) % Baso % (Auto) (0.0-2.0) % Neut # (Auto) (1.8-7.0) K/uL Lymph # (Auto) (1.0-4.3) K/uL Bertie # (Auto) (0.0-0.8) K/uL Eos # (Auto) (0.0-0.7) K/uL Baso # (Auto) (0.0-0.2) K/uL Sodium (132-148) mmol/L Potassium (3.6-5.2) mmol/L Chloride (98-107) mmol/L Carbon Dioxide (22-30) mmol/L Anion Gap (10-20) BUN (9-20) mg/dL Creatinine (0.8-1.5) mg/dL Est GFR ( Amer) Est GFR (Non-Af Amer) POC Glucose (mg/dL) 143 H 186 H (65-110) mg/dL Random Glucose (75-110) mg/dL Calcium (8.6-10.4) mg/dl Phosphorus (2.5-4.5) mg/dL Magnesium (1.6-2.3) mg/dL Total Bilirubin (0.2-1.3) mg/dL AST (17-59) U/L ALT (21-72) U/L Alkaline Phosphatase (38-126) U/L Total Protein (6.3-8.3) g/dL Albumin (3.5-5.0) g/dL Globulin (2.2-3.9) gm/dL Albumin/Globulin Ratio (1.0-2.1) Urine Color (YELLOW) Urine Clarity (Clear) Urine pH (5.0-8.0) Ur Specific [place] (1.003-1.030) Urine Protein (NEGATIVE) mg/dL Urine Glucose (UA) (Normal) mg/dL Urine Ketones (NEGATIVE) mg/dL Urine Blood (NEGATIVE) Urine Nitrate (NEGATIVE) Urine Bilirubin (NEGATIVE) Urine Urobilinogen (0.2-1.0) mg/dL Ur Leukocyte Esterase (Negative) Tayo/uL Urine WBC (Auto) (0-5) /hpf Urine RBC (Auto) (0-3) /hpf Urine Bacteria (<OCC) Laboratory Results - last 24 hr 01/05/18 01/05/18 01/05/18 11:38 16:46 19:00 WBC RBC Hgb Hct MCV MCH MCHC RDW Plt Count MPV Neut % (Auto) Lymph % (Auto) Bertie % (Auto) Eos % (Auto) Baso % (Auto) Neut # (Auto) Lymph # (Auto) Bertie # (Auto) Eos # (Auto) Baso # (Auto) Sodium Potassium Chloride Carbon Dioxide Anion Gap BUN Creatinine Est GFR ( Amer) Est GFR (Non-Af Amer) POC Glucose (mg/dL) 186 H 143 H Random Glucose Calcium Phosphorus Magnesium Total Bilirubin AST ALT Alkaline Phosphatase Total Protein Albumin Globulin Albumin/Globulin Ratio Urine Color Yellow Urine Clarity Clear Urine pH 6.0 Ur Specific [place] 1.014 Urine Protein Negative Urine Glucose (UA) 2+ H Urine Ketones Negative Urine Blood 2+ H Urine Nitrate Negative Urine Bilirubin Negative Urine Urobilinogen Normal Ur Leukocyte Esterase Neg Urine WBC (Auto) 3 Urine RBC (Auto) 10 H Urine Bacteria Occ H 01/05/18 01/05/18 01/06/18 21:05 22:59 06:20 WBC RBC Hgb Hct MCV MCH MCHC RDW Plt Count MPV Neut % (Auto) Lymph % (Auto) Bertie % (Auto) Eos % (Auto) Baso % (Auto) Neut # (Auto) Lymph # (Auto) Bertie # (Auto) Eos # (Auto) Baso # (Auto) Sodium 136 Potassium 3.9 Chloride 101 Carbon Dioxide 22 Anion Gap 16 BUN 12 Creatinine 0.8 Est GFR ( Amer) > 60 Est GFR (Non-Af Amer) > 60 POC Glucose (mg/dL) 159 H Random Glucose 190 H Calcium 8.6 Phosphorus 2.9 Magnesium 1.6 Total Bilirubin 0.9 AST 23 ALT 21 D Alkaline Phosphatase 56 Total Protein 6.8 Albumin 3.7 Globulin 3.2 Albumin/Globulin Ratio 1.1 Urine Color Straw Urine Clarity Clear Urine pH 6.0 Ur Specific [place] 1.011 Urine Protein Negative Urine Glucose (UA) 1+ H Urine Ketones 1+ H Urine Blood 2+ H Urine Nitrate Negative Urine Bilirubin Negative Urine Urobilinogen Normal Ur Leukocyte Esterase 2+ H Urine WBC (Auto) 11 H Urine RBC (Auto) 21 H Urine Bacteria Rare 01/06/18 01/06/18 06:32 07:31 WBC 10.6 D RBC 3.48 L Hgb 11.4 L Hct 32.8 L MCV 94.3 H MCH 32.8 H MCHC 34.8 RDW 13.4 Plt Count 178 MPV 9.7 Neut % (Auto) 72.0 Lymph % (Auto) 13.9 L Bertie % (Auto) 13.5 H Eos % (Auto) 0.3 Baso % (Auto) 0.3 Neut # (Auto) 7.6 H Lymph # (Auto) 1.5 Bertie # (Auto) 1.4 H Eos # (Auto) 0.0 Baso # (Auto) 0.0 Sodium Potassium Chloride Carbon Dioxide Anion Gap BUN Creatinine Est GFR ( Amer) Est GFR (Non-Af Amer) POC Glucose (mg/dL) 160 H Random Glucose Calcium Phosphorus Magnesium Total Bilirubin AST ALT Alkaline Phosphatase Total Protein Albumin Globulin Albumin/Globulin Ratio Urine Color Urine Clarity Urine pH Ur Specific [place] Urine Protein Urine Glucose (UA) Urine Ketones Urine Blood Urine Nitrate Urine Bilirubin Urine Urobilinogen Ur Leukocyte Esterase Urine WBC (Auto) Urine RBC (Auto) Urine Bacteria Fingerstick Blood Sugar Results: 159 Critical Care Progress Note - Nutrition Nutrition: Nutrition Category Date Time Status Soft [Dysphagia/Modified Consistency Diet] [DIET] Diets 01/06/18 Breakfast Active Assessment/Plan - Assessment and Plan (Free Text) Assessment: This is a 77 year old male with 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 Patient was evaluated by Dr. Coy 12/30/17 in his office, for reset of the shunt- has known subdural hematoma (for 3 weeks), repeat Head CT reveals it has not changed in dimensions but appears more dense. S/P bilateral craniotomy and subdural hematoma evacuation on 01/05/18. Plan: Neuro: GCS 15 A: NPH - Right parietal ventriculoperitoneal shunt, placed July 22 2017 - Evaluated by Dr. Coy 12/30/17 in his office, for reset of the shunt A: Known Subdural Hematoma (x 3 weeks) - Head CT 12/12/17 - Interval development of large bilateral subdural hematomas which exhibit both chronic and acute/subacute components former larger than latter. The left-sided collection is larger than the right. These collections exert fairly significant mass effect with compression of both cerebral hemispheres left greater than right and [id number] midline shift with septum pellucidum shifted across midline to the right side estimated at approximately 6.6 mm. In situ [employer] shunt tube as detailed above. - Repeat Head CT 12/31/17 - Again seen are bilateral large subdural hemorrhages that appear grossly stable in size compared to prior exam. However, on the current exam there are diffuse acute blood products throughout the left subdural hemorrhage and to a lesser degree within the right subdural hemorrhage. Maximal thickness of both subdural hemorrhages measures 1.6 cm. Hyperacute hemorrhage is noted within the left subdural hemorrhage with a maximal thickness of 0.3 cm. There is no significant midline shift. - Repeat Head CT reveals it has not changed in dimensions but appears more dense - S/P bilateral craniotomy and subdural hematoma evacuation on 01/05/18 - Pending neurosurgery reccs A: Dementia Cardio: A: HTN - Takes Vasotec 20mg - resumed A: HF with rEF - Systolic Dysfunction with LVEF 45-50% - Seen on ECHO 07/2017 Endo: A: T2DM - Accuchecks - ISS- low - HHD, Carb Consistent Diet - Last A1C 6.7 - 07/2017 - A1C - 6.2 ID: A: SIRS -- Dr. Kurtis Shaw consulted - Febrile -TMax 101.3, tachycardiac, hypotensive - No effusions, infiltrates noted on CXR - Spoke with Dr. Shaw will DC Zosyn and change to Rocephin 1 Gram Q12, keep the vanco Q12 -01/01, vanco trough 7.5 - 01/04 - Garcia cultured - negative to date MSK: A: Fracture of the 5th phalanx and dislocation of 4th phalanx - S/P right foot closed reduction 01/01/18 at bedside by podiatry resident Prophylaxis: - PPI - SCDs, VTE c/i 2/2 SDH Disposition: Patient admitted to ICU for observation. Pending neurosurg reccs. DW Cindy Arzate DO, PGY-1 <Dean Lopez - Last Filed: 01/06/18 18:28> CCU Objective - Vital Signs / Intake & Output Vital Signs (Last 4 hours): Vital Signs Temp Pulse Resp BP Pulse Ox 01/06/18 18:00 97 H 15 98 01/06/18 17:44 101 H 16 111/55 L 98 01/06/18 16:42 100 H 12 116/50 L 99 01/06/18 16:00 98.8 F 99 H 13 98 01/06/18 15:41 111/50 L 01/06/18 15:00 90 17 98 01/06/18 14:42 94 H 14 119/54 L 99 Intake and Output (Last 8hrs): Intake & Output 01/06/18 01/06/18 01/06/18 06:59 14:59 22:59 Intake Total 250 730 Output Total 1600 325 Balance -1350 405 Weight 135 lb Intake: Intake, IV Amount 250 250 Left Upper arm 250 Right Hand 250 Oral 480 Output: Drainage 250 Left Lateral Head 150 Right Lateral Head 100 Urine 1350 325 Urethral (Burks) 1350 325 - Medications Active Medications: Active Medications Generic Name Dose Route Start Last Admin Trade Name Freq PRN Reason Stop Dose Admin Acetaminophen 650 mg 01/01/18 12:33 01/06/18 18:00 Tylenol 325mg Tab PO 650 mg Q6 PRN Administration Fever >100.4 F Acetaminophen 650 mg 01/01/18 12:34 Tylenol 325mg Tab PO Q6 PRN Pain, Mild (1-3) Enalapril Maleate 20 mg 01/06/18 10:30 01/06/18 10:30 Vasotec PO Not Given DAILY AMANDA Vancomycin/Sodium Chloride 1 gm in 200 mls @ 133 mls/hr 01/02/18 10:00 09:57 Vancomycin 1 Gm/Ns 200 Ml IVPB 01/12/18 10:01 133 mls/hr DAILY AMANDA Administration Protocol Ceftriaxone Sodium 50 mls @ 100 mls/hr 01/04/18 01:30 01/06/18 13:49 Rocephin Iv 1 Gm Duplex IVPB 100 mls/hr Q12H AMANDA Administration Protocol Insulin Human Regular 0 unit 01/02/18 11:30 01/06/18 16:59 Novolin R SC 2 units ACHS AMANDA Administration Protocol Ondansetron HCl 4 mg 01/01/18 12:34 Zofran Inj IVP Q6H PRN Nausea/Vomiting Pantoprazole Sodium 40 mg 01/02/18 10:00 01/06/18 09:58 Protonix Ec Tab PO 40 mg DAILY AMANDA Administration Saccharomyces Boulardii 250 mg 01/01/18 20:00 01/06/18 09:58 Florastor PO 250 mg Q12 AMANDA Administration Tamsulosin HCl 0.4 mg 01/06/18 10:00 01/06/18 09:59 Flomax PO 0.4 mg DAILY AMANDA Administration - Patient Studies Lab Studies: Microbiology Studies 01/05/18 19:00 MRSA Culture (Admit) - Final Nose MRSA NOT DETECTED 01/01/18 11:07 Blood Culture - Preliminary Blood-Venous NO GROWTH AFTER 4 DAYS 01/01/18 11:07 Blood Culture - Preliminary Blood-Venous NO GROWTH AFTER 4 DAYS Lab Studies 01/06/18 01/06/18 01/06/18 Range/Units 16:14 11:26 07:31 WBC (4.8-10.8) K/uL RBC (4.40-5.90) Mil/uL Hgb (12.0-18.0) g/dL Hct (35.0-51.0) % MCV (80.0-94.0) fL MCH (27.0-31.0) pg MCHC (33.0-37.0) g/dL RDW (11.5-14.5) % Plt Count (130-400) K/uL MPV (7.2-11.7) fL Neut % (Auto) (50.0-75.0) % Lymph % (Auto) (20.0-40.0) % Bertie % (Auto) (0.0-10.0) % Eos % (Auto) (0.0-4.0) % Baso % (Auto) (0.0-2.0) % Neut # (Auto) (1.8-7.0) K/uL Lymph # (Auto) (1.0-4.3) K/uL Bertie # (Auto) (0.0-0.8) K/uL Eos # (Auto) (0.0-0.7) K/uL Baso # (Auto) (0.0-0.2) K/uL Sodium (132-148) mmol/L Potassium (3.6-5.2) mmol/L Chloride (98-107) mmol/L Carbon Dioxide (22-30) mmol/L Anion Gap (10-20) BUN (9-20) mg/dL Creatinine (0.8-1.5) mg/dL Est GFR ( Amer) Est GFR (Non-Af Amer) POC Glucose (mg/dL) 161 H 262 H 160 H (65-110) mg/dL Random Glucose (75-110) mg/dL Calcium (8.6-10.4) mg/dl Phosphorus (2.5-4.5) mg/dL Magnesium (1.6-2.3) mg/dL Total Bilirubin (0.2-1.3) mg/dL AST (17-59) U/L ALT (21-72) U/L Alkaline Phosphatase (38-126) U/L Total Protein (6.3-8.3) g/dL Albumin (3.5-5.0) g/dL Globulin (2.2-3.9) gm/dL Albumin/Globulin Ratio (1.0-2.1) Urine Color (YELLOW) Urine Clarity (Clear) Urine pH (5.0-8.0) Ur Specific [place] (1.003-1.030) Urine Protein (NEGATIVE) mg/dL Urine Glucose (UA) (Normal) mg/dL Urine Ketones (NEGATIVE) mg/dL Urine Blood (NEGATIVE) Urine Nitrate (NEGATIVE) Urine Bilirubin (NEGATIVE) Urine Urobilinogen (0.2-1.0) mg/dL Ur Leukocyte Esterase (Negative) Tayo/uL Urine WBC (Auto) (0-5) /hpf Urine RBC (Auto) (0-3) /hpf Urine Bacteria (<OCC) 01/06/18 01/06/18 01/05/18 Range/Units 06:32 06:20 22:59 WBC 10.6 D (4.8-10.8) K/uL RBC 3.48 L (4.40-5.90) Mil/uL Hgb 11.4 L (12.0-18.0) g/dL Hct 32.8 L (35.0-51.0) % MCV 94.3 H (80.0-94.0) fL MCH 32.8 H (27.0-31.0) pg MCHC 34.8 (33.0-37.0) g/dL RDW 13.4 (11.5-14.5) % Plt Count 178 (130-400) K/uL MPV 9.7 (7.2-11.7) fL Neut % (Auto) 72.0 (50.0-75.0) % Lymph % (Auto) 13.9 L (20.0-40.0) % Bertie % (Auto) 13.5 H (0.0-10.0) % Eos % (Auto) 0.3 (0.0-4.0) % Baso % (Auto) 0.3 (0.0-2.0) % Neut # (Auto) 7.6 H (1.8-7.0) K/uL Lymph # (Auto) 1.5 (1.0-4.3) K/uL Bertie # (Auto) 1.4 H (0.0-0.8) K/uL Eos # (Auto) 0.0 (0.0-0.7) K/uL Baso # (Auto) 0.0 (0.0-0.2) K/uL Sodium 136 (132-148) mmol/L Potassium 3.9 (3.6-5.2) mmol/L Chloride 101 (98-107) mmol/L Carbon Dioxide 22 (22-30) mmol/L Anion Gap 16 (10-20) BUN 12 (9-20) mg/dL Creatinine 0.8 (0.8-1.5) mg/dL Est GFR ( Amer) > 60 Est GFR (Non-Af Amer) > 60 POC Glucose (mg/dL) (65-110) mg/dL Random Glucose 190 H (75-110) mg/dL Calcium 8.6 (8.6-10.4) mg/dl Phosphorus 2.9 (2.5-4.5) mg/dL Magnesium 1.6 (1.6-2.3) mg/dL Total Bilirubin 0.9 (0.2-1.3) mg/dL AST 23 (17-59) U/L ALT 21 D (21-72) U/L Alkaline Phosphatase 56 (38-126) U/L Total Protein 6.8 (6.3-8.3) g/dL Albumin 3.7 (3.5-5.0) g/dL Globulin 3.2 (2.2-3.9) gm/dL Albumin/Globulin Ratio 1.1 (1.0-2.1) Urine Color Straw (YELLOW) Urine Clarity Clear (Clear) Urine pH 6.0 (5.0-8.0) Ur Specific [place] 1.011 (1.003-1.030) Urine Protein Negative (NEGATIVE) mg/dL Urine Glucose (UA) 1+ H (Normal) mg/dL Urine Ketones 1+ H (NEGATIVE) mg/dL Urine Blood 2+ H (NEGATIVE) Urine Nitrate Negative (NEGATIVE) Urine Bilirubin Negative (NEGATIVE) Urine Urobilinogen Normal (0.2-1.0) mg/dL Ur Leukocyte Esterase 2+ H (Negative) Tayo/uL Urine WBC (Auto) 11 H (0-5) /hpf Urine RBC (Auto) 21 H (0-3) /hpf Urine Bacteria Rare (<OCC) 01/05/18 01/05/18 Range/Units 21:05 19:00 WBC (4.8-10.8) K/uL RBC (4.40-5.90) Mil/uL Hgb (12.0-18.0) g/dL Hct (35.0-51.0) % MCV (80.0-94.0) fL MCH (27.0-31.0) pg MCHC (33.0-37.0) g/dL RDW (11.5-14.5) % Plt Count (130-400) K/uL MPV (7.2-11.7) fL Neut % (Auto) (50.0-75.0) % Lymph % (Auto) (20.0-40.0) % Bertie % (Auto) (0.0-10.0) % Eos % (Auto) (0.0-4.0) % Baso % (Auto) (0.0-2.0) % Neut # (Auto) (1.8-7.0) K/uL Lymph # (Auto) (1.0-4.3) K/uL Bertie # (Auto) (0.0-0.8) K/uL Eos # (Auto) (0.0-0.7) K/uL Baso # (Auto) (0.0-0.2) K/uL Sodium (132-148) mmol/L Potassium (3.6-5.2) mmol/L Chloride (98-107) mmol/L Carbon Dioxide (22-30) mmol/L Anion Gap (10-20) BUN (9-20) mg/dL Creatinine (0.8-1.5) mg/dL Est GFR ( Amer) Est GFR (Non-Af Amer) POC Glucose (mg/dL) 159 H (65-110) mg/dL Random Glucose (75-110) mg/dL Calcium (8.6-10.4) mg/dl Phosphorus (2.5-4.5) mg/dL Magnesium (1.6-2.3) mg/dL Total Bilirubin (0.2-1.3) mg/dL AST (17-59) U/L ALT (21-72) U/L Alkaline Phosphatase (38-126) U/L Total Protein (6.3-8.3) g/dL Albumin (3.5-5.0) g/dL Globulin (2.2-3.9) gm/dL Albumin/Globulin Ratio (1.0-2.1) Urine Color Yellow (YELLOW) Urine Clarity Clear (Clear) Urine pH 6.0 (5.0-8.0) Ur Specific [place] 1.014 (1.003-1.030) Urine Protein Negative (NEGATIVE) mg/dL Urine Glucose (UA) 2+ H (Normal) mg/dL Urine Ketones Negative (NEGATIVE) mg/dL Urine Blood 2+ H (NEGATIVE) Urine Nitrate Negative (NEGATIVE) Urine Bilirubin Negative (NEGATIVE) Urine Urobilinogen Normal (0.2-1.0) mg/dL Ur Leukocyte Esterase Neg (Negative) Tayo/uL Urine WBC (Auto) 3 (0-5) /hpf Urine RBC (Auto) 10 H (0-3) /hpf Urine Bacteria Occ H (<OCC) Laboratory Results - last 24 hr 01/05/18 01/05/18 01/05/18 19:00 21:05 22:59 WBC RBC Hgb Hct MCV MCH MCHC RDW Plt Count MPV Neut % (Auto) Lymph % (Auto) Bertie % (Auto) Eos % (Auto) Baso % (Auto) Neut # (Auto) Lymph # (Auto) Bertie # (Auto) Eos # (Auto) Baso # (Auto) Sodium Potassium Chloride Carbon Dioxide Anion Gap BUN Creatinine Est GFR ( Amer) Est GFR (Non-Af Amer) POC Glucose (mg/dL) 159 H Random Glucose Calcium Phosphorus Magnesium Total Bilirubin AST ALT Alkaline Phosphatase Total Protein Albumin Globulin Albumin/Globulin Ratio Urine Color Yellow Straw Urine Clarity Clear Clear Urine pH 6.0 6.0 Ur Specific [place] 1.014 1.011 Urine Protein Negative Negative Urine Glucose (UA) 2+ H 1+ H Urine Ketones Negative 1+ H Urine Blood 2+ H 2+ H Urine Nitrate Negative Negative Urine Bilirubin Negative Negative Urine Urobilinogen Normal Normal Ur Leukocyte Esterase Neg 2+ H Urine WBC (Auto) 3 11 H Urine RBC (Auto) 10 H 21 H Urine Bacteria Occ H Rare 01/06/18 01/06/18 01/06/18 06:20 06:32 07:31 WBC 10.6 D RBC 3.48 L Hgb 11.4 L Hct 32.8 L MCV 94.3 H MCH 32.8 H MCHC 34.8 RDW 13.4 Plt Count 178 MPV 9.7 Neut % (Auto) 72.0 Lymph % (Auto) 13.9 L Bertie % (Auto) 13.5 H Eos % (Auto) 0.3 Baso % (Auto) 0.3 Neut # (Auto) 7.6 H Lymph # (Auto) 1.5 Bertie # (Auto) 1.4 H Eos # (Auto) 0.0 Baso # (Auto) 0.0 Sodium 136 Potassium 3.9 Chloride 101 Carbon Dioxide 22 Anion Gap 16 BUN 12 Creatinine 0.8 Est GFR ( Amer) > 60 Est GFR (Non-Af Amer) > 60 POC Glucose (mg/dL) 160 H Random Glucose 190 H Calcium 8.6 Phosphorus 2.9 Magnesium 1.6 Total Bilirubin 0.9 AST 23 ALT 21 D Alkaline Phosphatase 56 Total Protein 6.8 Albumin 3.7 Globulin 3.2 Albumin/Globulin Ratio 1.1 Urine Color Urine Clarity Urine pH Ur Specific [place] Urine Protein Urine Glucose (UA) Urine Ketones Urine Blood Urine Nitrate Urine Bilirubin Urine Urobilinogen Ur Leukocyte Esterase Urine WBC (Auto) Urine RBC (Auto) Urine Bacteria 01/06/18 01/06/18 11:26 16:14 WBC RBC Hgb Hct MCV MCH MCHC RDW Plt Count MPV Neut % (Auto) Lymph % (Auto) Bertie % (Auto) Eos % (Auto) Baso % (Auto) Neut # (Auto) Lymph # (Auto) Bertie # (Auto) Eos # (Auto) Baso # (Auto) Sodium Potassium Chloride Carbon Dioxide Anion Gap BUN Creatinine Est GFR ( Amer) Est GFR (Non-Af Amer) POC Glucose (mg/dL) 262 H 161 H Random Glucose Calcium Phosphorus Magnesium Total Bilirubin AST ALT Alkaline Phosphatase Total Protein Albumin Globulin Albumin/Globulin Ratio Urine Color Urine Clarity Urine pH Ur Specific [place] Urine Protein Urine Glucose (UA) Urine Ketones Urine Blood Urine Nitrate Urine Bilirubin Urine Urobilinogen Ur Leukocyte Esterase Urine WBC (Auto) Urine RBC (Auto) Urine Bacteria Critical Care Progress Note - Nutrition Nutrition: Nutrition Category Date Time Status Soft [Dysphagia/Modified Consistency Diet] [DIET] Diets 01/06/18 Breakfast Active Attending/Attestation - Attestation I have personally seen and examined this patient.: Yes I have fully participated in the care of the patient.: Yes I have reviewed all pertinent clinical information: Yes Notes (Text): 01/06/18 18:26 Patient seen and examined in the intensive care unit. Subdural hematoma S/P bilateral craniotomy and evacuation on 01/05/18. patient is awake,follow simple command Repeat CAT scan tomorrow morning continue with ICU monitoring
--- NOTE | 2018-01-06 12:34 | CP.PCM.PN ---
Subjective - Date & Time of Evaluation Date of Evaluation: 01/06/18 Time of Evaluation: 12:32 - Subjective Subjective: POD 1 awake alert mild disorientation follows all commands pimentel well mod p cont SD dranage CT AM Objective - Vital Signs/Intake and Output Vital Signs (last 24 hours): Temp Pulse Resp BP Pulse Ox 99.2 F 102 H 19 138/73 100 01/06/18 08:00 01/06/18 10:42 01/06/18 10:42 01/06/18 10:42 01/06/18 10:42 Intake and Output: 01/06/18 01/06/18 06:59 18:59 Intake Total 250 Output Total 1600 Balance -1350 - Medications Medications: Current Medications Acetaminophen (Tylenol 325mg Tab) 650 mg PO Q6 PRN PRN Reason: Fever >100.4 F Last Admin: 01/06/18 11:39 Dose: 650 mg Acetaminophen (Tylenol 325mg Tab) 650 mg PO Q6 PRN PRN Reason: Pain, Mild (1-3) Enalapril Maleate (Vasotec) 20 mg PO DAILY [facility] Last Admin: 01/06/18 10:30 Dose: Not Given Vancomycin/Sodium Chloride (Vancomycin 1 Gm/Ns 200 Ml) 1 gm in 200 mls @ 133 mls/hr IVPB DAILY [facility] PRN Reason: Protocol Stop: 01/12/18 10:01 Last Admin: 01/06/18 09:57 Dose: 133 mls/hr Ceftriaxone Sodium (Rocephin Iv 1 Gm Duplex) 50 mls @ 100 mls/hr IVPB Q12H [facility] PRN Reason: Protocol Last Admin: 01/06/18 02:36 Dose: 100 mls/hr Insulin Human Regular (Novolin R) 0 unit SC ACHS [facility] PRN Reason: Protocol Last Admin: 01/06/18 12:01 Dose: 4 units Ondansetron HCl (Zofran Inj) 4 mg IVP Q6H PRN PRN Reason: Nausea/Vomiting Pantoprazole Sodium (Protonix Ec Tab) 40 mg PO DAILY [facility] Last Admin: 01/06/18 09:58 Dose: 40 mg Saccharomyces Boulardii (Florastor) 250 mg PO Q12 [facility] Last Admin: 01/06/18 09:58 Dose: 250 mg Tamsulosin HCl (Flomax) 0.4 mg PO DAILY [facility] Last Admin: 01/06/18 09:59 Dose: 0.4 mg - Labs Labs: 01/06/18 06:32 01/06/18 06:20 PT 12.7 SECONDS (9.7-12.2) H 01/04/18 11:16 INR 1.2 01/04/18 11:16 APTT 30 SECONDS (21-34) 01/04/18 11:16
--- NOTE | 2018-01-06 14:23 | CP.PCM.PN ---
Subjective - Date & Time of Evaluation Date of Evaluation: 01/06/18 Time of Evaluation: 14:22 - Subjective Subjective: PATIENT IS STATUS POST BILATERAL CRANIOTOMY WITH EVACUATION OF SUBDURAL HEMATOMAS. vISION HAS PERIODS OF CONFUSION AND AGITATION pATIENT IS AFEBRILE VITAL SIGNS STABLE pHYSICAL EXAMINATION NO NEURO DEFICIT cONTINUE icu MONITORING Objective - Vital Signs/Intake and Output Vital Signs (last 24 hours): Temp Pulse Resp BP Pulse Ox 98.8 F 96 H 17 117/59 L 100 01/06/18 12:00 01/06/18 12:41 01/06/18 12:41 01/06/18 12:41 01/06/18 11:41 Intake and Output: 01/06/18 01/06/18 11:59 23:59 Intake Total 490 240 Output Total 1430 95 Balance -940 145 - Medications Medications: Current Medications Acetaminophen (Tylenol 325mg Tab) 650 mg PO Q6 PRN PRN Reason: Fever >100.4 F Last Admin: 01/06/18 11:39 Dose: 650 mg Acetaminophen (Tylenol 325mg Tab) 650 mg PO Q6 PRN PRN Reason: Pain, Mild (1-3) Enalapril Maleate (Vasotec) 20 mg PO DAILY [facility] Last Admin: 01/06/18 10:30 Dose: Not Given Vancomycin/Sodium Chloride (Vancomycin 1 Gm/Ns 200 Ml) 1 gm in 200 mls @ 133 mls/hr IVPB DAILY [facility] PRN Reason: Protocol Stop: 01/12/18 10:01 Last Admin: 01/06/18 09:57 Dose: 133 mls/hr Ceftriaxone Sodium (Rocephin Iv 1 Gm Duplex) 50 mls @ 100 mls/hr IVPB Q12H [facility] PRN Reason: Protocol Last Admin: 01/06/18 13:49 Dose: 100 mls/hr Insulin Human Regular (Novolin R) 0 unit SC ACHS [facility] PRN Reason: Protocol Last Admin: 01/06/18 12:01 Dose: 4 units Ondansetron HCl (Zofran Inj) 4 mg IVP Q6H PRN PRN Reason: Nausea/Vomiting Pantoprazole Sodium (Protonix Ec Tab) 40 mg PO DAILY [facility] Last Admin: 01/06/18 09:58 Dose: 40 mg Saccharomyces Boulardii (Florastor) 250 mg PO Q12 [facility] Last Admin: 01/06/18 09:58 Dose: 250 mg Tamsulosin HCl (Flomax) 0.4 mg PO DAILY [facility] Last Admin: 01/06/18 09:59 Dose: 0.4 mg - Labs Labs: 01/06/18 06:32 01/06/18 06:20 PT 12.7 SECONDS (9.7-12.2) H 01/04/18 11:16 INR 1.2 01/04/18 11:16 APTT 30 SECONDS (21-34) 01/04/18 11:16
--- NOTE | 2018-01-06 20:41 | CP.PCM.PN ---
Subjective - Date & Time of Evaluation Date of Evaluation: 01/06/18 Time of Evaluation: 20:41 - Subjective Subjective: CHIEF COMPLAINTS TODAY : S/P OR-POD # 1 B/L CRANIOTOMY/EVACUATION OF B/L SUBDURAL HEMATOMA.01/05/18 VSS AWAKE, CONFUSED NEUROSURGERY NOTED ROS.ON OBSERVATION HEENT : N. Resp : No cough, wheezing ,pleuritic CP ,or hemoptysis Cardio : No anginal CP, PND, orthopnea, palpitation GI : No abd.pain, n/v ,diarrhea or GI bleeding . [employer] : No headache, vertigo, focal deficit. Musculoskel : No joint swelling , Derm : No rash Psych : Normal affect. Ext : No swelling ,calf pain +VE FOLYS INSERTED PE. Pt. is in no distress. V.S As noted in the chart Head ,ear nose,throat and eyes : Normal. Neck : Supple with normal carotids. Lungs: Clear air entry. Heart : S1 & S2 normal with S4. No murmur. Abd : Soft non tender with normal bowel sounds. Neuro : Moves all ext. with no localized deficit. Ext : No edema with intact pulses.Non tender calves Derm : No rashes or decubitus ulcer. LABS/RADIOLOGY. REVIEWED. WBC 11.4/32.8 STABLE H/H 11.9/33.6, PLT 178 ALL CULTURES -VE TO DATE MRSA NOT DETECTED. Objective - Vital Signs/Intake and Output Vital Signs (last 24 hours): Temp Pulse Resp BP Pulse Ox 98.7 F 82 18 117/59 L 94 L 01/06/18 20:00 01/06/18 20:00 01/06/18 20:00 01/06/18 18:42 01/06/18 20:00 Intake and Output: 01/06/18 01/07/18 18:59 06:59 Intake Total 1090 Output Total 650 Balance 440 - Medications Medications: Current Medications Acetaminophen (Tylenol 325mg Tab) 650 mg PO Q6 PRN PRN Reason: Fever >100.4 F Last Admin: 01/06/18 18:00 Dose: 650 mg Acetaminophen (Tylenol 325mg Tab) 650 mg PO Q6 PRN PRN Reason: Pain, Mild (1-3) Enalapril Maleate (Vasotec) 20 mg PO DAILY [facility] Last Admin: 01/06/18 10:30 Dose: Not Given Vancomycin/Sodium Chloride (Vancomycin 1 Gm/Ns 200 Ml) 1 gm in 200 mls @ 133 mls/hr IVPB DAILY [facility] PRN Reason: Protocol Stop: 01/12/18 10:01 Last Admin: 01/06/18 09:57 Dose: 133 mls/hr Ceftriaxone Sodium (Rocephin Iv 1 Gm Duplex) 50 mls @ 100 mls/hr IVPB Q12H [facility] PRN Reason: Protocol Last Admin: 01/06/18 13:49 Dose: 100 mls/hr Insulin Human Regular (Novolin R) 0 unit SC ACHS [facility] PRN Reason: Protocol Last Admin: 01/06/18 16:59 Dose: 2 units Ondansetron HCl (Zofran Inj) 4 mg IVP Q6H PRN PRN Reason: Nausea/Vomiting Pantoprazole Sodium (Protonix Ec Tab) 40 mg PO DAILY [facility] Last Admin: 01/06/18 09:58 Dose: 40 mg Saccharomyces Boulardii (Florastor) 250 mg PO Q12 [facility] Last Admin: 01/06/18 09:58 Dose: 250 mg Tamsulosin HCl (Flomax) 0.4 mg PO DAILY [facility] Last Admin: 01/06/18 09:59 Dose: 0.4 mg - Labs Labs: 01/06/18 06:32 01/06/18 06:20 PT 12.7 SECONDS (9.7-12.2) H 01/04/18 11:16 INR 1.2 01/04/18 11:16 APTT 30 SECONDS (21-34) 01/04/18 11:16 Assessment and Plan (1) Fever Status: Acute (2) Subdural hemorrhage Assessment & Plan: S/P EVACUATION OF B/L SUBDURAL HEMATOMAS 01/05/18 ON IV ROCEPHIN 1GM IV PB [id number]. 01/01/18 ON IV [id number] IVPB Q 24HRLY 01/01/18 F/U CULTURES. MONITOR RENAL FUNCTIONS CLOSELY. S/P FOLYS INSERTION TODAY. REPEAT URINE CULTURE 01/05 -VE GROWTH. Status: Acute (3) Toe fracture Assessment & Plan: HEALING. DRESSING IN PLACE. Status: Acute (4) Diabetes Status: Chronic (5) HTN (hypertension) Status: Chronic
[2018-01-07] MEDS: cefTRIAXone IV 1 gm in Dextros 50 ML IVPB SCH ×2 (01:17→12:37)
[2018-01-07 06:38] LABS: ALB/GLOB RATIO 1.1 (1.0-2.1); ALBUMIN 3.5 g/dL (3.5-5.0); ALT/SGPT 20 U/L (21-72); AST/SGOT 26 U/L (17-59); BASO # 0.1 K/uL (0.0-0.2); BASO % 0.6 % (0.0-2.0); BLOOD UREA NITROGEN 13 mg/dL (9-20); CALCIUM 8.3 mg/dl (8.6-10.4); EOS # 0.3 K/uL (0.0-0.7); EOS % 2.5 % (0.0-4.0); GFR AFRICAN-AMERICAN > 60; GFR NON-AFRICAN AMERICAN > 60; HEMOGLOBIN 10.8 g/dL (12.0-18.0); LYMPH # 2.2 K/uL (1.0-4.3); LYMPH % 21.2 % (20.0-40.0); MEAN CELL VOLUME 94.1 fL (80.0-94.0); MEAN CORPUSCULAR HEMOGLOBIN 32.8 pg (27.0-31.0); MEAN CORPUSCULAR HGB CONC 34.8 g/dL (33.0-37.0); MEAN PLATELET VOLUME 9.5 fL (7.2-11.7); MONO # 1.4 K/uL (0.0-0.8); MONO % 13.8 % (0.0-10.0); NEUT # 6.4 K/uL (1.8-7.0); NEUT % 61.9 % (50.0-75.0); NRBC % 0.1 % (0.0-2.0); RBC 3.29 Mil/uL (4.40-5.90); RED CELL DISTRIBUTION WIDTH 13.4 % (11.5-14.5); WHITE BLOOD COUNT 10.3 K/uL (4.8-10.8)
[2018-01-07] MEDS: (Novolin R) Insulin Human Regular 100 units/ml vial SC SCH ×5 (08:20→21:51)
[2018-01-07] MEDS: Pantoprazole 40 mg EC Tab PO SCH (09:13)
[2018-01-07] MEDS: Saccharomyces Boulardi 250 mg Cap PO SCH ×2 (09:13→22:16)
[2018-01-07] MEDS: Vancomycin 1 gm/NS 200 ml 1 GM/200 ML BAG IVPB SCH (09:19)
--- NOTE | 2018-01-07 10:27 | CP.CCUPN ---
<Cindy Danielle - Last Filed: 01/07/18 10:24> CCU Subjective - Physician Review Subjective (Free Text): Patient seen and examined at bedside. Patient is confused, has 1:1 for behavioral monitoring. CCU Objective - Vital Signs / Intake & Output Vital Signs (Last 4 hours): Vital Signs BP 01/07/18 09:13 141/54 L Intake and Output (Last 8hrs): Intake & Output 01/06/18 01/07/18 01/07/18 22:59 06:59 14:59 Intake Total 600 50 Output Total 525 600 Balance 75 -550 Weight 136 lb Intake: Intake, IV Amount 50 Right Hand 50 Oral 600 Output: Drainage 50 Left Lateral Head 50 Right Lateral Head 0 Urine 475 600 Urethral (Burks) 475 600 - Physical Exam Head: Positive for: Atraumatic, Normocephalic Pupils: Positive for: PERRL Extroacular Muscles: Positive for: EOMI Conjunctiva: Positive for: Normal Mouth: Positive for: Moist Mucous Membranes Respiratory/Chest: Positive for: Clear to Auscultation Cardiovascular: Positive for: Regular Rate and Rhythm Abdomen: Positive for: Normal Bowel Sounds. Negative for: Tenderness, Distention Upper Extremity: Positive for: Normal Inspection, NORMAL PULSES, Neurovascularly Intact, Capillary Refill < 2s Lower Extremity: Positive for: Normal Inspection, NORMAL PULSES, Neurovascularly Intact, Capillary Refill < 2 s, Other (Right foot dressing wrapped, C/D/I) Neurological: Positive for: GCS=15 Skin: Positive for: Warm, Dry, Rashes, Normal Color Psychiatric: Positive for: Alert - Medications Active Medications: Active Medications Generic Name Dose Route Start Last Admin Trade Name Magda PRN Reason Stop Dose Admin Acetaminophen 650 mg 01/01/18 12:33 01/07/18 09:30 Tylenol 325mg Tab PO 650 mg Q6 PRN Administration Fever >100.4 F Acetaminophen 650 mg 01/01/18 12:34 01/07/18 00:06 Tylenol 325mg Tab PO 650 mg Q6 PRN Administration Pain, Mild (1-3) Enalapril Maleate 20 mg 01/06/18 10:30 01/07/18 09:13 Vasotec PO 20 mg DAILY AMANDA Administration Vancomycin/Sodium Chloride 1 gm in 200 mls @ 133 mls/hr 01/02/18 10:00 09:19 Vancomycin 1 Gm/Ns 200 Ml IVPB 01/12/18 10:01 133 mls/hr DAILY AMANDA Administration Protocol Ceftriaxone Sodium 50 mls @ 100 mls/hr 01/04/18 01:30 01/07/18 01:17 Rocephin Iv 1 Gm Duplex IVPB 100 mls/hr Q12H AMANDA Administration Protocol Insulin Human Regular 0 unit 01/02/18 11:30 01/07/18 09:14 Novolin R SC 2 units ACHS AMANDA Administration Protocol Ondansetron HCl 4 mg 01/01/18 12:34 Zofran Inj IVP Q6H PRN Nausea/Vomiting Pantoprazole Sodium 40 mg 01/02/18 10:00 01/07/18 09:13 Protonix Ec Tab PO 40 mg DAILY AMANDA Administration Saccharomyces Boulardii 250 mg 01/01/18 20:00 01/07/18 09:13 Florastor PO 250 mg Q12 AMANDA Administration Tamsulosin HCl 0.4 mg 01/06/18 10:00 01/07/18 09:13 Flomax PO 0.4 mg DAILY AMANDA Administration - Patient Studies Lab Studies: Microbiology Studies 01/01/18 11:07 Blood Culture - Final Blood-Venous NO GROWTH AFTER 5 DAYS Gram Stain - Final TEST NOT PERFORMED 01/01/18 11:07 Blood Culture - Final Blood-Venous NO GROWTH AFTER 5 DAYS Gram Stain - Final TEST NOT PERFORMED 01/05/18 19:00 Urine Culture - Final Urine,Catheterized No Growth (<1,000 CFU/ML) 01/05/18 19:00 MRSA Culture (Admit) - Final Nose MRSA NOT DETECTED Lab Studies 01/07/18 01/07/18 01/07/18 Range/Units 07:33 06:19 06:19 WBC 10.3 (4.8-10.8) K/uL RBC 3.29 L (4.40-5.90) Mil/uL Hgb 10.8 L (12.0-18.0) g/dL Hct 31.0 L (35.0-51.0) % MCV 94.1 H (80.0-94.0) fL MCH 32.8 H (27.0-31.0) pg MCHC 34.8 (33.0-37.0) g/dL RDW 13.4 (11.5-14.5) % Plt Count 190 (130-400) K/uL MPV 9.5 (7.2-11.7) fL Neut % (Auto) 61.9 (50.0-75.0) % Lymph % (Auto) 21.2 (20.0-40.0) % [place] % (Auto) 13.8 H (0.0-10.0) % Eos % (Auto) 2.5 (0.0-4.0) % Baso % (Auto) 0.6 (0.0-2.0) % Neut # (Auto) 6.4 (1.8-7.0) K/uL Lymph # (Auto) 2.2 (1.0-4.3) K/uL [place] # (Auto) 1.4 H (0.0-0.8) K/uL Eos # (Auto) 0.3 (0.0-0.7) K/uL Baso # (Auto) 0.1 (0.0-0.2) K/uL Sodium 136 (132-148) mmol/L Potassium 3.6 (3.6-5.2) mmol/L Chloride 103 (98-107) mmol/L Carbon Dioxide 25 (22-30) mmol/L Anion Gap 13 (10-20) BUN 13 (9-20) mg/dL Creatinine 0.8 (0.8-1.5) mg/dL Est GFR ( Amer) > 60 Est GFR (Non-Af Amer) > 60 POC Glucose (mg/dL) 151 H (65-110) mg/dL Random Glucose 143 H (75-110) mg/dL Calcium 8.3 L (8.6-10.4) mg/dl Phosphorus 2.5 (2.5-4.5) mg/dL Magnesium 2.0 (1.6-2.3) mg/dL Total Bilirubin 0.8 (0.2-1.3) mg/dL AST 26 (17-59) U/L ALT 20 L (21-72) U/L Alkaline Phosphatase 63 (38-126) U/L Total Protein 6.7 (6.3-8.3) g/dL Albumin 3.5 (3.5-5.0) g/dL Globulin 3.2 (2.2-3.9) gm/dL Albumin/Globulin Ratio 1.1 (1.0-2.1) 01/06/18 01/06/18 01/06/18 Range/Units 21:46 16:14 11:26 WBC (4.8-10.8) K/uL RBC (4.40-5.90) Mil/uL Hgb (12.0-18.0) g/dL Hct (35.0-51.0) % MCV (80.0-94.0) fL MCH (27.0-31.0) pg MCHC (33.0-37.0) g/dL RDW (11.5-14.5) % Plt Count (130-400) K/uL MPV (7.2-11.7) fL Neut % (Auto) (50.0-75.0) % Lymph % (Auto) (20.0-40.0) % [place] % (Auto) (0.0-10.0) % Eos % (Auto) (0.0-4.0) % Baso % (Auto) (0.0-2.0) % Neut # (Auto) (1.8-7.0) K/uL Lymph # (Auto) (1.0-4.3) K/uL [place] # (Auto) (0.0-0.8) K/uL Eos # (Auto) (0.0-0.7) K/uL Baso # (Auto) (0.0-0.2) K/uL Sodium (132-148) mmol/L Potassium (3.6-5.2) mmol/L Chloride (98-107) mmol/L Carbon Dioxide (22-30) mmol/L Anion Gap (10-20) BUN (9-20) mg/dL Creatinine (0.8-1.5) mg/dL Est GFR ( Amer) Est GFR (Non-Af Amer) POC Glucose (mg/dL) 190 H 161 H 262 H (65-110) mg/dL Random Glucose (75-110) mg/dL Calcium (8.6-10.4) mg/dl Phosphorus (2.5-4.5) mg/dL Magnesium (1.6-2.3) mg/dL Total Bilirubin (0.2-1.3) mg/dL AST (17-59) U/L ALT (21-72) U/L Alkaline Phosphatase (38-126) U/L Total Protein (6.3-8.3) g/dL Albumin (3.5-5.0) g/dL Globulin (2.2-3.9) gm/dL Albumin/Globulin Ratio (1.0-2.1) Laboratory Results - last 24 hr 01/06/18 01/06/18 01/06/18 11:26 16:14 21:46 WBC RBC Hgb Hct MCV MCH MCHC RDW Plt Count MPV Neut % (Auto) Lymph % (Auto) [place] % (Auto) Eos % (Auto) Baso % (Auto) Neut # (Auto) Lymph # (Auto) [place] # (Auto) Eos # (Auto) Baso # (Auto) Sodium Potassium Chloride Carbon Dioxide Anion Gap BUN Creatinine Est GFR ( Amer) Est GFR (Non-Af Amer) POC Glucose (mg/dL) 262 H 161 H 190 H Random Glucose Calcium Phosphorus Magnesium Total Bilirubin AST ALT Alkaline Phosphatase Total Protein Albumin Globulin Albumin/Globulin Ratio 01/07/18 01/07/18 01/07/18 06:19 06:19 07:33 WBC 10.3 RBC 3.29 L Hgb 10.8 L Hct 31.0 L MCV 94.1 H MCH 32.8 H MCHC 34.8 RDW 13.4 Plt Count 190 MPV 9.5 Neut % (Auto) 61.9 Lymph % (Auto) 21.2 [place] % (Auto) 13.8 H Eos % (Auto) 2.5 Baso % (Auto) 0.6 Neut # (Auto) 6.4 Lymph # (Auto) 2.2 [place] # (Auto) 1.4 H Eos # (Auto) 0.3 Baso # (Auto) 0.1 Sodium 136 Potassium 3.6 Chloride 103 Carbon Dioxide 25 Anion Gap 13 BUN 13 Creatinine 0.8 Est GFR ( Amer) > 60 Est GFR (Non-Af Amer) > 60 POC Glucose (mg/dL) 151 H Random Glucose 143 H Calcium 8.3 L Phosphorus 2.5 Magnesium 2.0 Total Bilirubin 0.8 AST 26 ALT 20 L Alkaline Phosphatase 63 Total Protein 6.7 Albumin 3.5 Globulin 3.2 Albumin/Globulin Ratio 1.1 Fingerstick Blood Sugar Results: 151 Critical Care Progress Note - Nutrition Nutrition: Nutrition Category Date Time Status Soft [Dysphagia/Modified Consistency Diet] [DIET] Diets 01/06/18 Breakfast Active Assessment/Plan - Assessment and Plan (Free Text) Assessment: This is a 77 year old male with 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 Patient was evaluated by Dr. Coy 12/30/17 in his office, for reset of the shunt- has known subdural hematoma (for 3 weeks), repeat Head CT reveals it has not changed in dimensions but appears more dense. S/P bilateral craniotomy and subdural hematoma evacuation on 01/05/18. Plan: Neuro: GCS 15 A: NPH - Right parietal ventriculoperitoneal shunt, placed July 22 2017 - Evaluated by Dr. Coy 12/30/17 in his office, for reset of the shunt A: Known Subdural Hematoma (x 3 weeks) - Head CT 12/12/17 - Interval development of large bilateral subdural hematomas which exhibit both chronic and acute/subacute components former larger than latter. The left-sided collection is larger than the right. These collections exert fairly significant mass effect with compression of both cerebral hemispheres left greater than right and [id number] midline shift with septum pellucidum shifted across midline to the right side estimated at approximately 6.6 mm. In situ AIR DIRECTOR shunt tube as detailed above. - Repeat Head CT 12/31/17 - Again seen are bilateral large subdural hemorrhages that appear grossly stable in size compared to prior exam. However, on the current exam there are diffuse acute blood products throughout the left subdural hemorrhage and to a lesser degree within the right subdural hemorrhage. Maximal thickness of both subdural hemorrhages measures 1.6 cm. Hyperacute hemorrhage is noted within the left subdural hemorrhage with a maximal thickness of 0.3 cm. There is no significant midline shift. - Repeat Head CT reveals it has not changed in dimensions but appears more dense - S/P bilateral craniotomy and subdural hematoma evacuation on 01/05/18 - S/P Head CT: Patient moved; but air noted; patient put back on nonrebreather - Pending neurosurgery reccs A: Dementia Cardio: A: HTN - Takes Vasotec 20mg - resumed A: HF with rEF - Systolic Dysfunction with LVEF 45-50% - Seen on ECHO 07/2017 Endo: A: T2DM - Accuchecks - ISS- low - HHD, Carb Consistent Diet - Last A1C 6.7 - 07/2017 - A1C - 6.2 ID: A: SIRS -- Dr. Kurtis hSaw consulted - Febrile -TMax 101.3, tachycardiac, hypotensive - No effusions, infiltrates noted on CXR - Spoke with Dr. Shaw will DC Zosyn and change to Rocephin 1 Gram Q12, keep the vanco Q12 -01/01, vanco trough 7.5 - 01/04 - Garcia cultured - negative to date MSK: A: Fracture of the 5th phalanx and dislocation of 4th phalanx - S/P right foot closed reduction 01/01/18 at bedside by podiatry resident Prophylaxis: - PPI - SCDs, VTE c/i 2/2 SDH Disposition: Patient admitted to ICU for observation. Pending neurosurg reccs. DW Dr. Lopez, Cindy Danielle DO, PGY-1 <Dean Lopez S - Last Filed: 01/07/18 14:16> CCU Objective - Vital Signs / Intake & Output Vital Signs (Last 4 hours): Vital Signs Temp Pulse Resp BP Pulse Ox 01/07/18 13:42 77 15 109/53 L 100 01/07/18 13:00 77 15 100 01/07/18 12:58 94 H 11 L 114/57 L 100 01/07/18 12:42 83 22 104/64 100 01/07/18 12:00 98.3 F 86 15 100 01/07/18 11:42 83 19 116/55 L 100 01/07/18 11:00 78 17 100 01/07/18 10:42 85 18 121/59 L 100 Intake and Output (Last 8hrs): Intake & Output 01/06/18 01/07/18 01/07/18 22:59 06:59 14:59 Intake Total 600 50 600 Output Total 525 600 190 Balance 75 -550 410 Weight 136 lb Intake: Intake, IV Amount 50 250 Left Upper arm 250 Right Hand 50 Oral 600 350 Output: Drainage 50 Left Lateral Head 50 Right Lateral Head 0 Urine 475 600 190 Urethral (Burks) 475 600 190 - Medications Active Medications: Active Medications Generic Name Dose Route Start Last Admin Trade Name Freq PRN Reason Stop Dose Admin Acetaminophen 650 mg 01/01/18 12:33 01/07/18 09:30 Tylenol 325mg Tab PO 650 mg Q6 PRN Administration Fever >100.4 F Acetaminophen 650 mg 01/01/18 12:34 01/07/18 00:06 Tylenol 325mg Tab PO 650 mg Q6 PRN Administration Pain, Mild (1-3) Enalapril Maleate 20 mg 01/06/18 10:30 01/07/18 09:13 Vasotec PO 20 mg DAILY AMANDA Administration Vancomycin/Sodium Chloride 1 gm in 200 mls @ 133 mls/hr 01/02/18 10:00 09:19 Vancomycin 1 Gm/Ns 200 Ml IVPB 01/12/18 10:01 133 mls/hr DAILY AMANDA Administration Protocol Ceftriaxone Sodium 50 mls @ 100 mls/hr 01/04/18 01:30 01/07/18 12:37 Rocephin Iv 1 Gm Duplex IVPB 100 mls/hr Q12H AMANDA Administration Protocol Insulin Human Regular 0 unit 01/02/18 11:30 01/07/18 12:03 Novolin R SC 2 units ACHS AMANDA Administration Protocol Ondansetron HCl 4 mg 01/01/18 12:34 Zofran Inj IVP Q6H PRN Nausea/Vomiting Pantoprazole Sodium 40 mg 01/02/18 10:00 01/07/18 09:13 Protonix Ec Tab PO 40 mg DAILY AMANDA Administration Saccharomyces Boulardii 250 mg 01/01/18 20:00 01/07/18 09:13 Florastor PO 250 mg Q12 AMANDA Administration Tamsulosin HCl 0.4 mg 01/06/18 10:00 01/07/18 09:13 Flomax PO 0.4 mg DAILY AMANDA Administration - Patient Studies Lab Studies: Microbiology Studies 01/01/18 11:07 Blood Culture - Final Blood-Venous NO GROWTH AFTER 5 DAYS Gram Stain - Final TEST NOT PERFORMED 01/01/18 11:07 Blood Culture - Final Blood-Venous NO GROWTH AFTER 5 DAYS Gram Stain - Final TEST NOT PERFORMED 01/05/18 19:00 Urine Culture - Final Urine,Catheterized No Growth (<1,000 CFU/ML) 01/05/18 19:00 MRSA Culture (Admit) - Final Nose MRSA NOT DETECTED Lab Studies 01/07/18 01/07/18 01/07/18 Range/Units 11:44 07:33 06:19 WBC (4.8-10.8) K/uL RBC (4.40-5.90) Mil/uL Hgb (12.0-18.0) g/dL Hct (35.0-51.0) % MCV (80.0-94.0) fL MCH (27.0-31.0) pg MCHC (33.0-37.0) g/dL RDW (11.5-14.5) % Plt Count (130-400) K/uL MPV (7.2-11.7) fL Neut % (Auto) (50.0-75.0) % Lymph % (Auto) (20.0-40.0) % [place] % (Auto) (0.0-10.0) % Eos % (Auto) (0.0-4.0) % Baso % (Auto) (0.0-2.0) % Neut # (Auto) (1.8-7.0) K/uL Lymph # (Auto) (1.0-4.3) K/uL [place] # (Auto) (0.0-0.8) K/uL Eos # (Auto) (0.0-0.7) K/uL Baso # (Auto) (0.0-0.2) K/uL Sodium 136 (132-148) mmol/L Potassium 3.6 (3.6-5.2) mmol/L Chloride 103 (98-107) mmol/L Carbon Dioxide 25 (22-30) mmol/L Anion Gap 13 (10-20) BUN 13 (9-20) mg/dL Creatinine 0.8 (0.8-1.5) mg/dL Est GFR ( Amer) > 60 Est GFR (Non-Af Amer) > 60 POC Glucose (mg/dL) 171 H 151 H (65-110) mg/dL Random Glucose 143 H (75-110) mg/dL Calcium 8.3 L (8.6-10.4) mg/dl Phosphorus 2.5 (2.5-4.5) mg/dL Magnesium 2.0 (1.6-2.3) mg/dL Total Bilirubin 0.8 (0.2-1.3) mg/dL AST 26 (17-59) U/L ALT 20 L (21-72) U/L Alkaline Phosphatase 63 (38-126) U/L Total Protein 6.7 (6.3-8.3) g/dL Albumin 3.5 (3.5-5.0) g/dL Globulin 3.2 (2.2-3.9) gm/dL Albumin/Globulin Ratio 1.1 (1.0-2.1) 01/07/18 01/06/18 01/06/18 Range/Units 06:19 21:46 16:14 WBC 10.3 (4.8-10.8) K/uL RBC 3.29 L (4.40-5.90) Mil/uL Hgb 10.8 L (12.0-18.0) g/dL Hct 31.0 L (35.0-51.0) % MCV 94.1 H (80.0-94.0) fL MCH 32.8 H (27.0-31.0) pg MCHC 34.8 (33.0-37.0) g/dL RDW 13.4 (11.5-14.5) % Plt Count 190 (130-400) K/uL MPV 9.5 (7.2-11.7) fL Neut % (Auto) 61.9 (50.0-75.0) % Lymph % (Auto) 21.2 (20.0-40.0) % [place] % (Auto) 13.8 H (0.0-10.0) % Eos % (Auto) 2.5 (0.0-4.0) % Baso % (Auto) 0.6 (0.0-2.0) % Neut # (Auto) 6.4 (1.8-7.0) K/uL Lymph # (Auto) 2.2 (1.0-4.3) K/uL [place] # (Auto) 1.4 H (0.0-0.8) K/uL Eos # (Auto) 0.3 (0.0-0.7) K/uL Baso # (Auto) 0.1 (0.0-0.2) K/uL Sodium (132-148) mmol/L Potassium (3.6-5.2) mmol/L Chloride (98-107) mmol/L Carbon Dioxide (22-30) mmol/L Anion Gap (10-20) BUN (9-20) mg/dL Creatinine (0.8-1.5) mg/dL Est GFR ( Amer) Est GFR (Non-Af Amer) POC Glucose (mg/dL) 190 H 161 H (65-110) mg/dL Random Glucose (75-110) mg/dL Calcium (8.6-10.4) mg/dl Phosphorus (2.5-4.5) mg/dL Magnesium (1.6-2.3) mg/dL Total Bilirubin (0.2-1.3) mg/dL AST (17-59) U/L ALT (21-72) U/L Alkaline Phosphatase (38-126) U/L Total Protein (6.3-8.3) g/dL Albumin (3.5-5.0) g/dL Globulin (2.2-3.9) gm/dL Albumin/Globulin Ratio (1.0-2.1) Laboratory Results - last 24 hr 01/06/18 01/06/18 01/07/18 16:14 21:46 06:19 WBC 10.3 RBC 3.29 L Hgb 10.8 L Hct 31.0 L MCV 94.1 H MCH 32.8 H MCHC 34.8 RDW 13.4 Plt Count 190 MPV 9.5 Neut % (Auto) 61.9 Lymph % (Auto) 21.2 [place] % (Auto) 13.8 H Eos % (Auto) 2.5 Baso % (Auto) 0.6 Neut # (Auto) 6.4 Lymph # (Auto) 2.2 [place] # (Auto) 1.4 H Eos # (Auto) 0.3 Baso # (Auto) 0.1 Sodium Potassium Chloride Carbon Dioxide Anion Gap BUN Creatinine Est GFR ( Amer) Est GFR (Non-Af Amer) POC Glucose (mg/dL) 161 H 190 H Random Glucose Calcium Phosphorus Magnesium Total Bilirubin AST ALT Alkaline Phosphatase Total Protein Albumin Globulin Albumin/Globulin Ratio 01/07/18 01/07/18 01/07/18 06:19 07:33 11:44 WBC RBC Hgb Hct MCV MCH MCHC RDW Plt Count MPV Neut % (Auto) Lymph % (Auto) [place] % (Auto) Eos % (Auto) Baso % (Auto) Neut # (Auto) Lymph # (Auto) [place] # (Auto) Eos # (Auto) Baso # (Auto) Sodium 136 Potassium 3.6 Chloride 103 Carbon Dioxide 25 Anion Gap 13 BUN 13 Creatinine 0.8 Est GFR ( Amer) > 60 Est GFR (Non-Af Amer) > 60 POC Glucose (mg/dL) 151 H 171 H Random Glucose 143 H Calcium 8.3 L Phosphorus 2.5 Magnesium 2.0 Total Bilirubin 0.8 AST 26 ALT 20 L Alkaline Phosphatase 63 Total Protein 6.7 Albumin 3.5 Globulin 3.2 Albumin/Globulin Ratio 1.1 Critical Care Progress Note - Nutrition Nutrition: Nutrition Category Date Time Status Soft [Dysphagia/Modified Consistency Diet] [DIET] Diets 01/06/18 Breakfast Active Attending/Attestation - Attestation I have personally seen and examined this patient.: Yes I have fully participated in the care of the patient.: Yes I have reviewed all pertinent clinical information: Yes Notes (Text): 01/07/18 14:06 patient seen and examined in the intensive care unit. Patient is awake but confused status post bilateral evacuation of subdural hematoma A repeat CAT scan of the head showed bilateral pneumatocephalus Continue present treatment and ICU observation
--- NOTE | 2018-01-07 11:13 | CT ---
PROCEDURE: CT HEAD WITHOUT CONTRAST. HISTORY: s/p evacuation of subdural hematomas COMPARISON: 01/04/2018 TECHNIQUE: Axial computed tomography images were obtained through the head/brain without intravenous contrast. Radiation dose: Total exam DLP = 2848.48 mGy-cm. This CT exam was performed using one or more of the following dose reduction techniques: Automated exposure control, adjustment of the mA and/or kV according to patient size, and/or use of iterative reconstruction technique. FINDINGS: HEMORRHAGE: Status post evacuation of bilateral acute on chronic subdural hemorrhage. Bilateral subdural drainage catheters are seen. Bilateral parietal nilton holes have been created. There has been bilateral parietal craniotomy. There is extensive left pneumocephalus and minimal right pneumocephalus. There are persistent subdural collections, predominantly low density. The right subdural collection is unchanged in size from previous. The left subdural collection is substantially diminished in size. There is acute subdural blood seen along the tentorium and along the posterior falx. There is small amount of high density subdural blood seen bilaterally in the occipital parietal region. There is no parenchymal or intraventricular hemorrhage appreciated. BRAIN: No mass effect or edema. Minimal atrophy. VENTRICLES: No ventriculomegaly. No midline shift. Ventriculostomy catheter unchanged entering through the right temporoparietal and extending across the midline into the left basal ganglia region. CALVARIUM: Bilateral craniotomies as described. PARANASAL SINUSES: Minimal chronic pansinusitis. MASTOID AIR CELLS: Unremarkable as visualized. No inflammatory changes. OTHER FINDINGS: None. IMPRESSION: Status post bilateral evacuation of subdural hemorrhage. Bilateral parietal craniotomy and bilateral nilton holes. Ventriculostomy catheter unchanged. Small residual acute on chronic bilateral subdural hemorrhage, right greater than left, with small amount of subdural blood seen along the tentorium and posterior falx. Extensive left pneumocephalus and minimal right pneumocephalus.
--- NOTE | 2018-01-07 14:00 | CP.PCM.PN ---
Subjective - Date & Time of Evaluation Date of Evaluation: 01/07/18 Time of Evaluation: 13:59 - Subjective Subjective: patient is postop #2 Status post bilateral craniotomy with drainage Patient has periods of confusion and agitation requiring Ativan Continue ICU monitoring and treatment Objective - Vital Signs/Intake and Output Vital Signs (last 24 hours): Temp Pulse Resp BP Pulse Ox 98.3 F 77 15 109/53 L 100 01/07/18 12:00 01/07/18 13:42 01/07/18 13:42 01/07/18 13:42 01/07/18 13:42 Intake and Output: 01/07/18 01/07/18 11:59 23:59 Intake Total 500 150 Output Total 685 55 Balance -185 95 - Medications Medications: Current Medications Acetaminophen (Tylenol 325mg Tab) 650 mg PO Q6 PRN PRN Reason: Fever >100.4 F Last Admin: 01/07/18 09:30 Dose: 650 mg Acetaminophen (Tylenol 325mg Tab) 650 mg PO Q6 PRN PRN Reason: Pain, Mild (1-3) Last Admin: 01/07/18 00:06 Dose: 650 mg Enalapril Maleate (Vasotec) 20 mg PO DAILY [facility] Last Admin: 01/07/18 09:13 Dose: 20 mg Vancomycin/Sodium Chloride (Vancomycin 1 Gm/Ns 200 Ml) 1 gm in 200 mls @ 133 mls/hr IVPB DAILY AMANDA PRN Reason: Protocol Stop: 01/12/18 10:01 Last Admin: 01/07/18 09:19 Dose: 133 mls/hr Ceftriaxone Sodium (Rocephin Iv 1 Gm Duplex) 50 mls @ 100 mls/hr IVPB Q12H AMANDA PRN Reason: Protocol Last Admin: 01/07/18 12:37 Dose: 100 mls/hr Insulin Human Regular (Novolin R) 0 unit SC ACHS AMANDA PRN Reason: Protocol Last Admin: 01/07/18 12:03 Dose: 2 units Ondansetron HCl (Zofran Inj) 4 mg IVP Q6H PRN PRN Reason: Nausea/Vomiting Pantoprazole Sodium (Protonix Ec Tab) 40 mg PO DAILY [facility] Last Admin: 01/07/18 09:13 Dose: 40 mg Saccharomyces Boulardii (Florastor) 250 mg PO Q12 AMANDA Last Admin: 01/07/18 09:13 Dose: 250 mg Tamsulosin HCl (Flomax) 0.4 mg PO DAILY AMANDA Last Admin: 01/07/18 09:13 Dose: 0.4 mg - Labs Labs: 01/07/18 06:19 01/07/18 06:19 PT 12.7 SECONDS (9.7-12.2) H 01/04/18 11:16 INR 1.2 01/04/18 11:16 APTT 30 SECONDS (21-34) 01/04/18 11:16
--- NOTE | 2018-01-07 14:38 | CP.PCM.PN ---
Subjective - Date & Time of Evaluation Date of Evaluation: 01/07/18 Time of Evaluation: 14:37 - Subjective Subjective: CT shows excellent evac SDH on L some residual on R neuro stable drains removed cont po care Objective - Vital Signs/Intake and Output Vital Signs (last 24 hours): Temp Pulse Resp BP Pulse Ox 98.3 F 77 15 109/53 L 100 01/07/18 12:00 01/07/18 13:42 01/07/18 13:42 01/07/18 13:42 01/07/18 13:42 Intake and Output: 01/07/18 01/07/18 06:59 18:59 Intake Total 290 600 Output Total 800 190 Balance -510 410 - Medications Medications: Current Medications Acetaminophen (Tylenol 325mg Tab) 650 mg PO Q6 PRN PRN Reason: Fever >100.4 F Last Admin: 01/07/18 09:30 Dose: 650 mg Acetaminophen (Tylenol 325mg Tab) 650 mg PO Q6 PRN PRN Reason: Pain, Mild (1-3) Last Admin: 01/07/18 00:06 Dose: 650 mg Enalapril Maleate (Vasotec) 20 mg PO DAILY [facility] Last Admin: 01/07/18 09:13 Dose: 20 mg Vancomycin/Sodium Chloride (Vancomycin 1 Gm/Ns 200 Ml) 1 gm in 200 mls @ 133 mls/hr IVPB DAILY AMANDA PRN Reason: Protocol Stop: 01/12/18 10:01 Last Admin: 01/07/18 09:19 Dose: 133 mls/hr Ceftriaxone Sodium (Rocephin Iv 1 Gm Duplex) 50 mls @ 100 mls/hr IVPB Q12H AMANDA PRN Reason: Protocol Last Admin: 01/07/18 12:37 Dose: 100 mls/hr Insulin Human Regular (Novolin R) 0 unit SC ACHS AMANDA PRN Reason: Protocol Last Admin: 01/07/18 12:03 Dose: 2 units Ondansetron HCl (Zofran Inj) 4 mg IVP Q6H PRN PRN Reason: Nausea/Vomiting Pantoprazole Sodium (Protonix Ec Tab) 40 mg PO DAILY [facility] Last Admin: 01/07/18 09:13 Dose: 40 mg Saccharomyces Boulardii (Florastor) 250 mg PO Q12 [facility] Last Admin: 01/07/18 09:13 Dose: 250 mg Tamsulosin HCl (Flomax) 0.4 mg PO DAILY AMANDA Last Admin: 01/07/18 09:13 Dose: 0.4 mg - Labs Labs: 01/07/18 06:19 01/07/18 06:19 PT 12.7 SECONDS (9.7-12.2) H 01/04/18 11:16 INR 1.2 01/04/18 11:16 APTT 30 SECONDS (21-34) 01/04/18 11:16
--- NOTE | 2018-01-07 23:35 | CP.PCM.PN ---
Subjective - Date & Time of Evaluation Date of Evaluation: 01/07/18 Time of Evaluation: 23:35 - Subjective Subjective: CHIEF COMPLAINTS TODAY : S/P OR-POD # 2 B/L CRANIOTOMY/EVACUATION OF B/L SUBDURAL HEMATOMA.01/05/18 VSS AWAKE AND RESPONSIVE NODDING AND SMILING NEUROSURGERY NOTED. AND APPRECIATED REPEAT ct HEAD NOTED ROS. HEENT : N. Resp : No cough, wheezing ,pleuritic CP ,or hemoptysis Cardio : No anginal CP, PND, orthopnea, palpitation GI : No abd.pain, n/v ,diarrhea or GI bleeding . 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 Musculoskel : No joint swelling , Derm : No rash Psych : Normal affect. Ext : No swelling ,calf pain +VE FOLYS PE. Pt. is in no distress. V.S As noted in the chart Head ,ear nose,throat and eyes : Normal. Neck : Supple with normal carotids. Lungs: Clear air entry. Heart : S1 & S2 normal with S4. No murmur. Abd : Soft non tender with normal bowel sounds. Neuro : Moves all ext. with no localized deficit. Ext : No edema with intact pulses.Non tender calves Derm : No rashes or decubitus ulcer. LABS/RADIOLOGY. REVIEWED. ALL CULTURES -VE TO DATE MRSA NOT DETECTED. Objective - Vital Signs/Intake and Output Vital Signs (last 24 hours): Temp Pulse Resp BP Pulse Ox 97.5 F L 100 H 20 131/52 L 97 01/07/18 17:30 01/07/18 17:30 01/07/18 17:30 01/07/18 17:30 01/07/18 17:30 Intake and Output: 01/07/18 01/08/18 18:59 06:59 Intake Total 780 Output Total 310 Balance 470 - Medications Medications: Current Medications Acetaminophen (Tylenol 325mg Tab) 650 mg PO Q6 PRN PRN Reason: Fever >100.4 F Last Admin: 01/07/18 16:59 Dose: 650 mg Acetaminophen (Tylenol 325mg Tab) 650 mg PO Q6 PRN PRN Reason: Pain, Mild (1-3) Last Admin: 01/07/18 00:06 Dose: 650 mg Enalapril Maleate (Vasotec) 20 mg PO DAILY [facility] Last Admin: 01/07/18 09:13 Dose: 20 mg Vancomycin/Sodium Chloride (Vancomycin 1 Gm/Ns 200 Ml) 1 gm in 200 mls @ 133 mls/hr IVPB DAILY [facility] PRN Reason: Protocol Stop: 01/12/18 10:01 Last Admin: 01/07/18 09:19 Dose: 133 mls/hr Ceftriaxone Sodium (Rocephin Iv 1 Gm Duplex) 50 mls @ 100 mls/hr IVPB Q12H [facility] PRN Reason: Protocol Last Admin: 01/07/18 12:37 Dose: 100 mls/hr Insulin Human Regular (Novolin R) 0 unit SC ACHS [facility] PRN Reason: Protocol Last Admin: 01/07/18 21:51 Dose: Not Given Lorazepam (Ativan) 0.5 mg IVP Q4H PRN PRN Reason: Anxiety Last Admin: 01/07/18 19:41 Dose: 0.5 mg Ondansetron HCl (Zofran Inj) 4 mg IVP Q6H PRN PRN Reason: Nausea/Vomiting Pantoprazole Sodium (Protonix Ec Tab) 40 mg PO DAILY [facility] Last Admin: 01/07/18 09:13 Dose: 40 mg Saccharomyces Boulardii (Florastor) 250 mg PO Q12 [facility] Last Admin: 01/07/18 22:16 Dose: 250 mg Tamsulosin HCl (Flomax) 0.4 mg PO DAILY [facility] Last Admin: 01/07/18 09:13 Dose: 0.4 mg - Labs Labs: 01/07/18 06:19 01/07/18 06:19 PT 12.7 SECONDS (9.7-12.2) H 01/04/18 11:16 INR 1.2 01/04/18 11:16 APTT 30 SECONDS (21-34) 01/04/18 11:16 Assessment and Plan (1) Fever Assessment & Plan: resolved. Status: Acute (2) Subdural hemorrhage Assessment & Plan: S/P EVACUATION OF B/L SUBDURAL HEMATOMAS 01/05/18 ON IV ROCEPHIN 1GM IV PB [id number]. 01/01/18 ON IV [id number] IVPB Q 24HRLY 01/01/18 F/U CULTURES CSF IN OR MONITOR RENAL FUNCTIONS CLOSELY. S/P FOLYS INSERTION TODAY. urine culture negative growth to date. Status: Acute (3) Toe fracture Assessment & Plan: HEALING. DRESSING IN PLACE. Status: Acute (4) Diabetes Status: Chronic (5) HTN (hypertension) Status: Chronic
[2018-01-08] MEDS: cefTRIAXone IV 1 gm in Dextros 50 ML IVPB SCH ×2 (02:30→13:10)
[2018-01-08 07:20] LABS: BASO % 0.3 % (0.0-2.0); EOS # 0.1 K/uL (0.0-0.7); EOS % 1.6 % (0.0-4.0); HEMOGLOBIN 10.4 g/dL (12.0-18.0); LYMPH # 1.4 K/uL (1.0-4.3); LYMPH % 16.9 % (20.0-40.0); MEAN CORPUSCULAR HEMOGLOBIN 33.1 pg (27.0-31.0); MEAN CORPUSCULAR HGB CONC 35.2 g/dL (33.0-37.0); MONO % 11.5 % (0.0-10.0); NEUT # 5.9 K/uL (1.8-7.0); NEUT % 69.7 % (50.0-75.0); RBC 3.15 Mil/uL (4.40-5.90); RED CELL DISTRIBUTION WIDTH 13.2 % (11.5-14.5); WHITE BLOOD COUNT 8.5 K/uL (4.8-10.8)
[2018-01-08 07:44] LABS: ALB/GLOB RATIO 1.2 (1.0-2.1); ALBUMIN 3.6 g/dL (3.5-5.0); ALT/SGPT 20 U/L (21-72); AST/SGOT 21 U/L (17-59); BLOOD UREA NITROGEN 16 mg/dL (9-20); CALCIUM 8.3 mg/dl (8.6-10.4); GFR AFRICAN-AMERICAN > 60; GFR NON-AFRICAN AMERICAN > 60
[2018-01-08] MEDS: Saccharomyces Boulardi 250 mg Cap PO SCH ×2 (09:10→21:20)
[2018-01-08] MEDS: Pantoprazole 40 mg EC Tab PO SCH (09:10)
[2018-01-08] MEDS: (Novolin R) Insulin Human Regular 100 units/ml vial SC SCH ×4 (09:11→21:44)
[2018-01-08] MEDS: Vancomycin 1 gm/NS 200 ml 1 GM/200 ML BAG IVPB SCH (09:11)
--- NOTE | 2018-01-08 09:29 | CP.PCM.PN ---
Subjective - Date & Time of Evaluation Date of Evaluation: 01/08/18 Time of Evaluation: 09:28 - Subjective Subjective: alert and responsive sitting up and eating doing quite well suggest trans to rehab Objective - Vital Signs/Intake and Output Vital Signs (last 24 hours): Temp Pulse Resp BP Pulse Ox 98.4 F 112 H 20 143/74 97 01/08/18 07:00 01/08/18 07:00 01/08/18 07:00 01/08/18 09:11 01/08/18 07:00 Intake and Output: 01/08/18 01/08/18 06:59 18:59 Intake Total 200 Balance 200 - Medications Medications: Current Medications Acetaminophen (Tylenol 325mg Tab) 650 mg PO Q6 PRN PRN Reason: Fever >100.4 F Last Admin: 01/07/18 16:59 Dose: 650 mg Acetaminophen (Tylenol 325mg Tab) 650 mg PO Q6 PRN PRN Reason: Pain, Mild (1-3) Last Admin: 01/07/18 00:06 Dose: 650 mg Enalapril Maleate (Vasotec) 20 mg PO DAILY [facility] Last Admin: 01/08/18 09:11 Dose: 20 mg Vancomycin/Sodium Chloride (Vancomycin 1 Gm/Ns 200 Ml) 1 gm in 200 mls @ 133 mls/hr IVPB DAILY [facility] PRN Reason: Protocol Stop: 01/12/18 10:01 Last Admin: 01/08/18 09:11 Dose: 133 mls/hr Ceftriaxone Sodium (Rocephin Iv 1 Gm Duplex) 50 mls @ 100 mls/hr IVPB Q12H [facility] PRN Reason: Protocol Last Admin: 01/08/18 02:30 Dose: 100 mls/hr Insulin Human Regular (Novolin R) 0 unit SC ACHS [facility] PRN Reason: Protocol Last Admin: 01/08/18 09:11 Dose: 2 units Lorazepam (Ativan) 0.5 mg IVP Q4H PRN PRN Reason: Anxiety Last Admin: 01/08/18 00:13 Dose: 0.5 mg Ondansetron HCl (Zofran Inj) 4 mg IVP Q6H PRN PRN Reason: Nausea/Vomiting Pantoprazole Sodium (Protonix Ec Tab) 40 mg PO DAILY [facility] Last Admin: 01/08/18 09:10 Dose: 40 mg Saccharomyces Boulardii (Florastor) 250 mg PO Q12 [facility] Last Admin: 01/08/18 09:10 Dose: 250 mg Tamsulosin HCl (Flomax) 0.4 mg PO DAILY [facility] Last Admin: 01/08/18 09:10 Dose: 0.4 mg - Labs Labs: 01/08/18 07:10 01/08/18 07:10 PT 12.7 SECONDS (9.7-12.2) H 01/04/18 11:16 INR 1.2 01/04/18 11:16 APTT 30 SECONDS (21-34) 01/04/18 11:16
[2018-01-08] MEDS ORDERED: Potassium Chloride 20 mEq ER Tab PO ONE (10:15)
--- NOTE | 2018-01-08 12:17 | CP.PCM.PN ---
Subjective - Date & Time of Evaluation Date of Evaluation: 01/08/18 Time of Evaluation: 12:16 - Subjective Subjective: postop day #3 Patient is now more alert awake. Last night patient needed Ativan when necessary Patient is stable for rehab. Objective - Vital Signs/Intake and Output Vital Signs (last 24 hours): Temp Pulse Resp BP Pulse Ox 98.4 F 112 H 20 143/74 97 01/08/18 07:00 01/08/18 07:00 01/08/18 07:00 01/08/18 09:11 01/08/18 07:00 Intake and Output: 01/08/18 01/08/18 11:59 23:59 Intake Total 200 Balance 200 - Medications Medications: Current Medications Acetaminophen (Tylenol 325mg Tab) 650 mg PO Q6 PRN PRN Reason: Fever >100.4 F Last Admin: 01/07/18 16:59 Dose: 650 mg Acetaminophen (Tylenol 325mg Tab) 650 mg PO Q6 PRN PRN Reason: Pain, Mild (1-3) Last Admin: 01/07/18 00:06 Dose: 650 mg Enalapril Maleate (Vasotec) 20 mg PO DAILY [facility] Last Admin: 01/08/18 09:11 Dose: 20 mg Vancomycin/Sodium Chloride (Vancomycin 1 Gm/Ns 200 Ml) 1 gm in 200 mls @ 133 mls/hr IVPB DAILY [facility] PRN Reason: Protocol Stop: 01/12/18 10:01 Last Admin: 01/08/18 09:11 Dose: 133 mls/hr Ceftriaxone Sodium (Rocephin Iv 1 Gm Duplex) 50 mls @ 100 mls/hr IVPB Q12H [facility] PRN Reason: Protocol Last Admin: 01/08/18 02:30 Dose: 100 mls/hr Insulin Human Regular (Novolin R) 0 unit SC ACHS [facility] PRN Reason: Protocol Last Admin: 01/08/18 09:11 Dose: 2 units Lorazepam (Ativan) 0.5 mg IVP Q4H PRN PRN Reason: Anxiety Last Admin: 01/08/18 00:13 Dose: 0.5 mg Ondansetron HCl (Zofran Inj) 4 mg IVP Q6H PRN PRN Reason: Nausea/Vomiting Pantoprazole Sodium (Protonix Ec Tab) 40 mg PO DAILY [facility] Last Admin: 01/08/18 09:10 Dose: 40 mg Saccharomyces Boulardii (Florastor) 250 mg PO Q12 [facility] Last Admin: 01/08/18 09:10 Dose: 250 mg Tamsulosin HCl (Flomax) 0.4 mg PO DAILY [facility] Last Admin: 01/08/18 09:10 Dose: 0.4 mg - Labs Labs: 01/08/18 07:10 01/08/18 07:10 PT 12.7 SECONDS (9.7-12.2) H 01/04/18 11:16 INR 1.2 01/04/18 11:16 APTT 30 SECONDS (21-34) 01/04/18 11:16
--- NOTE | 2018-01-08 13:51 | CP.PCM.PN ---
Subjective - Date & Time of Evaluation Date of Evaluation: 01/08/18 Time of Evaluation: 13:51 - Subjective Subjective: CHIEF COMPLAINTS TODAY : PATIENT SEEN ON GENERAL MEDICAL FLOOR. S/P OR-POD # 3 B/L CRANIOTOMY/EVACUATION OF B/L SUBDURAL HEMATOMA.01/05/18 VSS PATIENT SLEEPING. PER RN PATIENT RECEIVED ATIVAN LAST NIGHT AND DROWSY ROS. ON OBSERVATION ONLY HEENT : N. Resp : No cough, wheezing ,pleuritic CP ,or hemoptysis Cardio : No anginal CP, PND, orthopnea, palpitation GI : No abd.pain, n/v ,diarrhea or GI bleeding . 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 Musculoskel : No joint swelling , Derm : No rash Psych : Normal affect. Ext : No swelling ,calf pain +VE FOLYS PE. Pt. is in no distress. V.S As noted in the chart Head ,ear nose,throat and eyes : Normal. Neck : Supple with normal carotids. Lungs: Clear air entry. Heart : S1 & S2 normal with S4. No murmur. Abd : Soft non tender with normal bowel sounds. Neuro : Moves all ext. with no localized deficit. Ext : No edema with intact pulses.Non tender calves Derm : No rashes or decubitus ulcer. LABS/RADIOLOGY. REVIEWED. ALL CULTURES -VE TO DATE MRSA NOT DETECTED. Objective - Vital Signs/Intake and Output Vital Signs (last 24 hours): Temp Pulse Resp BP Pulse Ox 98.4 F 112 H 20 143/74 97 01/08/18 07:00 01/08/18 07:00 01/08/18 07:00 01/08/18 09:11 01/08/18 07:00 Intake and Output: 01/08/18 01/08/18 06:59 18:59 Intake Total 200 Balance 200 - Medications Medications: Current Medications Acetaminophen (Tylenol 325mg Tab) 650 mg PO Q6 PRN PRN Reason: Fever >100.4 F Last Admin: 01/07/18 16:59 Dose: 650 mg Acetaminophen (Tylenol 325mg Tab) 650 mg PO Q6 PRN PRN Reason: Pain, Mild (1-3) Last Admin: 01/07/18 00:06 Dose: 650 mg Enalapril Maleate (Vasotec) 20 mg PO DAILY [facility] Last Admin: 01/08/18 09:11 Dose: 20 mg Vancomycin/Sodium Chloride (Vancomycin 1 Gm/Ns 200 Ml) 1 gm in 200 mls @ 133 mls/hr IVPB DAILY [facility] PRN Reason: Protocol Stop: 01/12/18 10:01 Last Admin: 01/08/18 09:11 Dose: 133 mls/hr Ceftriaxone Sodium (Rocephin Iv 1 Gm Duplex) 50 mls @ 100 mls/hr IVPB Q12H [facility] PRN Reason: Protocol Last Admin: 01/08/18 13:10 Dose: 100 mls/hr Insulin Human Regular (Novolin R) 0 unit SC ACHS [facility] PRN Reason: Protocol Last Admin: 01/08/18 12:25 Dose: 6 units Lorazepam (Ativan) 0.5 mg IVP Q4H PRN PRN Reason: Anxiety Last Admin: 01/08/18 00:13 Dose: 0.5 mg Ondansetron HCl (Zofran Inj) 4 mg IVP Q6H PRN PRN Reason: Nausea/Vomiting Pantoprazole Sodium (Protonix Ec Tab) 40 mg PO DAILY [facility] Last Admin: 01/08/18 09:10 Dose: 40 mg Saccharomyces Boulardii (Florastor) 250 mg PO Q12 [facility] Last Admin: 01/08/18 09:10 Dose: 250 mg Tamsulosin HCl (Flomax) 0.4 mg PO DAILY [facility] Last Admin: 01/08/18 09:10 Dose: 0.4 mg - Labs Labs: 01/08/18 07:10 01/08/18 07:10 PT 12.7 SECONDS (9.7-12.2) H 01/04/18 11:16 INR 1.2 01/04/18 11:16 APTT 30 SECONDS (21-34) 01/04/18 11:16 Assessment and Plan (1) Fever Status: Acute (2) Subdural hemorrhage Assessment & Plan: S/P EVACUATION OF B/L SUBDURAL HEMATOMAS 01/05/18 ON IV ROCEPHIN 1GM IV PB [id number]. 01/01/18 X1DAY MORE ON IV [id number] IVPB Q 24HRLY 01/01/18 X 1 DAY MORE F/U CULTURES CSF IN OR MONITOR RENAL FUNCTIONS CLOSELY. S/P FOLYS INSERTION . CONSIDER DC FOLYS IN AM IF PT AWAKE AND RESPONSIVE. URINE CULTURE REPEAT NEGATIVE GROWTH.. Status: Acute (3) Toe fracture Assessment & Plan: HEALING. DRESSING IN PLACE. Status: Acute (4) Diabetes Status: Chronic (5) HTN (hypertension) Status: Chronic
[2018-01-09] MEDS: cefTRIAXone IV 1 gm in Dextros 50 ML IVPB SCH ×2 (01:48→12:40)
[2018-01-09 07:28] LABS: BASO # 0.1 K/uL (0.0-0.2); BASO % 0.7 % (0.0-2.0); EOS # 0.2 K/uL (0.0-0.7); EOS % 3.1 % (0.0-4.0); HEMOGLOBIN 9.8 g/dL (12.0-18.0); LYMPH # 2.1 K/uL (1.0-4.3); LYMPH % 26.6 % (20.0-40.0); MEAN CELL VOLUME 93.5 fL (80.0-94.0); MEAN CORPUSCULAR HEMOGLOBIN 33.1 pg (27.0-31.0); MEAN CORPUSCULAR HGB CONC 35.5 g/dL (33.0-37.0); MEAN PLATELET VOLUME 8.8 fL (7.2-11.7); MONO # 0.9 K/uL (0.0-0.8); MONO % 11.2 % (0.0-10.0); NEUT # 4.6 K/uL (1.8-7.0); NEUT % 58.4 % (50.0-75.0); RBC 2.95 Mil/uL (4.40-5.90); RED CELL DISTRIBUTION WIDTH 13.6 % (11.5-14.5); WHITE BLOOD COUNT 7.8 K/uL (4.8-10.8)
[2018-01-09 07:57] LABS: ALB/GLOB RATIO 1.1 (1.0-2.1); ALBUMIN 3.3 g/dL (3.5-5.0); ALT/SGPT 35 U/L (21-72); AST/SGOT 30 U/L (17-59); BLOOD UREA NITROGEN 18 mg/dL (9-20); CALCIUM 8.4 mg/dl (8.6-10.4); GFR AFRICAN-AMERICAN > 60; GFR NON-AFRICAN AMERICAN > 60
[2018-01-09] MEDS: (Novolin R) Insulin Human Regular 100 units/ml vial SC SCH ×4 (08:30→21:38)
[2018-01-09] MEDS: Saccharomyces Boulardi 250 mg Cap PO SCH ×2 (09:07→21:36)
[2018-01-09] MEDS: Vancomycin 1 gm/NS 200 ml 1 GM/200 ML BAG IVPB SCH (09:07)
[2018-01-09] MEDS: Pantoprazole 40 mg EC Tab PO SCH (09:07)
--- NOTE | 2018-01-09 14:02 | CP.PCM.PN ---
Subjective - Date & Time of Evaluation Date of Evaluation: 01/09/18 Time of Evaluation: 14:02 - Subjective Subjective: postop # 4. Patient is improving mental status stable no neuro deficit Lack of insurance coverage for rehab Family wants to take patient home. Discussed with neurosurgery if okay Objective - Vital Signs/Intake and Output Vital Signs (last 24 hours): Temp Pulse Resp BP Pulse Ox 98.9 F 70 20 134/72 97 01/09/18 07:24 01/09/18 07:45 01/09/18 07:24 01/09/18 09:07 01/09/18 07:24 - Medications Medications: Current Medications Acetaminophen (Tylenol 325mg Tab) 650 mg PO Q6 PRN PRN Reason: Fever >100.4 F Last Admin: 01/07/18 16:59 Dose: 650 mg Acetaminophen (Tylenol 325mg Tab) 650 mg PO Q6 PRN PRN Reason: Pain, Mild (1-3) Last Admin: 01/09/18 11:37 Dose: 650 mg Enalapril Maleate (Vasotec) 20 mg PO DAILY [facility] Last Admin: 01/09/18 09:07 Dose: 20 mg Vancomycin/Sodium Chloride (Vancomycin 1 Gm/Ns 200 Ml) 1 gm in 200 mls @ 133 mls/hr IVPB DAILY [facility] PRN Reason: Protocol Stop: 01/12/18 10:01 Last Admin: 01/09/18 09:07 Dose: 133 mls/hr Ceftriaxone Sodium (Rocephin Iv 1 Gm Duplex) 50 mls @ 100 mls/hr IVPB Q12H [facility] PRN Reason: Protocol Last Admin: 01/09/18 12:40 Dose: 100 mls/hr Insulin Human Regular (Novolin R) 0 unit SC ACHS [facility] PRN Reason: Protocol Last Admin: 01/09/18 12:30 Dose: 6 units Lorazepam (Ativan) 0.5 mg IVP Q4H PRN PRN Reason: Anxiety Last Admin: 01/08/18 00:13 Dose: 0.5 mg Ondansetron HCl (Zofran Inj) 4 mg IVP Q6H PRN PRN Reason: Nausea/Vomiting Pantoprazole Sodium (Protonix Ec Tab) 40 mg PO DAILY [facility] Last Admin: 01/09/18 09:07 Dose: 40 mg Saccharomyces Boulardii (Florastor) 250 mg PO Q12 [facility] Last Admin: 01/09/18 09:07 Dose: 250 mg Tamsulosin HCl (Flomax) 0.4 mg PO DAILY [facility] Last Admin: 01/09/18 09:07 Dose: 0.4 mg - Labs Labs: 01/09/18 07:16 01/09/18 07:16 PT 12.7 SECONDS (9.7-12.2) H 01/04/18 11:16 INR 1.2 01/04/18 11:16 APTT 30 SECONDS (21-34) 01/04/18 11:16
--- NOTE | 2018-01-09 23:51 | CP.PCM.PN ---
Subjective - Date & Time of Evaluation Date of Evaluation: 01/09/18 Time of Evaluation: 23:51 - Subjective Subjective: CHIEF COMPLAINTS TODAY : S/P OR-POD # 4 B/L CRANIOTOMY/EVACUATION OF B/L SUBDURAL HEMATOMA.01/05/18 VSS PATIENT COMFORTABLE ROS. HEENT : N. Resp : No cough, wheezing ,pleuritic CP ,or hemoptysis Cardio : No anginal CP, PND, orthopnea, palpitation GI : No abd.pain, n/v ,diarrhea or GI bleeding . 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 Musculoskel : No joint swelling , Derm : No rash Psych : Normal affect. Ext : No swelling ,calf pain +VE FOLYS PE. Pt. is in no distress. V.S As noted in the chart Head ,ear nose,throat and eyes : Normal. Neck : Supple with normal carotids. Lungs: Clear air entry. Heart : S1 & S2 normal with S4. No murmur. Abd : Soft non tender with normal bowel sounds. Neuro : Moves all ext. with no localized deficit. Ext : No edema with intact pulses.Non tender calves Derm : No rashes or decubitus ulcer. LABS/RADIOLOGY. REVIEWED. ALL CULTURES -VE TO DATE MRSA NOT DETECTED. Objective - Vital Signs/Intake and Output Vital Signs (last 24 hours): Temp Pulse Resp BP Pulse Ox 98.2 F 93 H 20 147/72 100 01/09/18 23:17 01/09/18 23:17 01/09/18 23:17 01/09/18 23:17 01/09/18 23:17 Intake and Output: 01/09/18 01/10/18 18:59 06:59 Intake Total 300 400 Balance 300 400 - Medications Medications: Current Medications Acetaminophen (Tylenol 325mg Tab) 650 mg PO Q6 PRN PRN Reason: Fever >100.4 F Last Admin: 01/07/18 16:59 Dose: 650 mg Acetaminophen (Tylenol 325mg Tab) 650 mg PO Q6 PRN PRN Reason: Pain, Mild (1-3) Last Admin: 01/09/18 11:37 Dose: 650 mg Enalapril Maleate (Vasotec) 20 mg PO DAILY [facility] Last Admin: 01/09/18 09:07 Dose: 20 mg Vancomycin/Sodium Chloride (Vancomycin 1 Gm/Ns 200 Ml) 1 gm in 200 mls @ 133 mls/hr IVPB DAILY [facility] PRN Reason: Protocol Stop: 01/12/18 10:01 Last Admin: 01/09/18 09:07 Dose: 133 mls/hr Ceftriaxone Sodium (Rocephin Iv 1 Gm Duplex) 50 mls @ 100 mls/hr IVPB Q12H [facility] PRN Reason: Protocol Last Admin: 01/09/18 12:40 Dose: 100 mls/hr Insulin Human Regular (Novolin R) 0 unit SC ACHS [facility] PRN Reason: Protocol Last Admin: 01/09/18 21:38 Dose: Not Given Lorazepam (Ativan) 0.5 mg IVP Q4H PRN PRN Reason: Anxiety Last Admin: 01/09/18 21:30 Dose: 0.5 mg Ondansetron HCl (Zofran Inj) 4 mg IVP Q6H PRN PRN Reason: Nausea/Vomiting Pantoprazole Sodium (Protonix Ec Tab) 40 mg PO DAILY [facility] Last Admin: 01/09/18 09:07 Dose: 40 mg Saccharomyces Boulardii (Florastor) 250 mg PO Q12 [facility] Last Admin: 01/09/18 21:36 Dose: 250 mg Tamsulosin HCl (Flomax) 0.4 mg PO DAILY [facility] Last Admin: 01/09/18 09:07 Dose: 0.4 mg - Labs Labs: 01/09/18 07:16 01/09/18 07:16 PT 12.7 SECONDS (9.7-12.2) H 01/04/18 11:16 INR 1.2 01/04/18 11:16 APTT 30 SECONDS (21-34) 01/04/18 11:16 Assessment and Plan (1) Fever Assessment & Plan: S/P EVACUATION OF B/L SUBDURAL HEMATOMAS 01/05/18 ON IV ROCEPHIN 1GM IV PB [id number]. 01/01/18 -DC IN AM ON IV [id number] IVPB Q 24HRLY 01/01/18 X DCIN AM MONITOR RENAL FUNCTIONS CLOSELY. S/P FOLYS INSERTION . CONSIDER DC FOLYS . Status: Acute (2) Subdural hemorrhage Status: Acute (3) Toe fracture Assessment & Plan: RT TOE IN DRESSING. Status: Acute (4) Diabetes Status: Chronic (5) HTN (hypertension) Status: Chronic
[2018-01-10] MEDS: cefTRIAXone IV 1 gm in Dextros 50 ML IVPB SCH ×2 (02:05→12:38)
[2018-01-10] MEDS: (Novolin R) Insulin Human Regular 100 units/ml vial SC SCH ×4 (08:16→21:47)
[2018-01-10] MEDS: Saccharomyces Boulardi 250 mg Cap PO SCH ×2 (09:07→21:24)
[2018-01-10] MEDS: Pantoprazole 40 mg EC Tab PO SCH (09:08)
[2018-01-10] MEDS: Vancomycin 1 gm/NS 200 ml 1 GM/200 ML BAG IVPB SCH (09:11)
--- NOTE | 2018-01-10 14:28 | CP.PCM.PN ---
Subjective - Date & Time of Evaluation Date of Evaluation: 01/10/18 Time of Evaluation: 14:28 - Subjective Subjective: postop # 5. Patient is improving mental status stable no neuro deficit Lack of insurance coverage for rehab Family wants to take patient home. Discussed with neurosurgery if okay Objective - Vital Signs/Intake and Output Vital Signs (last 24 hours): Temp Pulse Resp BP Pulse Ox 98.2 F 85 20 128/72 96 01/10/18 07:49 01/10/18 07:49 01/10/18 07:49 01/10/18 09:07 01/10/18 07:49 - Medications Medications: Current Medications Acetaminophen (Tylenol 325mg Tab) 650 mg PO Q6 PRN PRN Reason: Fever >100.4 F Last Admin: 01/07/18 16:59 Dose: 650 mg Acetaminophen (Tylenol 325mg Tab) 650 mg PO Q6 PRN PRN Reason: Pain, Mild (1-3) Last Admin: 01/09/18 11:37 Dose: 650 mg Enalapril Maleate (Vasotec) 20 mg PO DAILY [facility] Last Admin: 01/10/18 09:07 Dose: 20 mg Vancomycin/Sodium Chloride (Vancomycin 1 Gm/Ns 200 Ml) 1 gm in 200 mls @ 133 mls/hr IVPB DAILY [facility] PRN Reason: Protocol Stop: 01/12/18 10:01 Last Admin: 01/10/18 09:11 Dose: 133 mls/hr Ceftriaxone Sodium (Rocephin Iv 1 Gm Duplex) 50 mls @ 100 mls/hr IVPB Q12H [facility] PRN Reason: Protocol Last Admin: 01/10/18 12:38 Dose: 100 mls/hr Insulin Human Regular (Novolin R) 0 unit SC ACHS [facility] PRN Reason: Protocol Last Admin: 01/10/18 12:17 Dose: 4 units Lorazepam (Ativan) 0.5 mg IVP Q4H PRN PRN Reason: Anxiety Last Admin: 01/10/18 09:03 Dose: 0.5 mg Ondansetron HCl (Zofran Inj) 4 mg IVP Q6H PRN PRN Reason: Nausea/Vomiting Pantoprazole Sodium (Protonix Ec Tab) 40 mg PO DAILY [facility] Last Admin: 01/10/18 09:08 Dose: 40 mg Saccharomyces Boulardii (Florastor) 250 mg PO Q12 [facility] Last Admin: 01/10/18 09:07 Dose: 250 mg Tamsulosin HCl (Flomax) 0.4 mg PO DAILY [facility] Last Admin: 01/10/18 09:09 Dose: 0.4 mg - Labs Labs: 01/09/18 07:16 01/09/18 07:16 PT 12.7 SECONDS (9.7-12.2) H 01/04/18 11:16 INR 1.2 01/04/18 11:16 APTT 30 SECONDS (21-34) 01/04/18 11:16
--- NOTE | 2018-01-10 23:57 | CP.PCM.PN ---
Subjective - Date & Time of Evaluation Date of Evaluation: 01/10/18 Time of Evaluation: 23:57 - Subjective Subjective: CHIEF COMPLAINTS TODAY : S/P OR-POD # 5 B/L CRANIOTOMY/EVACUATION OF B/L SUBDURAL HEMATOMA.01/05/18 VSS PATIENT COMFORTABLE no issues as per staff ROS. HEENT : N. Resp : No cough, wheezing ,pleuritic CP ,or hemoptysis Cardio : No anginal CP, PND, orthopnea, palpitation GI : No abd.pain, n/v ,diarrhea or GI bleeding . 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 Musculoskel : No joint swelling , Derm : No rash Psych : Normal affect. Ext : No swelling ,calf pain +VE FOLYS PE. Pt. is in no distress. V.S As noted in the chart Head ,ear nose,throat and eyes : Normal. Neck : Supple with normal carotids. Lungs: Clear air entry. Heart : S1 & S2 normal with S4. No murmur. Abd : Soft non tender with normal bowel sounds. Neuro : Moves all ext. with no localized deficit. Ext : No edema with intact pulses.Non tender calves Derm : No rashes or decubitus ulcer. LABS/RADIOLOGY. REVIEWED. Objective - Vital Signs/Intake and Output Vital Signs (last 24 hours): Temp Pulse Resp BP Pulse Ox 98.3 F 97 H 18 138/79 97 01/10/18 19:00 01/10/18 22:59 01/10/18 19:00 01/10/18 22:59 01/10/18 15:13 Intake and Output: 01/10/18 01/11/18 18:59 06:59 Intake Total 500 Balance 500 - Medications Medications: Current Medications Acetaminophen (Tylenol 325mg Tab) 650 mg PO Q6 PRN PRN Reason: Fever >100.4 F Last Admin: 01/07/18 16:59 Dose: 650 mg Acetaminophen (Tylenol 325mg Tab) 650 mg PO Q6 PRN PRN Reason: Pain, Mild (1-3) Last Admin: 01/09/18 11:37 Dose: 650 mg Enalapril Maleate (Vasotec) 20 mg PO DAILY [facility] Last Admin: 01/10/18 09:07 Dose: 20 mg Vancomycin/Sodium Chloride (Vancomycin 1 Gm/Ns 200 Ml) 1 gm in 200 mls @ 133 mls/hr IVPB DAILY [facility] PRN Reason: Protocol Stop: 01/12/18 10:01 Last Admin: 01/10/18 09:11 Dose: 133 mls/hr Ceftriaxone Sodium (Rocephin Iv 1 Gm Duplex) 50 mls @ 100 mls/hr IVPB Q12H [facility] PRN Reason: Protocol Last Admin: 01/10/18 12:38 Dose: 100 mls/hr Insulin Human Regular (Novolin R) 0 unit SC ACHS [facility] PRN Reason: Protocol Last Admin: 01/10/18 21:47 Dose: Not Given Lorazepam (Ativan) 0.5 mg IVP Q4H PRN PRN Reason: Anxiety Last Admin: 01/10/18 09:03 Dose: 0.5 mg Ondansetron HCl (Zofran Inj) 4 mg IVP Q6H PRN PRN Reason: Nausea/Vomiting Pantoprazole Sodium (Protonix Ec Tab) 40 mg PO DAILY [facility] Last Admin: 01/10/18 09:08 Dose: 40 mg Saccharomyces Boulardii (Florastor) 250 mg PO Q12 [facility] Last Admin: 01/10/18 21:24 Dose: 250 mg Tamsulosin HCl (Flomax) 0.4 mg PO DAILY [facility] Last Admin: 01/10/18 09:09 Dose: 0.4 mg - Labs Labs: 01/09/18 07:16 01/09/18 07:16 PT 12.7 SECONDS (9.7-12.2) H 01/04/18 11:16 INR 1.2 01/04/18 11:16 APTT 30 SECONDS (21-34) 01/04/18 11:16 Assessment and Plan (1) Fever Status: Acute (2) Subdural hemorrhage Assessment & Plan: S/P EVACUATION OF B/L SUBDURAL HEMATOMAS 01/05/18 DC IV ROCEPHIN 1GM IV PB [id number]. 01/01/18 - 01/11/18 DC IV [id number] IVPB Q 24HRLY 01/01/18 -01/11/18 MONITOR RENAL FUNCTIONS CLOSELY. Status: Acute (3) Toe fracture Status: Acute (4) Diabetes Status: Chronic (5) HTN (hypertension) Status: Chronic
[2018-01-11] MEDS: cefTRIAXone IV 1 gm in Dextros 50 ML IVPB SCH (02:07)
[2018-01-11] MEDS: (Novolin R) Insulin Human Regular 100 units/ml vial SC SCH ×4 (08:16→21:34)
[2018-01-11] MEDS: Pantoprazole 40 mg EC Tab PO SCH (09:35)
[2018-01-11] MEDS: Saccharomyces Boulardi 250 mg Cap PO SCH ×2 (09:35→21:42)
--- NOTE | 2018-01-11 15:26 | CP.PCM.PN ---
Subjective - Date & Time of Evaluation Date of Evaluation: 01/11/18 Time of Evaluation: 15:26 - Subjective Subjective: Currently patient is stable walking in the hallway with assistance. All the drains have been removed. Patient is stable for discharge. We will discharge patient in a.m. after clearance with neurosurgery Objective - Vital Signs/Intake and Output Vital Signs (last 24 hours): Temp Pulse Resp BP Pulse Ox 98.1 F 97 H 20 130/72 99 01/11/18 07:42 01/11/18 07:42 01/11/18 07:42 01/11/18 09:35 01/11/18 07:42 - Medications Medications: Current Medications Acetaminophen (Tylenol 325mg Tab) 650 mg PO Q6 PRN PRN Reason: Fever >100.4 F Last Admin: 01/07/18 16:59 Dose: 650 mg Acetaminophen (Tylenol 325mg Tab) 650 mg PO Q6 PRN PRN Reason: Pain, Mild (1-3) Last Admin: 01/09/18 11:37 Dose: 650 mg Enalapril Maleate (Vasotec) 20 mg PO DAILY [facility] Last Admin: 01/11/18 09:35 Dose: 20 mg Insulin Human Regular (Novolin R) 0 unit SC ACHS AMANDA PRN Reason: Protocol Last Admin: 01/11/18 11:47 Dose: 8 units Lorazepam (Ativan) 0.5 mg IVP Q4H PRN PRN Reason: Anxiety Last Admin: 01/11/18 11:46 Dose: 0.5 mg Ondansetron HCl (Zofran Inj) 4 mg IVP Q6H PRN PRN Reason: Nausea/Vomiting Pantoprazole Sodium (Protonix Ec Tab) 40 mg PO DAILY [facility] Last Admin: 01/11/18 09:35 Dose: 40 mg Saccharomyces Boulardii (Florastor) 250 mg PO Q12 [facility] Last Admin: 01/11/18 09:35 Dose: 250 mg Tamsulosin HCl (Flomax) 0.4 mg PO DAILY [facility] Last Admin: 01/11/18 09:34 Dose: 0.4 mg - Labs Labs: 01/09/18 07:16 01/09/18 07:16 PT 12.7 SECONDS (9.7-12.2) H 01/04/18 11:16 INR 1.2 01/04/18 11:16 APTT 30 SECONDS (21-34) 01/04/18 11:16
[2018-01-12] MEDS: (Novolin R) Insulin Human Regular 100 units/ml vial SC SCH ×4 (08:39→21:40)
[2018-01-12] MEDS: Pantoprazole 40 mg EC Tab PO SCH (09:42)
[2018-01-12] MEDS: Saccharomyces Boulardi 250 mg Cap PO SCH ×2 (09:42→21:29)
[2018-01-12 11:07] LABS: BASO # 0.1 K/uL (0.0-0.2); EOS # 0.2 K/uL (0.0-0.7); EOS % 2.4 % (0.0-4.0); HEMOGLOBIN 10.5 g/dL (12.0-18.0); LYMPH # 1.6 K/uL (1.0-4.3); LYMPH % 22.1 % (20.0-40.0); MEAN CELL VOLUME 95.2 fL (80.0-94.0); MEAN CORPUSCULAR HEMOGLOBIN 33.6 pg (27.0-31.0); MEAN CORPUSCULAR HGB CONC 35.3 g/dL (33.0-37.0); MEAN PLATELET VOLUME 8.6 fL (7.2-11.7); MONO # 0.6 K/uL (0.0-0.8); MONO % 7.9 % (0.0-10.0); NEUT # 4.7 K/uL (1.8-7.0); NEUT % 66.6 % (50.0-75.0); RBC 3.14 Mil/uL (4.40-5.90); RED CELL DISTRIBUTION WIDTH 13.5 % (11.5-14.5)
[2018-01-12 11:30] LABS: ALB/GLOB RATIO 1.2 (1.0-2.1); ALBUMIN 4.1 g/dL (3.5-5.0); ALT/SGPT 44 U/L (21-72); AST/SGOT 31 U/L (17-59); BLOOD UREA NITROGEN 12 mg/dL (9-20); CALCIUM 9.2 mg/dl (8.6-10.4); GFR AFRICAN-AMERICAN > 60; GFR NON-AFRICAN AMERICAN > 60
--- NOTE | 2018-01-12 13:44 | CP.PCM.DIS ---
Provider - Provider Date of Admission: 01/01/18 11:08 Attending physician: Rebecca Aden MD Time Spent in preparation of Discharge (in minutes): 30 Hospital Course - Lab Results Lab Results: Micro Results 01/08/18 04:55 Naris MRSA Culture - Final MRSA NOT DETECTED 01/01/18 11:07 Blood-Venous Blood Culture - Final NO GROWTH AFTER 5 DAYS 01/01/18 11:07 Blood-Venous Gram Stain - Final TEST NOT PERFORMED 01/01/18 11:07 Blood-Venous Blood Culture - Final NO GROWTH AFTER 5 DAYS 01/01/18 11:07 Blood-Venous Gram Stain - Final TEST NOT PERFORMED 01/05/18 19:00 Urine,Catheterized Urine Culture - Final No Growth (<1,000 CFU/ML) 01/05/18 19:00 Nose MRSA Culture (Admit) - Final MRSA NOT DETECTED 01/03/18 01:00 Naris MRSA Culture - Final MRSA NOT DETECTED 01/01/18 13:17 Naris MRSA Culture (Admit) - Final MRSA NOT DETECTED 01/01/18 16:13 Urine,Clean Catch Urine Culture - Final No Growth (<1,000 CFU/ML) Most Recent Lab Values WBC 7.0 K/uL (4.8-10.8) 01/12/18 11:04 RBC 3.14 Mil/uL (4.40-5.90) L 01/12/18 11:04 Hgb 10.5 g/dL (12.0-18.0) L 01/12/18 11:04 Hct 29.9 % (35.0-51.0) L 01/12/18 11:04 MCV 95.2 fL (80.0-94.0) H 01/12/18 11:04 MCH 33.6 pg (27.0-31.0) H 01/12/18 11:04 MCHC 35.3 g/dL (33.0-37.0) 01/12/18 11:04 RDW 13.5 % (11.5-14.5) 01/12/18 11:04 Plt Count 396 K/uL (130-400) D 01/12/18 11:04 MPV 8.6 fL (7.2-11.7) 01/12/18 11:04 Neut % (Auto) 66.6 % (50.0-75.0) 01/12/18 11:04 Lymph % (Auto) 22.1 % (20.0-40.0) 01/12/18 11:04 Fleming % (Auto) 7.9 % (0.0-10.0) 01/12/18 11:04 Eos % (Auto) 2.4 % (0.0-4.0) 01/12/18 11:04 Baso % (Auto) 1.0 % (0.0-2.0) 01/12/18 11:04 Neut # (Auto) 4.7 K/uL (1.8-7.0) 01/12/18 11:04 Lymph # (Auto) 1.6 K/uL (1.0-4.3) 01/12/18 11:04 Fleming # (Auto) 0.6 K/uL (0.0-0.8) 01/12/18 11:04 Eos # (Auto) 0.2 K/uL (0.0-0.7) 01/12/18 11:04 Baso # (Auto) 0.1 K/uL (0.0-0.2) 01/12/18 11:04 Neutrophils % (Manual) 81 % (50-75) H 01/01/18 08:15 Band Neutrophils % 8 % (0-2) H 01/01/18 08:15 Lymphocytes % (Manual) 8 % (20-40) L 01/01/18 08:15 Monocytes % (Manual) 3 % (0-10) 01/01/18 08:15 Platelet Estimate Normal (NORMAL) 01/01/18 08:15 RBC Morphology Normal 01/01/18 08:15 ESR 28 mm/hr (0-15) H 01/02/18 06:39 PT 12.7 SECONDS (9.7-12.2) H 01/04/18 11:16 INR 1.2 01/04/18 11:16 APTT 30 SECONDS (21-34) 01/04/18 11:16 Sodium 137 mmol/L (132-148) 01/12/18 11:04 Potassium 4.4 mmol/L (3.6-5.2) 01/12/18 11:04 Chloride 98 mmol/L (98-107) 01/12/18 11:04 Carbon Dioxide 27 mmol/L (22-30) 01/12/18 11:04 Anion Gap 16 (10-20) 01/12/18 11:04 BUN 12 mg/dL (9-20) 01/12/18 11:04 Creatinine 0.8 mg/dL (0.8-1.5) 01/12/18 11:04 Est GFR ( Amer) > 60 01/12/18 11:04 Est GFR (Non-Af Amer) > 60 01/12/18 11:04 POC Glucose (mg/dL) 338 mg/dL (65-110) H 01/12/18 10:59 Random Glucose 329 mg/dL (75-110) H 01/12/18 11:04 Hemoglobin A1c 6.2 % (4.2-6.5) 01/03/18 07:30 Serum Osmolality 293 mosm/kg (272-300) 01/05/18 07:50 Calcium 9.2 mg/dl (8.6-10.4) 01/12/18 11:04 Phosphorus 2.9 mg/dL (2.5-4.5) 01/09/18 07:16 Magnesium 2.0 mg/dL (1.6-2.3) 01/09/18 07:16 Total Bilirubin 0.8 mg/dL (0.2-1.3) 01/12/18 11:04 Direct Bilirubin 0.3 mg/dL (0.0-0.4) 01/02/18 06:40 AST 31 U/L (17-59) 01/12/18 11:04 ALT 44 U/L (21-72) 01/12/18 11:04 Alkaline Phosphatase 81 U/L (38-126) 01/12/18 11:04 Total Creatine Kinase 365 U/L (55-170) H 01/01/18 08:15 CK-MB (Mass) 1.10 ng/mL (0.0-3.38) 01/01/18 08:15 Troponin I 0.0160 ng/mL (0.00-0.120) 01/01/18 08:15 C-Reactive Protein 161.50 mg/L (0.0-9.9) H 01/02/18 06:40 Total Protein 7.6 g/dL (6.3-8.3) 01/12/18 11:04 Albumin 4.1 g/dL (3.5-5.0) 01/12/18 11:04 Globulin 3.5 gm/dL (2.2-3.9) 01/12/18 11:04 Albumin/Globulin Ratio 1.2 (1.0-2.1) 01/12/18 11:04 Urine Color Straw (YELLOW) 01/05/18 22:59 Urine Clarity Clear (Clear) 01/05/18 22:59 Urine pH 6.0 (5.0-8.0) 01/05/18 22:59 Ur Specific Revloc 1.011 (1.003-1.030) 01/05/18 22:59 Urine Protein Negative mg/dL (NEGATIVE) 01/05/18 22:59 Urine Glucose (UA) 1+ mg/dL (Normal) H 01/05/18 22:59 Urine Ketones 1+ mg/dL (NEGATIVE) H 01/05/18 22:59 Urine Blood 2+ (NEGATIVE) H 01/05/18 22:59 Urine Nitrate Negative (NEGATIVE) 01/05/18 22:59 Urine Bilirubin Negative (NEGATIVE) 01/05/18 22:59 Urine Urobilinogen Normal mg/dL (0.2-1.0) 01/05/18 22:59 Ur Leukocyte Esterase 2+ Tayo/uL (Negative) H 01/05/18 22:59 Urine WBC (Auto) 11 /hpf (0-5) H 01/05/18 22:59 Urine RBC (Auto) 21 /hpf (0-3) H 01/05/18 22:59 Urine Bacteria Rare (<OCC) 01/05/18 22:59 Vancomycin Trough 7.5 ug/mL (5.0-10.0) 01/04/18 06:53 - Hospital Course Hospital Course: As per the patient banged his right foot against the furniture and since then been complaining of pain patient was evaluated in [facility] emergency room was found to have a fracture of the fourth digit and is under the care of the menu planner currently. Patient was also has history of increasing confusion from his previous baseline of Alzheimer's and evaluated with CAT scan of the head. The CAT scan of the head showed TOOLSMITH shunt and bilateral subdural with increased blood products compared to the done on 12/12/2017. There is more compression of the brain tissue than the previous CAT scan. Patient is now admitted for further evaluation and evacuation of the subdural hematomas. The exit date of subdural hematoma is not known because the last CAT scan was done in July 2017 which did not reveal any subdural. During that time patient had an normal pressure hydrocephalus and he underwent ventriculoperitoneal shunt. PAST HIST. History of type 2 diabetes hypertension, mild reduced left ventricle ejection fraction on echo done in July 2017, left ventricle ejection fraction of 45%, unifocal PVCs during that admission. History of dementia, early Alzheimer's with baseline periods of confusion. Patient lives with his and children History of prostate surgery After 48 hours, patient underwent bilateral craniotomy with evacuation of subdural clot. Septic workup was negative. Patient had no complication postoperatively for 48 hours after the surgery patient was walking in the hallway with no symptoms. Prior to that patient had periods of confusion and agitation requiring Ativan [id number]. It was decided the patient should go to rehab but due to insurance issues it was declined. Patient is now discharged home to continue his current medications and follow- up with the neurosurgery. Discharge Exam - Head Exam Head Exam: NORMAL INSPECTION Discharge Plan - Discharge Medications Prescriptions: Tamsulosin [Flomax] 0.4 mg PO DAILY 30 Days cap - Follow Up Plan Condition: STABLE Disposition: HOME/ ROUTINE Instructions: Craniotomy, Toe Fracture (DC), Fever, Adult (DC), Subdural Hematoma (DC) Additional Instructions: FOLLOW UP WITH [facility] IN 1-2 WEEK AT HIS OFFICE ---CALL FOR APPOINTMENT FOLLOW UP WITH [facility] IN 2 WEEKS AT HIS OFFICE --CALL FOR APPOINTMENT CONTINUE ALL HOME MEDICATION NEW PRESCRIPTION GIVEN FLOMAX 0.4 MG PO DAILY ACTIVITY TOLERATED CALL DR ADEN OR DR CAMPOS OR GO TO THE EMERGENCY ROOM IF SYMPTOMS RETURN OR WORSENING Referrals: Jason Campos MD [Staff Provider] - Varinder Shaw MD [Staff Provider] - Rebecca Aden MD [Staff Provider] - Donna Sorto DPM [Staff Provider] -
--- NOTE | 2018-01-12 16:20 | CT ---
PROCEDURE: CT HEAD WITHOUT CONTRAST. HISTORY: poss seizure COMPARISON: Noncontrast head CT 01/07/2018. TECHNIQUE: Axial computed tomography images were obtained through the head/brain without intravenous contrast. Radiation dose: Total exam DLP = 994.65 mGy-cm. This CT exam was performed using one or more of the following dose reduction techniques: Automated exposure control, adjustment of the mA and/or kV according to patient size, and/or use of iterative reconstruction technique. FINDINGS: HEMORRHAGE: No interval intracranial hemorrhage is appreciated however residual limited hemorrhagic products of varying stages of degradation are identified at the bilateral cerebral convexities mildly once again. Diminishing pneumocephaly is appreciate status post removal of bilateral subdural drains with ventricular shunt unchanged in position entering the right parietal bone and terminating at the anterior limb left internal capsule. No significant parafalcine or tentorial related hemorrhage is appreciated at this time. BRAIN: No definite cortical lucency is appreciated with mild to moderate diffuse cerebral atrophy reiterated. The brain parenchyma appears stable in the interval overall posterior fossa contents are stable as well, including the brainstem. A minimal, stable rightward midline shift is identified at 3 mm once again. VENTRICLES: No hydrocephalus identified at this time. No hemocephalus. CALVARIUM: Bifrontotemporal craniotomies are reiterated. PARANASAL SINUSES: Unremarkable as visualized. No significant inflammatory changes. MASTOID AIR CELLS: Unremarkable as visualized. No inflammatory changes. OTHER FINDINGS: None. IMPRESSION: 1. No new interval intracranial hemorrhage. Patient status post removal of bilateral subdural drainage catheters. Pneumocephaly is markedly reduced in the interval with limited residual. Minimal rightward midline shift is stable, 3 mm. 2. No hydrocephalus. Ventricular shunt unchanged in position. 3. Nonacute subdural hemorrhagic products are seen in variable stages of degradation without increased, interval hemorrhage. Continued clinical and imaging follow-up are advised.
[2018-01-12] MEDS: Lacosamide 100 MG Tab PO SCH (18:04)
[2018-01-13 06:01] VITALS: RESP 20
[2018-01-13 07:56] VITALS: PULSE 94; TEMP 98; O2SAT 96
[2018-01-13 08:00] VITALS: BP 119/71
[2018-01-13] MEDS: (Novolin R) Insulin Human Regular 100 units/ml vial SC SCH ×3 (08:30→17:12)
[2018-01-13] MEDS: Lacosamide 100 MG Tab PO SCH ×2 (10:03→18:07)
[2018-01-13] MEDS: Pantoprazole 40 mg EC Tab PO SCH (10:03)
[2018-01-13] MEDS: Saccharomyces Boulardi 250 mg Cap PO SCH (10:03)
--- NOTE | 2018-01-13 10:07 | CP.PCM.CON ---
History of Present Illness - History of Present Illness History of Present Illness: PGY-1 Neurology Consult Note for Dr. Sherman's service Mr. Camacho is a 77 y/o M with PMHx of dementia and early Alzheimer's who presented to [facility] with increased confusion from his previous baseline of Alzheimer's and was evaluated with CT scan of the head. 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 Pt was admitted for further evaluation and evacuation of the subdural. After 48 hours, patient underwent b/l craniotomy with evacuation of subdural clot. Pt had no complications 48 hrs post-operatively and was walking in the hallways with no symptoms. Prior to that, patient had periods of confusion and agitation requiring Ativan around the clock. Pt was observed to have R sided facial twitching by RN yesterday, no limb involvement. Pt's family at bedside noted that he has had increased agitation about leaving the hospital to "go back to work". Neurology consulted for possible seizure. PMHx-dementia, early Alzheimer's with baseline periods of confusion, DM Type II , mildly reduced LV EF (45%, ECHO 07/2017), unifocal PVCs during that admission PSHx- prostate surgery FHx- unknown Social Hx-Quit smoking few years ago with long smoking history in the past; no alcohol or drug use; pt lives with his and children Meds- denies ever being on seizure medication Allergies- NKDA PMD- None Review of Systems - Review of Systems All systems: reviewed and no additional remarkable complaints except - Neurological Neurological: Confusion - Psychiatric Psychiatric: Anxiety, Irritability Past Patient History - Infectious Disease Hx of Infectious Diseases: None - Past Medical History & Family History Past Medical History?: Yes - Past Social History Smoking Status: Never Smoked - CARDIAC Hx Hypercholesterolemia: Yes Hx Hypertension: Yes - PULMONARY Hx Respiratory Disorders: No - NEUROLOGICAL Hx Alzheimer's Disease: Yes (yes, per [facility]AS report) Hx Parkinson's Disease: Yes - HEENT Hx HEENT Problems: No - RENAL Hx Chronic Kidney Disease: No - ENDOCRINE/METABOLIC Hx Diabetes Mellitus Type 2: Yes - HEMATOLOGICAL/ONCOLOGICAL Hx Blood Disorders: No - INTEGUMENTARY Hx Dermatological Problems: No - MUSCULOSKELETAL/RHEUMATOLOGICAL Hx Falls: Yes - GASTROINTESTINAL Hx Gastrointestinal Disorders: No - GENITOURINARY/GYNECOLOGICAL Hx Genitourinary Disorders: Yes Hx Prostate Problems: Yes - PSYCHIATRIC Hx Substance Use: No (unknown) - SURGICAL HISTORY Hx Surgeries: Yes Other/Comment: prostate surgery. has a pump in the bladder to pump urine ??? s /p ventricular peritoneal shunt placed on 07/22/17 - ANESTHESIA Hx Anesthesia: Yes Hx Anesthesia Reactions: No Hx Malignant Hyperthermia: No Meds Home Medications: Home Medication List Medication Instructions Recorded Confirmed Type Tamsulosin [Flomax] 0.4 mg PO DAILY 30 Days cap 01/12/18 Rx Allergies/Adverse Reactions: Allergies Allergy/AdvReac Type Severity Reaction Status Date / Time No Known Allergies Allergy Verified 01/01/18 07:15 - Medications Medications: Current Medications Acetaminophen (Tylenol 325mg Tab) 650 mg PO Q6 PRN PRN Reason: Fever >100.4 F Last Admin: 01/07/18 16:59 Dose: 650 mg Acetaminophen (Tylenol 325mg Tab) 650 mg PO Q6 PRN PRN Reason: Pain, Mild (1-3) Last Admin: 01/09/18 11:37 Dose: 650 mg Enalapril Maleate (Vasotec) 20 mg PO DAILY [facility] Last Admin: 01/12/18 09:42 Dose: 20 mg Insulin Human Regular (Novolin R) 0 unit SC ACHS [facility] PRN Reason: Protocol Last Admin: 01/13/18 08:30 Dose: 3 units Lacosamide (Vimpat) 100 mg PO BID [facility] Last Admin: 01/12/18 18:04 Dose: 100 mg Lorazepam (Ativan) 0.5 mg IVP Q4H PRN PRN Reason: Anxiety Last Admin: 01/11/18 11:46 Dose: 0.5 mg Ondansetron HCl (Zofran Inj) 4 mg IVP Q6H PRN PRN Reason: Nausea/Vomiting Pantoprazole Sodium (Protonix Ec Tab) 40 mg PO DAILY [facility] Last Admin: 01/12/18 09:42 Dose: 40 mg Saccharomyces Boulardii (Florastor) 250 mg PO Q12 [facility] Last Admin: 01/12/18 21:29 Dose: 250 mg Tamsulosin HCl (Flomax) 0.4 mg PO DAILY [facility] Last Admin: 01/12/18 09:42 Dose: 0.4 mg Physical Exam - Constitutional Appears: Well - Head Exam Additional comments: s/p craniotomy, sutures intact - Eye Exam Eye Exam: EOMI, Normal appearance - ENT Exam ENT Exam: Mucous Membranes Moist, Normal Exam - Neck Exam Neck exam: Positive for: Normal Inspection - Respiratory Exam Respiratory Exam: Clear to Auscultation Bilateral - Cardiovascular Exam Cardiovascular Exam: REGULAR RHYTHM, +S1, +S2 - Neurological Exam Neurological exam: Alert, Normal Gait - Expanded Neurological Exam Expanded Speech: Fluid Speech Cranial nerves: EOM's Intact: Normal, Nystagmus: Normal, Tongue Deviation: Normal Upper motor neuron: Pronator Drift: Normal Neuro motor strength exam: Left Upper Extremity: 5, Right Upper Extremity: 5, Left Lower Extremity: 5, Right Lower Extremity: 5 - Psychiatric Exam Psychiatric exam: Normal Affect, Normal Mood - Skin Skin Exam: Normal Color, Warm Results - Vital Signs Recent Vital Signs: Last Vital Signs Temp 98 F 01/13/18 07:53 Pulse 94 H 01/13/18 07:53 Resp 20 01/13/18 07:53 BP 119/71 01/13/18 07:53 Pulse Ox 96 01/13/18 07:53 - Labs Result Diagrams: 01/12/18 11:04 01/12/18 11:04 Labs: Laboratory Results - last 24 hr 01/12/18 01/12/18 01/12/18 10:59 11:04 11:04 WBC 7.0 RBC 3.14 L Hgb 10.5 L Hct 29.9 L MCV 95.2 H MCH 33.6 H MCHC 35.3 RDW 13.5 Plt Count 396 D MPV 8.6 Neut % (Auto) 66.6 Lymph % (Auto) 22.1 [place] % (Auto) 7.9 Eos % (Auto) 2.4 Baso % (Auto) 1.0 Neut # (Auto) 4.7 Lymph # (Auto) 1.6 [place] # (Auto) 0.6 Eos # (Auto) 0.2 Baso # (Auto) 0.1 Sodium 137 Potassium 4.4 Chloride 98 Carbon Dioxide 27 Anion Gap 16 BUN 12 Creatinine 0.8 Est GFR ( Amer) > 60 Est GFR (Non-Af Amer) > 60 POC Glucose (mg/dL) 338 H Random Glucose 329 H Calcium 9.2 Total Bilirubin 0.8 AST 31 ALT 44 Alkaline Phosphatase 81 Total Protein 7.6 Albumin 4.1 Globulin 3.5 Albumin/Globulin Ratio 1.2 Prolactin 01/12/18 01/12/18 01/12/18 15:34 16:37 21:22 WBC RBC Hgb Hct MCV MCH MCHC RDW Plt Count MPV Neut % (Auto) Lymph % (Auto) [place] % (Auto) Eos % (Auto) Baso % (Auto) Neut # (Auto) Lymph # (Auto) [place] # (Auto) Eos # (Auto) Baso # (Auto) Sodium Potassium Chloride Carbon Dioxide Anion Gap BUN Creatinine Est GFR ( Amer) Est GFR (Non-Af Amer) POC Glucose (mg/dL) 229 H 205 H Random Glucose Calcium Total Bilirubin AST ALT Alkaline Phosphatase Total Protein Albumin Globulin Albumin/Globulin Ratio Prolactin 8.5 01/13/18 06:24 WBC RBC Hgb Hct MCV MCH MCHC RDW Plt Count MPV Neut % (Auto) Lymph % (Auto) [place] % (Auto) Eos % (Auto) Baso % (Auto) Neut # (Auto) Lymph # (Auto) [place] # (Auto) Eos # (Auto) Baso # (Auto) Sodium Potassium Chloride Carbon Dioxide Anion Gap BUN Creatinine Est GFR ( Amer) Est GFR (Non-Af Amer) POC Glucose (mg/dL) 207 H Random Glucose Calcium Total Bilirubin AST ALT Alkaline Phosphatase Total Protein Albumin Globulin Albumin/Globulin Ratio Prolactin Assessment & Plan - Assessment and Plan (Free Text) Assessment: Seizure Possible focal seizure activity secondary to tissue injury in the setting of TUMBLER MACHINE OPERATOR shunt and craniotomy for b/l subdural hematoma. CT head (01/12) shows nonacute subdural hemorrhagic products in various stages of degradation with no new interval intracranial hemorrhage; no hydrocephalus, TUMBLER MACHINE OPERATOR shunt remains unchanged in position Facial twitching noted by RN with no limb involvement Increased agitation noted by family at bedside Recommend Vimpat 100 mg PO BID to address focal seizure activity as well as increased agitation Management as per Dr. Sherman - Date & Time Date: 01/12/18
--- NOTE | 2018-01-13 13:45 | CP.PCM.PN ---
Subjective - Date & Time of Evaluation Date of Evaluation: 01/13/18 Time of Evaluation: 13:43 - Subjective Subjective: At the time of discharge yesterday, patient became agitated and the nurse noticed there was a twitching on the right side of the face. There was no any twitching or any abnormal movement of the upper and lower extremity there was no loss of consciousness or change of mental status. CAT scan of the head repeat shows no new hemorrhage or new findings. Neuro consult was obtained and patient is in Vimpat twice a day. We will also patient for another 24 hours if stable will discharge Objective - Vital Signs/Intake and Output Vital Signs (last 24 hours): Temp Pulse Resp BP Pulse Ox 98 F 94 H 20 119/71 96 01/13/18 07:53 01/13/18 07:53 01/13/18 07:53 01/13/18 10:04 01/13/18 07:53 - Medications Medications: Current Medications Acetaminophen (Tylenol 325mg Tab) 650 mg PO Q6 PRN PRN Reason: Fever >100.4 F Last Admin: 01/07/18 16:59 Dose: 650 mg Acetaminophen (Tylenol 325mg Tab) 650 mg PO Q6 PRN PRN Reason: Pain, Mild (1-3) Last Admin: 01/09/18 11:37 Dose: 650 mg Enalapril Maleate (Vasotec) 20 mg PO DAILY [facility] Last Admin: 01/13/18 10:04 Dose: 20 mg Insulin Human Regular (Novolin R) 0 unit SC ACHS [facility] PRN Reason: Protocol Last Admin: 01/13/18 13:20 Dose: 4 units Lacosamide (Vimpat) 100 mg PO BID [facility] Last Admin: 01/13/18 10:03 Dose: 100 mg Lorazepam (Ativan) 0.5 mg IVP Q4H PRN PRN Reason: Anxiety Last Admin: 01/11/18 11:46 Dose: 0.5 mg Ondansetron HCl (Zofran Inj) 4 mg IVP Q6H PRN PRN Reason: Nausea/Vomiting Pantoprazole Sodium (Protonix Ec Tab) 40 mg PO DAILY [facility] Last Admin: 01/13/18 10:03 Dose: 40 mg Saccharomyces Boulardii (Florastor) 250 mg PO Q12 [facility] Last Admin: 01/13/18 10:03 Dose: 250 mg Tamsulosin HCl (Flomax) 0.4 mg PO DAILY [facility] Last Admin: 01/13/18 10:03 Dose: 0.4 mg - Labs Labs: 01/12/18 11:04 01/12/18 11:04 PT 12.7 SECONDS (9.7-12.2) H 01/04/18 11:16 INR 1.2 01/04/18 11:16 APTT 30 SECONDS (21-34) 01/04/18 11:16
--- NOTE | 2018-01-13 14:21 | CP.PCM.PN ---
Subjective - Date & Time of Evaluation Date of Evaluation: 01/13/18 Time of Evaluation: 14:21 - Subjective Subjective: PATIENT ADMITTED FOR SUBDURAL HEMORRHAGE ALERT / AT THE BEDSIDE DENIES ANY HEADACHE CHEST PAIN / SOB NO SIGN OF DISTRESS NOTED Objective - Vital Signs/Intake and Output Vital Signs (last 24 hours): Temp Pulse Resp BP Pulse Ox 98 F 94 H 20 119/71 96 01/13/18 07:53 01/13/18 07:53 01/13/18 07:53 01/13/18 10:04 01/13/18 07:53 - Medications Medications: Current Medications Acetaminophen (Tylenol 325mg Tab) 650 mg PO Q6 PRN PRN Reason: Fever >100.4 F Last Admin: 01/07/18 16:59 Dose: 650 mg Acetaminophen (Tylenol 325mg Tab) 650 mg PO Q6 PRN PRN Reason: Pain, Mild (1-3) Last Admin: 01/09/18 11:37 Dose: 650 mg Enalapril Maleate (Vasotec) 20 mg PO DAILY [facility] Last Admin: 01/13/18 10:04 Dose: 20 mg Insulin Human Regular (Novolin R) 0 unit SC ACHS [facility] PRN Reason: Protocol Last Admin: 01/13/18 13:20 Dose: 4 units Lacosamide (Vimpat) 100 mg PO BID [facility] Last Admin: 01/13/18 10:03 Dose: 100 mg Lorazepam (Ativan) 0.5 mg IVP Q4H PRN PRN Reason: Anxiety Last Admin: 01/11/18 11:46 Dose: 0.5 mg Ondansetron HCl (Zofran Inj) 4 mg IVP Q6H PRN PRN Reason: Nausea/Vomiting Pantoprazole Sodium (Protonix Ec Tab) 40 mg PO DAILY [facility] Last Admin: 01/13/18 10:03 Dose: 40 mg Saccharomyces Boulardii (Florastor) 250 mg PO Q12 [facility] Last Admin: 01/13/18 10:03 Dose: 250 mg Tamsulosin HCl (Flomax) 0.4 mg PO DAILY [facility] Last Admin: 01/13/18 10:03 Dose: 0.4 mg - Labs Labs: 01/12/18 11:04 01/12/18 11:04 PT 12.7 SECONDS (9.7-12.2) H 01/04/18 11:16 INR 1.2 01/04/18 11:16 APTT 30 SECONDS (21-34) 01/04/18 11:16 Assessment and Plan - Assessment and Plan (Free Text) Assessment: PATIENT SEEN AND EXAMINED AT THE BEDSIDE LUNG SOUND CLEAR MAKI NEUROLOGIST ASCENCION FOR POSS SEIZURE CLEAR PATIENT FOR DC ON ANTISEIZURE MEDS PHYSICAL THERAPY RECOMMEND ANGIE BUT THE FAMILY AND THE REFUSE AND WANT TO TAKE HIM HOME INSTEAD DISCUSS WITH DR THURMAN AND DR CAROLINA WHO CLEAR THE PATIENT FOR DC FOLLOW UP WITH [facility] IN 1-2 WEEK AT HIS OFFICE ---CALL FOR APPOINTMENT FOLLOW UP WITH [facility] IN 2 WEEKS AT HIS OFFICE --CALL FOR APPOINTMENT CONTINUE ALL HOME MEDICATION NEW PRESCRIPTION GIVEN FLOMAX 0.4 MG PO DAILY vampat 100 mg po bid HOME PHYSICAL THERAPY / ACTIVITY TOLERATED CALL DR THURMAN OR DR CAMPOS OR GO TO THE EMERGENCY ROOM IF SYMPTOMS RETURN OR WORSENING DISCUSS WITH AND THE PATIENT WHO AGREE AND VERBALIZED UNDERSTANDING
--- NOTE | 2018-01-13 18:19 | CP.PCM.PN ---
Subjective - Date & Time of Evaluation Date of Evaluation: 01/13/18 Time of Evaluation: 09:00 - Subjective Subjective: PGY-1 Neurology consult f/u for Dr. Sherman's service Mr. Camacho was seen and examined at bedside this morning. No acute events reported overnight. Status remains unchanged. Patient experiences intermittent periods of agitation and irritability where he attempts to jump out of bed and leave the hospital. He remains on 1:1 for patient safety. Objective - Vital Signs/Intake and Output Vital Signs (last 24 hours): Temp Pulse Resp BP Pulse Ox 98 F 94 H 20 119/71 96 01/13/18 07:53 01/13/18 07:53 01/13/18 07:53 01/13/18 10:04 01/13/18 07:53 - Medications Medications: Current Medications Acetaminophen (Tylenol 325mg Tab) 650 mg PO Q6 PRN PRN Reason: Fever >100.4 F Last Admin: 01/07/18 16:59 Dose: 650 mg Acetaminophen (Tylenol 325mg Tab) 650 mg PO Q6 PRN PRN Reason: Pain, Mild (1-3) Last Admin: 01/09/18 11:37 Dose: 650 mg Enalapril Maleate (Vasotec) 20 mg PO DAILY [facility] Last Admin: 01/13/18 10:04 Dose: 20 mg Insulin Human Regular (Novolin R) 0 unit SC ACHS [facility] PRN Reason: Protocol Last Admin: 01/13/18 17:12 Dose: Not Given Lacosamide (Vimpat) 100 mg PO BID [facility] Last Admin: 01/13/18 18:07 Dose: 100 mg Lorazepam (Ativan) 0.5 mg IVP Q4H PRN PRN Reason: Anxiety Last Admin: 01/11/18 11:46 Dose: 0.5 mg Ondansetron HCl (Zofran Inj) 4 mg IVP Q6H PRN PRN Reason: Nausea/Vomiting Pantoprazole Sodium (Protonix Ec Tab) 40 mg PO DAILY [facility] Last Admin: 01/13/18 10:03 Dose: 40 mg Saccharomyces Boulardii (Florastor) 250 mg PO Q12 [facility] Last Admin: 01/13/18 10:03 Dose: 250 mg Tamsulosin HCl (Flomax) 0.4 mg PO DAILY [facility] Last Admin: 01/13/18 10:03 Dose: 0.4 mg - Labs Labs: 01/12/18 11:04 01/12/18 11:04 PT 12.7 SECONDS (9.7-12.2) H 01/04/18 11:16 INR 1.2 01/04/18 11:16 APTT 30 SECONDS (21-34) 01/04/18 11:16 - Constitutional Appears: Well, No Acute Distress - Eye Exam Eye Exam: EOMI, Normal appearance - ENT Exam ENT Exam: Mucous Membranes Moist, Normal Exam - Respiratory Exam Respiratory Exam: Clear to Ausculation Bilateral - Cardiovascular Exam Cardiovascular Exam: REGULAR RHYTHM, +S1, +S2 - Neurological Exam Neurological Exam: Awake, Normal Gait Additional comments: Neurological exam remains unchanged - Psychiatric Exam Psychiatric exam: Normal Affect, Normal Mood - Skin Skin Exam: Dry, Intact, Normal Color, Warm Assessment and Plan - Assessment and Plan (Free Text) Assessment: --Possible focal seizure activity secondary to tissue injury in the setting of PATIENT ADMITTING CLERK shunt and craniotomy for b/l subdural hematoma. --CT head (01/12) shows nonacute subdural hemorrhagic products in various stages of degradation with no new interval intracranial hemorrhage; no hydrocephalus, PATIENT ADMITTING CLERK shunt remains unchanged in position --Facial twitching noted by RN yesterday with no upper or lower extremity involvement --Intermittent periods of irritability, jumping out of bed wanting to go home; has baseline confusion secondary to dementia and early Alzheimer's. Plan: 1. Seizure --Continue with Vimpat 100 mg PO BID to address focal seizure activity as well as increased agitation Management as per Dr. Sherman
== END 2018-01-13 20:10 | disposition home or self-care (01) | DRG 25 ==
LOC: C.ER 07:07 → C.9E 11:08 → C.9I 11:22 → C.5S 01-03 01:40 → C.9S 01-05 13:26 → C.9I 01-05 17:08 → C.5S 01-07 17:35 → UNDODISIN 01-12 12:28
PROVIDERS: ADMIT Internal Medicine Cardiovascular Disease; ATTEND Internal Medicine Cardiovascular Disease
PROC: 0SSPXZZ Reposition Right Toe Phalangeal Joint, External Approach (ICD-10-PCS; 2018-01-01)
PROC: 00C40ZZ Extirpation of Matter from Intracranial Subdural Space, Open Approach (ICD-10-PCS; principal; 2018-01-05 09:00)
DX: I62.00 Nontraumatic subdural hemorrhage, unspecified (principal); G93.5 Compression of brain; G91.2 (Idiopathic) normal pressure hydrocephalus; J98.11 Atelectasis; R65.10 Systemic inflammatory response syndrome (SIRS) of non-infectious origin without acute organ dysfunction; I50.20 Unspecified systolic (congestive) heart failure; G20 Parkinson's disease; F02.80 Dementia in other diseases classified elsewhere, unspecified severity, without behavioral disturbance, psychotic disturbance, mood disturbance, and anxiety; G30.9 Alzheimer's disease, unspecified; E78.00 Pure hypercholesterolemia, unspecified; I11.0 Hypertensive heart disease with heart failure; W22.8XXA Striking against or struck by other objects, initial encounter; Z87.891 Personal history of nicotine dependence; Z98.2 Presence of cerebrospinal fluid drainage device; S93.114A Dislocation of interphalangeal joint of right lesser toe(s), initial encounter; S92.591A Other fracture of right lesser toe(s), initial encounter for closed fracture; E11.628 Type 2 diabetes mellitus with other skin complications; Z79.4 Long term (current) use of insulin; G93.89 Other specified disorders of brain; R45.1 Restlessness and agitation

== ENCOUNTER 2018-01-21 17:54 | Emergency (ER) | payer MEDICAID, MEDICARE ==
[2018-01-21 17:55] VITALS: BMI 23.5
[2018-01-21 18:10] VITALS: RESP 20; TEMP 98.1; O2SAT 98
--- NOTE | 2018-01-21 18:50 | C.PDOC ---
History Of Present Illness 77-year-old male, presents to the emergency department with complaints of urinary frequency and dysuria x3 days. Patient had prostate surgery in past, when they nicked his bladder. Patient has been experiencing trouble voiding since. He notes a pump in his testicles which helps him urinate. He is also complaining of some incontinence. He went to see Dr Oneal this afternoon, who planned outpatient workup, but decided to bring pt to ED for further evaluation. Pt denies any change in bowel habits or back pain. Time Seen by Provider: 01/21/18 18:31 Chief Complaint (Nursing): Abdominal Pain History Per: Patient History/Exam Limitations: no limitations Current Symptoms Are (Timing): Still Present Severity: Moderate Past Medical History Reviewed: Historical Data, Nursing Documentation, Vital Signs Vital Signs: Last Vital Signs Temp 98.1 F 01/21/18 19:04 Pulse 67 01/21/18 19:04 Resp 20 01/21/18 19:04 BP 154/71 H 01/21/18 19:04 Pulse Ox 98 01/21/18 19:04 - Medical History PMH: Alzheimer's Disease (yes, per FAS report), HTN, Hypercholesterolemia, Parkinson's Disease Denies: Chronic Kidney Disease - [facility] Procedures BYPASS CEREB VENT TO PERITON CAV W SYNTH SUB, OPEN (07/18/17) EXTIRPATION OF MATTER FROM SUBDURAL SPACE, OPEN APPROACH (01/01/18) REPOSITION RIGHT TOE PHALANGEAL JOINT, EXTERNAL APPROACH (01/01/18) Family History: States: No Known Family Hx - Social History Hx Alcohol Use: No (unknown) Hx Substance Use: No (unknown) - Immunization History Hx Tetanus Toxoid Vaccination: No Hx Influenza Vaccination: No Hx Pneumococcal Vaccination: No Review Of Systems Constitutional: Negative for: Fever, Chills Cardiovascular: Negative for: Chest Pain Respiratory: Negative for: Shortness of Breath Gastrointestinal: Negative for: Nausea, Vomiting Genitourinary: Positive for: Dysuria, Frequency, Incontinence. Negative for: Hematuria, Penile Discharge, Scrotal Pain, Rash Musculoskeletal: Negative for: Back Pain Skin: Negative for: Rash Neurological: Negative for: Weakness, Headache, Dizziness Physical Exam - Physical Exam Appears: Non-toxic, No Acute Distress Skin: Normal Color, Warm, Dry Head: Atraumatic, Normacephalic Eye(s): bilateral: Normal Inspection, PERRL, EOMI Nose: Normal Oral Mucosa: Moist Lips: Normal Appearing Neck: Normal ROM Cardiovascular: Rhythm Regular, No Murmur Respiratory: Normal Breath Sounds, No Accessory Muscle Use Gastrointestinal/Abdominal: Soft, No Tenderness Back: Normal Inspection Extremity: Normal ROM, No Deformity, No Swelling Neurological/Psych: Oriented x3, Normal Speech ED Course And Treatment - Laboratory Results Result Diagrams: 01/21/18 18:51 01/21/18 18:51 Lab Interpretation: No Acute Changes O2 Sat by Pulse Oximetry: 98 (RA) Pulse Ox Interpretation: Normal - Physician Consult Information Time Consulting Physician Contacted: 19:16 Physician Contacted: Braden Oneal Jr. Outcome Of Conversation: He knows the patient well and will follow up in the office. Disposition Counseled Patient/Family Regarding: Studies Performed, Diagnosis, Need For Followup - Disposition Referrals: Braden Oneal Jr., MD [Staff Provider] - Disposition: HOME/ ROUTINE Disposition Time: 19:17 Condition: STABLE Instructions: Dysuria, Adult (DC) Forms: [employer] (Maldivian) Print Language: MALAYSIAN - Clinical Impression Clinical Impression: Dysuria, Urinary frequency - Scribe Statement The provider has reviewed the documentation as recorded by the Scribe (Saira Liao) All medical record entries made by the Scribe were at my direction and personally dictated by me. I have reviewed the chart and agree that the record accurately reflects my personal performance of the history, physical exam, medical decision making, and the department course for this patient. I have also personally directed, reviewed, and agree with the discharge instructions and disposition.
[2018-01-21 18:57] LABS: BASO # 0.1 K/uL (0.0-0.2); BASO % 0.7 % (0.0-2.0); EOS # 0.3 K/uL (0.0-0.7); EOS % 3.9 % (0.0-4.0); HEMOGLOBIN 10.1 g/dL (12.0-18.0); LYMPH # 2.2 K/uL (1.0-4.3); LYMPH % 28.3 % (20.0-40.0); MEAN CELL VOLUME 94.5 fL (80.0-94.0); MEAN CORPUSCULAR HEMOGLOBIN 32.4 pg (27.0-31.0); MEAN CORPUSCULAR HGB CONC 34.3 g/dL (33.0-37.0); MEAN PLATELET VOLUME 8.8 fL (7.2-11.7); MONO # 0.5 K/uL (0.0-0.8); MONO % 6.5 % (0.0-10.0); NEUT # 4.7 K/uL (1.8-7.0); NEUT % 60.6 % (50.0-75.0); RBC 3.12 Mil/uL (4.40-5.90); RED CELL DISTRIBUTION WIDTH 13.6 % (11.5-14.5); WHITE BLOOD COUNT 7.7 K/uL (4.8-10.8)
[2018-01-21 19:02] LABS: URINE BILIRUBIN NEGATIVE (NEGATIVE); URINE BLOOD 1+ (NEGATIVE); URINE CLARITY Clear (Clear); URINE COLOR Yellow (YELLOW); URINE GLUCOSE (UA) 3+ mg/dL (Normal); URINE LEUKOCYTE ESTERASE NEG Leu/uL (Negative); URINE PROTEIN NEGATIVE (NEGATIVE); URINE UROBILINOGEN NORMAL mg/dL (0.2-1.0)
[2018-01-21 19:04] VITALS: BP 154/71; PULSE 67
[2018-01-21 19:09] LABS: ALB/GLOB RATIO 1.4 (1.0-2.1); ALBUMIN 4.2 g/dL (3.5-5.0); ALT/SGPT 23 U/L (21-72); AST/SGOT 20 U/L (17-59); BLOOD UREA NITROGEN 23 mg/dL (9-20); CALCIUM 9.3 mg/dl (8.6-10.4); GFR AFRICAN-AMERICAN > 60; GFR NON-AFRICAN AMERICAN 59
== END 2018-01-21 19:33 | disposition home or self-care (01) ==
LOC: C.ER 17:54
DX: R30.0 Dysuria (principal); R35.0 Frequency of micturition

== ENCOUNTER 2018-04-22 10:46 | Emergency (ER) | payer MEDICARE, MEDICAID ==
[2018-04-22 10:47] VITALS: BMI 23.5
--- NOTE | 2018-04-22 14:08 | C.PDOC ---
Addendum entered and electronically signed by Kamron Kaba MD 04/22/18 23:08: Addendum Addendum: 04/22/18 23:07 Patient was evaluated by crisis, crisis spoke with Dr. Osorio and Dr. Pepper who both state patient does not meet criteria for geriatric psych admission at [facility]. Patient will be DC home. Addendum entered and electronically signed by Kamron Kaba MD 04/22/18 23:05: Disposition Discussed With Dr.: Dora Pepper Comment: Dr. Osorio consulted Clinical Impression: Alzheimer disease, Dementia Disposition: HOME/ ROUTINE Disposition Time: 23:04 Condition: STABLE Instructions: Dementia (DC) Stand Alone Forms: [employer] (Vietnamese) - POA Present On Arrival: None Original Note: History Of Present Illness 77-year-old male, whose PMHx includes Advanced Dementia and Alzheimer's Disease, presents to the ED with his for medical clearance. As per , patient has been unable to sleep for the past week. Patient's states he often wakes up during the night and tries to walk outside of the house. Patient was evaluated at [facility] ED four days ago and underwent complete medical workup which was negative. Patient was started on Risperdal 1mg by Dr. Ruano. Patient denies any physical complaints at this time. Chief Complaint (Nursing): Medical Clearance History Per: Patient, Family () History/Exam Limitations: no limitations Onset/Duration Of Symptoms: Days Current Symptoms Are (Timing): Still Present Additional History Per: Patient Past Medical History Reviewed: Historical Data, Nursing Documentation, Vital Signs Vital Signs: Last Vital Signs Temp 99.1 F 04/22/18 11:09 Pulse 84 04/22/18 11:09 Resp 19 04/22/18 11:09 BP 115/64 04/22/18 11:09 Pulse Ox 98 04/22/18 11:09 - Medical History PMH: Alzheimer's Disease (yes, per FAS report), Dementia, HTN, Hypercholesterolemia, Parkinson's Disease Denies: Chronic Kidney Disease Surgical History: No Surg Hx - [facility] Procedures BYPASS CEREB VENT TO PERITON CAV W SYNTH SUB, OPEN (07/18/17) EXTIRPATION OF MATTER FROM SUBDURAL SPACE, OPEN APPROACH (01/01/18) REPOSITION RIGHT TOE PHALANGEAL JOINT, EXTERNAL APPROACH (01/01/18) Family History: States: Unknown Family Hx - Social History Hx Alcohol Use: No (unknown) Hx Substance Use: No (unknown) - Immunization History Hx Tetanus Toxoid Vaccination: No Hx Influenza Vaccination: No Hx Pneumococcal Vaccination: No Review Of Systems Psych: Positive for: Other (insomnia ) Physical Exam - Physical Exam Appears: Non-toxic, No Acute Distress Skin: Normal Color, Warm, Dry Head: Atraumatic, Normacephalic Eye(s): bilateral: Normal Inspection Oral Mucosa: Moist Neck: Supple Chest: Symmetrical, No Deformity, No Tenderness Cardiovascular: Rhythm Regular, No Murmur Respiratory: Normal Breath Sounds, No Rales, No Rhonchi, No Wheezing Gastrointestinal/Abdominal: Soft, No Tenderness, No Guarding, No Rebound Extremity: Normal ROM, Capillary Refill (less than 2 seconds ) Neurological/Psych: Other (alert, oriented ) ED Course And Treatment - Laboratory Results Result Diagrams: 04/22/18 14:23 04/22/18 14:23 O2 Sat by Pulse Oximetry: 98 (on RA) Pulse Ox Interpretation: Normal Medical Decision Making Medical Decision Making: Impression: 77 year old male with insomnia Plan: * bloodwork * urinalysis * reassess and disposition Progress: Bloodwork and urinalysis ordered and reviewed. Case discussed with Dr. Ruano, who advised me to speak with Dr. Du Gee. Case discussed with Dr. Gee, who states he will evaluate the patient in the ED and then provide further recommendation. Patient is medically cleared for psychiatric evaluation. Disposition - Disposition Disposition Time: 19:00 Condition: STABLE Forms: [facility] (Vietnamese) - Clinical Impression Clinical Impression: Alzheimer disease, Dementia - Scribe Statement The provider has reviewed the documentation as recorded by the Scribe (Kezia Hayes) Provider Attestation: All medical record entries made by the Scribe were at my direction and personally dictated by me. I have reviewed the chart and agree that the record accurately reflects my personal performance of the history, physical exam, medical decision making, and the department course for this patient. I have also personally directed, reviewed, and agree with the discharge instructions and disposition.
[2018-04-22 14:28] LABS: BASO % 0.4 % (0.0-2.0); EOS # 0.2 K/uL (0.0-0.7); EOS % 2.9 % (0.0-4.0); HEMOGLOBIN 12.7 g/dL (12.0-18.0); LYMPH # 2.5 K/uL (1.0-4.3); LYMPH % 37.2 % (20.0-40.0); MEAN CELL VOLUME 92.5 fL (80.0-94.0); MEAN CORPUSCULAR HEMOGLOBIN 32.3 pg (27.0-31.0); MEAN CORPUSCULAR HGB CONC 34.9 g/dL (33.0-37.0); MEAN PLATELET VOLUME 9.2 fL (7.2-11.7); MONO # 0.6 K/uL (0.0-0.8); MONO % 9.4 % (0.0-10.0); NEUT # 3.3 K/uL (1.8-7.0); NEUT % 50.1 % (50.0-75.0); NRBC % 0.1 % (0.0-2.0); RBC 3.92 Mil/uL (4.40-5.90); WHITE BLOOD COUNT 6.7 K/uL (4.8-10.8)
[2018-04-22 14:33] LABS: URINE BILIRUBIN NEGATIVE (NEGATIVE); URINE BLOOD 2+ (NEGATIVE); URINE CLARITY Clear (Clear); URINE COLOR Colorless (YELLOW); URINE GLUCOSE (UA) NORMAL (Normal); URINE LEUKOCYTE ESTERASE NEG Leu/uL (Negative); URINE PROTEIN NEGATIVE (NEGATIVE); URINE UROBILINOGEN NORMAL mg/dL (0.2-1.0)
[2018-04-22 14:43] LABS: ALB/GLOB RATIO 1.5 (1.0-2.1); ALBUMIN 4.3 g/dL (3.5-5.0); ALT/SGPT 18 U/L (21-72); AST/SGOT 21 U/L (17-59); BLOOD UREA NITROGEN 22 mg/dL (9-20); CALCIUM 9.6 mg/dl (8.6-10.4); GFR NON-AFRICAN AMERICAN > 60
[2018-04-22 14:52] LABS: BARBITURATES, UR NEGATIVE (NEGATIVE); BENZODIAZEPINES, UR NEGATIVE (NEGATIVE); OPIATES, UR NEGATIVE (NEGATIVE); PHENCYCLIDINE, UR NEGATIVE (NEGATIVE)
[2018-04-22 14:57] VITALS: RESP 18
[2018-04-22 21:20] VITALS: BP 172/77; PULSE 66; TEMP 97.7; O2SAT 97
--- NOTE | 2018-04-23 06:46 | CON ---
DATE: 04/22/2018 CHIEF COMPLAINT AND REASON FOR CONSULTATION: The patient is referred by Dr. Ruano for evaluation as the patient has a history of dementia and having behavioral problems at home. The patient also reported he also slipped in one week. reports that the patient's behavior has been getting more problematic at home, the patient is wandering. HISTORY OF PRESENT ILLNESS: This is a case of 74-year-old male of Citizen Of [place] descent. The patient is a patient of Dr. Ruano. The patient was recently seen at [place] four days ago for similar problems and persistent insomnia. The patient at the time was given Risperdal 1 mg at bedtime, but the patient was not sleeping according to the . The patient was also taking Ambien about 10 mg. brought the patient here at [facility] Emergency Room for persistent problems as the patient is not sleeping and getting more confused. According to the , the patient has been wandering, he went out of the house and went to the LRT. He also had been turning on the gas stove and putting something things over the burner. He is getting agitated when redirected. The patient is still not sleeping and getting more agitated. The patient was referred to be seen by the doctors in the emergency room as the reports that she is having difficulty handling him at home due to deterioration of his behavior. PAST PSYCHIATRIC HISTORY: In the chart, history of dementia, chance of almost Alzheimer's type. DRUG AND ALCOHOL HISTORY: The patient does not drink. He used to be a smoker. The patient is a former smoker. ALLERGIES: NO KNOWN ALLERGIES. PAST MEDICAL HISTORY: History of hypertension, diabetes. The patient is followed by Dr. Ruano. The patient was also treated by Dr. Encinas, neurologist. The patient has history of hydrocephalus, diagnosed in 2007. PSYCHOSOCIAL HISTORY: The patient lives with his and four children. VITAL SIGNS: Temperature is 99.1, pulse rate is 84, blood pressure 115/64, respirations 19, and oxygen saturation is 98%. LABORATORY DATA: Review of his labs: The patient has no labs ordered yet. REVIEW OF SYSTEMS: GENERAL: The patient is alert and verbal, still appears to confusion, but not agitated. The patient is seen with his who gave collateral information. SKIN: The patient has a bandage in his left upper extremity. According to the , the patient has an abrasion and has a wound in his left upper extremity. HEENT: No headache or dizziness. NECK: Supple. RESPIRATORY: No dyspnea. CARDIOVASCULAR: No chest pain. GASTROINTESTINAL: No nausea. No vomiting. EXTREMITIES: The patient is ambulatory. MUSCULOSKELETAL: Feels weak. NEURO: Alert with periods of confusion. GENITOURINARY: No urinary problems. MENTAL STATUS EXAMINATION: Elderly male of Citizen Of [place] descent who is about 5 feet 5 inches and weighs 155 pounds. Mood is dysphoric. Affect is reactive. Speech spontaneous. Thought process, confused often. Thought content, no overt psychosis. No suicidal ideation. The patient made aware that the patient may need to be in the hospital for a few days. He said the patient's helped him to convince him to stay in the hospital. The patient agreed earlier to stay in the hospital for few days. No psychosis. No suicidal ideation. Attention and memory seemed to be limited. Insight and judgment limited. Impulse control is fair at this time. IMPRESSION: The patient was seen, meds reviewed. The patient may benefit from geropsychiatric admission. The patient's was trying to convince the patient to sign for geropsychiatry as the patient's could not longer manage him at home due to his behavioral problems and the patient persistently is not sleeping. The patient was given Risperdal, but this is not helping him. The patient may need psychiatric medication re-adjustment in a geropsychiatric setting. I spoke with who ordered some labs as part of the requirement for the patient to be referred to [facility]. The patient at this time due to his behavioral problems may benefit from inpatient geropsychiatric unit for stabilization and medications re-adjustment prior to return to home. Du Oneal MD THUAN
== END 2018-04-22 23:35 | disposition home or self-care (01) ==
LOC: C.ER 10:46
DX: G30.9 Alzheimer's disease, unspecified (principal); F02.80 Dementia in other diseases classified elsewhere, unspecified severity, without behavioral disturbance, psychotic disturbance, mood disturbance, and anxiety; I10 Essential (primary) hypertension; E78.00 Pure hypercholesterolemia, unspecified; G20 Parkinson's disease
CPT/HCPCS: 80053; 81001; 83735; 84100; 85025; 99285; G0480